=== PATIENT | female | born 1985 | race Caucasian/White ===

== ENCOUNTER 2019-08-10 09:14 | Emergency (ER) | payer BC, SELFPAY ==
[2019-08-10] VITALS (18 sets, daily range): BP systolic 107–147; BP diastolic 71–112; PULSE 71–116; RESP 7–23; TEMP 36.9; O2SAT 95–100
--- NOTE | ~2019-08-10 | XR_ITS ---
EXAMINATION: XR chest 2V EXAM DATE: 08/10/2019 09:42 INDICATION: Chest pain. Dizziness. Nausea vomiting. Low blood pressure. TECHNIQUE: Frontal and lateral projections of the chest obtained and reviewed. There is no prior rachel dy for comparison. FINDINGS: The lungs are clear. There are no pleural effusions. The cardiomediastinal silhouette is within normal limits. There is no pneumothorax suspected. The bones and soft tissues are unremarkab le. There are cholecystectomy clips. IMPRESSION: No acute cardiopulmonary findings. Reviewed, dictated and finalized at location B.
--- NOTE | 2019-08-10 09:16 | ECG_ITS ---
Measurements Intervals [place] Rate: 119 P: 32 WA: 167 QRS: -5 QRSD: 89 T: 24 QT: 359 QTc: 505 Interpretive Statements SINUS TACHYCARDIA DELAYED PRECORDIAL R/S TRANSITION BORDERLINE T WAVE ABNORMALITY- INFERIOR LEADS BASELINE ARTIFACT- I, II, III, AVR, AVL, AVF, V1-V2, V4-V5 ABNORMAL ECG Electronically Signed On 08-10-2019 9:27:54 CDT by Go Pérez D.O.
--- NOTE | 2019-08-10 09:25 | ED.CHESTPAIN ---
HPI - Chest Pain General Chief Complaint: Chest Pain Stated Complaint: CP, Dizziness Time Seen by Provider: 08/10/19 09:17 History of Present Illness HPI narrative: She has chest pain and a ALEXANDER all weaknend. The chest pain is moderate intensity. Feels like pressure in the middle of her chest. Associated with heart racing and mild shortness of breath. The ALEXANDER is bilateral without radiation. It was gradual in onset. This is not typical of her usual migraines. She was recently started on victoza. following that she had been having light headedness and labile blood pressure. She was then taken off of propranolol, which she had been taking for migraines. That is when she first noted the onset of her current symptoms. Related Data Home Medications Medication Instructions Recorded Confirmed alprazolam 0.25 mg tablet 0.25 mg PO TID 04/02/19 04/03/19 atorvastatin 20 mg tablet 20 mg PO DAILY 04/02/19 04/03/19 lansoprazole 30 mg capsule,delayed 30 mg PO DAILY 04/02/19 04/03/19 release tizanidine 4 mg capsule 4 mg PO Q6-8H PRN cap 04/02/19 04/03/19 tramadol 50 mg tablet 50 mg PO Q6H PRN 04/02/19 04/03/19 Allergies Allergy/AdvReac Type Severity Reaction Status Date / Time oxycodone Allergy Unknown THROAT Verified 08/05/19 09:03 SWELLING Penicillins Allergy Unknown UNKNOWN-WAS Verified 08/05/19 09:03 CHILD HYDROCODONE BIT Allergy Unknown THROAT Uncoded 08/05/19 09:03 SWELLING Review of Systems Review of Systems: All systems reviewed & are unremarkable except as noted in HPI and below Constitutional: Constitutional: Reports fatigue and Denies fever(s) Eyes: Eyes: Denies change in vision ENT: Denies sore throat Cardiovascular: Cardiovascular: Reports chest pain and Reports rapid heart rate Respiratory: Respiratory: Denies cough and Reports dyspnea Gastrointestinal: Gastrointestinal: Denies abdominal pain Genitourinary: Genitourinary: Denies nocturia and Denies dysuria Musculoskeletal: Musculoskeletal: Denies back pain Integumentary/Breasts: Skin/Breast: Reports system reviewed and no additional complaints, except as docu Neurologic: Reports dizziness, Denies syncope, Reports numbness (finger tips) and Denies weakness Psychiatric: Psychiatric: Reports anxiety Endocrine: Endocrine: Denies polydipsia and Denies polyuria Hematologic/Lymphatic: Hematologic/Lymphatic: Denies easy bleeding PMFSH Past Medical History Medical History Anxiety and depression Elevated cholesterol Fatty liver GERD without esophagitis Intermittent palpitations Irritable bowel syndrome with diarrhea Migraine, unspecified, not intractable, without status migrainosus Myalgia Other symptoms and signs involving emotional state PCOS (polycystic ovarian syndrome) Swelling of both hands Vitamin D deficiency Surgical History Surgical History History of abdominal surgery History of ankle surgery History of cholecystectomy History of colposcopy History of knee surgery Family History Family History Father Hypertension Mother Hypertension Other Cerebrovascular accident Social History Social History Smoking status: Never smoker Second hand tobacco smoke exposure: No Alcohol intake: never Gender identity (if verbalized by the patient): Female Exam Const: General: no acute distress and alert Orientation/consciousness: patient oriented x3 HENMT: Head: normal to inspection Eyes: Pupils: Equal, round and reactive pupils present Resp: Effort & Inspection: normal respiratory effort Auscultation: clear to auscultation bilaterally Cardio: Rate: tachycardic Rhythm: regular rhythm GI: Inspection: non-distended Other: Soft, NT Skin: General skin exam: normal color Neuro: General
[2019-08-10] MEDS: SODIUM CHLORIDE 0.9% IV 1,000 ML 999 ML IV CONT ×2 (09:41→11:13)
[2019-08-10] MEDS: METOCLOPRAMIDE HCL INJ 10 MG/2 ML VIAL IV PUSH (09:41)
[2019-08-10] MEDS: ASPIRIN 81 MG CHEWABLE TABLET 324 MG PO (09:43)
[2019-08-10 09:44] LABS: Basophils Percent Auto 0.5 % (0.2-1.2); Eosinophils Absolute Auto 0.1 K/mm3 (0-0.3); Eosinophils Percent Auto 1.5 % (0-4.4); Hematocrit 49.2 % (37.0-47.0); Immature Granulocyte Absolute 0.02 K/mm3 (0.00-0.031); Immature Granulocyte Percent A 0.3 % (0-0.5); Lymphocytes Absolute Auto 1.51 K/mm3 (0.9-3.2); Lymphocytes Percent Auto 20.2 % (18.3-44.2); Mean Corpuscular HGB Conc 32.5 g/dl (32-36); Mean Corpuscular Volume 89.3 fl (80-100); Mean Platelet Volume 10.5 fl (7.4-10.4); Monocytes Absolute Auto 0.5 K/mm3 (0.1-0.6); Monocytes Percent Auto 6.3 % (2.6-8.5); Neutrophils Absolute Auto 5.3 K/mm3 (1.3-6.7); Neutrophils Percent Auto 71.2 % (45.5-73.1); Platelet Count Result 363 k/mm3 (150-375); Red Blood Count 5.51 M/mm3 (4.2-5.4); Red Cell Distribution Width 12.9 % (11.5-14.5); White Blood Count 7.5 K/mm3 (4.5-10.0)
--- NOTE | 2019-08-10 09:49 | PC.NURSE ---
Pt states she has epigastric pain that started 2 days ago with n/v, ALEXANDER, tingling arms. Pt states two weeks ago she started having dizziness, tachycardiac, and hypotension and was told to stop propranolol. Pt is A&Ox4. Pt denies SOB or any other symptoms. Pt appears in NAD. Pt has call light in reach
[2019-08-10 09:56] LABS: Partial Thromboplastin Time 29.8 SECONDS (22.3-36.8); Prothrombin Time 12.5 Seconds (11.1-14.7)
[2019-08-10 09:58] LABS: Blood Urea Nitrogen 6 mg/dL (7-17); Calcium 9.3 mg/dL (8.4-10.2); Carbon Dioxide 28 mmol/L (22-30); Chloride 101 mmol/L (98-107); Estimated CRCL calculation 83 ml/min; Estimated Glomerular Filt Rate > 60; Glucose 126 mg/dL (65-105); Potassium 3.5 mmol/L (3.4-5.0); Sodium 138 mmol/L (137-145)
[2019-08-10 09:59] LABS: D Dimer 0.27 ug/mL (<0.48)
[2019-08-10 10:09] LABS: Troponin I < 0.012 ng/mL (0.000-0.034)
[2019-08-10 10:55] LABS: Add Urine Microscopic? NO; Appearance Urine Clear (Clear); Bilirubin Urine Negative (Negative); Blood Urine Negative (Negative); Color Urine Straw (Yellow); Glucose Urine UA Negative (Negative); Ketones Urine Negative (Negative); Leukocyte Esterase Ur Negative LEU/UL (Negative); Nitrate Urine Negative (Negative); Protein Urine Negative (Negative); Specific Grav Ur 1.008 (1.001-1.035); Urobilinogen Urine Negative mg/dL (<2.0)
[2019-08-10 11:06] LABS: Alanine Aminotransferase 55 U/L (4-35); Albumin Level 4.6 g/dL (3.5-5.1); Alkaline Phosphatase 140 U/L (38-126); Aspartate Amino Transferase 45 U/L (14-36); Bilirubin,Total 0.6 mg/dL (0.2-1.3)
[2019-08-10] MEDS: MECLIZINE HCL 25 MG TABLET PO (11:23)
[2019-08-10 12:46] LABS: Troponin I < 0.012 ng/mL (0.000-0.034)
== END 2019-08-10 14:15 | disposition home or self-care (01) ==
PROVIDERS: Emergency Provider Emergency Medicine; PCP Family Medicine
DX: R07.89 Other chest pain (principal); R51 Headache; F41.9 Anxiety disorder, unspecified; F32.9 Major depressive disorder, single episode, unspecified; E78.00 Pure hypercholesterolemia, unspecified; K21.9 Gastro-esophageal reflux disease without esophagitis; K58.0 Irritable bowel syndrome with diarrhea; E28.2 Polycystic ovarian syndrome; E55.9 Vitamin D deficiency, unspecified; R00.0 Tachycardia, unspecified; R94.31 Abnormal electrocardiogram [ECG] [EKG]
CPT/HCPCS: 36415; 71046; 80048; 80076; 81003; 84484; 85025; 85380; 85610; 85730; 93005; 96361; 96374; 99284; A9270; J2765; J7030

== ENCOUNTER 2019-08-19 08:13 | Outpatient (CLI) | payer BC, SELFPAY ==
--- NOTE | ~2019-08-19 | XR_ITS ---
XR UGIAC wo kub DATE: 08/19/2019 08:44 INDICATION: Chest, epigastric pain. Vomiting, acid reflux TECHNIQUE: Air-contrast upper gastrointestinal series 1.1 minutes fluoroscopy time 40.0 DAP 70 images COMPARISON: None FINDINGS: Surgical clips, right upper quadrant, consistent with cholecystectomy. There is normal deglutition and esophageal peristalsis. No stricture, mucosal fold thickening, erosio n, ulceration or intraluminal mass lesion of the esophagus or stomach is detected. Normal shape the duodenal bulb but there are two small ulcerations in the post bulbar area with assoc iated edema. IMPRESSION: 2 small post bulbar duodenal ulcers Reviewed, dictated and finalized at Location A. Reviewed, dictated and finalized at location A.
== END 2019-08-19 08:14 | disposition home or self-care (01) ==
LOC: ANHIMG 08:15
PROVIDERS: PCP Family Medicine; Visit Provider Family Medicine
DX: R07.89 Other chest pain (principal); K26.9 Duodenal ulcer, unspecified as acute or chronic, without hemorrhage or perforation
CPT/HCPCS: 74246

== ENCOUNTER 2019-08-27 07:46 | Outpatient (CLI) | payer BC, SELFPAY ==
--- NOTE | ~2019-08-27 | NM_ITS ---
EXAM: NM gastric emptying study DATE: 08/27/2019 12:39 INDICATION: Gastroesophageal reflux disease without esophagitis. TECHNIQUE: A gastric emptying study was performed using the methodology of Mert ALEXANDER, et al. J Nucl Med 2007; 48:568-572. The patient was given a meal consisting of 2 scrambled eggs labeled with 0.981 mCi Tc-99m sulfur colloid, 2 slices of toast, two packages of jam, and approximately 120 mL of water . Simultaneous anterior and posterior 1-min images of the abdomen were obtained with the patient supi ne at multiple time points over a total period of 4 hours. The geometric mean of anterior and posteri or views was determined, and the percentage retention was calculated for each time point. COMPARISON: CT abdomen and pelvis 09/03/2018, upper gastrointestinal series 08/19/2019 FINDINGS: Gastric retention of the radiotracer-labeled meal was 49%, 47%, and 42% at the 1-hour, 2-h our, and 4-hour time points, respectively. With this technique, apparent rapid gastric emptying is bowser ggested by <30% gastric retention at 1 hour. Delayed gastric emptying is defined by gastric retention of >90% at 1 hour, >60% retention at 2 hours, or >10% retention at 4 hours. IMPRESSION: 1. Delayed gastric emptying. Reviewed, dictated and finalized at location A.
== END 2019-08-27 07:47 | disposition home or self-care (01) ==
PROVIDERS: PCP Family Medicine; Visit Provider Family Medicine
DX: K21.9 Gastro-esophageal reflux disease without esophagitis (principal); R11.11 Vomiting without nausea; K30 Functional dyspepsia
CPT/HCPCS: 78264; A9541

== ENCOUNTER 2019-09-28 09:55 | Outpatient (CLI) | payer BC, SELFPAY ==
--- NOTE | ~2019-09-28 | US_ITS ---
US venous doppler [facility] DATE: 09/28/2019 10:41 INDICATION: Left lower leg pain TECHNIQUE: Real-time and color flow imaging and Doppler analysis of the veins of the lower extremitie s COMPARISON: None FINDINGS: There is vascular flow in the greater saphenous veins bilaterally. There is spontaneous and phasic flow and normal augmentation and color flow signal and normal compression of the deep veins o f both lower extremities. IMPRESSION: No evidence of deep venous thrombosis of the lower extremities Reviewed, dictated and finalized at Location A. Reviewed, dictated and finalized at location A.
== END 2019-09-28 09:56 | disposition home or self-care (01) ==
PROVIDERS: PCP Family Medicine; Visit Provider Physician Assistant Medical
DX: M79.662 Pain in left lower leg (principal)
CPT/HCPCS: 93970

== ENCOUNTER 2019-10-10 11:54 | Emergency (ER) | payer BC, SELFPAY ==
[2019-10-10 12:04] VITALS: PULSE 95; RESP 18; TEMP 36.9; O2SAT 97
--- NOTE | 2019-10-10 13:07 | ED.GENADULT ---
HPI - General Adult General Chief complaint: Unspecified Stated complaint: Swelling of Throat Time Seen by Provider: 10/10/19 12:04 Source: patient Mode of arrival: ambulatory Limitations: no limitations History of Present Illness HPI narrative: This patient is a 34 year old female who presents for evaluation of throat swelling since yesterday. She states she was intubated for a surgery on Saturday at [facility]. She was doing well until yesterday when she noticed swelling to her throat and she feels as if her uvula is hanging low. She also has pain with swallowing. She denies has no fever or chills. She report mild itching but no rash. Related Data Home Medications Medication Instructions Recorded Confirmed atorvastatin 20 mg tablet 20 mg PO DAILY 04/02/19 08/24/19 tizanidine 4 mg capsule 4 mg PO Q6-8H PRN cap 04/02/19 08/24/19 tramadol 50 mg tablet 50 mg PO Q6H PRN 04/02/19 08/24/19 lansoprazole 30 mg capsule,delayed 30 mg PO BID cap 08/24/19 08/24/19 release sucralfate 1 gram tablet 1 gm PO Q6H tablet 08/24/19 Allergies Allergy/AdvReac Type Severity Reaction Status Date / Time oxycodone Allergy Unknown THROAT Verified 09/28/19 08:32 SWELLING Penicillins Allergy Unknown UNKNOWN-WAS Verified 09/28/19 08:32 CHILD HYDROCODONE BIT Allergy Unknown THROAT Uncoded 09/28/19 08:32 SWELLING Review of Systems Review of Systems: All systems reviewed & are unremarkable except as noted in HPI and below Constitutional: Constitutional: Denies chills and Denies fever(s) ENT: Denies nasal congestion and Reports sore throat Respiratory: Respiratory: Denies dyspnea Gastrointestinal: Gastrointestinal: Denies nausea and Denies vomiting Allergic/Immunologic: Allergic/Immunologic: Denies lip swelling, Reports throat swelling and Denies wheezing PMFSH Past Medical History Medical History Anxiety and depression Elevated cholesterol Fatty liver GERD without esophagitis Intermittent palpitations Irritable bowel syndrome with diarrhea Migraine, unspecified, not intractable, without status migrainosus Myalgia Other symptoms and signs involving emotional state PCOS (polycystic ovarian syndrome) Swelling of both hands Vitamin D deficiency Vomiting Surgical History Surgical History History of abdominal surgery History of ankle surgery History of cholecystectomy History of colposcopy History of knee surgery Social History Social History Smoking status: Never smoker Second hand tobacco smoke exposure: No Alcohol intake: never Gender identity (if verbalized by the patient): Female Exam Const: General: no acute distress and alert Orientation/consciousness: patient oriented x3 HENMT: Head: normocephalic and atraumatic Ears: external ears normal and TM's normal bilaterally Face and sinus: face symmetric Mouth: Yes lip normal, Yes tongue normal, Yes moist mucous membranes and Yes Abnormal oral and palatal mucosa present ulceration (to uvula and soft palate with mild uvula edema erythema) Teeth and gingiva: dentition normal Throat: uvula midline Eyes: Pupils: Equal, round and reactive pupils present EOM: EOMs intact bilaterally Resp: Effort & Inspection: normal respiratory effort Cardio: Rate: regular rate Rhythm: regular rhythm Course Reevaluation(s) Reevaluation #1: I Discussed with patient this is most likely viral pharygitis. She will take ibuprofen for pain. She was given steroids. Date: 10/10/19 Time: 14:38 Vital Signs Vital signs: Vital Signs Temperature 98.5 F 10/10/19 12:04 Pulse Rate 95 10/10/19 12:04 Respiratory Rate 18 10/10/19 12:04 Pulse Oximetry 97 10/10/19 12:04 Temperature 98.5 F 10/10/19 12:04 Pulse Rate 80 10/10/19 14:51 Respiratory Rate 20 10/10/19 14:51 Blood Pressure
[2019-10-10 13:24] VITALS: BP 142/132; PULSE 91; RESP 20; O2SAT 96
[2019-10-10 14:28] LABS: Monoscreen Negative (Negative); Negative Monotest Control Negative (Negative); Positive Monotest Control Positive (Positive)
[2019-10-10 14:51] VITALS: BP 151/80; PULSE 80; RESP 20; O2SAT 99
== END 2019-10-10 14:53 | disposition home or self-care (01) ==
PROVIDERS: Emergency Provider General Practice; PCP Family Medicine
DX: J06.9 Acute upper respiratory infection, unspecified (principal)
CPT/HCPCS: 36415; 86308; 87081; 87880; 96372; 99284; J1100

== ENCOUNTER 2020-04-06 17:31 | Outpatient (CLI) | payer OTHER, SELFPAY ==
--- NOTE | ~2020-04-06 | XR_ITS ---
EXAMINATION: XR chest 2V DATE: 04/06/2020 17:49 INDICATION: Cough and shortness of breath TECHNIQUE: PA and lateral views of the chest are obtained. COMPARISON: 08/10/2019 FINDINGS: The lungs are free of acute opacities. There is no pleural effusion or pneumothorax. The ca rdiomediastinal silhouette is normal. The visualized bones and soft tissues are unremarkable. Cholecy stectomy clips are noted in the right upper quadrant. IMPRESSION: 1. No acute cardiopulmonary abnormality. Reviewed, dictated and finalized at location A. [facility]
== END 2020-04-06 17:32 | disposition home or self-care (01) ==
PROVIDERS: PCP Family Medicine; Visit Provider Nurse Practitioner Family
DX: Z90.49 Acquired absence of other specified parts of digestive tract (principal); R05 Cough
CPT/HCPCS: 71046

== ENCOUNTER 2020-09-18 14:48 | Emergency (ER) | payer BC, SELFPAY ==
--- NOTE | ~2020-09-18 | XR_ITS ---
EXAMINATION: XR wrist RT min 3V INDICATION: Right wrist pain TECHNIQUE: Four views of the right wrist are obtained. COMPARISON: None available FINDINGS: There is no fracture, dislocation, or subluxation. The bones, soft tissues, and joint space s are normal. IMPRESSION: 1. No acute osseous abnormality. Reviewed, dictated and finalized at location A.
--- NOTE | 2020-09-18 14:52 | ED.UPPEXIN ---
HPI - Extremity Injury (Upper) General Chief Complaint: Extremity Injury, Upper Stated Complaint: R WRIST INJURY Time Seen by Provider: 09/18/20 15:02 Source: patient and RN notes reviewed Mode of arrival: ambulatory Limitations: no limitations History of Present Illness HPI narrative: 35-year-old female presents with concern for right wrist injury and pain. Reports 4 days ago she was lifting a heavy suitcase when she felt a pop in her right wrist. She reports she has been using ibuprofen with little relief. Reports a dull ache at rest, pain with range of motion. She denies decreased strength, sensation in her hand, reports new tingling in digits 4 and 5 of the right hand. MD complaint: injury to: right and wrist Related Data Home Medications Medication Instructions Recorded Confirmed lansoprazole 30 mg capsule,delayed 30 mg PO BID cap 08/24/19 04/01/20 release atorvastatin 20 mg tablet 40 mg PO DAILY tablet 01/26/20 04/01/20 liraglutide [Victoza 3-Hernan] 0.6 mg SUBCUT DAILY 09/18/20 09/18/20 Allergies Allergy/AdvReac Type Severity Reaction Status Date / Time oxycodone Allergy Unknown THROAT Verified 09/18/20 14:54 SWELLING Penicillins Allergy Unknown UNKNOWN-WAS Verified 09/18/20 14:54 CHILD HYDROCODONE BIT Allergy Unknown THROAT Uncoded 09/18/20 14:54 SWELLING Review of Systems Review of Systems: Narrative: CONSTITUTIONAL: Denies malaise, chills, sweats, or fever. SKIN: Denies abrasions, lacerations, redness, bruising, swelling MUSCULOSKELETAL: Reports right wrist pain, tingling in digits 4 and 5 NEUROLOGIC: Denies numbness, weakness All systems reviewed & are unremarkable except as noted in HPI and below [facility] Past Medical History Medical History (Updated 09/18/20 @ 15:35 by Sudha Marte NP) Anxiety and depression BMI 36.0-36.9,adult COVID-19 Elevated cholesterol Fatty liver GERD without esophagitis Intermittent palpitations Irritable bowel syndrome with diarrhea Migraine, unspecified, not intractable, without status migrainosus Myalgia Other symptoms and signs involving emotional state PCOS (polycystic ovarian syndrome) Swelling of both hands Vitamin D deficiency Vomiting Surgical History Surgical History (Updated 04/01/20 @ 11:07 by Luz Elena Vázquez CMA) History of abdominal surgery History of ankle surgery History of cholecystectomy History of colposcopy History of endoscopy History of knee surgery Family History Family History Father Hypertension Mother Hypertension Other Cerebrovascular accident Social History Social History Smoking status: Never smoker Second hand tobacco smoke exposure: No Alcohol intake: never Gender identity (if verbalized by the patient): Female Comments At time of signature, agree with nursing past medical, surgical, social and family history. There is no relevant family history pertinent to the presenting complaint Exam Narrative: Exam Narrative: GENERAL: Well-appearing, well-nourished, and in no acute distress. HEAD: Normocephalic, atraumatic. EYES: PERRLA, conjunctivae clear NECK: Supple. CHEST: Speaks in full sentences. No respiratory distress. HEART: Regular rate and rhythm. Normal and equal peripheral pulses. EXTREMITIES: Right wrist, right hand and digits have normal strength and sensation, normal range of motion. No edema or ecchymosis. 5/5 strength with flexion and extension. Normal sensation with sensitivity to light touch and pain. Lateral wrist point tenderness. No open wounds, no skin tenting, no devitalized tissue or atrophy, no trophic changes, no obvious deformity, alignment normal, nearby joints and structures intact. Distal pulses palpable and equal bilaterally, skin warm, dry, pink. Capillary refill less than 3 seconds. SKIN: Warm, dry, no rash. NEURO: Alert and oriented x3. PSYCH
[2020-09-18 14:53] VITALS: BP 139/61; PULSE 86; RESP 16; TEMP 36.9; O2SAT 100
== END 2020-09-18 15:38 | disposition home or self-care (01) ==
PROVIDERS: Emergency Provider Nurse Practitioner; PCP Family Medicine
DX: S69.91XA Unspecified injury of right wrist, hand and finger(s), initial encounter (principal); X50.0XXA Overexertion from strenuous movement or load, initial encounter; X50.9XXA Other and unspecified overexertion or strenuous movements or postures, initial encounter; Z86.16 Personal history of COVID-19; E78.00 Pure hypercholesterolemia, unspecified; K76.0 Fatty (change of) liver, not elsewhere classified; K21.9 Gastro-esophageal reflux disease without esophagitis; E28.2 Polycystic ovarian syndrome; F41.9 Anxiety disorder, unspecified; F32.9 Major depressive disorder, single episode, unspecified
CPT/HCPCS: 73110; 99213; G0463

== ENCOUNTER → 2021-04-15 10:50 | Outpatient (CLI) | payer BC, SELFPAY ==
--- NOTE | ~2021-04-15 | XR_ITS ---
XR abdomen/kub 1V 04/15/2021 12:22 Indication: Abdomen pain Procedure: KUB Comparison: 09/23/2018 Findings: There are lower pole stones in the left kidney. There are cholecystectomy clips. Bowel gas pattern nonobstructive. Moderate colonic fecal loading. There are pelvic phleboliths. No acute osseou s abnormality. Impression: 1: Left nephrolithiasis. Reviewed, dictated and finalized at location A. NG DOUBLE Impression: 1: Left nephrolithiasis.
== END ==
PROVIDERS: Visit Provider Nurse Practitioner Family
DX: R39.9 Unspecified symptoms and signs involving the genitourinary system (principal); N20.0 Calculus of kidney
CPT/HCPCS: 74018

== ENCOUNTER → 2021-06-05 13:55 | Outpatient (CLI) | payer BC, SELFPAY ==
--- NOTE | ~2021-06-05 | MR_ITS ---
EXAMINATION: MR brain/brain stem wo con DATE: 06/05/2021 15:02 INDICATION: Migraine headache, unspecified, not intractable. TECHNIQUE: Magnetic resonance imaging (MRI) of the brain and brainstem was performed without intraven ous contrast. Sequences included sagittal and axial T1-weighted FSE, axial diffusion-weighted FS EPI, axial T2*-weighted GRE, axial T2-weighted FLAIR Propeller, and axial T2-weighted Propeller. Apparent diffusion coefficient (ADC) maps were created. COMPARISON: None. FINDINGS: There is no intracranial hemorrhage, acute infarction, or abnormal intracranial mass lesion . The ventricles are normal in size. There is minimal mucosal thickening in the paranasal sinuses. Th e orbits are normal. The mastoid air cells are normal. IMPRESSION: 1. Normal brain. Reviewed, dictated and finalized at location E. LINER IMPRESSION: 1. Normal brain.
== END ==
PROVIDERS: PCP Family Medicine; Visit Provider Nurse Practitioner Family
DX: G43.909 Migraine, unspecified, not intractable, without status migrainosus (principal); H53.9 Unspecified visual disturbance
CPT/HCPCS: 70551

== ENCOUNTER 2022-03-05 17:44 | Emergency (ER) | payer BC, SELFPAY ==
[2022-03-05 17:58] VITALS: BP 125/64; PULSE 100; RESP 16; TEMP 36.3; O2SAT 99
--- NOTE | 2022-03-05 18:27 | ED.ABDPAIN ---
HPI - Abdominal Pain General Chief Complaint: Abdominal Pain Stated Complaint: Right Side Abdominal Pain/Vomiting Time Seen by Provider: 03/05/22 18:27 Source: patient, RN notes reviewed and old records reviewed Mode of arrival: ambulatory Limitations: no limitations History of Present Illness HPI narrative: 36-year-old female presents to to the [facility] with right-sided abdominal pain and vomiting that has gradually been getting worse since Saturday or Saturday. Denies fevers. Recently diagnosed with ovarian cancer. Patient is prediabetic. Denies any urinary symptoms. History of cholecystectomy Related Data Home Medications Medication Instructions Recorded Confirmed lansoprazole 30 mg capsule,delayed 30 mg PO BID 08/24/19 03/05/22 release (Prevacid) atorvastatin 20 mg tablet (Lipitor) 40 mg PO DAILY 01/26/20 03/05/22 phentermine 15 mg capsule 15 mg PO DAILY 10/17/21 03/05/22 spironolactone 100 mg tablet 100 mg PO DAILY 10/17/21 03/05/22 Allergies Allergy/AdvReac Type Severity Reaction Status Date / Time oxycodone Allergy Unknown THROAT Verified 03/05/22 18:02 SWELLING Penicillins Allergy Unknown UNKNOWN-WAS Verified 03/05/22 18:02 CHILD HYDROCODONE BIT Allergy Unknown THROAT Uncoded 03/05/22 18:02 SWELLING Review of Systems Review of Systems: All systems reviewed & are unremarkable except as noted in HPI and below Constitutional: Constitutional: Reports no additional constitutional complaints, Denies chills and Denies fever(s) Eyes: Eyes: Reports no additional eye complaints ENT: Reports system reviewed and no additional complaints, except as documented Cardiovascular: Cardiovascular: Reports no additional cardiovascular complaints Respiratory: Respiratory: Reports no additional respiratory complaints Gastrointestinal: Gastrointestinal: Reports as per HPI, Reports abdominal pain, Denies heartburn, Denies diarrhea, Reports nausea and Reports vomiting Musculoskeletal: Musculoskeletal: Reports no additional musculoskeletal complaints Integumentary/Breasts: Skin/Breast: Reports system reviewed and no additional complaints, except as docu Neurologic: Reports system reviewed and no additional complaints, except as documented Psychiatric: Psychiatric: Reports no additional psychiatric complaints Allergic/Immunologic: Allergic/Immunologic: Reports no additional allergic/immunologic complaints PMFSH Past Medical History Medical History Anxiety and depression BMI 36.0-36.9,adult BMI 37.0-37.9, adult BMI 39.0-39.9,adult COVID-19 Elevated cholesterol Fatty liver GERD without esophagitis Intermittent palpitations Irritable bowel syndrome with diarrhea Migraine, unspecified, not intractable, without status migrainosus Myalgia Other symptoms and signs involving emotional state PCOS (polycystic ovarian syndrome) Swelling of both hands Vitamin D deficiency Vomiting Surgical History Surgical History History of abdominal surgery History of ankle surgery History of cholecystectomy History of colposcopy History of endoscopy History of knee surgery Family History Family History Father Hypertension Mother Hypertension Sibling COVID Other Cerebrovascular accident Social History Social History Smoking status: Never smoker Second hand tobacco smoke exposure: No Alcohol intake: never Substance use: never Substance use type: does not use 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
== END 2022-03-05 18:38 | disposition short-term general hospital (02) ==
LOC: EXPCOLL 17:46
PROVIDERS: Emergency Provider Nurse Practitioner; PCP Family Medicine
DX: R10.9 Unspecified abdominal pain (principal); C56.9 Malignant neoplasm of unspecified ovary; E78.00 Pure hypercholesterolemia, unspecified; K76.0 Fatty (change of) liver, not elsewhere classified; K21.9 Gastro-esophageal reflux disease without esophagitis; E28.2 Polycystic ovarian syndrome; R73.03 Prediabetes; F41.9 Anxiety disorder, unspecified; F32.A Depression, unspecified
CPT/HCPCS: 99212; G0463

== ENCOUNTER 2022-03-05 19:00 | Emergency (ER) | payer BC, SELFPAY ==
[2022-03-05 19:35] VITALS: BP 129/85; PULSE 99; RESP 14; TEMP 36.5; O2SAT 100
[2022-03-05 20:02] LABS: Basophils Absolute Auto 0.1 K/mm3 (0.0-0.1); Basophils Percent Auto 0.6 % (0.2-1.2); Eosinophils Absolute Auto 0.2 K/mm3 (0-0.3); Eosinophils Percent Auto 1.3 % (0-4.4); Hematocrit 41.1 % (37.0-47.0); Hemoglobin 13.1 g/dL (12.0-15.0); Immature Granulocyte Absolute 0.13 K/mm3 (0.00-0.031); Lymphocytes Absolute Auto 2.27 K/mm3 (0.9-3.2); Lymphocytes Percent Auto 16.9 % (18.3-44.2); Mean Corpuscular HGB Conc 31.9 g/dl (32-36); Mean Corpuscular Hemoglobin 28.3 pg (26-34); Mean Corpuscular Volume 88.8 fl (80-100); Mean Platelet Volume 9.2 fl (7.4-10.4); Monocytes Percent Auto 7.3 % (2.6-8.5); Neutrophils Absolute Auto 9.8 K/mm3 (1.3-6.7); Neutrophils Percent Auto 72.9 % (45.5-73.1); Platelet Count Result 452 k/mm3 (150-375); Red Blood Count 4.63 M/mm3 (4.2-5.4); Red Cell Distribution Width 13.1 % (11.5-14.5); White Blood Count 13.5 K/mm3 (4.5-10.0)
[2022-03-05 20:04] LABS: Appearance Urine Clear (Clear); Bilirubin Urine Negative (Negative); Blood Urine Trace-intact (Negative); Color Urine Yellow (Yellow); Glucose Urine UA Negative (Negative); Ketones Urine Negative (Negative); Leukocyte Esterase Ur Trace LEU/UL (Negative); Nitrate Urine Negative (Negative); Protein Urine Negative (Negative); Specific Grav Ur 1.015 (1.001-1.035); Urobilinogen Urine 0.2 mg/dL (<2.0); pH Urine 6.5 (5.0-9.0)
[2022-03-05 20:09] LABS: Bacteria Urine 2+ /hpf; Mucus Urine Rare /lpf; RBC Urine 0-2 /hpf (0-2); Squamous Epithelial Cell Urine Occasional /hpf (Few); WBC Urine 0-3 /hpf
[2022-03-05 20:12] LABS: Add Urine Microscopic? YES
[2022-03-05 20:29] LABS: Alanine Aminotransferase 39 U/L (6-35); Albumin Level 4.7 g/dL (3.5-5.1); Alkaline Phosphatase 131 U/L (38-126); Anion Gap 16 mmol/L (8-16); Aspartate Amino Transferase 32 U/L (14-36); Bilirubin,Total 0.3 mg/dL (0.2-1.3); Blood Urea Nitrogen 10 mg/dL (7-17); Calcium 9.4 mg/dL (8.4-10.2); Carbon Dioxide 29 mmol/L (22-30); Chloride 95 mmol/L (98-107); Estimated CRCL calculation 69 ml/min; Estimated Glomerular Filt Rate 56; Glucose 100 mg/dL (65-110); Lipase 83 U/L (23-300); Potassium 4.1 mmol/L (3.4-5.0); Sodium 140 mmol/L (137-145)
--- NOTE | 2022-03-05 21:35 | PC.NURSE ---
left at 2020. will return if symptoms change or worsen
== END 2022-03-05 21:35 | disposition left against medical advice (07) ==
LOC: ANHED 22:22
PROVIDERS: Emergency Provider Emergency Medicine; PCP Family Medicine
DX: R11.2 Nausea with vomiting, unspecified (principal)
CPT/HCPCS: 36415; 80053; 81001; 81025; 83690; 85025; 99199

== ENCOUNTER 2022-03-14 12:41 | Emergency (ER) | payer BC, SELFPAY ==
[2022-03-14] VITALS (7 sets, daily range): BP systolic 121–143; BP diastolic 69–90; PULSE 76–95; RESP 18; TEMP 36.4; O2SAT 99–100
--- NOTE | ~2022-03-14 | CT_ITS ---
EXAMINATION: CTA chest PE protocol DATE: 03/14/2022 17:14 INDICATION: Right chest, upper abdominal pain with deep inspiration. Positive d-dimer. TECHNIQUE: Computed tomography angiography (CTA) of the chest was performed with 100 mL Omnipaque-350 intravenous contrast timed to evaluate the pulmonary arteries. Coronal maximum intensity projection 3D-reconstructions were created by the technologist. Automated exposure control and iterative reconst ruction technique were employed. Exam dose: 917.68 mGy-cm total exam DLP. COMPARISON: 04/06/2020 PA and lateral chest FINDINGS: There is diagnostic contrast enhancement of the pulmonary arteries No thoracic aortic aneurysm or dissection. Normal heart size. No pericardial or pleural effusion. No hilar or mediastinal mass lesion or lymphadenopathy. Normal morphology of the adrenal glands. Status post cholecystectomy. IMPRESSION: No evidence of pulmonary embolism Reviewed, dictated and finalized at [facility]. Reviewed, dictated and finalized at location [facility]. 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
--- NOTE | ~2022-03-14 | CT_ITS ---
EXAMINATION: CT abdomen pelvis w con INDICATION: Right-sided abdominal pain TECHNIQUE: Computed tomographic images of the abdomen and pelvis were obtained after the administrati on of 100 cc of Omnipaque 350 intravenous contrast. The dose-length product (DLP) was 1560.56 mGy-cm. Automated exposure control and iterative reconstruction technique were employed. COMPARISON: 09/03/2018 FINDINGS: Minimal dependent atelectasis is present in the lung bases. The heart size is normal. The g allbladder is surgically absent. The liver, spleen, pancreas, and adrenal glands are normal. There is any millimeters cyst of the right kidney. A 2 mm nonobstructing stone is present in the right mid ki dney. There are nonobstructing stones of the left kidney lower pole measuring 4 mm and 2 mm. No patho logically enlarged abdominal or pelvic lymph nodes are identified. There is no free intraperitoneal g as or evidence of bowel obstruction. There is mild inflammatory change surrounding small bowel loops of the left mid abdomen. The appendix is normal. There appears to be a 3.8 cm cyst with septation of the right ovary. There is moderate lumbar spondylosis. IMPRESSION: 1. Mild inflammatory change trying small bowel loops of the left midabdomen which could reflect enter itis. 2. Bilateral nonobstructing nephrolithiasis. Reviewed, dictated and finalized at location [facility]. 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 Mild inflammatory change trying small bowel loops of the left midabdomen whi ch could reflect enteritis. 2. Bilateral nonobstructing nephrolithiasis.
[2022-03-14 13:16] LABS: Basophils Absolute Auto 0.1 K/mm3 (0.0-0.1); Basophils Percent Auto 0.6 % (0.2-1.2); Eosinophils Absolute Auto 0.1 K/mm3 (0-0.3); Eosinophils Percent Auto 0.9 % (0-4.4); Hematocrit 37.6 % (37.0-47.0); Hemoglobin 12.2 g/dL (12.0-15.0); Immature Granulocyte Absolute 0.13 K/mm3 (0.00-0.031); Immature Granulocyte Percent A 1.1 % (0-0.5); Lymphocytes Absolute Auto 1.75 K/mm3 (0.9-3.2); Lymphocytes Percent Auto 14.5 % (18.3-44.2); Mean Corpuscular HGB Conc 32.4 g/dl (32-36); Mean Corpuscular Hemoglobin 27.8 pg (26-34); Mean Corpuscular Volume 85.6 fl (80-100); Mean Platelet Volume 9.1 fl (7.4-10.4); Monocytes Absolute Auto 0.7 K/mm3 (0.1-0.6); Monocytes Percent Auto 5.7 % (2.6-8.5); Neutrophils Absolute Auto 9.3 K/mm3 (1.3-6.7); Neutrophils Percent Auto 77.2 % (45.5-73.1); Platelet Count Result 475 k/mm3 (150-375); Red Blood Count 4.39 M/mm3 (4.2-5.4); Red Cell Distribution Width 12.9 % (11.5-14.5)
[2022-03-14 13:20] LABS: Alanine Aminotransferase 34 U/L (6-35); Albumin Level 4.4 g/dL (3.5-5.1); Alkaline Phosphatase 132 U/L (38-126); Anion Gap 12 mmol/L (8-16); Aspartate Amino Transferase 31 U/L (14-36); Bilirubin,Total 0.4 mg/dL (0.2-1.3); Blood Urea Nitrogen 8 mg/dL (7-17); Carbon Dioxide 26 mmol/L (22-30); Chloride 100 mmol/L (98-107); Estimated CRCL calculation 93 ml/min; Estimated Glomerular Filt Rate > 60; Glucose 114 mg/dL (65-110); Lipase 67 U/L (23-300); Potassium 4.1 mmol/L (3.4-5.0); Sodium 138 mmol/L (137-145)
[2022-03-14 14:34] LABS: Appearance Urine Clear (Clear); Bilirubin Urine Negative (Negative); Blood Urine Negative (Negative); Color Urine Yellow (Yellow); Glucose Urine UA Negative (Negative); Ketones Urine Negative (Negative); Leukocyte Esterase Ur Negative LEU/UL (Negative); Nitrate Urine Negative (Negative); Protein Urine Negative (Negative); Specific Grav Ur 1.015 (1.001-1.035); Urobilinogen Urine 0.2 mg/dL (<2.0)
[2022-03-14 14:46] LABS: Add Urine Microscopic? NO; Bacteria Urine Trace /hpf; Mucus Urine Rare /lpf; RBC Urine 0-2 /hpf (0-2); Squamous Epithelial Cell Urine Occasional /hpf (Few); WBC Urine 0-3 /hpf
--- NOTE | 2022-03-14 14:53 | ED.ABDPAIN ---
HPI - Abdominal Pain General Chief Complaint: Abdominal Pain Stated Complaint: abd pain Time Seen by Provider: 03/14/22 13:59 Source: patient Mode of arrival: ambulatory Limitations: no limitations History of Present Illness HPI narrative: Patient is a 36-year-old female who presents the ED with report of right-sided abdominal pain. Patient reports having intermittent pain for the last several weeks in her right upper and lower abdomen. She has also had intermittent nausea and vomiting associated with the pain. She does see a GI doctor with [facility]. Last night, pain became worse in her right upper abdomen. She notes history of previous cholecystectomy. Pain radiates around to mid back, worse with any type of movement and taking deep breaths. She denies shortness of breath, chest pain. She has not taken anything for the pain today. Denies diarrhea, constipation, rectal bleeding, fever, dysuria, hematuria. Related Data Home Medications Medication Instructions Recorded Confirmed lansoprazole 30 mg capsule,delayed 30 mg PO BID 08/24/19 03/05/22 release (Prevacid) atorvastatin 20 mg tablet (Lipitor) 40 mg PO DAILY 01/26/20 03/05/22 phentermine 15 mg capsule 15 mg PO DAILY 10/17/21 03/05/22 spironolactone 100 mg tablet 100 mg PO DAILY 10/17/21 03/05/22 Allergies Allergy/AdvReac Type Severity Reaction Status Date / Time oxycodone Allergy Unknown THROAT Verified 03/14/22 12:57 SWELLING Penicillins Allergy Unknown UNKNOWN-WAS Verified 03/14/22 12:57 CHILD HYDROCODONE BIT Allergy Unknown THROAT Uncoded 03/05/22 18:02 SWELLING Review of Systems Review of Systems: CONSTITUTIONAL: Denies fever, chills, or sweats. CARDIOVASCULAR: Denies chest pain. RESPIRATORY: Denies dyspnea. GASTROINTESTINAL: Reports right-sided abdominal pain, nausea, vomiting. Denies constipation, rectal bleeding, or diarrhea. GENITOURINARY: Denies dysuria or hematuria. MUSCULOSKELETAL: Reports R sided back pain from ABD pain. All systems reviewed & are unremarkable except as noted in HPI and below PMFSH Past Medical History Medical History Anxiety and depression BMI 36.0-36.9,adult BMI 37.0-37.9, adult BMI 39.0-39.9,adult COVID-19 Elevated cholesterol Fatty liver GERD without esophagitis Intermittent palpitations Irritable bowel syndrome with diarrhea Migraine, unspecified, not intractable, without status migrainosus Myalgia Other symptoms and signs involving emotional state PCOS (polycystic ovarian syndrome) Swelling of both hands Vitamin D deficiency Vomiting Surgical History Surgical History History of abdominal surgery History of ankle surgery History of cholecystectomy History of colposcopy History of endoscopy History of knee surgery Family History Family History Father Hypertension Mother Hypertension Sibling COVID Other Cerebrovascular accident Social History Social History Smoking status: Never smoker Second hand tobacco smoke exposure: No Alcohol intake: never Substance use: never Substance use type: does not use 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 HEAD: Normocephalic, atraumatic. NECK: Supple. No adenopathy, no masses. RESPIRATORY: Airway patent, respirations nonlabored. Clear to auscultation bilaterally, no rales, rhonchi, wheezing. CARDIOVASCULAR: Regular rate and rhythm without murmurs, rubs, or gallops. Radial pulses 2+ and equal bilateral
[2022-03-14] MEDS: SODIUM CHLORIDE 0.9% IV 1,000 ML 999 ML IV CONT (14:58)
[2022-03-14] MEDS: ONDANSETRON INJ 4 MG/2 ML VIAL IV PUSH (14:59)
[2022-03-14 16:17] LABS: D Dimer 1.71 ug/mL (<0.48)
== END 2022-03-14 19:10 | disposition home or self-care (01) ==
PROVIDERS: Physician Assistant; Emergency Provider Emergency Medicine; PCP Family Medicine
DX: K52.9 Noninfective gastroenteritis and colitis, unspecified (principal); F41.9 Anxiety disorder, unspecified; F32.9 Major depressive disorder, single episode, unspecified; E78.5 Hyperlipidemia, unspecified; K21.9 Gastro-esophageal reflux disease without esophagitis
CPT/HCPCS: 36415; 71275; 74177; 80053; 81003; 81025; 83690; 85025; 85380; 96365; 96375; 99284; J0131; J2405; J7030; Q9967

== ENCOUNTER 2022-06-06 15:27 | Outpatient (CLI) | payer BC, SELFPAY ==
--- NOTE | ~2022-06-06 | US_ITS ---
EXAMINATION: US venous doppler [facility] DATE: 06/06/2022 15:55 INDICATION: Left lower limb pain. TECHNIQUE: Grayscale ultrasound images without and with compression and Doppler ultrasound images of the bilateral lower extremity veins were obtained. COMPARISON: Ultrasound 09/28/2019 FINDINGS: The visualized portions of right common femoral vein, profunda (deep) femoral vein, femoral vein, pop liteal vein, peroneal veins, posterior tibial veins, and greater saphenous vein outflow are patent. The visualized portions of left common femoral vein, profunda femoral vein, femoral vein, popliteal v ein, peroneal veins, posterior tibial veins, and greater saphenous vein outflow are patent. IMPRESSION: 1. No deep venous thrombosis. Reviewed, dictated and finalized at location [facility]. 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
== END 2022-06-06 15:28 | disposition home or self-care (01) ==
PROVIDERS: PCP Family Medicine; Visit Provider Physician Assistant Medical
DX: M79.662 Pain in left lower leg (principal)
CPT/HCPCS: 93970

== ENCOUNTER 2024-02-02 09:28 | Outpatient (CLI) | payer BC, SELFPAY ==
--- NOTE | ~2024-02-02 | MR_ITS ---
EXAMINATION: MR brain/brain stem wo con DATE: 02/02/2024 10:41 INDICATION: G43.909 - Migraine, unspecified, not intractable, without... TECHNIQUE: Magnetic resonance imaging (MRI) of the brain and brainstem was performed without intraven ous contrast. Sequences included sagittal and axial T1-weighted SE, axial diffusion-weighted FS EPI A SSET, axial T2*-weighted GRE, axial T2-weighted FLAIR Propeller, and axial T2-weighted Propeller. Álvaro arent diffusion coefficient (ADC) maps were created. COMPARISON: None. FINDINGS: No abnormal restricted diffusion to suggest acute ischemic infarct. No MRI evidence of hemorrhage or extra-axial collection. No suspicious foci of susceptibility to suggest prior intraparenchymal hemorr emily. Normal white matter signal. No evidence of advanced or lobar predominant parenchymal volume los s. The basilar cisterns are patent. Flow voids are preserved. Paranasal sinuses are within normal cárdenas its. Globes and orbital contents are within normal limits. IMPRESSION: Normal MR brain findings Reviewed, dictated and finalized at location [facility]. IMPRESSION: Normal MR brain findings
== END 2024-02-02 09:29 | disposition home or self-care (01) ==
LOC: ANHIMG 09:31
PROVIDERS: PCP Family Medicine; Visit Provider Nurse Practitioner Family
DX: G43.909 Migraine, unspecified, not intractable, without status migrainosus (principal)
CPT/HCPCS: 70551

== ENCOUNTER 2024-03-06 21:20 | Emergency (ER) | payer BC, SELFPAY ==
[2024-03-06 21:21] VITALS: BP 138/92; PULSE 104; RESP 15; TEMP 36.3; O2SAT 98
[2024-03-06 21:35] LABS: Basophils Absolute Auto 0.1 K/mm3 (0.0-0.1); Basophils Percent Auto 0.4 % (0.2-1.2); Eosinophils Absolute Auto 0.3 K/mm3 (0-0.3); Eosinophils Percent Auto 1.8 % (0-4.4); Hematocrit 42.8 % (37.0-47.0); Hemoglobin 13.5 g/dL (12.0-15.0); Immature Granulocyte Absolute 0.24 K/mm3 (0.00-0.031); Immature Granulocyte Percent A 1.5 % (0-0.5); Lymphocytes Absolute Auto 3.68 K/mm3 (0.9-3.2); Lymphocytes Percent Auto 22.6 % (18.3-44.2); Mean Corpuscular HGB Conc 31.5 g/dl (32-36); Mean Corpuscular Hemoglobin 27.1 pg (26-34); Mean Corpuscular Volume 85.9 fl (80-100); Mean Platelet Volume 9.4 fl (7.4-10.4); Monocytes Absolute Auto 1.3 K/mm3 (0.1-0.6); Neutrophils Absolute Auto 10.7 K/mm3 (1.3-6.7); Neutrophils Percent Auto 65.7 % (45.5-73.1); Platelet Count Result 409 k/mm3 (150-375); Red Blood Count 4.98 M/mm3 (4.2-5.4); Red Cell Distribution Width 13.9 % (11.5-14.5); White Blood Count 16.3 K/mm3 (4.5-10.0)
[2024-03-06 21:44] LABS: Alanine Aminotransferase 48 U/L (6-35); Albumin Level 4.3 g/dL (3.5-5.1); Alkaline Phosphatase 90 U/L (38-126); Anion Gap 12 mmol/L (4-12); Aspartate Amino Transferase 42 U/L (14-36); Bilirubin,Total 0.4 mg/dL (0.2-1.3); Blood Urea Nitrogen 12 mg/dL (7-17); Calcium 9.4 mg/dL (8.4-10.2); Carbon Dioxide 24 mmol/L (22-30); Chloride 102 mmol/L (98-107); Estimated CRCL calculation 111 ml/min; Estimated Glomerular Filt Rate > 60; Glucose 126 mg/dL (65-110); Potassium 3.9 mmol/L (3.4-5.0); Sodium 138 mmol/L (137-145)
[2024-03-06 21:48] LABS: Prothrombin Time 13.2 Seconds (11.1-14.7)
[2024-03-06 21:49] LABS: Partial Thromboplastin Time 25.2 Seconds (22.3-36.8)
[2024-03-06 21:53] LABS: D Dimer 0.56 ug/mL (<0.48)
[2024-03-06 23:36] VITALS: BP 157/90; PULSE 100; RESP 15; O2SAT 100
[2024-03-07 01:07] VITALS: BP 136/69; PULSE 98; RESP 16; O2SAT 100
--- NOTE | 2024-03-07 01:13 | ED_ITS ---
HPI - Extremity Problem General Chief complaint: Extremity Problem,Nontraumatic Stated complaint: left elbow pain, post procedure Time Seen by Provider: 03/07/24 00:52 Source: patient Mode of arrival: ambulatory Limitations: no limitations History of Present Illness HPI Narrative: Patient is a 38-year-old female who presents the ED with report of redness, pain, swelling to left upper arm. Patient reports she underwent hysterectomy at the end of January and had an IV placed in her left arm. She then was seen in the ED on 02/26 for allergic reaction and again had an IV in her left arm. Since then, she has noticed increased pain, swelling, redness, warmth to her left upper arm, medially and distally. She has noticed an area of firmness within the redness. Denies fevers. Denies chest pain or shortness of breath. Is currently on estrogen supplementation status post hysterectomy. Denies previous history of blood clots. Related Data Home Medications Medication Instructions Recorded Confirmed atorvastatin 20 mg tablet (Lipitor) 40 mg PO DAILY 01/26/20 03/06/24 spironolactone 100 mg tablet 100 mg PO DAILY 10/17/21 03/06/24 esomeprazole magnesium 20 mg 20 mg PO DAILY 06/05/22 03/06/24 capsule,delayed release (Nexium) empagliflozin 10 mg tablet 10 mg PO DAILY 12/04/23 03/06/24 (Jardiance) estradiol 2 mg tablet 2 mg PO DAILY 03/06/24 03/06/24 Allergies Allergy/AdvReac Type Severity Reaction Status Date / Time chlorhexidine Allergy Severe Anaphylaxis Verified 03/06/24 23:38 hydrocodone Allergy Mild Anaphylaxis Verified 03/06/24 23:38 oxycodone Allergy Unknown THROAT Verified 03/06/24 23:38 SWELLING Penicillins Allergy Unknown UNKNOWN-WAS Verified 03/06/24 23:38 CHILD Review of Systems Review of Systems: All systems reviewed & are unremarkable except as noted in HPI. All systems reviewed & are unremarkable except as noted in HPI and below PMFSH Past Medical History Medical History Anxiety and depression BMI 40.0-44.9, adult BMI greater than 40 COVID-19 Elevated cholesterol Fatty liver GERD without esophagitis Hx of cervical cancer Early stage diagnosed 12/2021. IBS (irritable bowel syndrome) Intermittent palpitations Irritable bowel syndrome with diarrhea Migraine, unspecified, not intractable, without status migrainosus Myalgia Other symptoms and signs involving emotional state PCOS (polycystic ovarian syndrome) Pyloric stenosis Swelling of both hands Vitamin D deficiency Vomiting Surgical History Surgical History H/O: hysterectomy History of abdominal surgery History of ankle surgery History of cholecystectomy History of colposcopy History of endoscopy History of knee surgery Family History Family History Father Hypertension Mother Hypertension Sibling COVID Other Cerebrovascular accident Social History Social History Smoking status: Never smoker Second hand tobacco smoke exposure: No Alcohol intake: never Substance use: never Substance use type: does not use Lack of Transportation: No Lack of Food: Never True Concerned About Future Housing: No Difficulty Paying Gas/Electric Bills: No Difficulty Paying for Meds: No Currently Unemployed: No Education: Bachelor's Degree Difficulty w/ Childcare or Family Care: No Living arrangements: with family Occupation/Education: occupation 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 HEAD: Normocephalic, atraumatic. RESPIRATORY: Airway patent, respirations nonlabored. CARDIOVASCULAR: Regular rate and rhythm without murmurs, rubs, or gallops. Radial pulses intact. MUSCULOSKELETAL: Moves all extremities. No gross deformities. Erythema, mild swelling, focal tenderness to palpation located to distal left upper arm on medial surface. Mild warmth noted. Small area of induration noted within the exam is region. No focal fluctuance. No drainage. No pustular head. Skin integrity is intact, no sloughing of skin, blisters, necrosis. No pain with range of motion of left elbow. SKIN: Warm, dry, normal color. NEURO: A&O X3. Speech clear. Cranial nerves II-XII grossly intact. No ataxic movements. PSYCHIATRIC: Appropriate mood and affect. Normal interaction. Course Vital Signs Vital signs: Vital Signs Temperature 97.3 F L 03/06/24 21:21 Pulse Rate 104 H 03/06/24 21:21 Respiratory Rate 15 03/06/24 21:21 Blood Pressure 138/92 H 03/06/24 21:21 Pulse Oximetry 98 03/06/24 21:21 Oxygen Delivery Room Air 03/06/24 21:21 Temperature 97.3 F L 03/06/24 21:21 Pulse Rate 98 03/07/24 01:07 Respiratory Rate 16 03/07/24 01:07 Blood Pressure 136/69 03/07/24 01:07 Pulse Oximetry 100 03/07/24 01:07 Oxygen Delivery Room Air 03/06/24 21:21 MDM - Extremity (Nontraumatic) MDM Narrative Medical decision making narrative: Differential includes cellulitis versus superficial thrombophlebitis versus DVT. No focal fluctuance on exam. No significant bony tenderness or recent injury to suggest need for x-ray imaging. CBC is with white blood cell count of 16.3. As such, will cover for potential cellulitis with Keflex. Given 1st dose in the ED. D-dimer did result also mildly elevated to 0.56. Will set up patient for venous Doppler ultrasound of l eft upper extremity tomorrow morning (03/07). Given elevated D-dimer, patient given dose of Lovenox tonight. She denies any chest pain or shortness breath. No significant tachycardia or hypoxia noted tonight. Low suspicion for PE. She is neurovascularly intact. Patient advised to have close follow-up with PCP for further evaluation and ultrasound. She was given strict return precautions. Keflex prescription sent to pharmacy. Also discussed possibility of superficial thrombophlebitis and management of such. Patient in agreement with plan. Discharged in stable condition. Medical Records Attestation: I reviewed the patient's medical records. Lab Data Attestation: I reviewed the patient's lab results. 03/06/24 21:28 03/06/24 21:28 Labs: Lab Results 03/06/24 Range/Units 21:28 WBC 16.3 H (4.5-10.0) K/mm3 RBC 4.98 (4.2-5.4) M/mm3 Hgb 13.5 (12.0-15.0) g/dL Hct 42.8 (37.0-47.0) % MCV 85.9 (80-100) fl MCH 27.1 (26-34) pg MCHC 31.5 L (32-36) g/dl RDW 13.9 (11.5-14.5) % Plt Count 409 H (150-375) k/mm3 MPV 9.4 (7.4-10.4) fl Immature Gran % (Auto) 1.5 H (0-0.5) % Neut % (Auto) 65.7 (45.5-73.1) % Lymph % (Auto) 22.6 (18.3-44.2) % Mccone % (Auto) 8.0 (2.6-8.5) % Eos % (Auto) 1.8 (0-4.4) % Baso % (Auto) 0.4 (0.2-1.2) % Lymph # (Auto) 3.68 H (0.9-3.2) K/mm3 Mccone # (Auto) 1.3 H (0.1-0.6) K/mm3 Eos # (Auto) 0.3 (0-0.3) K/mm3 Baso # (Auto) 0.1 (0.0-0.1) K/mm3 Abs Immat Gran (auto) 0.24 H (0.00-0.031) K/mm3 Absolute Neuts (auto) 10.7 H (1.3-6.7) K/mm3 Absolute Nucleated RBC 0.000 (0.0-0.012) K/mm3 Nucleated RBC % 0.0 (0.0-0.2) % PT 13.2 (11.1-14.7) Seconds INR 1.0 APTT 25.2 (22.3-36.8) Seconds D-Dimer 0.56 H (<0.48) ug/mL Sodium 138 (137-145) mmol/L Potassium 3.9 (3.4-5.0) mmol/L Chloride 102 (98-107) mmol/L Carbon Dioxide 24 (22-30) mmol/L Anion Gap 12 (4-12) mmol/L BUN 12 (7-17) mg/dL Creatinine 0.70 (0.7-1.0) mg/dL Estim Creat Clear Calc 111 ml/min Estimated GFR > 60 (59 - ) Glucose 126 H (65-110) mg/dL Calcium 9.4 (8.4-10.2) mg/dL Total Bilirubin 0.4 (0.2-1.3) mg/dL AST 42 H (14-36) U/L ALT 48 H (6-35) U/L Alkaline Phosphatase 90 (38-126) U/L Total Protein 8.0 (6.3-8.2) g/dL Albumin 4.3 (3.5-5.1) g/dL Discharge Plan Discharge Clinical Impression: Cellulitis of left upper arm, Left upper extremity swelling, Elevated d-dimer Patient Disposition: Home, Self-Care Condition: Stable Instructions: Antibiotic Form, Cellulitis (ED), Superficial Thrombophlebitis (ED), Deep Vein Thrombosis (ED) Additional Instructions: Take antibiotics as prescribed for superficial skin infection. Recommend frequent warm compresses to area, continuing Tylenol/ibuprofen as needed for pain. You are set up for an ultrasound of your left arm this morning (03/07) at 7:30 AM at [facility]. Please arrive at least 10 minutes early. Take imaging order sheet with you. Follow-up with your primary care doctor or OBGYN for ultrasound results and further evaluation. Return to the ED if you experience worsening or severe symptoms, severe pain, severe swelling, chest pain, difficulty breathing, persistent fevers, or any other symptoms of concern. Prescriptions: New cephalexin 500 mg capsule 500 mg PO Q6H 7 Days Qty: 28 0RF No Action atorvastatin [Lipitor] 20 mg tablet 40 mg PO DAILY esomeprazole magnesium [Nexium] 20 mg capsule,delayed release(DR/EC) 20 mg PO DAILY tizanidine 4 mg capsule 4 mg PO BID PRN (Reason: muscle spasticity) Qty: 60 1RF mupirocin 2 % ointment 1 applic topical BID Qty: 15 0RF Jardiance 10 mg tablet 10 mg PO DAILY estradiol 2 mg tablet 2 mg PO DAILY prochlorperazine maleate [Compazine] 5 mg tablet 5 mg PO Q8H PRN (Reason: nausea and vomiting) Qty: 30 0RF spironolactone 100 mg tablet 100 mg PO DAILY acetaminophen-codeine 300-30 mg tablet 1 tablet PO Q6H PRN (Reason: pain) Qty: 90 0RF valacyclovir [Valtrex] 1 gram tablet 2,000 mg PO Q12H Qty: 4 3RF alprazolam 0.5 mg tablet 0.5 mg PO TID PRN (Reason: anxiety) Qty: 90 0RF Qulipta 60 mg tablet 60 mg PO DAILY Qty: 90 2RF escitalopram oxalate 20 mg tablet 20 mg PO DAILY Qty: 90 1RF meloxicam 15 mg tablet 15 mg PO DAILY Qty: 30 3RF Other Ambulatory Orders: US venous doppler UE LT (Routine) Timeframe: [id number] Location: Determined by Patient Ordered By: Sindi Salinas Follow-up/Referrals: Gennaro Boone MD [Primary Care Provider] - Time of Disposition: 01:15
[2024-03-07] MEDS: ENOXAPARIN 100 MG/ML SYRINGE SUB-Q (01:52)
[2024-03-07] MEDS: CEPHALEXIN 500 MG CAPSULE PO (01:53)
== END 2024-03-07 01:56 | disposition home or self-care (01) ==
LOC: ANHED 03-07 01:44
PROVIDERS: Preventive Medicine Aerospace Medicine; Emergency Provider Physician Assistant; PCP Family Medicine
DX: L03.114 Cellulitis of left upper limb (principal); R79.1 Abnormal coagulation profile; K21.9 Gastro-esophageal reflux disease without esophagitis; E55.9 Vitamin D deficiency, unspecified; F41.8 Other specified anxiety disorders; Z85.41 Personal history of malignant neoplasm of cervix uteri
CPT/HCPCS: 36415; 80053; 85025; 85380; 85610; 85730; 96372; 99283; A9270; J1650

== ENCOUNTER 2024-03-07 07:32 | Outpatient (CLI) | payer BC, SELFPAY ==
--- NOTE | ~2024-03-07 | US_ITS ---
EXAMINATION: US venous doppler UE DATE: 03/07/2024 08:12 INDICATION: Left upper limb pain. TECHNIQUE: Grayscale ultrasound images without and with compression and Doppler ultrasound images of the left upper extremity veins were obtained. COMPARISON: None. FINDINGS: The visualized portions of the left internal jugular vein, subclavian vein, brachial veins, cephalic vein, radial vein, and ulnar vein are patent. There is thrombus in the left axillary and basilic vein s. IMPRESSION: 1. Deep vein thrombosis involving left axillary vein. I called this result to the patient and advise d her to contact her physician right away for blood thinning medication. 2. Superficial vein thrombosis involving left basilic vein. Reviewed, dictated and finalized at location A. LSTERY TECH IMPRESSION: 1. Deep vein thrombosis involving left axillary vein. I called this result to the patient and advised her to contact her physician right away for blood thinn ing medication. 2. Superficial vein thrombosis involving left basilic vein.
== END 2024-03-07 07:33 | disposition home or self-care (01) ==
PROVIDERS: PCP Family Medicine; Visit Provider Physician Assistant
DX: I82.A12 Acute embolism and thrombosis of left axillary vein (principal); I82.612 Acute embolism and thrombosis of superficial veins of left upper extremity
CPT/HCPCS: 93971

== ENCOUNTER 2024-03-09 12:54 | Inpatient (IN) | payer BC, SELFPAY ==
[2024-03-09] VITALS (9 sets, daily range): BP systolic 134–156; BP diastolic 81–95; PULSE 92–97; RESP 18–20; TEMP 36.8–37; O2SAT 96–100; BMI 42.0; BMI 40.7
--- NOTE | ~2024-03-09 | US_ITS ---
EXAMINATION: US venous doppler [facility] DATE: 03/10/2024 09:57 INDICATION: Chest pain. Pulmonary embolus. TECHNIQUE: Grayscale ultrasound images without and with compression and Doppler ultrasound images of the bilateral lower extremity veins were obtained. COMPARISON: Ultrasound 06/06/2022 FINDINGS: The visualized portions of right common femoral vein, profunda (deep) femoral vein, femoral vein, pop liteal vein, peroneal veins, posterior tibial veins, and greater saphenous vein outflow are patent. The visualized portions of left common femoral vein, profunda femoral vein, femoral vein, popliteal v ein, peroneal veins, posterior tibial veins, and greater saphenous vein outflow are patent. IMPRESSION: 1. No deep venous thrombosis. Reviewed, dictated and finalized at location A. PRODUCTS INSPECTOR
--- NOTE | ~2024-03-09 | XR_ITS ---
EXAMINATION: XR chest 2V DATE: 03/09/2024 13:51 INDICATION: Chest pain. TECHNIQUE: Frontal and lateral views of the chest were obtained. COMPARISON: Chest 2 views 04/06/2020, chest CT 03/09/2024 FINDINGS: There is no pneumonia, pleural effusion, or pneumothorax. The heart size is normal. Surgica l clips in the right upper quadrant are likely from cholecystectomy. IMPRESSION: 1. No acute cardiopulmonary disease. Reviewed, dictated and finalized at location A. E REBUILDER
--- NOTE | ~2024-03-09 | CT_ITS ---
EXAMINATION: CTA chest PE protocol DATE: 03/09/2024 13:43 INDICATION: Chest pain and shortness of breath TECHNIQUE: Computed tomography (CT) pulmonary angiogram of the chest was performed with 100 mL Omnipa que-350 intravenous contrast. Additional 3D reconstructions utilizing coronal maximum intensity proje ction (MIP) were performed. Automated exposure control and iterative reconstruction technique were em ployed. The dose-length product was 919.08 mGy-cm. COMPARISON: None FINDINGS: There are filling defects within the left lower lobar pulmonary artery extending into several of the segmental and subsegmental pulmonary arteries as well as at the origin of the lingular pulmonary lindy ry. Additional pulmonary emboli in the anterior segmental pulmonary artery of the left upper lobe. Mi ld atelectasis at the inferomedial lingula and minimal dependent atelectasis in bilateral lower lobes . 4-5 mm nodule in the posterior segment of the right lower lobe. No pneumonia, pulmonary edema or pl eural effusion. Heart size is normal. No evident right heart strain. No pericardial effusion. Thoraci c aorta is normal in caliber. No pathologically enlarged thoracic lymphadenopathy. Cholecystectomy cl ips at the gallbladder fossa. Mild to moderate thoracic spondylosis. IMPRESSION: 1. Scattered pulmonary emboli in the left lung including the lingula and left upper and lower lobes w ith mild to moderate clot burden but without right heart strain. Reviewed, dictated and finalized at location B. OGICAL SCOUT IMPRESSION: 1. Scattered pulmonary emboli in the left lung including the lingula and left u pper and lower lobes with mild to moderate clot burden but without right heart strain.
--- NOTE | 2024-03-09 13:03 | ECG_ITS ---
Test Date: 2024-03-09 13:16:31 Measurements Intervals [place] Rate: 93 P: -2 [place]: 165 QRS: 6 QRSD: 82 T: -1 QT: 331 QTc: 413 Interpretive Statements SINUS RHYTHM DELAYED PRECORDIAL R/S TRANSITION CONSIDER INFERIOR INFARCT, AGE INDETERMINATE BORDERLINE T WAVE ABNORMALITY- ANTEROLATERAL LEADS BASELINE ARTIFACT- I, II, III, AVR, AVL, AVF, V1-V6 ABNORMAL ECG No previous ECG available for comparison Electronically Signed On 03-09-2024 13:51:12 ANATOMY AND PHYSIOLOGY INSTRUCTOR by Go Pérez D.O.
[2024-03-09 13:14] LABS: Basophils Absolute Auto 0.1 K/mm3 (0.0-0.1); Basophils Percent Auto 0.5 % (0.2-1.2); Eosinophils Absolute Auto 0.2 K/mm3 (0-0.3); Eosinophils Percent Auto 1.4 % (0-4.4); Hematocrit 41.5 % (37.0-47.0); Hemoglobin 13.3 g/dL (12.0-15.0); Immature Granulocyte Absolute 0.15 K/mm3 (0.00-0.031); Immature Granulocyte Percent A 1.1 % (0-0.5); Lymphocytes Absolute Auto 2.08 K/mm3 (0.9-3.2); Lymphocytes Percent Auto 15.3 % (18.3-44.2); Mean Corpuscular Hemoglobin 27.7 pg (26-34); Mean Corpuscular Volume 86.3 fl (80-100); Mean Platelet Volume 9.7 fl (7.4-10.4); Monocytes Absolute Auto 0.9 K/mm3 (0.1-0.6); Monocytes Percent Auto 6.8 % (2.6-8.5); Neutrophils Absolute Auto 10.2 K/mm3 (1.3-6.7); Neutrophils Percent Auto 74.9 % (45.5-73.1); Platelet Count Result 339 k/mm3 (150-375); Red Blood Count 4.81 M/mm3 (4.2-5.4); White Blood Count 13.6 K/mm3 (4.5-10.0)
[2024-03-09 13:24] LABS: Alanine Aminotransferase 72 U/L (6-35); Albumin Level 4.2 g/dL (3.5-5.1); Alkaline Phosphatase 94 U/L (38-126); Anion Gap 9 mmol/L (4-12); Aspartate Amino Transferase 90 U/L (14-36); Bilirubin,Total 0.3 mg/dL (0.2-1.3); Blood Urea Nitrogen 15 mg/dL (7-17); Calcium 9.1 mg/dL (8.4-10.2); Carbon Dioxide 27 mmol/L (22-30); Chloride 102 mmol/L (98-107); Estimated CRCL calculation 118 ml/min; Estimated Glomerular Filt Rate > 60; Glucose 142 mg/dL (65-110); Lipase 180 U/L (23-300); Potassium 4.4 mmol/L (3.4-5.0); Sodium 138 mmol/L (137-145)
[2024-03-09 13:26] LABS: INR 1.3; Partial Thromboplastin Time 29.9 Seconds (22.3-36.8); Prothrombin Time 16.7 Seconds (11.1-14.7)
[2024-03-09 13:35] LABS: Troponin I < 0.012 ng/mL (0.000-0.034)
--- NOTE | 2024-03-09 15:24 | ED_ITS ---
HPI - General Adult General Chief complaint: Chest Pain Stated complaint: chest pain Time Seen by Provider: 03/09/24 13:10 History of Present Illness HPI narrative: patient 38-year-old female who presents emergency department with chief complaint of chest pain and shortness of breath. The patient reports she was just diagnosed with DVT on Saturday was started on a anticoagulants reports he has been compliant with medication and reports today she started having chest pain and shortness of breath. The patient reports that no syncope reports that the pain is myic-sy-hlfiialf the patient reports no hypoxia denies severe shortness of breath. Related Data Home Medications Medication Instructions Recorded Confirmed atorvastatin 20 mg tablet (Lipitor) 40 mg PO DAILY 01/26/20 03/06/24 spironolactone 100 mg tablet 100 mg PO DAILY 10/17/21 03/06/24 esomeprazole magnesium 20 mg 20 mg PO DAILY 06/05/22 03/06/24 capsule,delayed release (Nexium) empagliflozin 10 mg tablet 10 mg PO DAILY 12/04/23 03/06/24 (Jardiance) estradiol 2 mg tablet 2 mg PO DAILY 03/06/24 03/06/24 Allergies Allergy/AdvReac Type Severity Reaction Status Date / Time chlorhexidine Allergy Severe Anaphylaxis Verified 03/06/24 23:38 hydrocodone Allergy Mild Anaphylaxis Verified 03/06/24 23:38 oxycodone Allergy Unknown THROAT Verified 03/06/24 23:38 SWELLING Penicillins Allergy Unknown UNKNOWN-WAS Verified 03/06/24 23:38 CHILD Review of Systems Review of Systems: A 10 system review of systems was completed on the patient and is negative except for what is stated in the HPI. Nursing and ancillary documentation was reviewed. [facility] Past Medical History Medical History (Updated 03/09/24 @ 15:27 by Miller Torrez MD) Anxiety and depression BMI 40.0-44.9, adult BMI greater than 40 Cellulitis of left upper arm COVID-19 Elevated cholesterol Fatty liver GERD without esophagitis Hx of cervical cancer Early stage diagnosed 12/2021. IBS (irritable bowel syndrome) Intermittent palpitations Irritable bowel syndrome with diarrhea Migraine, unspecified, not intractable, without status migrainosus Myalgia Other symptoms and signs involving emotional state PCOS (polycystic ovarian syndrome) Pyloric stenosis Swelling of both hands Vitamin D deficiency Vomiting Surgical History Surgical History H/O: hysterectomy History of abdominal surgery History of ankle surgery History of cholecystectomy History of colposcopy History of endoscopy History of knee surgery Family History Family History Father Hypertension Mother Hypertension Sibling COVID Other Cerebrovascular accident Social History Social History Smoking status: Never smoker Second hand tobacco smoke exposure: No Alcohol intake: never Substance use: never Substance use type: does not use Lack of Transportation: No Lack of Food: Never True Concerned About Future Housing: No Difficulty Paying Gas/Electric Bills: No Difficulty Paying for Meds: No Currently Unemployed: No Education: Bachelor's Degree Difficulty w/ Childcare or Family Care: No Living arrangements: with family Occupation/Education: occupation 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 HEAD: Normocephalic, atraumatic. EYES: PERRLA and EOMI. ENT: Nares clear, no rhinorrhea or epistaxis. Mucous membranes moist. NECK: Supple. CHEST: Clear to auscultation. No respiratory distress. HEART: Regular rate and rhythm. No murmur heard. Normal peripheral pulses. ABDOMEN: Soft, nontender, nondistended, normal active bowel sounds. EXTREMITIES: Normal range of motion. No edema. SKIN: Warm, dry, no rash. NEURO: No focal deficits. Alert and oriented x3. PSYCH: Normal mood and affect. Course Vital Signs Vital signs: Vital Signs Temperature 36.8 C 03/09/24 13:01 Pulse Rate 95 03/09/24 13:01 Respiratory Rate 18 03/09/24 13:01 Blood Pressure 156/95 H 03/09/24 13:01 Pulse Oximetry 96 03/09/24 13:01 Temperature 36.8 C 03/09/24 13:01 Pulse Rate 95 03/09/24 13:01 Respiratory Rate 18 03/09/24 13:01 Blood Pressure 156/95 H 03/09/24 13:01 Pulse Oximetry 96 03/09/24 13:01 Medical Decision Making MDM Narrative Medical decision making narrative: Differential diagnosis includes pneumonia, CHF, PE, ACS laboratory studies were obtained on the patient showed a negative troponin CT of the chest showed evidence of pulmonary emboli the patient was started on a heparin drip case was discussed with the hospitalist for admission. Vital Signs Vital Signs: Vital Signs Temperature 36.8 C 03/09/24 13:01 Pulse Rate 95 03/09/24 13:01 Respiratory Rate 18 03/09/24 13:01 Blood Pressure 156/95 H 03/09/24 13:01 Pulse Oximetry 96 03/09/24 13:01 Temperature 36.8 C 03/09/24 13:01 Pulse Rate 95 03/09/24 13:01 Respiratory Rate 18 03/09/24 13:01 Blood Pressure 156/95 H 03/09/24 13:01 Pulse Oximetry 96 03/09/24 13:01 Lab Data 03/09/24 13:09 03/09/24 13:09 Labs: Lab Results 03/09/24 03/09/24 Range/Units 13:08 13:09 WBC 13.6 H (4.5-10.0) K/mm3 RBC 4.81 (4.2-5.4) M/mm3 Hgb 13.3 (12.0-15.0) g/dL Hct 41.5 (37.0-47.0) % MCV 86.3 (80-100) fl MCH 27.7 (26-34) pg MCHC 32.0 (32-36) g/dl RDW 14.0 (11.5-14.5) % Plt Count 339 (150-375) k/mm3 MPV 9.7 (7.4-10.4) fl Immature Gran % (Auto) 1.1 H (0-0.5) % Neut % (Auto) 74.9 H (45.5-73.1) % Lymph % (Auto) 15.3 L (18.3-44.2) % [place] % (Auto) 6.8 (2.6-8.5) % Eos % (Auto) 1.4 (0-4.4) % Baso % (Auto) 0.5 (0.2-1.2) % Lymph # (Auto) 2.08 (0.9-3.2) K/mm3 [place] # (Auto) 0.9 H (0.1-0.6) K/mm3 Eos # (Auto) 0.2 (0-0.3) K/mm3 Baso # (Auto) 0.1 (0.0-0.1) K/mm3 Abs Immat Gran (auto) 0.15 H (0.00-0.031) K/mm3 Absolute Neuts (auto) 10.2 H (1.3-6.7) K/mm3 Absolute Nucleated RBC 0.000 (0.0-0.012) K/mm3 Nucleated RBC % 0.0 (0.0-0.2) % PT 16.7 H D (11.1-14.7) Seconds INR 1.3 APTT 29.9 (22.3-36.8) Seconds Sodium 138 (137-145) mmol/L Potassium 4.4 (3.4-5.0) mmol/L Chloride 102 (98-107) mmol/L Carbon Dioxide 27 (22-30) mmol/L Anion Gap 9 (4-12) mmol/L BUN 15 (7-17) mg/dL Creatinine 0.60 L (0.7-1.0) mg/dL Estim Creat Clear Calc 118 ml/min Estimated GFR > 60 (59 - ) Glucose 142 H (65-110) mg/dL Calcium 9.1 (8.4-10.2) mg/dL Total Bilirubin 0.3 (0.2-1.3) mg/dL AST 90 H (14-36) U/L ALT 72 H (6-35) U/L Alkaline Phosphatase 94 (38-126) U/L Troponin I < 0.012 (0.000-0.034) ng/mL NT-Pro-B Natriuret Pep Pending Total Protein 8.0 (6.3-8.2) g/dL Albumin 4.2 (3.5-5.1) g/dL Lipase 180 (23-300) U/L Discharge Plan Discharge Clinical Impression: Pulmonary embolism, Chest pain Patient Disposition: Still a Patient Condition: Stable Prescriptions: No Action atorvastatin [Lipitor] 20 mg tablet 40 mg PO DAILY esomeprazole magnesium [Nexium] 20 mg capsule,delayed release(DR/EC) 20 mg PO DAILY tizanidine 4 mg capsule 4 mg PO BID PRN (Reason: muscle spasticity) Qty: 60 1RF mupirocin 2 % ointment 1 applic topical BID Qty: 15 0RF Jardiance 10 mg tablet 10 mg PO DAILY estradiol 2 mg tablet 2 mg PO DAILY Eliquis DVT-PE Treat 30D Start 5 mg (74 tabs) tablets,dose pack See Rx Instructions PO PER PKG DIR Qty: 74 0RF Rx Instructions: PO PER PKG DIR tramadol 50 mg tablet 50 mg PO Q6H PRN (Reason: pain) Qty: 20 0RF prochlorperazine maleate [Compazine] 5 mg tablet 5 mg PO Q8H PRN (Reason: nausea and vomiting) Qty: 30 0RF spironolactone 100 mg tablet 100 mg PO DAILY acetaminophen-codeine 300-30 mg tablet 1 tablet PO Q6H PRN (Reason: pain) Qty: 90 0RF cephalexin 500 mg capsule 500 mg PO Q6H 7 Days Qty: 28 0RF valacyclovir [Valtrex] 1 gram tablet 2,000 mg PO Q12H Qty: 4 3RF alprazolam 0.5 mg tablet 0.5 mg PO TID PRN (Reason: anxiety) Qty: 90 0RF Qulipta 60 mg tablet 60 mg PO DAILY Qty: 90 2RF escitalopram oxalate 20 mg tablet 20 mg PO DAILY Qty: 90 1RF meloxicam 15 mg tablet 15 mg PO DAILY Qty: 30 3RF Follow-up/Referrals: Gennaro Boone MD [Primary Care Provider] - Time of Disposition: 15:26
[2024-03-09 15:37] LABS: NT Pro B Type Natriuretic Pept 24 pg/mL (19.9-100)
--- NOTE | 2024-03-09 15:50 | PM.IMHP ---
H&P: HPI History of Present Illness Date/Time: 03/09/24 15:50 Chief Complaint: Chest pain and shortness of breath. Narrative: This is a pleasant 38-year-old female with migraine headaches, polycystic ovarian syndrome, prediabetes, Shelbie-Danlos syndrome, gastroesophageal reflux disease, hyperlipidemia, fatty liver disease, depression, anxiety, cervical adenocarcinoma status post total abdominal hysterectomy with bilateral salpingo-oophorectomy on 02/25/2024 at [place] after which she was started on estradiol, and recent diagnosis of left axillary vein deep venous thrombosis for which she has taken 3 doses of apixaban who presented to the emergency department for evaluation of chest pain and shortness of breath. The patient provides the following history. The patient provides the following history. Today she was putting some sheets in the washing machine when she developed sudden tightness in the mid chest associated with a fluttering sensation and mild shortness of breath. She denies syncope, near syncope, exertional chest pain, cough, nausea, vomiting, sweats, lower extremity edema, and calf pain. No history of venous thromboembolism. In the ED: Vital signs were stable on arrival with an SpO2 in the mid to upper 90s on room air. Labs were significant for WBC count of 13.6, glucose 142, AST 90, ALT 72, troponin less than 0.012, proBNP 24. Chest CTA showed scattered pulmonary emboli in the left lung including the lingula and upper and lower lobes with nopk-lr-nkxgdxlz clot burden but without right heart strain. EKG had quite a bit of artifact but it shows sinus rhythm without obvious ST segment changes. She was started on heparin drip and is being admitted in this setting for further treatment. Review of Systems Review of Systems: 12 systems were reviewed and are negative except for as per HPI. [facility] Past Medical History Medical History (Updated 03/09/24 @ 16:09 by Antoinette Hale PA-C) Adenocarcinoma of cervix Anxiety and depression COVID-19 Fatty liver GERD without esophagitis Hyperlipidemia Hypermobile Shelbie-Danlos syndrome Irritable bowel syndrome with diarrhea Migraine headache Myalgia Other symptoms and signs involving emotional state Polycystic ovarian syndrome Prediabetes Pyloric stenosis Vitamin D deficiency Surgical History Surgical History (Updated 03/09/24 @ 16:05 by Antoinette Hale PA-C) H/O: hysterectomy History of abdominal surgery History of ankle surgery History of cholecystectomy History of colposcopy History of endoscopy History of knee surgery History of total abdominal hysterectomy and bilateral salpingo-oophorectomy (02/25/24) for cervical cancer- no residual in situ or invasive endocervical adenocarcinoma Family History Family History (Updated 03/09/24 @ 17:10 by Merly Laws RN) Father Hypertension Mother Hypertension Cerebrovascular accident Sibling COVID Social History Social History (Updated 03/09/24 @ 22:35 by Antoinette Hale PA-C) Social History: Surrogate medical decision maker: Selene Guillory, sibling. Code status: Full code. 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 [employer] concerns: No Agree to blood products: Yes Meds Home Medications and Allergies Home Medications Medication Instructions Recorded Confirmed Type prochlorperazine maleate 5 mg 5 mg PO Q8H PRN nausea and 11/24/19 03/09/24 Rx tablet (Compazine) vomiting #30 tabs atorvastatin 20 mg tablet (Lipitor) 40 mg PO DAILY 01/26/20 03/09/24 History spironolactone 100 mg tablet 100 mg PO DAILY 10/17/21 03/09/24 History esomeprazole magnesium 20 mg 20 mg PO DAILY 06/05/22 03/09/24 History capsule,delayed release (Nexium) tizanidine 4 mg capsule 4 mg PO BID PRN muscle spasticity 06/05/22 03/09/24 Rx #60 caps mupirocin 2 % topical ointment 1 applic topical BID #15 grams 05/17/23 03/09/24 Rx alprazolam 0.5 mg tablet 0.5 mg PO TID PRN anxiety #90 tabs 06/04/23 03/09/24 Rx atogepant 60 mg tablet (Qulipta) 60 mg PO DAILY #90 tabs 09/18/23 03/09/24 Rx escitalopram oxalate 20 mg tablet 20 mg PO DAILY #90 tabs 11/21/23 03/09/24 Rx empagliflozin 10 mg tablet 10 mg PO DAILY 12/04/23 03/09/24 History (Jardiance) meloxicam 15 mg tablet 15 mg PO DAILY #30 tabs 12/04/23 03/09/24 Rx acetaminophen 300 mg-codeine 30 mg 1 tablet PO Q6H PRN pain #90 tabs 01/02/24 03/09/24 Rx tablet estradiol 2 mg tablet 2 mg PO DAILY 03/06/24 03/09/24 History apixaban 5 mg (74 tabs) tablets in See Rx Instructions PO PER PKG DIR 03/07/24 03/09/24 Rx a dose pack (Eliquis DVT-PE Treat #74 ea 30D Start) tramadol 50 mg tablet 50 mg PO Q6H PRN pain #20 tabs 03/07/24 03/09/24 Rx valacyclovir 1 gram tablet 2,000 mg PO Q12H PRN Cold Sores 03/09/24 03/09/24 History (Valtrex) Allergies Allergy/AdvReac Type Severity Reaction Status Date / Time chlorhexidine Allergy Severe Anaphylaxis Verified 03/06/24 23:38 nut - unspecified Allergy Intermediate Difficulty Verified 03/09/24 17:35 Swallowing tree nut Allergy Intermediate Difficulty Verified 03/09/24 17:35 Swallowing hydrocodone Allergy Mild Anaphylaxis Verified 03/06/24 23:38 oxycodone Allergy Unknown THROAT Verified 03/06/24 23:38 SWELLING Penicillins Allergy Unknown UNKNOWN-WAS Verified 03/06/24 23:38 CHILD topiramate [From Topamax] AdvReac Confusion Verified 03/09/24 17:33 Vital Signs Vital Signs - 24 hr 03/09/24 13:01 03/09/24 13:02 03/09/24 14:47 Temperature 98.2 F Pulse Rate 95 97 Respiratory Rate 18 20 Blood Pressure 156/95 H 156/95 H Pulse Oximetry 96 100 03/09/24 15:00 03/09/24 15:15 Temperature Pulse Rate Respiratory Rate Blood Pressure Pulse Oximetry 98 96 Exam Narrative: General: Well-developed, nontoxic-appearing female sitting up in bed in no distress. Weight: 101 kg. BMI: 40.7. HEENT: PERRL, EOMI. Sclera anicteric. Oral mucosa moist. Neck: Supple. No JVD. Respiratory: Lungs are clear to auscultation bilaterally. Cardiovascular: Regular rate and rhythm with S1-S2. Gastrointestinal: Abdomen is soft, nontender, and nondistended with positive bowel sounds. Laparoscopic port incisions are healing, 1 has some scabbed over areas but does not look infected. Skin: Warm and dry. Extremities: No cyanosis, clubbing, or lower extremity edema. No palpable knots or cords. There is some erythema and induration of the medial, mid left upper extremity. Radial and pedal pulses intact. Neurological: Alert. Cranial nerves 2-12 are grossly intact. No gross focal deficits to casual conversation. Psychiatric: Pleasant and cooperative with normal mood and affect. Judgment and insight intact. H&P: Results Labs Labs: Short CBC 03/09/24 Range/Units 13:09 WBC 13.6 H (4.5-10.0) K/mm3 Hgb 13.3 (12.0-15.0) g/dL Hct 41.5 (37.0-47.0) % Plt Count 339 (150-375) k/mm3 BMP 03/09/24 13:09 Sodium 138 Potassium 4.4 Chloride 102 Carbon Dioxide 27 BUN 15 Creatinine 0.60 L Glucose 142 H Calcium 9.1 Cardiac Enzymes 03/09/24 Range/Units 13:09 Troponin I < 0.012 (0.000-0.034) ng/mL Liver Function 03/09/24 Range/Units 13:09 Total Bilirubin 0.3 (0.2-1.3) mg/dL AST 90 H (14-36) U/L ALT 72 H (6-35) U/L Alkaline Phosphatase 94 (38-126) U/L Albumin 4.2 (3.5-5.1) g/dL Imaging Chest CTA 03/09/24 13:50 IMPRESSION: 1. Scattered pulmonary emboli in the left lung including the lingula and left upper and lower lobes with mild to moderate clot burden but without right heart strain. Chest X-Ray 03/09/24 13:53 IMPRESSION: 1. No acute cardiopulmonary disease. Assessment and Plan Assessment and plan (1) Pulmonary emboli: Code(s): I26.99 - Other pulmonary embolism without acute cor pulmonale Status: Acute (2) Deep vein thrombosis of axillary vein of left upper extremity: Code(s): I82.A12 - Acute embolism and thrombosis of left axillary vein Status: Acute (3) Adenocarcinoma of cervix: Code(s): C53.9 - Malignant neoplasm of cervix uteri, unspecified Status: Acute (4) Elevated LFTs: Code(s): R79.89 - Other specified abnormal findings of blood chemistry Status: Acute (5) Hyperlipidemia: Code(s): E78.5 - Hyperlipidemia, unspecified Status: Acute (6) Prediabetes: Code(s): R73.03 - Prediabetes Status: Acute Plan The patient presented to the emergency department for evaluation of chest pain shortness a breath as detailed in HPI. Labs, imaging, EKG, and all reports were personally reviewed. CT scan showed pulmonary emboli in the left lung with ldxa-ds-dkvumctm burden without evidence of right heart strain. Risk factors for clots include recent surgery for cervical adenocarcinoma and hormone therapy which was started shortly thereafter. That has been placed on hold. She is currently on heparin drip and will be monitored closely in IMU overnight. Her vital signs have been stable. Echocardiogram ordered to evaluate for possible right heart strain though not noted on CT scan and her troponin and proBNP were well within normal limits. AST and ALT are a bit elevated but have been so in the past and will be monitored. She is on empagliflozin for prediabetes and her random glucose today was 142. Check fasting glucose and hemoglobin A1c. Her home medications will be reviewed and resumed as appropriate. Findings and treatment plan were discussed with the patient. Questions were solicited and answered to satisfaction. The patient's medical management will be taken over by the hospitalist team in a.m. Quality VTE Prophylaxis VTE prophylaxis: pharmacologic ordered (on heparin drip) The patient has been admitted under observation status. Hospitalist MIPS Advance Care Plan I have confirmed that the patient's Advanced Care Plan is present, code status is documented, or surrogate decision maker is listed in patient medical record.: Yes Medication Reconciliation I have utilized all available resources to obtain, update and review the patients current medications (includes all prescriptions, OTC, herbals, cannabis, and nutritional supplements).: Yes
--- NOTE | 2024-03-09 15:57 | PC.NURSE ---
unable to start heparin drip prior to transport to the IMU due to being out of IV pumps in the ED.
[2024-03-09] MEDS: HEPARIN SODIUM 5,000 UNITS/ML VIAL 5500 UNITS IV PUSH (16:39)
[2024-03-09] MEDS: HEPARIN SOD/D5W 100 UNITS/ML 25,000 UNITS/250 ML BAG 13 UNITS IV CONT (16:40)
[2024-03-09 16:41] LABS: Basophils Absolute Auto 0.1 K/mm3 (0.0-0.1); Basophils Percent Auto 0.6 % (0.2-1.2); Eosinophils Absolute Auto 0.2 K/mm3 (0-0.3); Eosinophils Percent Auto 1.4 % (0-4.4); Hematocrit 43.6 % (37.0-47.0); Immature Granulocyte Absolute 0.17 K/mm3 (0.00-0.031); Immature Granulocyte Percent A 1.2 % (0-0.5); Lymphocytes Absolute Auto 2.35 K/mm3 (0.9-3.2); Lymphocytes Percent Auto 16.8 % (18.3-44.2); Mean Corpuscular HGB Conc 32.1 g/dl (32-36); Mean Corpuscular Hemoglobin 27.6 pg (26-34); Mean Platelet Volume 9.6 fl (7.4-10.4); Neutrophils Absolute Auto 10.2 K/mm3 (1.3-6.7); Platelet Count Result 320 k/mm3 (150-375); Red Blood Count 5.07 M/mm3 (4.2-5.4); Red Cell Distribution Width 14.1 % (11.5-14.5)
[2024-03-09 16:58] LABS: INR 1.3; Prothrombin Time 16.2 Seconds (11.1-14.7)
[2024-03-09 16:59] LABS: Partial Thromboplastin Time 29.7 Seconds (22.3-36.8)
[2024-03-09 17:04] LABS: Troponin I < 0.012 ng/mL (0.000-0.034)
[2024-03-09 17:21] LABS: Hemoglobin A1C 7.1 % (<5.7)
[2024-03-09 20:16] LABS: Troponin I < 0.012 ng/mL (0.000-0.034)
[2024-03-09] MEDS: traMADol HCL (*CRX) 50 MG TABLET PO (20:42)
[2024-03-09 23:10] LABS: Partial Thromboplastin Time 45.9 Seconds (22.3-36.8)
[2024-03-10] VITALS (17 sets, daily range): BP systolic 124–143; BP diastolic 70–88; PULSE 72–100; RESP 16–20; TEMP 36.3–37.2; O2SAT 95–100
[2024-03-10] MEDS: ONDANSETRON INJ 4 MG/2 ML VIAL IV PUSH ×3 (00:07→16:54)
[2024-03-10] MEDS: HYDROmorphone HCL INJ (*CRX) 1 MG/ML SYR 0.5 MG IV PUSH ×2 (00:08→05:43)
[2024-03-10] MEDS: HEPARIN SODIUM 5,000 UNITS/ML VIAL 5500 UNITS IV PUSH ×2 (00:11→13:24)
[2024-03-10 05:06] LABS: Basophils Absolute Auto 0.1 K/mm3 (0.0-0.1); Basophils Percent Auto 0.8 % (0.2-1.2); Eosinophils Absolute Auto 0.2 K/mm3 (0-0.3); Eosinophils Percent Auto 1.8 % (0-4.4); Hematocrit 42.5 % (37.0-47.0); Hemoglobin 13.1 g/dL (12.0-15.0); Immature Granulocyte Absolute 0.14 K/mm3 (0.00-0.031); Immature Granulocyte Percent A 1.2 % (0-0.5); Lymphocytes Absolute Auto 3.05 K/mm3 (0.9-3.2); Lymphocytes Percent Auto 27.2 % (18.3-44.2); Mean Corpuscular HGB Conc 30.8 g/dl (32-36); Mean Corpuscular Hemoglobin 27.9 pg (26-34); Mean Corpuscular Volume 90.4 fl (80-100); Monocytes Absolute Auto 0.8 K/mm3 (0.1-0.6); Monocytes Percent Auto 7.3 % (2.6-8.5); Neutrophils Absolute Auto 6.9 K/mm3 (1.3-6.7); Neutrophils Percent Auto 61.7 % (45.5-73.1); Platelet Count Result 265 k/mm3 (150-375); Red Cell Distribution Width 14.2 % (11.5-14.5); White Blood Count 11.2 K/mm3 (4.5-10.0)
[2024-03-10 05:15] LABS: Alanine Aminotransferase 71 U/L (6-35); Albumin Level 3.9 g/dL (3.5-5.1); Alkaline Phosphatase 99 U/L (38-126); Anion Gap 8 mmol/L (4-12); Aspartate Amino Transferase 75 U/L (14-36); Bilirubin,Total 0.3 mg/dL (0.2-1.3); Blood Urea Nitrogen 15 mg/dL (7-17); Calcium 8.7 mg/dL (8.4-10.2); Carbon Dioxide 27 mmol/L (22-30); Chloride 101 mmol/L (98-107); Estimated CRCL calculation 103 ml/min; Estimated Glomerular Filt Rate > 60; Glucose 109 mg/dL (65-110); Magnesium 1.9 mg/dL (1.6-2.3); Potassium 4.3 mmol/L (3.4-5.0); Sodium 136 mmol/L (137-145)
[2024-03-10 06:24] LABS: Partial Thromboplastin Time 99.7 Seconds (22.3-36.8)
[2024-03-10] MEDS: ATORVASTATIN 40 MG TABLET PO (08:39)
[2024-03-10] MEDS: EMPAGLIFLOZIN 10 MG TABLET PO (08:39)
[2024-03-10] MEDS: PANTOPRAZOLE SOD SESQUIHYDRATE 20 MG TAB PO (08:39)
[2024-03-10] MEDS: SPIRONOLACTONE 50 MG TABLET 100 MG PO (08:39)
[2024-03-10] MEDS: ESCITALOPRAM OXALATE 10 MG TABLET 20 MG PO (08:39)
[2024-03-10] MEDS: traMADol HCL (*CRX) 50 MG TABLET PO (08:43)
[2024-03-10] MEDS: HEPARIN SOD/D5W 100 UNITS/ML 25,000 UNITS/250 ML BAG 16 UNITS IV CONT (08:44)
[2024-03-10] MEDS: ACETAMINOPHEN 325 MG TABLET 650 MG PO ×2 (11:31→16:52)
[2024-03-10] MEDS: PERFLUTREN LIPID MICROSPHERES 1.5 ML VIAL DILUTED TO 10 ML TOTAL VOLUME IV PUSH (13:00)
--- NOTE | 2024-03-10 13:41 | IVDEFINITY ---
Prior to administration of IV Definity the patient was educated on the risks and benefits of the imaging enhancing agent including potential adverse side effects. The patient verbalized understanding. Allergies were verified. No exclusion criteria were identified and at least one of the following inclusion criteria were met: 1) physician request, 2) patient technically difficult to image (per the [place] [employer] guidelines of two or more segments not discernable within the apical view), or 3) questionable left ventricular function. ?
--- NOTE | 2024-03-10 16:06 | ECHO_ITS ---
Patient Info Name: Elin Guillory Age: 38 years : 1985 Gender: Female Ht: 62 in Wt: 220 lbs BSA: 2.14 m2 HR: 82 bpm BP: 143 / 88 mmHg Heart Rhythm: Sinus Rhythm Technical Quality: Good Exam Date: 03/10/2024 12:42 PM Exam Location: Echo Lab Patient Status: Inpatient Admit Date: 03/09/2024 Staff Ordering Physician: Antoinette Hale PA-C Cash Posting Clerk: Lilly Ley RDCS Attending Provider: Miller Murray MD Referring Physician: Alexia BELTRE; Exam Type: CA echo dop color flow w con Study Info Indications - Pulmonary embolism Complete two-dimensional, color flow and Doppler transthoracic echocardiogram is performed with contrast to opacify the left ventricle and to improve the deliniation of the left ventricle endocardial borders. Summary 1. Definity contrast administered improved wall motion interpretation. 2. Left ventricular chamber dimension is normal. 3. Left ventricular systolic function is normal, estimated at 60-65%. 4. The left ventricular diastolic function is grade I diastolic dysfunction. 5. E/e' 6 is not elevated. 6. No pulmonary hypertension, estimated pulmonary arterial systolic pressure is 17 mmHg. Left Ventricle E/e' 6 is not elevated. Definity contrast administered improved wall motion interpretation. Left ventricular chamber dimension is normal. Left ventricular systolic function is normal, estimated at 60-65%. The left ventricular diastolic function is grade I diastolic dysfunction. Right Ventricle Right ventricular systolic function is normal and with normal TAPSE 2.6 cm. Right ventricular chamber dimension is normal. Left Atria Left atrial chamber dimension is normal. Right Atria Right atrial chamber dimension is normal. Aortic Valve The aortic valve is trileaflet. There is no aortic valve stenosis. There is no aortic valve regurgitation. Pulmonic Valve There is no pulmonic regurgitation. Mitral Valve There is no mitral valve stenosis. There is no mitral valve regurgitation. Tricuspid Valve There is no tricuspid valve regurgitation. No pulmonary hypertension, estimated pulmonary arterial systolic pressure is 17 mmHg. Pericardium/Pleural There is no pericardial effusion. Inferior Vena Cava Normal inferior vena cava with >50% collapse upon inspiration consistent with normal right atrial pressure, 5 mmHg. Aorta The aortic root size at the sinus of Valsalva is normal. Left Ventricular Outflow Tract Name Value Normal LVOT 2D LVOT Diameter 1.91 cm LVOT Doppler LVOT Peak Gradient 3 mmHg LVOT Mean Gradient 2 mmHg LVOT VTI 14.77 cm LVOT VTI/AV VTI Ratio 0.78 LVOT Stroke Volume 42.39 ml LVOT CO 3.27 l/min LVOT CI 1.52 L/min/m2 Pulmonic Valve Name Value Normal PV Doppler PV Peak Gradient 3 mmHg Mitral Valve Name Value Normal MV Doppler MV Decel [place] 287.19 cm/s2 MV PHT 0 s MV Area (PHT) 4.36 cm2 4.00-5.00 MV Diastolic Function MV E Peak Velocity 49.94 cm/s MV A Peak Velocity 51.71 cm/s MV E/A 0.97 MV Decel Time 0 s MV Annular TDI MV E/e' (Septal) 7.54 <=8.00 MV E/e' (Lateral) 5.34 <=8.00 MV E/e' (Average) 6.44 Tricuspid Valve Name Value Normal TV Regurgitation Doppler TR Peak Velocity 176.18 cm/s TR Peak Gradient 10 mmHg Estimated PAP/RSVP RA Pressure 5 mmHg <=5 PA Systolic Pressure 17 mmHg <36 RV Systolic Pressure 17 mmHg <36 Aortic Valve Name Value Normal AV Doppler AV Peak Velocity 114.31 cm/s AV Peak Gradient 5 mmHg AV Mean Gradient 3 mmHg AV VTI 18.96 cm AV Area (Cont Eq VTI) 2.24 cm2 >=3.00 AV Area (Cont Eq Jordan) 2.19 cm2 AV Regurgitation 2D LVOT Area 2.87 cm2 Ventricles Name Value Normal LV Dimensions 2D/MM IVS Diastolic Thickness (2D) 1.09 cm 0.60-1.00 LVID Diastole (2D) 4.60 cm 3.80-5.20 LVIW Diastolic Thickness (2D) 0.94 cm 0.60-0.90 LVID Systole (2D) 2.94 cm 2.20-3.50 LVOT Diameter 1.91 cm LV Mass (2D Cubed) 162.54 g 67.00-162.00 LV Mass Index (2D Cubed) 0.01 g/cm2 0.00-0.01 Relative Wall Thickness (2D) 0.41 LV Fractional Shortening/Ejection Fraction 2D/MM LV Fractional Shortening (2D) 36 % 27-45 LV EF (2D Teicholz) 66 % 54-74 LV Diastolic Volume (4C MOD) 83.31 ml LV EF (4C MOD) 61 % LV Diastolic Volume (2C MOD) 97.05 ml LV EF (2C MOD) 61 % LV Diastolic Volume (BP MOD) 91.30 ml 46.00-106.00 LV Diastolic Volume Index (BP MOD) 0.04 l/m2 0.03-0.06 LV Systolic Volume (BP MOD) 37.18 ml 14.00-42.00 LV Systolic Volume Index (BP MOD) 0.02 l/m2 0.01-0.02 LV EF (BP MOD) 59 % 54-74 LV Diastolic Length (4C) 8.86 cm LV Systolic Length (4C) 6.75 cm LV Stroke Volume (4C MOD) 50.81 ml Atria Name Value Normal LA Dimensions LA Volume (4C A-L) 34.74 ml LA Volume (BP A-L) 32.22 ml RA Dimensions RA Area (4C) 11.95 cm2 <=18.00 Report Signatures
--- NOTE | 2024-03-10 16:40 | PM.IMPN ---
Progress Note: A&P Assessment and Plan (1) Pulmonary emboli: Code(s): I26.99 - Other pulmonary embolism without acute cor pulmonale Status: Acute Assessment and Plan: The patient presents with chest pain and shortness a breath Left UE venous doppler showing DVT involving the left axillary vein. She had been started on Eliquis and had taken [address] scan showed PE in the left lung with [id number] burden without evidence of right heart strain. Risk factors for clots include recent surgery for cervical adenocarcinoma, hormonal therapy and obesity Heparin drip started and therapeutic. LE venous doppler negative for DVT Echo showing normal LV size and function (EF 60-65%), grade 1 diastolic dysfunction, normal RV size and function and no significant valvular disease. Patient is still symptomatic. Continue heparin drip today. Estrogen stopped. Plan to transition back to Eliquis tomorrow if she has improvement. (2) Deep vein thrombosis of axillary vein of left upper extremity: Code(s): I82.A12 - Acute embolism and thrombosis of left axillary vein Status: Acute Assessment and Plan: As above (3) Adenocarcinoma of cervix: Code(s): C53.9 - Malignant neoplasm of cervix uteri, unspecified Status: Acute Assessment and Plan: Patient with cervical adenocarcinoma status post total abdominal hysterectomy with bilateral salpingo-oophorectomy on 02/25/2024 at [place] after which she was started on estradiol Estrogen stopped. (4) Elevated LFTs: Code(s): R79.89 - Other specified abnormal findings of blood chemistry Status: Acute Assessment and Plan: AST and ALT are mildly elevated. This has been noted in the past. She is on Lipitor which was continued. Levels trending down. (5) Hyperlipidemia: Code(s): E78.5 - Hyperlipidemia, unspecified Status: Acute Assessment and Plan: As above. Continue Liptor for now (6) Prediabetes: Code(s): R73.03 - Prediabetes Status: Acute Assessment and Plan: A1c 7.1%. The patient's blood glucose was reviewed on 03/10 Glucose remains well controlled. Continue to monitor Plan Code status - full Subjective Date/time seen: 03/10/24 16:40 Interval history: 38yo female with migraine headaches, polycystic ovarian syndrome, prediabetes, Shelbie-Danlos syndrome, gastroesophageal reflux disease, hyperlipidemia, fatty liver disease, depression, anxiety, cervical adenocarcinoma status post total abdominal hysterectomy with bilateral salpingo-oophorectomy on 02/25/2024 at [place] after which she was started on estradiol, and recent diagnosis of left axillary vein deep venous thrombosis for which she has taken 3 doses of apixaban who presented to the emergency department for evaluation of chest pain and shortness of breath. Still having pleuritic chest pain. Nausea earlier today but able to tolerate food. No cough. Still with SOB and ARTHUR. Has headache and hx of migraines. Exam Narrative: AF 97.4 124/73 87 16 98% ra Gen - NARD Chest - CTA bilaterally, nml RR CV - RRR S1/S2. Tele showing no significant dysrhythmias but occasional sinus tachycardia. Abd - Soft, NT/ND, Positive BS Ext - No pedal edema. Negative Homans. Left UE fullness and tenderness medial to the antecubital fossa without overlying erythema Psych - Nml mood and affect Skin - Warm and dry Objective Data Vital Signs Vital Signs: Vital Signs - 24 hr 03/09/24 17:19 03/09/24 20:17 03/09/24 20:00 Temperature 98.2 F Pulse Rate 95 Respiratory Rate 18 Blood Pressure 134/84 Pulse Oximetry 98 Oxygen Delivery Room Air Room Air Oxygen Flow Rate Fraction of Inspired Oxygen 03/10/24 00:27 03/10/24 00:00 03/09/24 20:00 Temperature 98.1 F Pulse Rate 89 97 Respiratory Rate 18 Blood Pressure 139/77 Pulse Oximetry 99 98 Oxygen Delivery Nasal Cannula Oxygen Flow Rate 2 Fraction of Inspired Oxygen 03/09/24 22:00 03/10/24 00:00 03/10/24 04:00 Temperature Pulse Rate 92 90 Respiratory Rate Blood Pressure Pulse Oximetry 99 Oxygen Delivery Nasal Cannula Oxygen Flow Rate 2 Fraction of Inspired Oxygen 03/10/24 02:00 03/10/24 04:00 03/10/24 05:35 Temperature 98.6 F Pulse Rate 76 83 83 Respiratory Rate 18 Blood Pressure 143/88 H Pulse Oximetry 100 Oxygen Delivery Oxygen Flow Rate Fraction of Inspired Oxygen 03/10/24 06:00 03/10/24 08:00 03/10/24 08:34 Temperature 97.9 F Pulse Rate 82 100 Respiratory Rate 16 Blood Pressure 133/82 Pulse Oximetry 98 98 Oxygen Delivery Nasal Cannula Oxygen Flow Rate 2 Fraction of Inspired Oxygen 28 03/10/24 09:00 03/10/24 08:00 03/10/24 08:00 Temperature Pulse Rate 100 96 Respiratory Rate 16 Blood Pressure Pulse Oximetry 95 95 Oxygen Delivery Room Air Room Air Oxygen Flow Rate Fraction of Inspired Oxygen 21 03/10/24 10:00 03/10/24 11:58 03/10/24 12:00 Temperature 97.9 F Pulse Rate 94 84 84 Respiratory Rate 20 20 Blood Pressure 136/70 Pulse Oximetry 96 96 Oxygen Delivery Room Air Oxygen Flow Rate Fraction of Inspired Oxygen 03/10/24 12:00 03/10/24 14:00 03/10/24 16:00 Temperature 97.4 F L Pulse Rate 88 85 86 Respiratory Rate 16 Blood Pressure 124/73 Pulse Oximetry 98 Oxygen Delivery Oxygen Flow Rate Fraction of Inspired Oxygen Intake/Output Intake/Output: Intake & Output 03/07/24 03/08/24 03/09/24 03/10/24 23:59 23:59 23:59 23:59 Intake Total 600 1339.7 Output Total 2 Balance 600 1337.7 Meds/Results Medications: Active Medications Generic Name Dose Route Start Last Admin Trade Name Freq PRN Reason Stop Dose Admin Acetaminophen 650 mg 03/09/24 15:26 03/10/24 11:31 Acetaminophen 325 Mg Tablet PO 650 mg Q4H PRN Administration Mild Pain (1-3) or Fever Alprazolam 0.5 mg 03/09/24 20:04 Alprazolam (*Crx) 0.5 Mg Tablet PO TID PRN anxiety Atorvastatin Calcium 40 mg 03/10/24 09:00 03/10/24 08:39 Atorvastatin 40 Mg Tablet PO 40 mg DAILY JOSE Administration Empagliflozin 10 mg 03/10/24 09:00 03/10/24 08:39 Empagliflozin 10 Mg Tablet PO 10 mg DAILY JOSE Administration Escitalopram Oxalate 20 mg 03/10/24 09:00 03/10/24 08:39 Escitalopram Oxalate 10 Mg Tablet PO 20 mg DAILY JOSE Administration Heparin Sodium (Porcine) 5,500 units 03/09/24 15:26 03/10/24 13:24 Heparin Sodium 5,000 Units/Ml Vial IV PUSH 5,500 units PRN PRN Administration aPTT less than 55 seconds Heparin Sodium (Porcine) 3,000 units 03/09/24 15:26 Heparin Sodium 5,000 Units/Ml Vial IV PUSH PRN PRN aPTT 55 - 70 seconds Hydromorphone HCl 0.5 mg 03/09/24 22:41 03/10/24 05:43 Hydromorphone Hcl Inj (*Crx) 1 Mg/Ml Syr IV PUSH 0.5 mg Q3H PRN Administration Pain Rated 7-10 Heparin Sodium/Dextrose 25,000 units in 250 mls @ 19 mls/hr 03/09/24 15:30 03/10/24 13:24 Heparin Sodium/D5w 100 Units/Ml IV CONT 1,900 units/hr .[id number] JOSE 19 mls/hr Titration Protocol 1,900 UNITS/HR Ondansetron HCl 4 mg 03/09/24 15:26 03/10/24 05:43 Ondansetron Inj 4 Mg/2 Ml Vial IV PUSH 4 mg Q4H PRN Administration Nausea Pantoprazole Sodium 20 mg 03/10/24 09:00 03/10/24 08:39 Pantoprazole Sod Sesquihydrate 20 Mg Tab PO 20 mg QAM JOSE Administration Spironolactone 100 mg 03/10/24 09:00 03/10/24 08:39 Spironolactone 50 Mg Tablet PO 100 mg DAILY JOSE Administration Tizanidine HCl 4 mg 03/09/24 20:04 Tizanidine Hcl 4 Mg Tablet PO BID PRN muscle spasticity Tramadol HCl 50 mg 03/09/24 20:04 03/10/24 08:43 Tramadol Hcl (*Crx) 50 Mg Tablet PO 50 mg Q6H PRN Administration pain 4-6 Radiology Results: ITS Impressions Chest CTA 03/09/24 13:50 IMPRESSION: 1. Scattered pulmonary emboli in the left lung including the lingula and left upper and lower lobes with mild to moderate clot burden but without right heart strain. Chest X-Ray 03/09/24 13:53 IMPRESSION: 1. No acute cardiopulmonary disease. Venous Doppler Study 03/10/24 09:58 IMPRESSION: 1. No deep venous thrombosis. Labs Labs: Laboratory Results - last 24 hr 03/09/24 03/09/24 03/09/24 13:08 16:33 16:34 WBC 14.0 H RBC 5.07 Hgb 14.0 Hct 43.6 MCV 86.0 MCH 27.6 MCHC 32.1 RDW 14.1 Plt Count 320 MPV 9.6 Immature Gran % (Auto) 1.2 H Neut % (Auto) 73.0 Lymph % (Auto) 16.8 L [place] % (Auto) 7.0 Eos % (Auto) 1.4 Baso % (Auto) 0.6 Lymph # (Auto) 2.35 [place] # (Auto) 1.0 H Eos # (Auto) 0.2 Baso # (Auto) 0.1 Abs Immat Gran (auto) 0.17 H Absolute Neuts (auto) 10.2 H Absolute Nucleated RBC 0.000 Nucleated RBC % 0.0 PT 16.2 H INR 1.3 APTT 29.7 Sodium Potassium Chloride Carbon Dioxide Anion Gap BUN Creatinine Estim Creat Clear Calc Estimated GFR Glucose Hemoglobin A1c 7.1 H Calcium Magnesium Total Bilirubin AST ALT Alkaline Phosphatase Troponin I < 0.012 Total Protein Albumin 03/09/24 03/09/24 03/10/24 19:26 22:50 04:35 WBC 11.2 H RBC 4.70 Hgb 13.1 Hct 42.5 MCV 90.4 D MCH 27.9 MCHC 30.8 L RDW 14.2 Plt Count 265 MPV 10.0 Immature Gran % (Auto) 1.2 H Neut % (Auto) 61.7 Lymph % (Auto) 27.2 Letcher % (Auto) 7.3 Eos % (Auto) 1.8 Baso % (Auto) 0.8 Lymph # (Auto) 3.05 [place]cher # (Auto) 0.8 H Eos # (Auto) 0.2 Baso # (Auto) 0.1 Abs Immat Gran (auto) 0.14 H Absolute Neuts (auto) 6.9 H Absolute Nucleated RBC 0.000 Nucleated RBC % 0.0 PT INR APTT 45.9 H Sodium 136 L Potassium 4.3 Chloride 101 Carbon Dioxide 27 Anion Gap 8 BUN 15 Creatinine 0.70 Estim Creat Clear Calc 103 Estimated GFR > 60 Glucose 109 Hemoglobin A1c Calcium 8.7 Magnesium 1.9 Total Bilirubin 0.3 AST 75 H ALT 71 H Alkaline Phosphatase 99 Troponin I < 0.012 Total Protein 7.0 Albumin 3.9 03/10/24 03/10/24 05:59 12:02 WBC RBC Hgb Hct MCV MCH MCHC RDW Plt Count MPV Immature Gran % (Auto) Neut % (Auto) Lymph % (Auto) Letcher % (Auto) Eos % (Auto) Baso % (Auto) Lymph # (Auto) Letcher # (Auto) Eos # (Auto) Baso # (Auto) Abs Immat Gran (auto) Absolute Neuts (auto) Absolute Nucleated RBC Nucleated RBC % PT INR APTT 99.7 H 52.0 H Sodium Potassium Chloride Carbon Dioxide Anion Gap BUN Creatinine Estim Creat Clear Calc Estimated GFR Glucose Hemoglobin A1c Calcium Magnesium Total Bilirubin AST ALT Alkaline Phosphatase Troponin I Total Protein Albumin
--- NOTE | 2024-03-10 17:52 | PHAR ---
HOME MED VERIFIED = WILMAR'Hyacinth [id number] QULIPTA 60 MG (WHITE OBLONG TAB IMPRINTED A60 ). 1 TAB DAILY
[2024-03-10 21:41] LABS: Partial Thromboplastin Time 114.1 Seconds (22.3-36.8)
[2024-03-10] MEDS: TIZANIDINE HCL 4 MG TABLET PO (21:56)
[2024-03-10] MEDS: HEPARIN SOD/D5W 100 UNITS/ML 25,000 UNITS/250 ML BAG 18 UNITS IV CONT (21:57)
[2024-03-11] VITALS (10 sets, daily range): BP systolic 119–139; BP diastolic 64–84; PULSE 67–97; RESP 16–20; TEMP 36.5–36.8; O2SAT 95–98
--- NOTE | 2024-03-11 00:06 | PC.NURSE ---
This patient, Elin Guillory, was transferred to [[place] [id number] ] on 03/11/24 at 0006. Personal belongings sent with patient. Report given to [Margaret rn ]. Appropriate documentation sent with patient.
--- NOTE | 2024-03-11 00:07 | PC.NURSE ---
Pt transferred from IMU to 2nd Medical room 260 with appropriate documentation & belongings. Heparin drip continued. Report received from SHEA García in IMU.
[2024-03-11 03:45] LABS: Hematocrit 39.8 % (37.0-47.0); Mean Corpuscular HGB Conc 32.7 g/dl (32-36); Mean Corpuscular Hemoglobin 27.9 pg (26-34); Mean Corpuscular Volume 85.4 fl (80-100); Mean Platelet Volume 9.7 fl (7.4-10.4); Platelet Count Result 294 k/mm3 (150-375); Red Blood Count 4.66 M/mm3 (4.2-5.4); Red Cell Distribution Width 14.3 % (11.5-14.5)
[2024-03-11 03:57] LABS: Partial Thromboplastin Time 46.5 Seconds (22.3-36.8)
[2024-03-11 04:03] LABS: Alanine Aminotransferase 90 U/L (6-35); Albumin Level 4.1 g/dL (3.5-5.1); Alkaline Phosphatase 103 U/L (38-126); Anion Gap 8 mmol/L (4-12); Aspartate Amino Transferase 89 U/L (14-36); Bilirubin,Total 0.5 mg/dL (0.2-1.3); Blood Urea Nitrogen 15 mg/dL (7-17); Calcium 9.2 mg/dL (8.4-10.2); Carbon Dioxide 28 mmol/L (22-30); Chloride 101 mmol/L (98-107); Estimated CRCL calculation 90 ml/min; Estimated Glomerular Filt Rate > 60; Glucose 115 mg/dL (65-110); Potassium 4.2 mmol/L (3.4-5.0); Sodium 137 mmol/L (137-145)
[2024-03-11] MEDS: HEPARIN SODIUM 5,000 UNITS/ML VIAL 5500 UNITS IV PUSH (04:04)
[2024-03-11] MEDS: ONDANSETRON INJ 4 MG/2 ML VIAL IV PUSH ×2 (04:10→20:27)
--- NOTE | 2024-03-11 08:34 | P.PNIM_ITS ---
Progress Note: A&P Assessment and Plan (1) Deep vein thrombosis of axillary vein of left upper extremity: Code(s): I82.A12 - Acute embolism and thrombosis of left axillary vein Status: Acute (2) Adenocarcinoma of cervix: Code(s): C53.9 - Malignant neoplasm of cervix uteri, unspecified Status: Acute (3) Pulmonary embolism: Code(s): I26.99 - Other pulmonary embolism without acute cor pulmonale Status: Acute (4) DVT (deep venous thrombosis): Code(s): I82.409 - Acute embolism and thrombosis of unspecified deep veins of unspecified lower extremity Status: Acute (5) Elevated LFTs: Code(s): R79.89 - Other specified abnormal findings of blood chemistry Status: Acute Plan This is a pleasant 38-year-old female with migraine headaches, polycystic ovarian syndrome, prediabetes, Shelbie-Danlos syndrome, gastroesophageal reflux disease, hyperlipidemia, fatty liver disease, depression, anxiety, cervical adenocarcinoma status post total abdominal hysterectomy with bilateral salpingo- oophorectomy on 02/25/2024 at [place] after which she was started on estradiol, and recent diagnosis of left axillary vein deep venous thrombosis for which she has taken 3 doses of apixaban who presented to the emergency department for evaluation of chest pain and shortness of breath. (1) Pulmonary emboli: Code(s): I26.99 - Other pulmonary embolism without acute cor pulmonale Status: Acute Assessment and Plan: The patient presents with chest pain and shortness a breath Left UE venous doppler showing DVT involving the left axillary vein. She had been started on Eliquis and had taken [address] scan showed PE in the left lung with ipxi-gf-fhcjyjme burden without evidence of right heart strain. Risk factors for clots include recent surgery for cervical adenocarcinoma, hormonal therapy and obesity Heparin drip started and therapeutic. LE venous doppler negative for DVT Echo showing normal LV size and function (EF 60-65%), grade 1 diastolic dysfunction, normal RV size and function and no significant valvular disease. Patient is still symptomatic. Continue heparin drip today. Estrogen stopped. transition back to Eliquis (2) Deep vein thrombosis of axillary vein of left upper extremity: Code(s): I82.A12 - Acute embolism and thrombosis of left axillary vein Status: Acute Assessment and Plan: As above (3) Adenocarcinoma of cervix: Code(s): C53.9 - Malignant neoplasm of cervix uteri, unspecified Status: Acute Assessment and Plan: Patient with cervical adenocarcinoma status post total abdominal hysterectomy with bilateral salpingo-oophorectomy on 02/25/2024 at [place] after which she was started on estradiol Estrogen stopped. (4) Elevated LFTs: Code(s): R79.89 - Other specified abnormal findings of blood chemistry Status: Acute Assessment and Plan: AST and ALT are mildly elevated. This has been noted in the past. She is on Lipitor which was continued. Levels trending down. (5) Hyperlipidemia: Code(s): E78.5 - Hyperlipidemia, unspecified Status: Acute Assessment and Plan: As above. Continue Liptor for now (6) Prediabetes: Code(s): R73.03 - Prediabetes Status: Acute Assessment and Plan: A1c 7.1%. The patient's blood glucose was reviewed on 03/10 Glucose remains well controlled. Continue to monitor Subjective Date/time seen: 03/11/24 08:34 Interval history: Patient is afebrile, blood pressure stable, no O2 desaturation, still has tach ypnea Still having pleuritic chest pain, chest pain is improving. Dyspnea with exertion. Patient afebrile above were stable Objective Data Vital Signs Vital Signs: Vital Signs - 24 hr 03/10/24 09:00 03/10/24 10:00 03/10/24 11:58 Temperature 97.9 F Pulse Rate 94 84 Respiratory Rate 20 Blood Pressure 136/70 Pulse Oximetry 95 96 Oxygen Delivery Room Air Fraction of Inspired Oxygen 21 03/10/24 12:00 03/10/24 12:00 03/10/24 14:00 Temperature Pulse Rate 84 88 85 Respiratory Rate 20 Blood Pressure Pulse Oximetry 96 Oxygen Delivery Room Air Fraction of Inspired Oxygen 03/10/24 16:00 03/10/24 16:00 03/10/24 16:00 Temperature 97.4 F L Pulse Rate 86 86 87 Respiratory Rate 16 16 Blood Pressure 124/73 Pulse Oximetry 98 98 Oxygen Delivery Room Air Fraction of Inspired Oxygen 03/10/24 20:15 03/10/24 20:00 03/10/24 20:00 Temperature 98.9 F Pulse Rate 80 79 79 Respiratory Rate 16 16 Blood Pressure 132/79 Pulse Oximetry 99 99 Oxygen Delivery Room Air Fraction of Inspired Oxygen 21 03/10/24 23:52 03/10/24 23:52 03/11/24 00:20 Temperature Pulse Rate 72 72 Respiratory Rate Blood Pressure Pulse Oximetry Oxygen Delivery Room Air Fraction of Inspired Oxygen 03/11/24 00:16 03/11/24 04:00 03/11/24 05:26 Temperature 97.7 F Pulse Rate 67 93 80 Respiratory Rate 20 Blood Pressure 119/64 Pulse Oximetry 96 Oxygen Delivery Fraction of Inspired Oxygen Intake/Output Intake/Output: Intake & Output 03/08/24 03/09/24 03/10/24 03/11/24 23:59 23:59 23:59 23:59 Intake Total 600 1802.0 230.1 Output Total 2 Balance 600 1800.0 230.1 Meds/Results Medications: Active Medications Generic Name Dose Route Start Last Admin Trade Name Freq PRN Reason Stop Dose Admin Acetaminophen 650 mg 03/09/24 15:26 03/10/24 16:52 Acetaminophen 325 Mg Tablet PO 650 mg Q4H PRN Administration Mild Pain (1-3) or Fever Alprazolam 0.5 mg 03/09/24 20:04 Alprazolam (*Crx) 0.5 Mg Tablet PO TID PRN anxiety Atorvastatin Calcium 40 mg 03/10/24 09:00 03/10/24 08:39 Atorvastatin 40 Mg Tablet PO 40 mg DAILY JOSE Administration Empagliflozin 10 mg 03/10/24 09:00 03/10/24 08:39 Empagliflozin 10 Mg Tablet PO 10 mg DAILY JOSE Administration Escitalopram Oxalate 20 mg 03/10/24 09:00 03/10/24 08:39 Escitalopram Oxalate 10 Mg Tablet PO 20 mg DAILY JOSE Administration Heparin Sodium (Porcine) 5,500 units 03/09/24 15:26 03/11/24 04:04 Heparin Sodium 5,000 Units/Ml Vial IV PUSH 5,500 units PRN PRN Administration aPTT less than 55 seconds Heparin Sodium (Porcine) 3,000 units 03/09/24 15:26 Heparin Sodium 5,000 Units/Ml Vial IV PUSH PRN PRN aPTT 55 - 70 seconds Hydromorphone HCl 0.5 mg 03/09/24 22:41 03/10/24 05:43 Hydromorphone Hcl Inj (*Crx) 1 Mg/Ml Syr IV PUSH 0.5 mg Q3H PRN Administration Pain Rated 7-10 Heparin Sodium/Dextrose 25,000 units in 250 mls @ 21 mls/hr 03/09/24 15:30 03/11/24 04:04 Heparin Sodium/D5w 100 Units/Ml IV CONT 2,100 units/hr .[id number] JOSE 21 mls/hr Titration Protocol 2,100 UNITS/HR Non-Formulary Medication 60 mg 03/11/24 09:00 Atogepant [Qulipta] PO 04/10/24 08:59 DAILY JOSE Ondansetron HCl 4 mg 03/09/24 15:26 03/11/24 04:10 Ondansetron Inj 4 Mg/2 Ml Vial IV PUSH 4 mg Q4H PRN Administration Nausea Pantoprazole Sodium 20 mg 03/10/24 09:00 03/10/24 08:39 Pantoprazole Sod Sesquihydrate 20 Mg Tab PO 20 mg QAM JOSE Administration Spironolactone 100 mg 03/10/24 09:00 03/10/24 08:39 Spironolactone 50 Mg Tablet PO 100 mg DAILY JOSE Administration Tizanidine HCl 4 mg 03/09/24 20:04 03/10/24 21:56 Tizanidine Hcl 4 Mg Tablet PO 4 mg BID PRN Administration muscle spasticity Tramadol HCl 50 mg 03/09/24 20:04 03/10/24 08:43 Tramadol Hcl (*Crx) 50 Mg Tablet PO 50 mg Q6H PRN Administration pain 4-6 Radiology Results: ITS Impressions Chest CTA 03/09/24 13:50 IMPRESSION: 1. Scattered pulmonary emboli in the left lung including the lingula and left upper and lower lobes with mild to moderate clot burden but without right heart strain. Chest X-Ray 03/09/24 13:53 IMPRESSION: 1. No acute cardiopulmonary disease. Venous Doppler Study 03/10/24 09:58 IMPRESSION: 1. No deep venous thrombosis. Labs Labs: Laboratory Results - last 24 hr 03/10/24 03/10/24 03/11/24 12:02 21:22 03:41 WBC 12.0 H RBC 4.66 Hgb 13.0 Hct 39.8 MCV 85.4 D MCH 27.9 MCHC 32.7 RDW 14.3 Plt Count 294 MPV 9.7 APTT 52.0 H 114.1 H 46.5 H Sodium 137 Potassium 4.2 Chloride 101 Carbon Dioxide 28 Anion Gap 8 BUN 15 Creatinine 0.80 Estim Creat Clear Calc 90 Estimated GFR > 60 Glucose 115 H Calcium 9.2 Total Bilirubin 0.5 AST 89 H ALT 90 H Alkaline Phosphatase 103 Total Protein 7.0 Albumin 4.1
[2024-03-11] MEDS: ATOGEPANT 60 MG 60 EACH PO (08:55)
[2024-03-11] MEDS: SPIRONOLACTONE 50 MG TABLET 100 MG PO (08:55)
[2024-03-11] MEDS: ESCITALOPRAM OXALATE 10 MG TABLET 20 MG PO (08:55)
[2024-03-11] MEDS: ATORVASTATIN 40 MG TABLET PO (08:55)
[2024-03-11] MEDS: PANTOPRAZOLE SOD SESQUIHYDRATE 20 MG TAB PO (08:55)
[2024-03-11] MEDS: EMPAGLIFLOZIN 10 MG TABLET PO (08:55)
[2024-03-11 10:47] LABS: Partial Thromboplastin Time 82.9 Seconds (22.3-36.8)
--- NOTE | 2024-03-11 11:04 | PC.NURSE ---
PTT was verified. No change in rate per protocol.
[2024-03-11] MEDS: HEPARIN SOD/D5W 100 UNITS/ML 25,000 UNITS/250 ML BAG 21 UNITS IV CONT (12:00)
[2024-03-11 16:50] LABS: Partial Thromboplastin Time 94.7 Seconds (22.3-36.8)
[2024-03-11] MEDS: APIXABAN 5 MG TABLET PO (20:27)
[2024-03-12] VITALS: PULSE 92; PULSE 93; RESP 16; TEMP 36.6; O2SAT 98
[2024-03-12] MEDS: ONDANSETRON INJ 4 MG/2 ML VIAL IV PUSH (00:12)
--- NOTE | 2024-03-12 01:00 | ECG_ITS ---
Test Date: 2024-03-12 01:19:27 Measurements Intervals [place] Rate: 89 P: 19 AR: 156 QRS: 20 QRSD: 93 T: 17 QT: 349 QTc: 427 Interpretive Statements SINUS RHYTHM BASELINE ARTIFACT- II, III, AVF, V1 NORMAL ECG Compared to ECG 03/09/2024 13:16:31 NO SIGNIFICANT CHANGE Electronically Signed On 03-12-2024 05:37:04 HOUSING DEVELOPMENT SPECIALIST by Go Pérez D.O.
[2024-03-12] MEDS: TIZANIDINE HCL 4 MG TABLET PO (01:30)
[2024-03-12] MEDS: traMADol HCL (*CRX) 50 MG TABLET PO (02:23)
[2024-03-12 04:00] VITALS: PULSE 67
--- NOTE | 2024-03-12 05:10 | PC.NURSE ---
Called hospitalist, Dr. Martinez at approx. 0050 to notify of pt c/o chest tightness. Pt here for left sided PE. Pt had previously c/o chest tightness on her way to the bathroom at approx. 2250, thought it was just due to activity. Pt found to be laying in bed and now stating chest pain is not going away. No response by provider via phone. Text messaged provider via phone of pt's complaint and asked if any testing/labs should be done. Provider said tightness could be due to the PE. Provider said an EKG can be ordered, but labs seem unnecessary at this time. STAT EKG order placed @0100.
[2024-03-12 08:00] VITALS: BP 128/62; PULSE 64; PULSE 68; RESP 16; TEMP 36.6; O2SAT 98
[2024-03-12] MEDS: SPIRONOLACTONE 50 MG TABLET 100 MG PO (08:21)
[2024-03-12] MEDS: APIXABAN 5 MG TABLET PO (08:22)
[2024-03-12] MEDS: PANTOPRAZOLE SOD SESQUIHYDRATE 20 MG TAB PO (08:22)
[2024-03-12] MEDS: EMPAGLIFLOZIN 10 MG TABLET PO (08:22)
[2024-03-12] MEDS: ATORVASTATIN 40 MG TABLET PO (08:22)
[2024-03-12] MEDS: ESCITALOPRAM OXALATE 10 MG TABLET 20 MG PO (08:23)
[2024-03-12] MEDS: ATOGEPANT 60 MG 60 EACH PO (08:23)
[2024-03-12 09:56] LABS: Hematocrit 44.5 % (37.0-47.0); Hemoglobin 13.9 g/dL (12.0-15.0); Mean Corpuscular HGB Conc 31.2 g/dl (32-36); Mean Corpuscular Hemoglobin 27.4 pg (26-34); Mean Corpuscular Volume 87.8 fl (80-100); Mean Platelet Volume 9.8 fl (7.4-10.4); Platelet Count Result 336 k/mm3 (150-375); Red Blood Count 5.07 M/mm3 (4.2-5.4); Red Cell Distribution Width 14.6 % (11.5-14.5); White Blood Count 12.2 K/mm3 (4.5-10.0)
[2024-03-12 10:28] LABS: Anion Gap 10 mmol/L (4-12); Blood Urea Nitrogen 15 mg/dL (7-17); Calcium 9.5 mg/dL (8.4-10.2); Carbon Dioxide 26 mmol/L (22-30); Chloride 103 mmol/L (98-107); Estimated CRCL calculation 90 ml/min; Estimated Glomerular Filt Rate > 60; Glucose 118 mg/dL (65-110); Potassium 4.2 mmol/L (3.4-5.0); Sodium 139 mmol/L (137-145)
--- NOTE | 2024-03-12 12:11 | P.PNIM_ITS ---
Progress Note: A&P Assessment and Plan (1) Deep vein thrombosis of axillary vein of left upper extremity: Code(s): I82.A12 - Acute embolism and thrombosis of left axillary vein Status: Acute (2) Adenocarcinoma of cervix: Code(s): C53.9 - Malignant neoplasm of cervix uteri, unspecified Status: Acute (3) Pulmonary embolism: Code(s): I26.99 - Other pulmonary embolism without acute cor pulmonale Status: Acute (4) DVT (deep venous thrombosis): Code(s): I82.409 - Acute embolism and thrombosis of unspecified deep veins of unspecified lower extremity Status: Acute (5) Elevated LFTs: Code(s): R79.89 - Other specified abnormal findings of blood chemistry Status: Acute Plan This is a pleasant 38-year-old female with migraine headaches, polycystic ovarian syndrome, prediabetes, Shelbie-Danlos syndrome, gastroesophageal reflux disease, hyperlipidemia, fatty liver disease, depression, anxiety, cervical adenocarcinoma status post total abdominal hysterectomy with bilateral salpingo- oophorectomy on 02/25/2024 at [place] after which she was started on estradiol, and recent diagnosis of left axillary vein deep venous thrombosis for which she has taken 3 doses of apixaban who presented to the emergency department for evaluation of chest pain and shortness of breath. (1) Pulmonary emboli: Code(s): I26.99 - Other pulmonary embolism without acute cor pulmonale Status: Acute Assessment and Plan: The patient presents with chest pain and shortness a breath Left UE venous doppler showing DVT involving the left axillary vein. She had been started on Eliquis and had taken [address] scan showed PE in the left lung with [id number] burden without evidence of right heart strain. Risk factors for clots include recent surgery for cervical adenocarcinoma, hormonal therapy and obesity Heparin drip started and therapeutic. LE venous doppler negative for DVT Echo showing normal LV size and function (EF 60-65%), grade 1 diastolic dysfunction, normal RV size and function and no significant valvular disease. Patient is still symptomatic. Continue heparin drip today. Estrogen stopped. transition back to Eliquis. Patient needs to take Eliquis 10 mg q.12 hours. p.o. for 7 days and then take a Eliquis 5 mg q.12 hours (2) Deep vein thrombosis of axillary vein of left upper extremity: Code(s): I82.A12 - Acute embolism and thrombosis of left axillary vein Status: Acute Assessment and Plan: As above (3) Adenocarcinoma of cervix: Code(s): C53.9 - Malignant neoplasm of cervix uteri, unspecified Status: Acute Assessment and Plan: Patient with cervical adenocarcinoma status post total abdominal hysterectomy with bilateral salpingo-oophorectomy on 02/25/2024 at [place] after which she was started on estradiol Estrogen stopped. (4) Elevated LFTs: Code(s): R79.89 - Other specified abnormal findings of blood chemistry Status: Acute Assessment and Plan: AST and ALT are mildly elevated. This has been noted in the past. She is on Lipitor which was continued. Levels trending down. (5) Hyperlipidemia: Code(s): E78.5 - Hyperlipidemia, unspecified Status: Acute Assessment and Plan: As above. Continue Liptor for now (6) Prediabetes: Code(s): R73.03 - Prediabetes Status: Acute Assessment and Plan: A1c 7.1%. The patient's blood glucose was reviewed on 03/10 Glucose remains well controlled. Continue to monitor Subjective Date/time seen: 03/12/24 12:11 Interval history: Patient has mild pleuritic chest pain, patient does not need pain medication. Patient denies shortness breath, lightheadedness, abdomen pain, bloody stools. Patient is afebrile, blood pressure stable, pulse ox 98 on room air Exam Narrative: GENERAL: Pleasant, in no acute distress. Well-nourished. - EYES: EOMI. Anicteric. - HENT: Moist mucous membranes. - LUNGS: Clear to auscultation bilateral ly, no wheezing, rhonchi, or rales. - CARDIOVASCULAR: Regular rate and rhyth m. No murmur. No JVD. - ABDOMEN: Soft, non-tender and non-dist ended. No palpable masses. - EXTREMITIES: No edema. Peripheral puls es 2+. Non-tender. - NEUROLOGIC: No focal neurological defi cits. CN II-XII grossly intact. - PSYCHIATRIC: Awake, Alert and oriented x 3. Appropriate mood and affect. - SKIN: No rashes or lesions. Warm. - LYMPH: No cervical lymphadenopathy. Objective Data Vital Signs Vital Signs: Vital Signs - 24 hr 03/11/24 16:18 03/11/24 16:00 03/11/24 21:10 Temperature 98.0 F 98.2 F Pulse Rate 97 90 82 Respiratory Rate 18 16 Blood Pressure 134/78 139/84 Pulse Oximetry 96 98 Oxygen Delivery 03/11/24 23:15 03/12/24 00:00 03/11/24 20:00 Temperature 98.3 F 98 F Pulse Rate 95 92 93 Respiratory Rate 16 16 Blood Pressure 133/65 Pulse Oximetry 97 98 Oxygen Delivery 03/12/24 00:00 03/11/24 20:24 03/12/24 04:00 Temperature Pulse Rate 93 67 Respiratory Rate Blood Pressure Pulse Oximetry Oxygen Delivery Room Air 03/12/24 08:00 03/12/24 08:00 03/12/24 08:20 Temperature 97.8 F Pulse Rate 64 68 Respiratory Rate 16 Blood Pressure 128/62 Pulse Oximetry 98 Oxygen Delivery Room Air Intake/Output Intake/Output: Intake & Output 03/09/24 03/10/24 03/11/24 03/12/24 23:59 23:59 23:59 23:59 Intake Total 600 1802.0 1755.5 120 Output Total 2 Balance 600 1800.0 1755.5 120 Meds/Results Medications: Active Medications Generic Name Dose Route Start Last Admin Trade Name Freq PRN Reason Stop Dose Admin Acetaminophen 650 mg 03/09/24 15:26 03/10/24 16:52 Acetaminophen 325 Mg Tablet PO 650 mg Q4H PRN Administration Mild Pain (1-3) or Fever Alprazolam 0.5 mg 03/09/24 20:04 Alprazolam (*Crx) 0.5 Mg Tablet PO TID PRN anxiety Apixaban 5 mg 03/11/24 21:00 03/12/24 08:22 Apixaban 5 Mg Tablet PO 5 mg Q12HR JOSE Administration Atorvastatin Calcium 40 mg 03/10/24 09:00 03/12/24 08:22 Atorvastatin 40 Mg Tablet PO 40 mg DAILY JOSE Administration Empagliflozin 10 mg 03/10/24 09:00 03/12/24 08:22 Empagliflozin 10 Mg Tablet PO 10 mg DAILY JOSE Administration Escitalopram Oxalate 20 mg 03/10/24 09:00 03/12/24 08:23 Escitalopram Oxalate 10 Mg Tablet PO 20 mg DAILY JOSE Administration Hydromorphone HCl 0.5 mg 03/09/24 22:41 03/10/24 05:43 Hydromorphone Hcl Inj (*Crx) 1 Mg/Ml Syr IV PUSH 0.5 mg Q3H PRN Administration Pain Rated 7-10 Home Med (Atogepant 60 mg 03/13/24 09:00 [Qulipta] 60 Mg PO 04/10/24 08:59 Tablet) DAILY JOSE Ondansetron HCl 4 mg 03/09/24 15:26 03/12/24 00:12 Ondansetron Inj 4 Mg/2 Ml Vial IV PUSH 4 mg Q4H PRN Administration Nausea Pantoprazole Sodium 20 mg 03/10/24 09:00 03/12/24 08:22 Pantoprazole Sod Sesquihydrate 20 Mg Tab PO 20 mg QAM JOSE Administration Spironolactone 100 mg 03/10/24 09:00 03/12/24 08:21 Spironolactone 50 Mg Tablet PO 100 mg DAILY JOSE Administration Tizanidine HCl 4 mg 03/09/24 20:04 03/12/24 01:30 Tizanidine Hcl 4 Mg Tablet PO 4 mg BID PRN Administration muscle spasticity Tramadol HCl 50 mg 03/09/24 20:04 03/12/24 02:23 Tramadol Hcl (*Crx) 50 Mg Tablet PO 50 mg Q6H PRN Administration pain 4-6 Radiology Results: ITS Impressions Chest CTA 03/09/24 13:50 IMPRESSION: 1. Scattered pulmonary emboli in the left lung including the lingula and left upper and lower lobes with mild to moderate clot burden but without right heart strain. Chest X-Ray 03/09/24 13:53 IMPRESSION: 1. No acute cardiopulmonary disease. Venous Doppler Study 03/10/24 09:58 IMPRESSION: 1. No deep venous thrombosis. Labs Labs: Laboratory Results - last 24 hr 03/11/24 03/12/24 16:29 09:30 WBC 12.2 H RBC 5.07 Hgb 13.9 Hct 44.5 MCV 87.8 MCH 27.4 MCHC 31.2 L RDW 14.6 H Plt Count 336 MPV 9.8 APTT 94.7 H Sodium 139 Potassium 4.2 Chloride 103 Carbon Dioxide 26 Anion Gap 10 BUN 15 Creatinine 0.80 Estim Creat Clear Calc 90 Estimated GFR > 60 Glucose 118 H Calcium 9.5
--- NOTE | 2024-03-12 12:16 | P.DS_ITS ---
DS: Admitting Diagnosis Discharge Date 03/12/24 Admitting Diagnosis (1) Deep vein thrombosis of axillary vein of left upper extremity: Code(s): I82.A12 - Acute embolism and thrombosis of left axillary vein Status: Acute (2) Adenocarcinoma of cervix: Code(s): C53.9 - Malignant neoplasm of cervix uteri, unspecified Status: Acute (3) Pulmonary embolism: Code(s): I26.99 - Other pulmonary embolism without acute cor pulmonale Status: Acute (4) DVT (deep venous thrombosis): Code(s): I82.409 - Acute embolism and thrombosis of unspecified deep veins of unspecified lower extremity Status: Acute (5) Elevated LFTs: Code(s): R79.89 - Other specified abnormal findings of blood chemistry Status: Acute DS: Discharge Diagnosis Discharge Diagnosis (1) Deep vein thrombosis of axillary vein of left upper extremity: Code(s): I82.A12 - Acute embolism and thrombosis of left axillary vein Status: Acute (2) Adenocarcinoma of cervix: Code(s): C53.9 - Malignant neoplasm of cervix uteri, unspecified Status: Acute (3) Pulmonary embolism: Code(s): I26.99 - Other pulmonary embolism without acute cor pulmonale Status: Acute (4) DVT (deep venous thrombosis): Code(s): I82.409 - Acute embolism and thrombosis of unspecified deep veins of unspecified lower extremity Status: Acute (5) Elevated LFTs: Code(s): R79.89 - Other specified abnormal findings of blood chemistry Status: Acute DS: Summary Hospital Course Hospital Course: This is a pleasant 38-year-old female with migraine headaches, polycystic ovarian syndrome, prediabetes, Shelbie-Danlos syndrome, gastroesophageal reflux disease, hyperlipidemia, fatty liver disease, depression, anxiety, cervical adenocarcinoma status post total abdominal hysterectomy with bilateral salpingo- oophorectomy on 02/25/2024 at [place] after which she was started on estradiol, and recent diagnosis of left axillary vein deep venous thrombosis for which she has taken 3 doses of apixaban who presented to the emergency department for evaluation of chest pain and shortness of breath. The following med issues have been addressed during hospitalization (1) Pulmonary emboli: Code(s): I26.99 - Other pulmonary embolism without acute cor pulmonale Status: Acute Assessment and Plan: The patient presents with chest pain and shortness a breath Left UE venous doppler showing DVT involving the left axillary vein. She had been started on Eliquis and had taken [address] scan showed PE in the left lung with [id number] burden without evidence of right heart strain. Risk factors for clots include recent surgery for cervical adenocarcinoma, hormonal therapy and obesity Heparin drip started and therapeutic. LE venous doppler negative for DVT Echo showing normal LV size and function (EF 60-65%), grade 1 diastolic dysfunction, normal RV size and function and no significant valvular disease. Patient is still symptomatic. Continue heparin drip today. Estrogen stopped. transition back to Eliquis. Patient needs to take Eliquis 10 mg q.12 hours. p.o. for 7 days and then take a Eliquis 5 mg q.12 hours (2) Deep vein thrombosis of axillary vein of left upper extremity: Code(s): I82.A12 - Acute embolism and thrombosis of left axillary vein Status: Acute Assessment and Plan: As above (3) Adenocarcinoma of cervix: Code(s): C53.9 - Malignant neoplasm of cervix uteri, unspecified Status: Acute Assessment and Plan: Patient with cervical adenocarcinoma status post total abdominal hysterectomy with bilateral salpingo-oophorectomy on 02/25/2024 at [place] after which she was started on estradiol Estrogen stopped. (4) Elevated LFTs: Code(s): R79.89 - Other specified abnormal findings of blood chemistry Status: Acute Assessment and Plan: AST and ALT are mildly elevated. This has been noted in the past. She is on Lipitor which was continued. Levels trending down. (5) Hyperlipidemia: Code(s): E78.5 - Hyperlipidemia, unspecified Status: Acute Assessment and Plan: As above. Continue Liptor for now (6) Prediabetes: Code(s): R73.03 - Prediabetes Status: Acute Assessment and Plan: A1c 7.1%. The patient's blood glucose was reviewed on 03/10 Glucose remains well controlled. Continue to monitor Time Spent with Patient Time attestation: Total time spent providing and/or coordinating discharge services: Exam Narrative: GENERAL: Pleasant, in no acute distress. Well-nourished. - EYES: EOMI. Anicteric. - HENT: Moist mucous membranes. - LUNGS: Clear to auscultation bilateral ly, no wheezing, rhonchi, or rales. - CARDIOVASCULAR: Regular rate and rhyth m. No murmur. No JVD. - ABDOMEN: Soft, non-tender and non-dist ended. No palpable masses. - EXTREMITIES: No edema. Peripheral puls es 2+. Non-tender. - NEUROLOGIC: No focal neurological defi cits. CN II-XII grossly intact. - PSYCHIATRIC: Awake, Alert and oriented x 3. Appropriate mood and affect. - SKIN: No rashes or lesions. Warm. - LYMPH: No cervical lymphadenopathy. DS: Data Data Completed and Pending Labs on day of discharge: Labs from last 24 hours 03/12/24 03/11/24 09:30 16:29 WBC 12.2 H RBC 5.07 Hgb 13.9 Hct 44.5 MCV 87.8 MCH 27.4 MCHC 31.2 L RDW 14.6 H Plt Count 336 MPV 9.8 APTT 94.7 H Sodium 139 Potassium 4.2 Chloride 103 Carbon Dioxide 26 Anion Gap 10 BUN 15 Creatinine 0.80 Estim Creat Clear Calc 90 Estimated GFR > 60 Glucose 118 H Calcium 9.5 Discharge Plan Discharge Attending physician on discharge: Deepak Garcia Discharging Clinician: Deepak Garcia Anticipated Discharge Date/Time: 03/12/24 12:14 Patient Disposition: Home, Self-Care Activity: as tolerated Diet: heart healthy Patient Instructions: Antibiotic Form, Apixaban (By mouth), Pulmonary Embolism (DC) Stand Alone Forms: General Discharge Information Follow-up/Referrals: Gennaro Boone MD [Primary Care Provider] - (Patient needs to see primary care doctor in 1 week) Discharge Medications: Continued atorvastatin [Lipitor] 20 mg tablet 40 mg PO DAILY esomeprazole magnesium [Nexium] 20 mg capsule,delayed release(DR/EC) 20 mg PO DAILY tizanidine 4 mg capsule 4 mg PO BID PRN (Reason: muscle spasticity) Qty: 60 1RF Jardiance 10 mg tablet 10 mg PO DAILY Eliquis DVT-PE Treat 30D Start 5 mg (74 tabs) tablets,dose pack See Rx Instructions PO PER PKG DIR Qty: 74 0RF Rx Instructions: PO PER PKG DIR tramadol 50 mg tablet 50 mg PO Q6H PRN (Reason: pain) Qty: 20 0RF prochlorperazine maleate [Compazine] 5 mg tablet 5 mg PO Q8H PRN (Reason: nausea and vomiting) Qty: 30 0RF spironolactone 100 mg tablet 100 mg PO DAILY acetaminophen-codeine 300-30 mg tablet 1 tablet PO Q6H PRN (Reason: pain) Qty: 90 0RF valacyclovir [Valtrex] 1 gram tablet 2,000 mg PO Q12H PRN (Reason: Cold Sores) Ubrelvy 100 mg tablet 100 mg PO DAILY PRN (Reason: Migraine Headache) alprazolam 0.5 mg tablet 0.5 mg PO TID PRN (Reason: anxiety) Qty: 90 0RF Qulipta 60 mg tablet 60 mg PO DAILY Qty: 90 2RF escitalopram oxalate 20 mg tablet 20 mg PO DAILY Qty: 90 1RF meloxicam 15 mg tablet 15 mg PO DAILY Qty: 30 3RF Discontinued estradiol 2 mg tablet 2 mg PO DAILY Date of admission: 03/11/24 09:48 Primary Care Provider: Gennaro Boone Admitting Provider: Miller Murray Attending physician on admission: Miller Murray Condition: Stable
[2024-03-12] MEDS: INFLUENZA TRIVALENT VACCINE 45 MCG/0.5 ML SYRINGE IM (12:46)
== END 2024-03-12 12:53 | disposition home or self-care (01) | DRG 176 ==
LOC: ANHED 15:27 → ANHIMU 15:39 → ANH2MED 03-10 23:51
PROVIDERS: Emergency Medicine; Internal Medicine; Physician Assistant; Admitting Provider Internal Medicine; Emergency Provider Emergency Medicine; PCP Family Medicine; Visit Provider Hospitalist
DX: I26.99 Other pulmonary embolism without acute cor pulmonale (principal); Q79.60 Ehlers-Danlos syndrome, unspecified; I82.A12 Acute embolism and thrombosis of left axillary vein; Z23 Encounter for immunization; E28.2 Polycystic ovarian syndrome; G43.909 Migraine, unspecified, not intractable, without status migrainosus; R73.03 Prediabetes; K21.9 Gastro-esophageal reflux disease without esophagitis; E78.5 Hyperlipidemia, unspecified; K58.0 Irritable bowel syndrome with diarrhea; K76.0 Fatty (change of) liver, not elsewhere classified; F32.A Depression, unspecified; F41.9 Anxiety disorder, unspecified; Z85.41 Personal history of malignant neoplasm of cervix uteri; Z90.710 Acquired absence of both cervix and uterus; Z90.722 Acquired absence of ovaries, bilateral; Z86.16 Personal history of COVID-19; Z90.49 Acquired absence of other specified parts of digestive tract
CPT/HCPCS: 36415; 71046; 71275; 80048; 80053; 83036; 83690; 83735; 83880; 84484; 85025; 85027; 85610; 85730; 90471; 90656; 93005; 93970; 96365; 96366; 96375; 96376; 99285; A9270; C8929; G0008; G0378; J1171; J1644; J2405; Q9957; Q9967

== ENCOUNTER 2024-03-29 12:22 | Emergency (ER) | payer BC, SELFPAY ==
--- NOTE | ~2024-03-29 | XR_ITS ---
EXAMINATION: XR chest 2V DATE: 03/29/2024 13:16 INDICATION: Chest pain. TECHNIQUE: Frontal and lateral views of the chest were obtained. COMPARISON: Chest 2 views 03/09/2024, chest CT 03/09/2024 FINDINGS: There is no pneumonia, pleural effusion, or pneumothorax. The heart size is normal. Surgica l clips in the right upper quadrant are likely from cholecystectomy. IMPRESSION: 1. No acute cardiopulmonary disease. Reviewed, dictated and finalized at location A. Y LABORATORY TECHNICIAN
--- NOTE | ~2024-03-29 | CT_ITS ---
EXAMINATION: CTA chest PE protocol DATE: 03/29/2024 15:29 INDICATION: known PE, worsening chest pain and dyspnea TECHNIQUE: Computed tomography angiography (CTA) of the chest was performed with 100 mL Omnipaque-350 intravenous contrast timed to evaluate the pulmonary arteries. Coronal maximum intensity projection 3D-reconstructions were created by the technologist. The dose-length product (DLP) was 797.48 mGy-cm. Automated exposure control and iterative reconstruction technique were employed. COMPARISON: X-ray chest, same date; CTPA 03/09/2024 and 03/14/2022. FINDINGS: Lung parenchyma and airways: Clear. Stable right lower lobe granuloma. Pleura: Unremarkable. Thoracic inlet, axillae and chest wall: Unremarkable. Thoracic aorta: No significant dilation. No dissection. Mediastinum: Normal. Heart and pericardium: Normal. Coronary artery calcifications: Absent. Upper abdomen: No significant finding. Bones: No acute osseous finding. Pulmonary arteries: Study quality: Adequate. Chronic left upper and left lower lobe emboli. No new ac fritz pulmonary emboli detected. IMPRESSION: No CT evidence of acute pulmonary embolus. Chronic left upper and left lower lobe nonocclusive emboli . No acute process detected in the chest. Reviewed, dictated and finalized at location K. TS DEVELOPMENT OFFICER IMPRESSION: No CT evidence of acute pulmonary embolus. Chronic left upper and left lower lo be nonocclusive emboli. No acute process detected in the chest.
[2024-03-29 12:23] VITALS: BP 135/82; PULSE 108; TEMP 36.6; O2SAT 99
--- NOTE | 2024-03-29 12:25 | ECG_ITS ---
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
[2024-03-29 12:43] LABS: Basophils Absolute Auto 0.1 K/mm3 (0.0-0.1); Basophils Percent Auto 0.6 % (0.2-1.2); Eosinophils Absolute Auto 0.2 K/mm3 (0-0.3); Hemoglobin 13.6 g/dL (12.0-15.0); Immature Granulocyte Absolute 0.05 K/mm3 (0.00-0.031); Immature Granulocyte Percent A 0.6 % (0-0.5); Lymphocytes Absolute Auto 1.93 K/mm3 (0.9-3.2); Lymphocytes Percent Auto 24.2 % (18.3-44.2); Mean Corpuscular HGB Conc 32.4 g/dl (32-36); Mean Corpuscular Hemoglobin 27.6 pg (26-34); Mean Corpuscular Volume 85.4 fl (80-100); Mean Platelet Volume 9.3 fl (7.4-10.4); Monocytes Absolute Auto 0.6 K/mm3 (0.1-0.6); Monocytes Percent Auto 7.3 % (2.6-8.5); Neutrophils Absolute Auto 5.1 K/mm3 (1.3-6.7); Neutrophils Percent Auto 64.3 % (45.5-73.1); Platelet Count Result 398 k/mm3 (150-375); Red Blood Count 4.92 M/mm3 (4.2-5.4); Red Cell Distribution Width 14.5 % (11.5-14.5)
[2024-03-29 12:49] VITALS: O2SAT 97
[2024-03-29 12:52] VITALS: BP 145/84; PULSE 96; RESP 20; O2SAT 96
[2024-03-29 12:56] LABS: INR 1.2; Prothrombin Time 15.5 Seconds (11.1-14.7)
[2024-03-29 12:57] LABS: Partial Thromboplastin Time 28.6 Seconds (22.3-36.8)
[2024-03-29 13:07] LABS: Alanine Aminotransferase 82 U/L (6-35); Albumin Level 4.6 g/dL (3.5-5.1); Alkaline Phosphatase 86 U/L (38-126); Anion Gap 10 mmol/L (4-12); Aspartate Amino Transferase 65 U/L (14-36); Bilirubin,Total 0.5 mg/dL (0.2-1.3); Blood Urea Nitrogen 12 mg/dL (7-17); Calcium 9.4 mg/dL (8.4-10.2); Carbon Dioxide 24 mmol/L (22-30); Chloride 105 mmol/L (98-107); Estimated CRCL calculation 103 ml/min; Estimated Glomerular Filt Rate > 60; Glucose 164 mg/dL (65-110); Lipase 155 U/L (23-300); Potassium 4.2 mmol/L (3.4-5.0); Sodium 139 mmol/L (137-145)
[2024-03-29 13:18] LABS: Troponin I < 0.012 ng/mL (0.000-0.034)
[2024-03-29 14:49] LABS: NT Pro B Type Natriuretic Pept < 20 pg/mL (19.9-100)
[2024-03-29 14:55] VITALS: BP 120/86; PULSE 89; RESP 17; O2SAT 100
--- NOTE | 2024-03-29 16:09 | ECG_ITS ---
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
--- NOTE | 2024-03-29 16:38 | ED.CHESTPAIN ---
HPI - Chest Pain General Chief Complaint: Chest Pain Stated Complaint: CP Time Seen by Provider: 03/29/24 14:07 History of Present Illness HPI narrative: 38-year-old female with known PE on Eliquis presents to the ED for chest pain and shortness of breath for 1 day. Patient states her chest pain started while she was lying salt on her driveway. She states it is dull in central in nature, at times radiates to the left side as sharp. States the pain can become worse when she is either at rest or exerting herself. She cannot identify any other aggravating or alleviating factors. Reports associated shortness of breath. Denies cough or congestion, fever, hemoptysis, abdominal pain, N/V/ D. she was admitted for PE on 03/09/2024 or she was started on Eliquis. They believe the cause of the PE was provoked in nature and due to the fact that the patient was postop from a hysterectomy, head trauma to her left arm from her IV site which later turned into a DVT and was on estrogen. Denies lower extremity edema. Denies smoking or personal history of CVA or CAD. Her mother has history of CVA. Related Data Home Medications Medication Instructions Recorded Confirmed atorvastatin 20 mg tablet (Lipitor) 40 mg PO DAILY 01/26/20 03/17/24 spironolactone 100 mg tablet 100 mg PO DAILY 10/17/21 03/17/24 esomeprazole magnesium 20 mg 20 mg PO DAILY 06/05/22 03/17/24 capsule,delayed release (Nexium) empagliflozin 10 mg tablet 10 mg PO DAILY 12/04/23 03/17/24 (Jardiance) valacyclovir 1 gram tablet 2,000 mg PO Q12H PRN Cold Sores 03/09/24 03/17/24 (Valtrex) ubrogepant 100 mg tablet (Ubrelvy) 100 mg PO DAILY PRN Migraine 03/10/24 03/17/24 Headache Allergies Allergy/AdvReac Type Severity Reaction Status Date / Time chlorhexidine Allergy Severe Anaphylaxis Verified 03/29/24 12:53 nut - unspecified Allergy Intermediate Difficulty Verified 03/29/24 12:53 Swallowing tree nut Allergy Intermediate Difficulty Verified 03/29/24 12:53 Swallowing hydrocodone Allergy Mild Anaphylaxis Verified 03/29/24 12:53 oxycodone Allergy Unknown THROAT Verified 03/29/24 12:53 SWELLING Penicillins Allergy Unknown UNKNOWN-WAS Verified 03/29/24 12:53 CHILD topiramate [From Topamax] AdvReac Confusion Verified 03/29/24 12:53 Review of Systems Review of Systems: All systems reviewed & are unremarkable except as noted in HPI and below PMFSH Past Medical History Medical History Adenocarcinoma of cervix Anxiety and depression COVID-19 Fatty liver GERD without esophagitis Hyperlipidemia Hypermobile Shelbie-Danlos syndrome Irritable bowel syndrome with diarrhea Migraine headache Mouth sores Myalgia Other symptoms and signs involving emotional state Pain of left calf Polycystic ovarian syndrome Prediabetes Pulmonary emboli Pyloric stenosis Recurrent epistaxis Vitamin D deficiency Yeast infection Surgical History Surgical History H/O: hysterectomy History of abdominal surgery History of ankle surgery History of cholecystectomy History of colposcopy History of endoscopy History of knee surgery History of total abdominal hysterectomy and bilateral salpingo-oophorectomy (02/25/24) for cervical cancer- no residual in situ or invasive endocervical adenocarcinoma Family History Family History Father Hypertension Mother Hypertension Cerebrovascular accident Sibling COVID Social History Social History Social History: Surrogate medical decision maker: Selene Lindaoni, sibling. Code status: Full code. 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 HEAD: Normocephalic, atraumatic. EYES: PERRLA and EOMI. ENT: Nares clear, no rhinorrhea or epistaxis. Mucous membranes moist. NECK: Supple. CHEST: Clear to auscultation. No respiratory distress. HEART: Regular rate and rhythm. No murmur heard. Normal peripheral pulses. ABDOMEN: Soft, nontender, nondistended, normal active bowel sounds. EXTREMITIES: Normal range of motion. No edema. SKIN: Warm, dry, no rash. NEURO: No focal deficits. Alert and oriented x3 Course Vital Signs Vital signs: Vital Signs Temperature 97.8 F 03/29/24 12:23 Pulse Rate 108 H 03/29/24 12:23 Blood Pressure 135/82 03/29/24 12:23 Pulse Oximetry 99 03/29/24 12:23 Temperature 97.8 F 03/29/24 12:23 Pulse Rate 89 03/29/24 14:55 Respiratory Rate 17 03/29/24 14:55 Blood Pressure 120/86 03/29/24 14:55 Pulse Oximetry 100 03/29/24 14:55 Oxygen Delivery Room Air 03/29/24 12:49 MDM - Chest Pain MDM Narrative Medical decision making narrative: 38-year-old female who is currently undergoing treatment for PE was diagnosed 1 month ago presents emergency department for chest pain and shortness of breath. See HPI for further history. Triage vitals with tachycardia 1 weight which has since resolved. She is afebrile nontoxic appearing resting comfortably in exam bed. She is satting 100% on room air in no distress. EKG shows sinus tachycardia rate of 100, normal CO interval, normal QRS duration, normal QTC, no ischemic changes. Troponin is undetectable x2. Chest x-ray shows no acute cardiopulmonary findings. Lipase is normal. BNP within normal limits. CTA chest PE shows no evidence of acute PE. There is chronic left upper and left lower lobe nonocclusive emboli. No acute process detected in the chest. Patient updated on workup. Chest pain is atypical in nature. Encouraged Tylenol, advised to refrain from NSAIDs. Encouraged at continue compliance with Eliquis and follow-up closely with her PCP. Discussed strict ED return precautions. She is agreeable to plan and verbalized understanding. Discharged in stable condition. Lab Data 03/29/24 12:38 03/29/24 12:38 Labs: Lab Results 03/29/24 03/29/24 03/29/24 Range/Units 12:37 12:38 16:10 WBC 8.0 (4.5-10.0) K/mm3 RBC 4.92 (4.2-5.4) M/mm3 Hgb 13.6 (12.0-15.0) g/dL Hct 42.0 (37.0-47.0) % MCV 85.4 (80-100) fl MCH 27.6 (26-34) pg MCHC 32.4 (32-36) g/dl RDW 14.5 (11.5-14.5) % Plt Count 398 H (150-375) k/mm3 MPV 9.3 (7.4-10.4) fl Immature Gran % (Auto) 0.6 H (0-0.5) % Neut % (Auto) 64.3 (45.5-73.1) % Lymph % (Auto) 24.2 (18.3-44.2) % Mcdonald % (Auto) 7.3 (2.6-8.5) % Eos % (Auto) 3.0 (0-4.4) % Baso % (Auto) 0.6 (0.2-1.2) % Lymph # (Auto) 1.93 (0.9-3.2) K/mm3 Mcdonald # (Auto) 0.6 (0.1-0.6) K/mm3 Eos # (Auto) 0.2 (0-0.3) K/mm3 Baso # (Auto) 0.1 (0.0-0.1) K/mm3 Abs Immat Gran (auto) 0.05 H (0.00-0.031) K/mm3 Absolute Neuts (auto) 5.1 (1.3-6.7) K/mm3 Absolute Nucleated RBC 0.000 (0.0-0.012) K/mm3 Nucleated RBC % 0.0 (0.0-0.2) % PT 15.5 H (11.1-14.7) Seconds INR 1.2 APTT 28.6 (22.3-36.8) Seconds Sodium 139 (137-145) mmol/L Potassium 4.2 (3.4-5.0) mmol/L Chloride 105 (98-107) mmol/L Carbon Dioxide 24 (22-30) mmol/L Anion Gap 10 (4-12) mmol/L BUN 12 (7-17) mg/dL Creatinine 0.70 (0.7-1.0) mg/dL Estim Creat Clear Calc 103 ml/min Estimated GFR > 60 (59 - ) Glucose 164 H (65-110) mg/dL Calcium 9.4 (8.4-10.2) mg/dL Total Bilirubin 0.5 (0.2-1.3) mg/dL AST 65 H (14-36) U/L ALT 82 H (6-35) U/L Alkaline Phosphatase 86 (38-126) U/L Troponin I < 0.012 Pending (0.000-0.034) ng/mL NT-Pro-B Natriuret Pep < 20 (19.9-100) pg/mL Total Protein 8.0 (6.3-8.2) g/dL Albumin 4.6 (3.5-5.1) g/dL Lipase 155 (23-300) U/L Discharge Plan Discharge Clinical Impression: Pulmonary embolism Qualifiers: Pulmonary embolism type: unspecified Chronicity: chronic Acute cor pulmonale presence: unspecified Qualified Code(s): I27.82 - Chronic pulmonary embolism Patient Disposition: Home, Self-Care Condition: Stable Instructions: Antibiotic Form, Chest Pain (ED), Pulmonary Embolism (ED) Additional Instructions: Your evaluated in the emergency department for chest pain or shortness of breath. Your workup here is reassuring. The CT shows her chronic left upper and left lower pulmonary emboli but does not show any findings. Please continue taking her Eliquis as directed. Take Tylenol as needed for pain. Refrain from NSAIDs as discussed. Follow up with her PCP. Return to the emergency department if you develop new or worsening symptoms. Prescriptions: No Action atorvastatin [Lipitor] 20 mg tablet 40 mg PO DAILY esomeprazole magnesium [Nexium] 20 mg capsule,delayed release(DR/EC) 20 mg PO DAILY tizanidine 4 mg capsule 4 mg PO BID PRN (Reason: muscle spasticity) Qty: 60 1RF Jardiance 10 mg tablet 10 mg PO DAILY tramadol 50 mg tablet 50 mg PO Q6H PRN (Reason: pain) Qty: 20 0RF Eliquis 5 mg tablet 5 mg PO BID Qty: 60 0RF sumatriptan succinate 50 mg tablet See Rx Instructions PO .COMPLEX Qty: 10 0RF Rx Instructions: take 1 tab at onset of headache; if no relief may repeat 1 tab after at least 2 hrs; max = 4 tabs/24 hr PO do NOT take with Ubrelvy prochlorperazine maleate [Compazine] 5 mg tablet 5 mg PO Q8H PRN (Reason: nausea and vomiting) Qty: 30 0RF spironolactone 100 mg tablet 100 mg PO DAILY acetaminophen-codeine 300-30 mg tablet 1 tablet PO Q6H PRN (Reason: pain) Qty: 90 0RF Hold Instructions: .Provider Order valacyclovir [Valtrex] 1 gram tablet 2,000 mg PO Q12H PRN (Reason: Cold Sores) Ubrelvy 100 mg tablet 100 mg PO DAILY PRN (Reason: Migraine Headache) alprazolam 0.5 mg tablet 0.5 mg PO TID PRN (Reason: anxiety) Qty: 90 0RF Qulipta 60 mg tablet 60 mg PO DAILY Qty: 90 2RF escitalopram oxalate 20 mg tablet 20 mg PO DAILY Qty: 90 1RF Follow-up/Referrals: Gennaor Boone MD [Primary Care Provider] - Quality HEART score for chest pain patients History: slightly suspicious ECG: normal Age: < or = to 45 years Risk factors: 1 or 2 risk factors Troponin: < or = to 1x normal limit Heart score: 1
[2024-03-29 16:39] LABS: Troponin I < 0.012 ng/mL (0.000-0.034)
== END 2024-03-29 16:50 | disposition home or self-care (01) ==
PROVIDERS: Emergency Medicine; Emergency Provider Physician Assistant; PCP Family Medicine
DX: I27.82 Chronic pulmonary embolism (principal); F41.8 Other specified anxiety disorders; K21.9 Gastro-esophageal reflux disease without esophagitis; E78.5 Hyperlipidemia, unspecified; Q79.62 Hypermobile Ehlers-Danlos syndrome; E55.9 Vitamin D deficiency, unspecified
CPT/HCPCS: 36415; 71046; 71275; 80053; 83690; 83880; 84484; 85025; 85610; 85730; 93005; 99284; Q9967

== ENCOUNTER 2024-04-27 14:09 | Emergency (ER) | payer BC, SELFPAY ==
--- NOTE | ~2024-04-27 | XR_ITS ---
XR chest 2V Ordering provider: Merly Sommers PA-C History: 38 years Female with . CP . Comparison: March 29, 2024 FINDINGS: MEDIASTINUM: The cardiac silhouette is not enlarged. LUNGS: No infiltrates, effusions or pneumothorax. OTHER: No free air under the diaphragm. IMPRESSION: No acute cardiopulmonary pathology. Reviewed, dictated and finalized at location A. T MIXER HAND
--- NOTE | ~2024-04-27 | US_ITS ---
LEFT UPPER EXTREMITY VENOUS ULTRASOUND Ordering provider: Merly Sommers PA-C History: . pain, recent DVT . Comparison: None. FINDINGS: --JUGULAR: Patent and free of thrombus. Normal compressibility, phasic flow and augmentation. --SUBCLAVIAN: Patent and free of thrombus. Normal compressibility, phasic flow and augmentation. --AXILLARY: Patent and free of thrombus. Normal compressibility, phasic flow and augmentation. --BRACHIAL: Patent and free of thrombus. Normal compressibility, phasic flow and augmentation. --CEPHALIC: Patent and free of thrombus. Normal compressibility, phasic flow and augmentation. --BASILIC: Patent and free of thrombus. Normal compressibility, phasic flow and augmentation. --RADIAL: Patent and free of thrombus. Normal compressibility, phasic flow and augmentation. --ULNAR: Patent and free of thrombus. Normal compressibility, phasic flow and augmentation. IMPRESSION: Negative left upper extremity venous US. No deep vein thrombosis. Reviewed, dictated and finalized at location A. RING MACHINE OPERATOR
[2024-04-27 14:48] VITALS: BP 121/90; PULSE 115; RESP 18; TEMP 36.4; O2SAT 100
--- NOTE | 2024-04-27 17:14 | ECG_ITS ---
Test Date: 2024-04-27 18:14:58 Measurements Intervals [place] Rate: 92 P: 31 [place]: 149 QRS: 24 QRSD: 85 T: 33 QT: 361 QTc: 447 Interpretive Statements SINUS RHYTHM Electronically Signed On 04-27-2024 18:15:58 JUNIOR JAVA DEVELOPER by Brenna Gomez M.D.
--- NOTE | 2024-04-27 17:15 | ED_ITS ---
HPI - Extremity Problem General Chief complaint: Extremity Problem,Nontraumatic Stated complaint: left arm pain history of blood clot in arm Time Seen by Provider: 04/27/24 17:10 Source: patient Mode of arrival: ambulatory Limitations: no limitations History of Present Illness HPI Narrative: Is a 38-year-old female that presents to the emergency department for left upper extremity pain. Reports this has been ongoing since her diagnosis of DVT in the arm. It started to worsen yesterday. She called her PCP and is prompted to be seen in the ER. She has been taking her Eliquis as prescribed. Reports she has had intermittent chest pain as well. She does have known PE. No current chest pain. Denies shortness of breath. Related Data Home Medications ?Medication ?Instructions ?Recorded ?Confirmed ?Last Taken ?Type atorvastatin 20 mg tablet (Lipitor) 40 mg PO DAILY 01/26/20 04/03/24 03/08/24 20:00 History 40 mg spironolactone 100 mg tablet 100 mg PO DAILY 10/17/21 04/03/24 03/08/24 20:00 History 100 esomeprazole magnesium 20 mg 20 mg PO DAILY 06/05/22 04/03/24 03/08/24 20:00 History capsule,delayed release (Nexium) 20 mg empagliflozin 10 mg tablet 10 mg PO DAILY 12/04/23 04/03/24 03/09/24 08:00 History (Jardiance) 10 mg valacyclovir 1 gram tablet 2,000 mg PO Q12H PRN Cold Sores 03/09/24 04/03/24 05/30/23 History (Valtrex) 1 gram ubrogepant 100 mg tablet (Ubrelvy) 100 mg PO DAILY PRN Migraine 03/10/24 04/03/24 Unknown History Headache Allergies Allergy/AdvReac Type Severity Reaction Status Date / Time chlorhexidine Allergy Severe Anaphylaxis Verified 04/03/24 07:39 nut - unspecified Allergy Intermediate Difficulty Verified 04/03/24 07:39 Swallowing tree nut Allergy Intermediate Difficulty Verified 04/03/24 07:39 Swallowing hydrocodone Allergy Mild Anaphylaxis Verified 04/03/24 07:39 oxycodone Allergy Unknown THROAT Verified 04/03/24 07:39 SWELLING Penicillins Allergy Unknown UNKNOWN-WAS Verified 04/03/24 07:39 CHILD topiramate (From Topamax) AdvReac Confusion Verified 04/03/24 07:39 Review of Systems 2 Review of Systems: CONSTITUTIONAL: Denies fever CARDIOVASCULAR: Reports chest pain. Denies edema. RESPIRATORY: Denies dyspnea. All systems reviewed & are unremarkable except as noted in HPI and below PMFSH Past Medical History Medical History (Updated 04/27/24 @ 19:36 by Merly Sommers PA-C) Pulmonary emboli Adenocarcinoma of cervix Prediabetes Migraine headache Polycystic ovarian syndrome Hyperlipidemia DVT (deep venous thrombosis) Hypermobile Shelbie-Danlos syndrome Recurrent epistaxis Pain of left calf Pyloric stenosis Mouth sores Yeast infection COVID-19 Anxiety and depression Fatty liver GERD without esophagitis Irritable bowel syndrome with diarrhea Myalgia Other symptoms and signs involving emotional state Vitamin D deficiency Surgical History Surgical History History of total abdominal hysterectomy and bilateral salpingo-oophorectomy (02/25/24) for cervical cancer- no residual in situ or invasive endocervical adenocarcinoma H/O: hysterectomy History of endoscopy History of cholecystectomy History of colposcopy History of knee surgery History of ankle surgery History of abdominal surgery Family History Family History Father Hypertension Mother Hypertension Cerebrovascular accident Sibling COVID Social History Social History Social History: Surrogate medical decision maker: Selene Guillory, sibling. Code status: Full code. 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 HEAD: Normocephalic, atraumatic. EYES: EOMI. CHEST: Clear to auscultation. No respiratory distress. No wheezes rales or rhonchi HEART: Regular rate and rhythm. No murmur heard. Normal peripheral pulses. EXTREMITIES: Normal range of motion. No edema or erythema. Normal radial pulse SKIN: Warm, dry, no rash. NEURO: No focal deficits. Alert and oriented x3. PSYCH: Normal mood and affect Course Course Emergency Course: patient updated on workup and agrees with plan of care Vital Signs Vital signs: Vital Signs Temperature 97.6 F 04/27/24 14:48 Pulse Rate 115 H 04/27/24 14:48 Respiratory Rate 18 04/27/24 14:48 Blood Pressure 121/90 04/27/24 14:48 Pulse Oximetry 100 04/27/24 14:48 Oxygen Delivery Room Air 04/27/24 14:48 Temperature 97.6 F 04/27/24 19:27 Pulse Rate 89 04/27/24 19:27 Respiratory Rate 20 04/27/24 19:27 Blood Pressure 133/77 04/27/24 19:27 Pulse Oximetry 96 04/27/24 19:27 Oxygen Delivery Room Air 04/27/24 14:48 MDM - Extremity (Nontraumatic) MDM Narrative Medical decision making narrative: Patient presents to the emergency department for left upper extremity pain. Reports this has been ongoing since her diagnosis of a DVT. She called her PCP, was prompted be seen in the ER for further evaluation. She is afebrile and nontoxic appearing. There is no erythema or edema of her arm. She is neurovascularly intact. Tachycardic upon arrival, this normalized without intervention. CBC with mild leukocytosis 12.2. Hemoglobin is normal. Metabolic panel without concerning findings. Patient also reporting intermittent chest pains that have been ongoing over the last several months. EKG without acute ST changes and her baseline troponin is negative. She did not have any current chest pain. Chest x-ray without acute cardiopulmonary abnormality. Left upper extremity venous Doppler without evidence of DVT. Patient updated on her workup and agrees with plan of care. Instructed to have further follow-up with her primary doctor. She was given warnings to return to the ER Differential Diagnosis Differential diagnosis: Likely cellulitis, superficial thrombophlebitis and deep venous thrombosis of upper extremity Lab Data Attestation: I reviewed the patient's lab results. 04/27/24 18:23 04/27/24 18:23 Labs: Lab Results 04/27/24 Range/Units 18:23 WBC 12.2 H (4.5-10.0) K/mm3 RBC 5.23 (4.2-5.4) M/mm3 Hgb 14.0 (12.0-15.0) g/dL Hct 44.4 (37.0-47.0) % MCV 84.9 (80-100) fl MCH 26.8 (26-34) pg MCHC 31.5 L (32-36) g/dl RDW 14.1 (11.5-14.5) % Plt Count 485 H (150-375) k/mm3 MPV 9.6 (7.4-10.4) fl Immature Gran % (Auto) 0.6 H (0-0.5) % Neut % (Auto) 72.9 (45.5-73.1) % Lymph % (Auto) 18.0 L (18.3-44.2) % Towner % (Auto) 7.1 (2.6-8.5) % Eos % (Auto) 0.9 (0-4.4) % Baso % (Auto) 0.5 (0.2-1.2) % Lymph # (Auto) 2.19 (0.9-3.2) K/mm3 Towner # (Auto) 0.9 H (0.1-0.6) K/mm3 Eos # (Auto) 0.1 (0-0.3) K/mm3 Baso # (Auto) 0.1 (0.0-0.1) K/mm3 Abs Immat Gran (auto) 0.07 H (0.00-0.031) K/mm3 Absolute Neuts (auto) 8.9 H (1.3-6.7) K/mm3 Absolute Nucleated RBC 0.000 (0.0-0.012) K/mm3 Nucleated RBC % 0.0 (0.0-0.2) % Sodium 140 (137-145) mmol/L Potassium 4.2 (3.4-5.0) mmol/L Chloride 104 (98-107) mmol/L Carbon Dioxide 29 (22-30) mmol/L Anion Gap 7 (4-12) mmol/L BUN 11 (7-17) mg/dL Creatinine 0.90 (0.7-1.0) mg/dL Estim Creat Clear Calc 81 ml/min Estimated GFR > 60 (59 - ) Glucose 113 H (65-110) mg/dL Calcium 10.1 (8.4-10.2) mg/dL Total Bilirubin 0.4 (0.2-1.3) mg/dL AST 72 H (14-36) U/L ALT 93 H (6-35) U/L Alkaline Phosphatase 110 (38-126) U/L Troponin I < 0.012 (0.000-0.034) ng/mL Total Protein 8.0 (6.3-8.2) g/dL Albumin 4.7 (3.5-5.1) g/dL Imaging Data Radiologist's impression: ITS Impressions Venous Doppler Study 04/27/24 17:45 IMPRESSION: Negative left upper extremity venous US. No deep vein thrombosis. Chest X-Ray 04/27/24 17:47 IMPRESSION: No acute cardiopulmonary pathology. ECG Data EKG #1: ECG completion date: 04/27/24 EKG Interpretation: normal rate, sinus rhythm, no ST changes and normal QT Critical Care Time Critical Care Time Critical Care Time: No Discharge Plan Discharge Clinical Impression: Pain of left upper extremity Patient Disposition: Home, Self-Care Condition: Stable Instructions: Arm Pain (ED) Additional Instructions: Return to the emergency department if you experience fever, chest pain, shortness of breath, redness and swelling of your arm, weakness, numbness, or any other symptoms that are concerning to you. Rest. Heat and/or ice to the area. [id number] pain medication as needed. Follow up with your primary care doctor Patient Language: [place] Prescriptions: No Action atorvastatin [Lipitor] 20 mg tablet 40 mg PO DAILY esomeprazole magnesium [Nexium] 20 mg capsule,delayed release(DR/EC) 20 mg PO DAILY Jardiance 10 mg tablet 10 mg PO DAILY tramadol 50 mg tablet 50 mg PO Q6H PRN (Reason: pain) Qty: 20 0RF tizanidine 4 mg capsule 4 mg PO BID PRN (Reason: muscle spasticity) Qty: 60 1RF prochlorperazine maleate [Compazine] 5 mg tablet 5 mg PO Q8H PRN (Reason: nausea and vomiting) Qty: 30 0RF spironolactone 100 mg tablet 100 mg PO DAILY acetaminophen-codeine 300-30 mg tablet 1 tablet PO Q6H PRN (Reason: pain) Qty: 90 0RF valacyclovir [Valtrex] 1 gram tablet 2,000 mg PO Q12H PRN (Reason: Cold Sores) Ubrelvy 100 mg tablet 100 mg PO DAILY PRN (Reason: Migraine Headache) alprazolam 0.5 mg tablet 0.5 mg PO TID PRN (Reason: anxiety) Qty: 90 0RF Qulipta 60 mg tablet 60 mg PO DAILY Qty: 90 2RF escitalopram oxalate 20 mg tablet 20 mg PO DAILY Qty: 90 1RF zolmitriptan [Zomig] 2.5 mg tablet See Rx Instructions PO .COMPLEX Qty: 9 0RF Rx Instructions: take 1 tab at onset of headache; if no relief may repeat 1 tab after at least 2 hrs; max = 4 tabs/24 hr PO zolmitriptan [Zomig] 5 mg spray,non-aerosol 1 spray intranasal Q2H PRN (Reason: headache) Qty: 6 1RF Rx Instructions: administer into one nostril (only); alternate nostrils; do not exceed 10 mg /24 hrs Eliquis 5 mg tablet 5 mg PO BID Qty: 60 3RF Follow-up/Referrals: Gennaro Boone MD [Primary Care Provider] -
[2024-04-27 18:40] LABS: Basophils Absolute Auto 0.1 K/mm3 (0.0-0.1); Basophils Percent Auto 0.5 % (0.2-1.2); Eosinophils Absolute Auto 0.1 K/mm3 (0-0.3); Eosinophils Percent Auto 0.9 % (0-4.4); Hematocrit 44.4 % (37.0-47.0); Immature Granulocyte Absolute 0.07 K/mm3 (0.00-0.031); Immature Granulocyte Percent A 0.6 % (0-0.5); Lymphocytes Absolute Auto 2.19 K/mm3 (0.9-3.2); Mean Corpuscular HGB Conc 31.5 g/dl (32-36); Mean Corpuscular Hemoglobin 26.8 pg (26-34); Mean Corpuscular Volume 84.9 fl (80-100); Mean Platelet Volume 9.6 fl (7.4-10.4); Monocytes Absolute Auto 0.9 K/mm3 (0.1-0.6); Monocytes Percent Auto 7.1 % (2.6-8.5); Neutrophils Absolute Auto 8.9 K/mm3 (1.3-6.7); Neutrophils Percent Auto 72.9 % (45.5-73.1); Platelet Count Result 485 k/mm3 (150-375); Red Blood Count 5.23 M/mm3 (4.2-5.4); Red Cell Distribution Width 14.1 % (11.5-14.5); White Blood Count 12.2 K/mm3 (4.5-10.0)
[2024-04-27 18:54] LABS: Albumin Level 4.7 g/dL (3.5-5.1)
[2024-04-27 18:58] LABS: Alanine Aminotransferase 93 U/L (6-35); Alkaline Phosphatase 110 U/L (38-126); Anion Gap 7 mmol/L (4-12); Aspartate Amino Transferase 72 U/L (14-36); Bilirubin,Total 0.4 mg/dL (0.2-1.3); Blood Urea Nitrogen 11 mg/dL (7-17); Calcium 10.1 mg/dL (8.4-10.2); Carbon Dioxide 29 mmol/L (22-30); Chloride 104 mmol/L (98-107); Estimated CRCL calculation 81 ml/min; Estimated Glomerular Filt Rate > 60; Glucose 113 mg/dL (65-110); Potassium 4.2 mmol/L (3.4-5.0); Sodium 140 mmol/L (137-145)
[2024-04-27 19:06] LABS: Troponin I < 0.012 ng/mL (0.000-0.034)
[2024-04-27 19:27] VITALS: BP 133/77; PULSE 89; RESP 20; TEMP 36.4; O2SAT 96
== END 2024-04-27 19:44 | disposition home or self-care (01) ==
PROVIDERS: Emergency Provider Physician Assistant; PCP Family Medicine
DX: M79.602 Pain in left arm (principal); E78.5 Hyperlipidemia, unspecified; E28.2 Polycystic ovarian syndrome; E55.9 Vitamin D deficiency, unspecified; R73.03 Prediabetes; Q79.60 Ehlers-Danlos syndrome, unspecified; K58.0 Irritable bowel syndrome with diarrhea; K21.9 Gastro-esophageal reflux disease without esophagitis; Z86.718 Personal history of other venous thrombosis and embolism; Z86.16 Personal history of COVID-19; Z86.711 Personal history of pulmonary embolism; Z90.710 Acquired absence of both cervix and uterus; Z90.722 Acquired absence of ovaries, bilateral; Z90.79 Acquired absence of other genital organ(s); Z90.49 Acquired absence of other specified parts of digestive tract; Z79.899 Other long term (current) drug therapy; Z79.01 Long term (current) use of anticoagulants; Z79.84 Long term (current) use of oral hypoglycemic drugs
CPT/HCPCS: 36415; 71046; 80053; 84484; 85025; 93005; 93971; 99284

== ENCOUNTER 2024-09-29 07:54 | Outpatient (CLI) | payer BC, SELFPAY ==
--- NOTE | ~2024-09-29 | CT_ITS ---
Clinical Indication: Pulmonary embolus CT Scan of the Chest with Contrast: Technique: Contiguous sections were acquired throughout the chest after intravenous administration of 100 cc of Omnipaque 350. Dose reduction technique was used on this scan by utilizing automated expos ure control and iterative reconstruction technique. The dose-length product (DLP) was 756.23 mGy-cm. COMPARISON: 03/29/2024 Findings: There is no evidence of any significant mediastinal, hilar or axillary lymphadenopathy. There is no f illing defect in the pulmonary arterial tree to suggest pulmonary embolus. There is no evidence of ao rtic dissection or aneurysm. There is no evidence of pleural or pericardial effusion. The lungs are clear. No pulmonary nodules or infiltrates are noted. Images through the upper abdomen reveal no abnormalities. Impression: No evidence of pulmonary embolus, aortic dissection, or aortic aneurysm. Clear lungs. Reviewed, dictated and finalized at [facility]. Impression: No evidence of pulmonary embolus, aortic dissection, or aortic aneurysm. Clear lungs.
--- OUTSIDE RECORDS SUMMARY | 2024-09-29 07:59 | XMS_ITS | Encounter Summary ---
Author Organization [facility] Healthcare Address [address] [place] [address] Care Team Providers Care Decating Machine Operator Name Role Phone Gennaro Boone MD Primary Care Provider Cira Gamboa MD Unavailable [phone] Rico Hernandez MD Unavailable Keon Muniz MD Unavailable Encounter Details Date Type Department Care Team (Late st Contact Info) Description 01/23/2023 Telephone [facility] - Interventional Radiology [address] [place] [address] Abbi Medina, SHEA Social History Tobacco Use Types Packs/Day Years Used Date Smoking Tobacco: Never Passive Smoke Exposure: Never Smokeless Tobacco: Never Comments:never used Alcohol Use Standard Drinks/Week Comments Not Currently 0 (1 standard drink = 0.6 oz pur e alcohol) rarely AUDIT-C Answer Date Recorded Q1: How often do you have a drink containing alcohol? Never 11/01/2022 Q2: How many drinks containi ng alcohol do you have on a typical day when you are drinking? Patient does not drink Q3: How often do you have si x or more drinks on one occasion? Never 11/01/2022 Personal Safety Answer Date Recorded Have you ever been in or are you currently in a harmful physical or emotional relationship or is someone making you feel afraid or unsafe? 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 Gender Identity Female 10/15/2019 6:32 PM CDT Sexual Orientation Straight 08/26/2019 7: 34 PM CDT documented as of this encounter Plan of Treatment Not on file documented as of this encounter Visit Diagnoses Not on filedocumented in this encounter Additional Health Concerns Infection Onset Date Last Indicated Resolved Time COVID: Suspected 10/20/2023 10/20/2023 10/20/2023 11:03 AM CDT documented as of this encounter Care Teams Decating Machine Operator Relationship Specialty Start Date End Date Gennaro Boone MD PCP - General 12/05/16 Cira Gamboa MD Consulting Physician Endocrinology 03/19/22 Rico Hernandez MD [address] [facility] [id number] [place] [address] Career Information Specialist Obstetrics and Gynecology 11/01/22 Keon Muniz MD [address] [facility] [address] [place], [place] [id number] Consulting Physician Reproductive Endocrinology and Infertility 01/24/24 documented as of this encounter
--- OUTSIDE RECORDS SUMMARY | 2024-09-29 07:59 | XMS_ITS ---
Author Organization [facility] Address [address] [place] [address] Care Team Providers Care Radiology Technologist Name Role Phone Gennaro Boone MD Primary Care Provider [phone] Cira Gamboa MD Unavailable Rico Hernandez MD Unavailable Keon Muniz MD Unavailable Active Problems Patient Care Coordination No te Formatting of this note migh t be different from the original. IVF Check List Partner name: Partner : [employer] Plan Completed: 11/05/22 Protocol: Antagonist 300/hCG + lupron triggers/freeze all eggs Special Instructions: She needs AMH, STDs, TSH, Rubella, AFC/OA LMP: Cycles: EMP: [x]PNV [x]OCPS [x]Zithromax/Doxy []Medrol []Letrozole []Clomid []Estrace 2mg BID/TID - [x]Gonal F/Follistim [x]Menopur []Lupron [x]Cetrotide/Ganirelix [x]HCG [x]Lupron Trigger []NEREIDA or other - []Lovenox/ Baby ASA start - Cycle Start BMI: Body mass index is 40.24 kg/m . CPAP Needed: No: done 02/2022 [] Medically Clear [] Orientation: [] Placed on IVF Schedule [] Financially Clear (self pay): [] Consent Sent [] Consents Returned/Scanned into chart: [] Schedule Mailed/sent via [employer]: [] IVF Injectable Meds Ordered - Pharm - [] IVF Oral Meds Pharm - [] Confirmed Start Button Problem Noted Date Diagnosed Date Transaminitis 06/24/2024 Intractable migraine with aura without status mi grainosus 06/09/2024 Assessment & Plan (06/09/2024 2:06 PM PARKING LINE PAINTER): The patient has a longstanding history of migraine headaches with aura. She has tried multiple medications in the past with limited success. Her current medications seem to be helping her migraine headaches. Continue Qulipta 60 mg daily Continue Ubrelvy 100 mg as needed. Patient also takes zolmitriptan as needed. Did discuss with the patient the increased risk of stroke with migraine with aura. I did discuss with her Botox for chronic migraine if her headaches worsen. Follow up in six months Chronic daily headache 06/09/2024 Overview (06/09/2024): In addition to her migraines she has daily low-grade headaches. We discussed therapeutic options. Start gabapentin 100 mg 3 times a day. Side effects reviewed. May increase to 300 mg 3 times a day depending on clinical response. Acute pulmonary embolism without acute cor pulmo nale 04/16/2024 Early menopause 04/03/2024 Postoperative visit 03/19/2024 Malignant neoplasm of endocervix 01/23/2024 Cancer Staging:Clinical stage from 02/25/2024:FIGO Stage IA1(cT1a1, cM0) - Signed by Wilson Zhang MD on 03/19/2024 History of stomach ulcers 04/23/2023 Ovarian hyperstimulation syndrome 01/23/2023 Female infertility 11/05/2022 Screening examination for rubella 11/05/2022 Delayed gastric emptying 10/25/2019 Vitamin D deficiency 10/25/2019 Fatigue 10/25/2019 Assessment & Plan (10/25/2019 6:59 PM CDT): Labs. Discussed importance of adequate sleep; good sleep hygiene in controlling weight as well as for overall health. Weight loss counseling, encounter for 10/20/2019 Assessment & Plan (12/03/2019 5:46 PM CDT): Reviewed calorie restriction based on BMR as previously detailed. Reviewed recommendation/goal of >/= 150 minutes/week moderate-intensity aerobic exercise. Assessment & Plan (10/25/2019 6:56 PM CDT): Discussed that weight loss will require calorie deficit. Calculated basal metabolic rate and estimated total energy expenditure; discussed 500-1000 kcal/day deficit to lose 1-2 lb per week. Asked to keep detailed food diary for at least 1 week and bring to next visit. Discussed relatively small, although significant, role of exercise in weight loss; greater importance in weight maintenance as shown in [employer] A[employer] study and National Weight Control Registry. Discussed recommendation/goal for 150 minutes per week moderate-intensity aerobic exercise. Multiple duodenal ulcers 09/01/2019 Overview (09/01/2019): Added automatically from request for surgery [id number] PCOS (polycystic ovarian syndrome) 06/23/2019 Overview (06/23/2019): Added automatically from request for surgery [id number] Class 2 obesity 05/28/2019 Assessment & Plan (12/02/2019 6:56 PM CDT): Class 2 obesity with BMI 36 kg/m2 with related comorbidities: hyperlipidemia, pre-diabetes, depression, PCOS complicates the management of pre-diabetes by increasing insulin resistance and glucose intolerance Plan: 1) Resume care under referral to Weight Management Program (Dr. Pita Arias, ) 2) Consider re-starting Ozempic Assessment & Plan (05/28/2019 10:49 AM PARKING LINE PAINTER): Despite lifestyle modifications, she is frustrated regarding her weight stability. Encouraged calorie tracking. Referral placed to medical weight loss clinic. Did not tolerate metformin, Liraglutide as above. Reviewed side affects, and dosing instructions. Hypercholesterolemia 10/09/2018 Assessment & Plan (12/02/2019 6:52 PM CDT): Likely familial hypercholesterolemia; sub-optimal response to lifestyle modifications and low-dose statin therapy Plan: 1) Continue weight control, exercise, dietary modifications 2) Increase Atorvastatin 20 to 40 mg/day Assessment & Plan (10/25/2019 7:00 PM CDT): Discussed role of diet, exercise and weight loss in improving lipid profile. Assessment & Plan (05/28/2019 10:43 AM PARKING LINE PAINTER): Given family history, LDL > 190, this is likely familial hypercholesterolemia. She has had good effect on atorvastatin 20 mg daily. She has made significant dietary changes. Is following a low fat, low carb diet. Recommend foods low specifically in saturated fat, increase whole grains and fiber. Also instructed to limit use of butter and substitute olive oil or Benecol. Assessment & Plan (10/09/2018 9:41 AM CDT): Given family history, LDL > 190, this is likely familial hypercholesterolemia. Recommend starting statin in addition to lifestyle modification. Will start atorvastatin 20 mg daily and recheck lipid panel in 3 months. We discussed the importance of avoiding while on statin medications secondary to risk for anomaloies. Side effects discussed, however, she tolerated atorvastatin in the past. Diet reference provided. Recommend foods low in saturated fat and low in simple sugars. Increase whole grains and fiber. Nephrolithiasis 10/09/2018 Assessment & Plan (12/03/2019 5:26 PM CDT): 24 hour urine studies are unremarkable. Continue adequate hydration for prevention of future stones. Assessment & Plan (05/28/2019 10:44 AM PARKING LINE PAINTER): Calcium and PTH normal previously. Recommend 24 hour urine collection for calcium, oxalate, citrate. These were previously ordered, she has received the order requisition and will complete soon. Assessment & Plan (10/09/2018 9:40 AM CDT): Calcium and PTH normal today. Recommend 24 hour urine collection for calcium, oxalate, citrate. Type 2 diabetes mellitus wit hout complication, without long-term current use of insulin 10/09/2018 Assessment & Plan (12/03/2019 5:51 PM CDT): Continue low-carb (<150 g/day), low-glycemic diet. Discussed holding semaglutide to see if symptoms improve. Assessment & Plan (10/25/2019 7:00 PM CDT): Labs. Discussed insulin resistance including effect on weight and risk for progression to diabetes. Recommended low-carb, low-glycemic diet; choose whole grains and avoid more highly processed carbohydrates. Discussed potential benefits of this w/r/t gut microbiome. Referred to ADA and [employer] websites for additional information on topics including glycemic index/carbohydrate choices, protein sources. Consider metformin. Avoid GLP-1 w/ h/o delayed gastric emptying. Assessment & Plan (05/28/2019 10:47 AM PARKING LINE PAINTER): She is following a low carb, low fat diet. She is avoiding simple sugars. A1c has increased to 6.0. She was given information on diabetes prevention programs. She has not tolerated metformin previously. Will trial liraglutide to assist with weight loss and glycemic control. Sample provided, she will let us know if she would like to continue the medication. Assessment & Plan (10/09/2018 9:41 AM CDT): Dietary modification as above. Will provide referral to diabetes prevention programs. Current Treatment and Therapy Plans No current plan information found. Past Treatment and Therapy Plans No past plan information found. Lifetime Dose Tracking * Chemical Lifetime Dose Automatic Entry Manual Entr y Fluoro Time 0.2 minutes 0.2 minutes 0 minutes Air kerma at the reference point (Ka,r) 0.796 mGy 0 .796 mGy 0 mGy DLP 1,627 mGycm 1,627 mGycm 0 mGycm Resolved Problems Problem Noted Date Diagnosed Date Resolved Date Abnormal uterine bleeding (AUB) 03/08/2022 04/16/2024 Overview (03/08/2022): Added automatically from request for surgery [id number] Class 1 obesity due to exces s calories without serious comorbidity in adult 10/25/2019 Assessment & Plan (12/03/2019 5:52 PM CDT): Obesity is unchanged. Diet interventions: as noted. Regular aerobic exercise program discussed. Pharmacotherapy as ordered. Consider naltrexone/bupropion. Assessment & Plan (10/25/2019 7:01 PM CDT): Obesity is unchanged. General weight loss/lifestyle modification strategies discussed (elicit support from others; identify saboteurs; non-food rewards, etc). Behavioral treatment: suggested counseling. Diet interventions: as noted. Informal exercise measures discussed, e.g. taking stairs instead of elevator. Regular aerobic exercise program discussed. Nausea and vomiting 09/01/2019 04/16/20 24 Overview (09/01/2019): Added automatically from request for surgery [id number] RLQ abdominal pain 06/23/2019 4 Overview (06/23/2019): Added automatically from request for surgery [id number] Secondary oligomenorrhea 06/23/2019 Overview (06/23/2019): Added automatically from request for surgery [id number] Iron deficiency 04/19/2017 10/31/2017 Blood in stool 01/24/2017 10/31/2017 Irritable bowel syndrome with diarrhea 12/07/2016 10/31/2017 Rectal hemorrhage 12/05/2016 10/31/2017 Right upper quadrant abdominal pain 09/05/2016 10/31/2017 Abnormal liver function tests 09/05/2016 10/31/2017 Diarrhea 09/05/2016 10/31/2017 Pain of foot 09/30/2013 10/31/2017 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
--- OUTSIDE RECORDS SUMMARY | 2024-09-29 07:59 | XMS_ITS | Referral Summary ---
Author Organization [facility] Address [address] [place] [address] Care Team Providers Care Head Banquet Waitress Name Role Phone Gennaro Boone MD Primary Care Provider Cira Gamboa MD Unavailable Rico Hernandez MD Unavailable [phone] Keon Muniz MD Unavailable Encounters Date Type Department Care Team Description 09/16/2024 Orders Only [facility] Endocrinology Metabolism and Lipid [address] 5[address] [place] [address] [place] [address] Hao Bellamy, RN Type 2 diabetes mellitus without complication, without long-term current use of insulin (HCC) (Primary Dx); Vitamin D deficiency 07/09/2024 [facility] [address] [place] [address] Wilson Pedersen MA Zomig (nasal) PA from Last 3 Months Allergies Active Allergy Reactions Criticality Noted Date Comments Nuts Other (See comments) Low 11/01/2022 Mouth sores [place] Other (See comments) Low 11/01/2022 Mouth sores Penicillins Unknown 06/06/2017 Reaction as a child Pineapple Other (See comments) Low 11/01/2022 Mouth sores [place] Other (See comments) Low 11/01/2022 Mouth sores Topiramate Mental status changes Low 11/19/2019 fogginess Hydrocodone-Acetaminoph en Swelling Medium 03/01/2011 Medications ALPRAZolam (XANAX) 0.5 mg tablet Take 1 tablet (0.5 mg total) by mouth as needed for anxiety 08/17/19 20 Active spironolactone (ALDACTONE) 100 mg tablet Take 1 tablet (100 mg total) by mouth nightly 10/14/19 22 Active valACYclovir (VALTREX) 1 gram tablet Take 2 tablets (2,000 mg total) by mouth as needed (HSV outbreak) 01/05/[address] (NexIUM) 40 mg capsuleIndication s:Gastroesophagea l reflux disease, unspecified whether esophagitis present Take 1 capsule (40 mg total) by mouth 2 (two) times a day before breakfast and dinner 60 capsule 2 02/21/20 22 Active cholecalciferol (VITAMIN D-3) 2000 unit capsule Take 1 capsule (2,000 Units total) by mouth nightly Active pen needle, diabetic 32 gauge x 5/32 needleIndications :Prediabetes,Clas s 2 obesity due to excess calories without serious comorbidity with body mass index (BMI) of 38.0 to 38.9 in adult,Polycystic ovarian syndrome Use to inject Victoza daily 100 each 3 09/07/19 23 Active triamcinolone (KENALOG) 0.1 % paste Apply 0.25 inches to teeth 2 (two) times a day Dry mouth first, apply only after eating 5 g 3 02/02/20 23 Active nystatin 100,000 unit/mL suspension Take by mouth as needed 04/24/20 23 Active meloxicam (MOBIC) 15 mg tablet Take 1 tablet (15 mg total) by mouth as needed 10/12/19 24 Active al-mag hydroxide-simethi cone, diphenhydramine, & nystatin 1:1:1 (MAGIC MOUTHWASH) suspensionIndicat ions:Sore throat,Throat ulcer Swish and spit 5 mL every 6 (six) hours as needed (as directed) 240 mL 10/20/19 24 Active clobetasoL (TEMOVATE) 0.05 % ointment Apply topically 2 (two) times a day 30 g 01/12/20 24 Active minoxidiL (LONITEN) 2.5 mg tablet Take 0.625 mg by mouth nightly 01/21/20 24 Active levocetirizine (Xyzal) 5 mg tablet Take 1 tablet (5 mg total) by mouth nightly Active acetaminophen (TYLENOL) 500 mg tablet Take 2 tablets (1,000 mg total) by mouth every 6 (six) hours as needed for pain 60 tablet 1 02/25/20 24 Active ondansetron (ZOFRAN) 8 mg tablet Take 1 tablet (8 mg total) by mouth as needed for nausea or vomiting 20 tablet 02/25/20 24 Active traMADoL (ULTRAM) 50 mg tablet Take 1 tablet (50 mg total) by mouth every 6 (six) hours as needed for pain 15 tablet 02/25/20 24 Active diphenhydrAMINE 25 mg capsule Take 1 tablet/capsul e (25 mg total) by mouth every 6 (six) hours as needed for itching 20 capsule 02/27/20 24 Active hydrocortisone 2.5 % cream Apply topically 2 (two) times a day 30 g 02/27/20 24 Active Eliquis 5 mg tablet Take 1 tablet (5 mg total) by mouth 2 (two) times a day 03/07/20 24 Active fluconazole (DIFLUCAN) 150 mg tablet 03/09/20 24 Active fezolinetant (Veozah) tablet tablet Take 1 tablet (45 mg total) by mouth daily 90 tablet 1 04/02/20 24 Active tiZANidine (ZANAFLEX) 4 mg tablet Take 1 tablet (4 mg total) by mouth 04/03/20 24 Active polymyxin B-trimethoprim (POLYTRIM) ophthalmic solutionIndicatio ns:Acute conjunctivitis of right eye, unspecified acute conjunctivitis type Administer 1 drop into the right eye every 4 (four) hours 10 mL 05/07/19 25 Active cromolyn (GASTROCROM) 100 mg/5 mL solution Take 10 mL (200 mg total) by mouth 4 (four) times a day before meals and nightly 1200 mL 3 05/12/19 25 Active lisdexamfetamine (VYVANSE) 20 mg capsule Take 1 capsule (20 mg total) by mouth daily 05/15/19 25 Active escitalopram (LEXAPRO) 20 mg tablet Take 1 tablet (20 mg total) by mouth daily 05/19/19 Active Qulipta 60 mg tabletIndications :Intractable migraine with aura without status migrainosus Take 1 tablet by mouth nightly 90 tablet 06/09/19 Active Ubrelvy 100 mg tabletIndications :Intractable migraine with aura without status migrainosus Take 1 tablet (100 mg total) by mouth as needed for migraine Can repeat in 2 hours if needed. No more than 2 in 24 hours. 10 tablet 06/09/19 Active gabapentin (NEURONTIN) 100 mg capsuleIndication s:Chronic daily headache Take 1 capsule (100 mg total) by mouth 3 (three) times a day 90 capsule 06/09/192025 Active ZOLMitriptan (ZOMIG) 5 mg nasal solutionIndicatio ns:Migraine Administer 1 spray into one nostril as needed for migraine May repeat one time after 2 hours if needed. No more than 2 doses in 24 hours. 18 each 06/23/192025 Active SITagliptin phosphate (JANUVIA) 100 mg tabletIndications :type 2 diabetes mellitus Take 1 tablet (100 mg total) by mouth daily 30 tablet 06/24/192025 Active metFORMIN XR (GLUCOPHAGE XR) 500 mg 24 hr tabletIndications :Type 2 diabetes mellitus without complication, without long-term current use of insulin (HCC) Take 1 tablet (500 mg total) by mouth 2 (two) times a day Start at 1 tablet daily; after 1-2 weeks, if tolerating well, increase dose to 500 mg twice daily. 60 tablet 06/24/192025 Active ezetimibe (ZETIA) 10 mg tabletIndications :Hypercholesterol emia Take 1 tablet (10 mg total) by mouth daily 30 tablet 06/24/192025 Active atorvastatin (LIPITOR) 40 mg tabletIndications :Pure hypercholesterole praful,Class 2 obesity due to excess calories without serious comorbidity with body mass index (BMI) of 38.0 to 38.9 in adult TAKE 1 TABLET(40 MG) BY MOUTH EVERY NIGHT 90 tablet 1 09/26/19 Active atorvastatin (LIPITOR) 40 mg tabletIndications :Pure hypercholesterole praful,Class 2 obesity due to excess calories without serious comorbidity with body mass index (BMI) of 38.0 to 38.9 in adult TAKE 1 TABLET(40 MG) BY MOUTH EVERY NIGHT 90 tablet 3 10/11/19 24 2024 Discontinued Active Problems Patient Care Coordination No te [...] Returned/Scanned into chart: [] Schedule Mailed/sent via [employer]: [] IVF Injectable Meds Ordered - Pharm - [] IVF Oral Meds Pharm - [] Confirmed Start Button Problem Noted Date Diagnosed Date Transaminitis 06/24/2024 Intractable migraine with aura without status mi grainosus 06/09/2024 Assessment & Plan (06/09/2024 2:06 PM SENIOR COMMISSARY AGENT): The patient has a longstanding history of [...] (09/01/2019): Added automatically from request for surgery [id number] PCOS (polycystic ovarian syndrome) 06/23/2019 Overview (06/23/2019): Added automatically from request for surgery [id number] Class 2 obesity 05/28/2019 Assessment & Plan (12/02/2019 6:56 PM CDT): Class 2 obesity with BMI 36 kg/m2 with related comorbidities: hyperlipidemia, pre-diabetes, depression, PCOS complicates the management of pre-diabetes by increasing insulin resistance and glucose intolerance Plan: 1) Resume care under referral to Weight Management Program (Dr. Pita Arias, ) 2) Consider re-starting Ozempic Assessment & Plan (05/28/2019 10:49 AM SENIOR COMMISSARY AGENT): Despite lifestyle modifications, she is frustrated regarding [...] profile. Assessment & Plan (05/28/2019 10:43 AM SENIOR COMMISSARY AGENT): Given family history, LDL > 190, this [...] stones. Assessment & Plan (05/28/2019 10:44 AM SENIOR COMMISSARY AGENT): Calcium and PTH normal previously. Recommend 24 [...] w/r/t gut microbiome. Referred to ADA and [facility] websites for additional information on topics including glycemic index/carbohydrate choices, protein sources. Consider metformin. Avoid GLP-1 w/ h/o delayed gastric emptying. Assessment & Plan (05/28/2019 10:47 AM SENIOR COMMISSARY AGENT): She is following a low carb, low [...] Will provide referral to diabetes prevention programs. Resolved Problems Problem Noted Date Diagnosed Date Resolved Date Abnormal uterine bleeding (AUB) 03/08/2022 04/16/2024 Overview (03/08/2022): Added automatically from request for surgery [id number] Class 1 obesity due to exces s [...] (09/01/2019): Added automatically from request for surgery [id number] RLQ abdominal pain 06/23/2019 4 Overview (06/23/2019): Added automatically from request for surgery [id number] Secondary oligomenorrhea 06/23/2019 Overview (06/23/2019): Added automatically from request for surgery [id number] Iron deficiency 04/19/2017 10/31/2017 Blood in stool [...] of patella 02/27/2011 Knee pain 02/23/2011 10/31/2017 Immunizations Immunization Administration Dates Next Due HPV9 07/30/2022,04/02/2022,02/01/2022 Influenza, Quadrivalent, Spl it, Preservative Free, Intramuscular 01/26/2020,01/16/2013 Influenza, Trivalent, IM (MDV) 12/27/2013,2011 Influenza, Trivalent, Preser vative Free, Intramuscular 12/26/2015,01/13/2015 Influenza, Unspecified 03/12/2024,02/01/2023 Tdap 09/26/2013 Social History Tobacco Use Types Packs/Day Years Used Date Smoking Tobacco: Never Passive Smoke Exposure: Never Smokeless Tobacco: Never Tobacco Cessation:Counseling Given: No Comments:never used Alcohol Use Standard Drinks/Week Comments Not Currently 0 (1 standard drink = 0.6 oz pur e alcohol) rarely AUDIT-C Answer Date Recorded Q1: How often do you have a drink containing alcohol? Never 02/19/2024 Q2: How many drinks containi ng alcohol do you have on a typical day when you are drinking? Patient does not drink Q3: How often do you have si x or more drinks on one occasion? Never 02/19/2024 Personal Safety Answer Date Recorded Have you ever been in or are you currently in a harmful physical or emotional relationship or is someone making you feel afraid or unsafe? Denies 03/03/2024 Comments No Sex and Gender Information Value Date Recorded Sex Assigned at Female 11/01/2022 12:16 PM CDT Legal Sex Female 8:16 PM SENIOR COMMISSARY AGENT Gender Identity Female 10/15/2019 6:32 PM CDT Sexual Orientation Straight 08/26/2019 7: 34 PM CDT Last Filed Vital Signs Vital Sign Reading Time Taken Comments Blood Pressure 132/94 06/24/2024 8:28 AM SENIOR COMMISSARY AGENT Pulse 98 06/24/2024 8:28 AM SENIOR COMMISSARY AGENT Temperature 36.7 C (98.1 F) 06/24/2024 8:28 AM SENIOR COMMISSARY AGENT Respiratory Rate 16 06/09/2024 12:4 8 PM SENIOR COMMISSARY AGENT Oxygen Saturation 96% 06/24/2024 8:28 AM SENIOR COMMISSARY AGENT Inhaled Oxygen Concentration - - Weight 98.3 kg (216 lb 12.8 oz) 06/24/2024 8:28 AM SENIOR COMMISSARY AGENT Height 157.5 cm (5' 2) 06/09/2024 12:4 8 PM SENIOR COMMISSARY AGENT Body Mass Index 39.65 06/09/2024 12:48 PM SENIOR COMMISSARY AGENT Plan of Treatment Not on file Procedures Procedure Name Priority Date/Time Associated Diagnosis Comments COMPREHENSIVE METABOLIC PANEL Routine 06/24/2024 9:21 AM SENIOR COMMISSARY AGENT Type 2 diabetes mellitus without complication, without long-term current use of insulin (HCC) Hypercholesterolemia Transaminitis HEMOGLOBIN A1C Routine 06/20/2024 9:30 AM SENIOR COMMISSARY AGENT Type 2 diabetes mellitus without complication, without long-term current use of insulin (HCC) LIPID PANEL Routine 06/20/2024 9:30 AM SENIOR COMMISSARY AGENT Hypercholesterolemia HIGH RISK HPV DNA DETECTION WITH GENOTYPING Routine 11/07/2023 5:55 PM CDT Adenocarcinoma in situ (AIS) of uterine cervix ALBUMIN CREATININE RATIO, URINE Routine 11/06/2023 9:30 AM CDT Type 2 diabetes mellitus without complication, without long-term current use of insulin (HCC) HEPATITIS C ANTIBODY Routine 11/09/2022 11:11 AM CDT Encounter for screening for infections with predominantly sexual mode of transmission from Last 3 Months or Most Recently Relevant to Health Maintenance Results * (ABNORMAL) Comprehensive metabolic panel (06/24/2024 9:21 AM SENIOR COMMISSARY AGENT) Total Protein 8.2 6.1 - 8.4 g/dL [facility] Albumin 4.6 3.5 - 5.2 g/dL [facility] Calcium 10.8(H) 8.6 - 10.3 mg/dL [facility] Comment:Repeated and Verifie d BUN 12 7 - 23 mg/dL [facility] Total Bilirubin 0.47 0.20 - 1.40 mg/dL [facility] Comment:Repeated and Verifie d Alk Phos, Total 142(H) 35 - 129 IU/L [facility] Comment:Repeated and Verifie d AST (SGOT) 39 11 - 47 IU/L [facility] ALT (SGPT) 46 6 - 53 IU/L [facility] Comment:Repeated and Verifie d Creatinine 0.81 0.60 - 1.10 mg/dL [facility] Sodium 141 135 - 145 mmol/L [facility] Potassium 4.3 3.3 - 5.1 mmol/L [facility] Chloride 100 95 - 107 mmol/L [facility] CO2 Content 27 21 - 29 mmol/L [facility] Glucose 134(H) 64 - 99 mg/dL [facility] Comment: NONFASTING GLUCOSE RANGE = 64-199 mg/dL FASTING GLUCOSE 64 - 99 = NORMAL FASTING GLUCOSE 100 - 125 = IMPAIRED FASTING GLUCOSE FASTING GLUCOSE >=126 = PROVISIONAL DIAGNOSIS OF DIABETES eGFR >90.0 >60.0 mL/min/1.7 3 m2 [facility] Blood 06/24/2024 9:21 AM SENIOR COMMISSARY AGENT 06/24/2024 11:00 AM SENIOR COMMISSARY AGENT us Katya Roche MD LAB BLOOD ORDERABLES F inal Result [facility] * (ABNORMAL) Hemoglobin A1c (06/20/2024 9:30 AM SENIOR COMMISSARY AGENT) Hgb A1C 8.1(H) 4.8 - 5.6 % [facility] - 01 Comment: Prediabetes: 5.7 - 6.4 Diabetes: >6.4 Glycemic control for adults with diabetes: <7.0 Blood 06/20/2024 9:30 AM SENIOR COMMISSARY AGENT 06/20/2024 Narrative [facility] - 06/21/2024 7:07 AM SENIOR COMMISSARY AGENT Performed at: [address] [id number] City Dispatch Supervisor: Benny Gamboa PhD, Phone: [phone] Cira Gamboa MD LAB BLOOD ORDERABLES Fin al Result Performing Organization Address [facility] de Phone Number [facility] - * (ABNORMAL) Lipid panel (06/20/2024 9:30 AM SENIOR COMMISSARY AGENT) Pathologist [facility] Cholesterol 163 100 - 199 mg/dL [facility] - 01 Triglycerides 227(H) 0 - 149 mg/dL [facility] - 01 HDL Cholesterol 38(L) >39 mg/dL [facility] - 01 VLDL 38 5 - 40 mg/dL [facility] - 01 LDL, calculated 87 0 - 99 mg/dL [facility] - 01 Blood 06/20/2024 9:30 AM SENIOR COMMISSARY AGENT 06/20/2024 Narrative [facility] - 06/21/2024 7:07 AM SENIOR COMMISSARY AGENT Performed at: [address] [place] [id number] City Dispatch Supervisor: Benny Gamboa PhD, Phone: [phone] Cira Gamboa MD LAB BLOOD ORDERABLES Fin al Result Performing Organization Address [facility] de Phone Number [facility] - * (ABNORMAL) High Risk HPV DNA Detection with Genotyping (Molecular component) (11/07/2023 5:55 PM CDT) HPV HR 16 Detected(A) Not Detected [facility] HPV HR 18 Not Detected Not Detected [facility] HPV HR Non 16/18 Not Detected Not Detected [facility] Comment: Interpretive Data Nucleic acid amplification for detection of high-risk Human Papilloma virus (HPV) is performed by the Noelle Ximena 6800 HPV test. This assay specifically detects HPV-16 and HPV-18 genotypes. The following HPV genotypes are detected as high-risk HPV: HPV-31, 33, 35, ,39, 45, 51, 52, 56, 58, 59, 66, and 68. This assay has been approved by the [place] Food and Drug Administration for detection of HPV in cervical specimens collected by a physician using an endocervical brush/spatula or cervical broom and placed in the ThinPrep Pap Test PreservCyt collection containers. The performance characteristics of this test have been verified by the [facility] Molecular Infectious Disease laboratory. Correlate with separately reported cytology results, as applicable. Interpretive data last revised 22 Endocervical 11/07/2023 5:55 PM CDT 11/08/2023 10:08 AM CDT Narrative [facility] - 11/09/2023 6:16 AM CDT Clinical history and diagnosis->HPV 16 and h/o AIS s/p cone Testing type->Screening Last menstrual period (date if known)->on OCP Menstrual status->Irregular us Wilson Zhang MD LAB BODY FLUIDS AND STOO LS ORDERABLES Final Result [facility] Department [place] [address] [facility] * (ABNORMAL) Albumin Creatinine Ratio, Urine (11/06/2023 9:30 AM CDT) Microalb, Ur 31.9(H) 0.0 - 22.9 mg/L [facility] Random Urine Creatinine 173.9 mg/dL [facility] Microalb/Creat Ratio 18.3 0.0 - 29.9 mg/g [facility] Urine 11/06/2023 9:30 AM CDT 11/06/2023 11:01 AM CDT us Florencio Holland MD LAB URINE ORDERABLES Final Res ult [facility] * Hepatitis C antibody (11/09/2022 11:11 AM CDT) Hep C Ab Nonreactive Nonreactive [facility] Comment:Antibodies to HCV no t detected. Does NOT exclude the possibility of recent exposure to HCV. Current interpretive data was last revised on 21 Blood 11/09/2022 11:1 1 AM CDT 11/09/2022 1:25 PM CDT us Keon Muniz MD LAB MICROBIOLOGY - GENERA L ORDERABLES Final Result [facility] Department [place] [address] from Last 3 Months or Most Recently Relevant to Health Maintenance Insurance CHOICE PRF PPO OR [facility] [place] Advance Directives For more information, please contact: [phone] * Full Code (Latest Code Status on File) Date Activated Date Inactivated Comments 01/17/2023 6:27 AM 01/18/2023 4:38 AM * Full Code Date Activated Date Inactivated Comments 02/23/2021 12:15 PM 02/23/2021 7:05 PM * Full Code Date Activated Date Inactivated Comments 09/03/2019 7:27 AM 09/03/2019 1:47 PM Care Teams Head Banquet Waitress Relationship Specialty Start Date End Date Gennaro Boone MD PCP - General 12/05/16 Cira Gamboa MD Consulting Physician Endocrinology 03/19/22 Rico Hernandez MD [address] [facility] [id number] [place] [address] [employer]ilermaker Pipe Fitter Obstetrics and Gynecology 11/01/22 Keon Muniz MD [address] [place] [address] Consulting Physician Reproductive Endocrinology and Infertility 01/24/24
--- OUTSIDE RECORDS SUMMARY | 2024-09-29 07:59 | XMS_ITS | Clinical Summary ---
Author Organization [facility] Address [address] [place] [address] Care Team Providers Care Iridologist Name Role Phone Gennaro Boone MD Primary Care Provider [phone] [facility],non-owned Affiliates and Associated Physician Practices is amultiple site organization consisting of ambulatory clinics and hospital sitesin [place] and [place]. This disclosure is being madepursuant to the Care Everywhere program and may not contain all information available regarding this patient. Last updated 18.[facility] Allergies Active Allergy Reactions Criticality Noted Date Comments Penicillins Unknown 06/06/2017 Reaction as a child Medications * Be aware that medications may not be up to date on this document. Alwaysverify current medications with the patient. BUSPIRONE HCL PO Active AMITRIPTYLINE HCL PO Active PROPRANOLOL HCL PO Active benzonatate (TESSALON) 200 MG capsuleIndicati ons:Cough Take 1 capsule by mouth 3 times daily as needed for Cough 30 capsule 8 Active Additional Information Patient not taking.Reported on 05/13/2018 Family History Medical History Relation Name Comments CVA Mother Relation Name Status Comments Father Alive Mother Alive Social History Tobacco Use Types Packs/Day Years Used Date Smoking Tobacco: Never Smokeless Tobacco: Never Comments Unknown Sex and Gender Information Value Date Recorded Sex Assigned at Not on file Legal Sex Female 2:06 PM [employer] Gender Identity Not on file Sexual Orientation Not on file Last Filed Vital Signs Vital Sign Reading Time Taken Comments Blood Pressure 120/84 07/14/2018 4:29 PM CDT Pulse 97 07/14/2018 4:29 PM CDT Temperature 36.7 C (98.1 F) 07/14/2018 4:29 PM CDT Respiratory Rate 16 07/14/2018 4:29 PM CDT Oxygen Saturation 98% 07/14/2018 4:29 PM CDT Inhaled Oxygen Concentration - - Weight 99.8 kg (220 lb) 07/14/2018 4:29 PM CDT Height 157.5 cm (5' 2) 07/14/2018 4:29 PM CDT Body Mass Index 40.24 07/14/2018 4:29 PM CDT Plan of Treatment Health Maintenance Due Date Last Done Comments LIPID TESTING 1984 MAMMOGRAM 1984 HIV SCREENING 08/21/1999 HEPATITIS C SCREENING 08/16/2002 DTAP/TDAP/TD VACCINES (1 - Tdap) 08/21/2003 HEPATITIS B VACCINE (1 of 3 - 19+ 3-dose series) 08/21/2003 COVID-19 VACCINE (1 - 2023-2 5 season) 2023 DEPRESSION SCREENING 04/29/2024 INFLUENZA VACCINE (Season Ended) 2024 02/26/20 21 ZOSTER VACCINE (1 of 2) 2034 HIB VACCINE Aged Out No longer eligi ble based on patient's age to complete this topic HPV VACCINE Aged Out No longer eligi ble based on patient's age to complete this topic MENINGOCOCCAL (Group B) VACC INE SHARED DECISION-MAKING Aged Out No longer eligibl e based on patient's age to complete this topic MENINGOCOCCAL GROUPS A/C/Y/W VACCINE Aged Out No longer eligible b ased on patient's age to complete this topic PNEUMOCOCCAL VACCINE Aged Out No long er eligible based on patient's age to complete this topic Insurance MARY Care Teams Iridologist Relationship Specialty Start Date End Date Gennaro Boone MD [address] [place] [address] PCP - General Family Medicine 06/06/17
--- OUTSIDE RECORDS SUMMARY | 2024-09-29 07:59 | XMS_ITS | Encounter Summary ---
Author Organization [facility] Address [address] [place] [address] Phone Care Team Providers Care Manager Of Compensation Name Role Phone Gennaro Boone MD Primary Care Provider Cira Gamboa MD Unavailable [phone] Rico Hernandez MD Unavailable Keon Muniz MD Unavailable Encounter Details Date Type Department Care Team (Late st Contact Info) Description 08/27/2019 Orders Only [facility] Scanning, Provider Social History Tobacco Use Types Packs/Day Years Used Date Smoking Tobacco: Never Smokeless Tobacco: Never Alcohol Use Standard Drinks/Week Comments Not Currently 0 (1 standard drink = 0.6 oz pur e alcohol) rarely Comments No Sex and Gender Information Value Date Recorded Sex Assigned at Female 11/01/2022 12:16 PM CDT Legal Sex Female 8:16 PM CARD PLAYER Gender Identity Female 10/15/2019 6:32 PM CDT Sexual Orientation Straight 08/26/2019 7: 34 PM CDT documented as of this encounter Plan of Treatment Not on file documented as of this encounter Procedures Procedure Name Priority Date/Time Associated Diagnosis Comments SCAN - RADIOLOGY/IMAGING 08/27/2019 documented in this encounter Results * SCAN - RADIOLOGY/IMAGING (08/27/2019) Anatomical Region Laterality Modality Other us Provider Scanning Final Result documented in this encounter Visit Diagnoses Not on filedocumented in this encounter Additional Health Concerns Infection Onset Date Last Indicated Resolved Time COVID: Suspected 03/16/2020 03/16/2020 03/17/2020 9:11 PM CARD PLAYER COVID19 03/16/2020 03/16/2020 03/30/2020 3:08 AM CARD PLAYER COVID: Recovered Comment:Added based on recent COVID infection. 03/30/2020 03/30/2020 07/28/2020 3:06 AM C DT Exposure, COVID-19 Comment:Added automatically based on COVID19 lab answers indicating exposure risk 05/04/2021 05/04/2021 05/19/2021 3:[address] COVID: Suspected 05/04/2021 05/05/2021 05/06/2021 2:18 AM CARD PLAYER COVID: Suspected 10/20/2023 10/20/2023 10/20/2023 11:03 AM CDT documented as of this encounter Care Teams Manager Of Compensation Relationship Specialty Start Date End Date Gennaro Boone MD PCP - General 12/05/16 Cira Gamboa MD Consulting Physician Endocrinology 03/19/22 Rico Hernandez MD [address] [facility] [phone] [place] [address] Environmental Aide Obstetrics and Gynecology 11/01/22 Keon Muniz MD [address] [facility] [address] [place], [place] [id number] Consulting Physician Reproductive Endocrinology and Infertility 01/24/24 documented as of this encounter
--- OUTSIDE RECORDS SUMMARY | 2024-09-29 08:00 | XMS_ITS | Clinical Summary ---
Author Organization [facility] Address [address] [place] [address] Care Team Providers Care Certified Lactation Educator Name Role Phone Gennaro Boone MD Primary Care Provider [phone] Cira Gamboa MD Unavailable Rioc Hernandez MD Unavailable Keon Muniz MD Unavailable Allergies Active Allergy Reactions Criticality Noted Date Comments Nuts Other (See comments) Low 11/01/2022 Mouth sores [place] Other (See comments) Low 11/01/2022 Mouth sores Penicillins Unknown 06/06/2017 Reaction as a child Pineapple Other (See comments) Low 11/01/2022 Mouth sores [place] Other (See comments) Low 11/01/2022 Mouth sores [...] Active pen needle, diabetic 32 gauge x needleIndications :Prediabetes,Clas s 2 obesity due to [...] (20 mg total) by mouth daily 05/19/19 25 Active Qulipta 60 mg tabletIndications :Intractable migraine with aura without status migrainosus Take 1 tablet by mouth nightly 90 tablet 3 06/09/19 25 Active Ubrelvy 100 mg tabletIndications :Intractable migraine with aura without status migrainosus Take 1 tablet (100 mg total) by mouth as needed for migraine Can repeat in 2 hours if needed. No more than 2 in 24 hours. 10 tablet 11 06/09/19 25 Active gabapentin (NEURONTIN) 100 mg capsuleIndication s:Chronic daily headache Take 1 capsule (100 mg total) by mouth 3 (three) times a day 90 capsule 06/09/192025 Active ZOLMitriptan (ZOMIG) 5 mg nasal solutionIndicatio ns:Migraine Administer 1 spray into one nostril as needed for migraine May repeat one time after 2 hours if needed. No more than 2 doses in 24 hours. 18 each 3 06/23/19 25 2025 Active SITagliptin phosphate (JANUVIA) 100 mg tabletIndications :type 2 diabetes mellitus Take 1 tablet (100 mg total) by mouth daily 30 tablet 06/24/19 25 2025 Active metFORMIN XR (GLUCOPHAGE XR) 500 mg 24 hr tabletIndications :Type 2 diabetes mellitus without complication, without long-term current use of insulin (HCC) Take 1 tablet (500 mg total) by mouth 2 (two) times a day Start at 1 tablet daily; after 1-2 weeks, if tolerating well, increase dose to 500 mg twice daily. 60 tablet 06/24/19 25 2025 Active ezetimibe (ZETIA) 10 mg tabletIndications :Hypercholesterol emia Take 1 tablet (10 mg total) by mouth daily 30 tablet 06/24/19 25 2025 Active atorvastatin (LIPITOR) 40 mg tabletIndications :Pure hypercholesterole praful,Class 2 obesity due to excess calories without serious comorbidity with body mass index (BMI) of 38.0 to 38.9 in adult TAKE 1 TABLET(40 MG) BY MOUTH EVERY NIGHT 90 tablet 1 09/26/19 25 Active atorvastatin (LIPITOR) 40 mg tabletIndications :Pure [...] Returned/Scanned into chart: [] Schedule Mailed/sent via [employer]: [] IVF Injectable Meds Ordered - Pharm - [] IVF Oral Meds Pharm - [] Confirmed Start Button Problem Noted Date Diagnosed Date Transaminitis 06/24/2024 Intractable migraine with aura without status mi grainosus 06/09/2024 Assessment & Plan (06/09/2024 2:06 PM [employer] [employer]): The patient has a longstanding history of [...] (09/01/2019): Added automatically from request for surgery [id number] PCOS (polycystic ovarian syndrome) 06/23/2019 Overview (06/23/2019): Added automatically from request for surgery [id number] Class 2 obesity 05/28/2019 Assessment & Plan (12/02/2019 6:56 PM CDT): Class 2 obesity with BMI 36 kg/m2 with related comorbidities: hyperlipidemia, pre-diabetes, depression, PCOS complicates the management of pre-diabetes by increasing insulin resistance and glucose intolerance Plan: 1) Resume care under referral to Weight Management Program (Dr. Pita Arias, ) 2) Consider re-starting Ozempic Assessment & Plan (05/28/2019 10:49 AM [facility] [employer]): Despite lifestyle modifications, she is frustrated regarding [...] profile. Assessment & Plan (05/28/2019 10:43 AM [facility]INGS): Given family history, LDL > 190, this [...] stones. Assessment & Plan (05/28/2019 10:44 AM [employer] [employer]INGS): Calcium and PTH normal previously. Recommend 24 [...] w/r/t gut microbiome. Referred to ADA and [employer] websites for additional information on topics including glycemic index/carbohydrate choices, protein sources. Consider metformin. Avoid GLP-1 w/ h/o delayed gastric emptying. Assessment & Plan (05/28/2019 10:47 AM [facility] [employer]INGS): She is following a low carb, low [...] (03/08/2022): Added automatically from request for surgery [id number] Class 1 obesity due to exces s [...] (09/01/2019): Added automatically from request for surgery [id number] RLQ abdominal pain 06/23/2019 4 Overview (06/23/2019): Added automatically from request for surgery [id number] Secondary oligomenorrhea 06/23/2019 Overview (06/23/2019): Added automatically from request for surgery [id number] Iron deficiency 04/19/2017 10/31/2017 Blood in stool [...] of patella 02/27/2011 Knee pain 02/23/2011 10/31/2017 Encounters Date Type Department Care Team Description 09/16/2024 Orders Only [facility] Endocrinology Metabolism and Lipid [address] [facility] [address] [place] [address] [place] [address] Hao Bellamy, SHEA Type 2 diabetes mellitus without complication, without long-term current use of insulin (HCC) (Primary Dx); Vitamin D deficiency 07/09/2024 [facility] [address] [facility] [address] [place] [address] Wilson Pedersen MA Zomig (nasal) ANMOL from Last 3 Months Immunizations Immunization Administration Dates Next Due HPV9 07/30/2022,04/02/2022,02/01/2022 Influenza, Quadrivalent, Spl it, Preservative Free, Intramuscular 01/26/2020,01/16/2013 Influenza, Trivalent, IM (MDV) 12/27/2013,2011 Influenza, Trivalent, Preser vative Free, Intramuscular 12/26/2015,01/13/2015 Influenza, Unspecified 03/12/2024,02/01/2023 Tdap 09/26/2013 Surgical History Surgery Date Site/Laterality Comments KNEE SURGERY 04/29/1999 - 04/28/2000 Left Knee Surgery - (Added by TW Conv) COLPOSCOPY 11/27/2021 - 12/27/2021 Colposcopy With Loop Electrode Excision Of The Cervix - (Added by TW Conv) VA LAPS ABD PRTM&OMENTUM DX W/WO SPEC BR/WA SPX 04/29/2019 - 04/28/2020 Laparoscopy (Diagnostic) - (Added by TW Conv) ANKLE SURGERY 04/29/2002 - 04/28/2003 Right Ankle Surgery - (Added by TW Conv) CHOLECYSTECTOMY 04/29/2015 - 04/28/2016 CERVICAL BIOPSY W/ LOOP ELECTRODE EXCISION 3 between [id number] ANKLE SURGERY 04/29/2011 - 04/28/2012 IMAGE GUIDED PARACENTESIS ABDOMEN 01/23/2023 N/A COLONOSCOPY 2017? 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 - (Added by TW Conv) Low grade squamous intraepit helial lesion on cytologic smear of cervix (LGSIL) Low grade squamous intraepit h lesion on cytologic smear cervix (lgsil) - (Added by TW Conv) Migraines Anxiety Type 2 diabetes mellitus (HCC) GERD (gastroesophageal reflu x disease) PONV (postoperative nausea a nd vomiting) mild improvement with scope patch Hyperlipidemia Migraines PCOS (polycystic ovarian syndrome) 06/23/2019 Added automatically from request for surgery [id number] Dyspareunia in female Peptic ulceration Stomach Ulcers DVT (deep venous thrombosis) (HCC) 03/06/2024 Pulmonary embolism (HCC) 03/09/2024 Family History Medical History Relation Name Comments Hypertension Father John Guillory Family history of hypertension - (Added by TW Conv) Kidney cancer Maternal Grandfather Hemorrage Mother Brie Guillory Hypertension Mother Brie Guillory Family hist ory of hypertension - (Added by TW Conv) Stroke Mother Brie Guillory Family hist ory of cerebrovascular accident - (Added by TW Conv) Diabetes Other uncle Hypertension Sister Anesthesia problems Neg Hx Relation Name Status Comments Father John Guillory Maternal Grandfather Mother Brie Guillory Other uncle Alive Sister Social History Tobacco Use Types Packs/Day Years [...] PM CDT Legal Sex Female 8:16 PM [employer] Gender Identity Female 10/15/2019 6:32 PM CDT Sexual Orientation Straight 08/26/2019 7: 34 PM CDT Obstetrics History Para Term AB IAB SAB Ectopic Multiple Livin g Live Births 0 0 0 0 0 0 0 0 0 0 0 Last Filed Vital Signs Vital Sign Reading Time Taken Comments Blood Pressure 132/94 06/24/2024 8:28 AM [employer] Pulse 98 06/24/2024 8:28 AM [employer] Temperature 36.7 C (98.1 F) 06/24/2024 8:28 AM [employer] Respiratory Rate 16 06/09/2024 12:4 8 PM [employer] Oxygen Saturation 96% 06/24/2024 8:28 AM [employer] Inhaled Oxygen Concentration - - Weight 98.3 kg (216 lb 12.8 oz) 06/24/2024 8:28 AM [employer] Height 157.5 cm (5' 2) 06/09/2024 12:4 8 PM [employer] Body Mass Index 39.65 06/09/2024 12:48 PM [employer] Plan of Treatment Health Maintenance Due Date Last Done Comments Breast Cancer Screening-Mammogram 1984 Depression Screening 1984 Dilated Eye Exam 1984 Varicella Vaccines (1 of 2 - 13+ 2-dose series) 1997 Hepatitis B Screening 2002 Pneumococcal vaccine <65 (1 of 2 - PCV) 08/21/2003 Regular Well Visit/Exam 18-64 12/25/2022 12/25/2021, 10/31/2017 DTaP/Tdap/Td Vaccine (2 - Td or Tdap) 09/27/2023 09/26/2013 Covid-19 Vaccine (3 - 2023-2 5 season) 2023 10/14/2020, 09/23/2020 Albumin Creatinine Ratio, Urine 11/05/2024 Hemoglobin A1C 12/18/2024 06/20/2024, 01/27, 11/06/2023, Additional history exists Lipid Panel 06/20/2025 06/20/2024, 01/27, 04/24/2023, Additional history exists Foot Exam 06/24/2025 06/24/2024, 12/08/2023, 02/18/2024, Additional history exists eGFR 06/24/2025 06/24/2024, 01/29, 02/19/2024, Additional history exists HPV Vaccines Completed 07/30/2022, 08/2021, 02/01/2022 Hepatitis C Screening Completed 11/09/2022, 017 Cervical Cancer Screening Discontinued 2023, 11/07/2023, 05/02/2023, Additional history exists Influenza Vaccine Completed 03/12/2024, , 01/26/2020, Additional history exists Procedures Procedure Name Priority Date/Time Associated Diagnosis Comments COMPREHENSIVE METABOLIC PANEL Routine 06/24/2024 9:21 AM [facility] [employer] Type 2 diabetes mellitus without complication, without long-term current use of insulin (HCC) Hypercholesterolemia Transaminitis HEMOGLOBIN A1C Routine 06/20/2024 9:30 AM [employer] Type 2 diabetes mellitus without complication, without long-term current use of insulin (HCC) LIPID PANEL Routine 06/20/2024 9:30 AM [employer] Hypercholesterolemia HIGH RISK HPV DNA DETECTION WITH [...] (ABNORMAL) Comprehensive metabolic panel (06/24/2024 9:21 AM [employer]) Total Protein 8.2 6.1 - 8.4 g/dL [...] [facility] Blood 06/24/2024 9:21 AM [employer] [employer] 06/24/2024 11:00 AM [employer] us Katya Roche MD LAB BLOOD ORDERABLES F inal Result [facility] * (ABNORMAL) Hemoglobin A1c (06/20/2024 9:30 AM [employer]) Pathologist [facility] Hgb A1C 8.1(H) 4.8 - 5.6 % [facility] - 01 Comment: Prediabetes: 5.7 - 6.4 Diabetes: >6.4 Glycemic control for adults with diabetes: <7.0 Blood 06/20/2024 9:30 AM [facility] [employer] 06/20/2024 Narrative [facility] - 06/21/2024 7:07 AM [facility] [employer] Performed at: 01 - [address] [id number] Bowling Ball Assembler: Benny Gamboa PhD, Phone: [phone] Cira Gamboa MD LAB BLOOD ORDERABLES Fin al Result Performing Organization Address [facility] de Phone Number [facility] * (ABNORMAL) Lipid panel (06/20/2024 9:30 AM [employer] [employer]) [facility] Cholesterol 163 100 - 199 mg/dL [facility] - 01 Triglycerides 227(H) 0 - 149 mg/dL [facility] - 01 HDL Cholesterol 38(L) >39 mg/dL [facility] - 01 VLDL 38 5 - 40 mg/dL [facility] - 01 LDL, calculated 87 0 - 99 mg/dL [facility] - 01 Blood 06/20/2024 9:30 AM [facility] [employer] 06/20/2024 Narrative [facility] - 06/21/2024 7:07 AM [employer] Performed at: [address] [id number] Bowling Ball Assembler: Benny Gamboa PhD, Phone: [phone] Cira Gamboa MD LAB BLOOD ORDERABLES Fin al Result Performing Organization Address [facility] Phone Number [facility] * (ABNORMAL) High Risk HPV DNA Detection with Genotyping (Molecular component) (11/07/2023 5:55 PM CDT) [facility] HPV HR 16 Detected(A) Not Detected [facility] HPV HR 18 Not Detected Not Detected [facility] HPV HR Non 16/18 Not Detected Not Detected [facility] Comment: Interpretive Data Nucleic acid amplification for [...] this test have been verified by the [facility] Molecular Infectious Disease laboratory. Correlate with separately reported cytology results, as applicable. Interpretive data last revised 22 Endocervical 11/07/2023 5:55 PM CDT 11/08/2023 10:08 AM CDT Narrative [facility] - 11/09/2023 6:16 AM CDT Clinical history and diagnosis->HPV 16 and h/o AIS s/p cone Testing type->Screening Last menstrual period (date if known)->on OCP Menstrual status->Irregular us Wilson Zhang MD LAB BODY FLUIDS AND STOO LS ORDERABLES Final Result [facility] Department [place] [address] [facility] * (ABNORMAL) Albumin Creatinine Ratio, Urine (11/06/2023 9:30 AM CDT) Microalb, Ur 31.9(H) 0.0 - 22.9 mg/L [facility] Random Urine Creatinine 173.9 mg/dL [facility] Microalb/Creat Ratio 18.3 0.0 - 29.9 mg/g [facility] Urine 11/06/2023 9:30 AM CDT 11/06/2023 11:01 AM CDT us Florencio Holland MD LAB URINE ORDERABLES Final Res ult [facility] * Hepatitis C antibody (11/09/2022 11:11 AM CDT) Hep C Ab Nonreactive Nonreactive [facility] Comment:Antibodies to HCV no t detected. Does NOT exclude the possibility of recent exposure to HCV. Current interpretive data was last revised on 21 Blood 11/09/2022 11:1 1 AM CDT 11/09/2022 1:25 PM CDT Keon Muniz MD LAB MICROBIOLOGY - GENERA L ORDERABLES Final Result [facility] Department [place] [address] from Last 3 Months or Most Recently Relevant to Health Maintenance Insurance [place] [facility] [place] Advance Directives For more information, please contact: [phone] * Full Code (Latest Code Status on File) Date Activated Date Inactivated Comments 01/17/2023 6:27 AM 01/18/2023 4:38 AM * Full Code Date Activated Date Inactivated Comments 02/23/2021 12:15 PM 02/23/2021 7:05 PM * Full Code Date Activated Date Inactivated Comments 09/03/2019 7:27 AM 09/03/2019 1:47 PM Care Teams Certified Lactation Educator Relationship Specialty Start Date End Date Gennaro Boone MD PCP - General 12/05/16 Cira Gamboa MD Consulting Physician Endocrinology 03/19/22 Rico Hernandez MD [address] [facility] [id number] [place], [place] [id number] Lime Mixer Obstetrics and Gynecology 11/01/22 Keon Muniz MD [address] [facility] [address] [place] [address] Consulting Physician Reproductive Endocrinology and Infertility 01/24/24
== END 2024-09-29 07:55 | disposition home or self-care (01) ==
PROVIDERS: PCP Family Medicine; Visit Provider Nurse Practitioner Family
DX: I26.99 Other pulmonary embolism without acute cor pulmonale (principal)
CPT/HCPCS: 71275; Q9967

== ENCOUNTER 2024-10-19 15:54 | Outpatient (CLI) | payer BC, SELFPAY ==
--- NOTE | ~2024-10-19 | US_ITS ---
EXAMINATION: US carotid duplex BI DATE: 10/19/2024 16:37 CDT INDICATION: Syncope TECHNIQUE: Grayscale, color Doppler, and pulsed Doppler images of the cervical carotid arteries were obtained. The degree of vessel stenosis is placed in one of the following categories: normal, <50%, 50-69%, >=7 0% but less than near-occlusion, near-occlusion, or total occlusion. Note that percent stenosis relative to normal distal artery lumen diameter is indirectly measured fro m velocity measurements as described originally by Jose, et al. Radiology 2003; 229:340-346 and upda estephania by Magdaleno Greenfield et al STROKE 2012;43(3);915-921. COMPARISON: None. FINDINGS: There is mild atherosclerosis of both carotid. Peak systolic velocity (in cm/s) is detailed below RIGHT: Right common carotid artery (CCA): 105 cm/s. Right internal carotid artery (ICA) PSV: 125 cm/s. Right ICA end-diastolic velocity (EDV): 52 cm/s. Right ICA/CCA PSV ratio is 1.2. Right external carotid artery (ECA): 81cm/s. There is antegrade flow in the right vertebral artery LEFT: Left common carotid artery (CCA): 113 cm/s. Left internal carotid artery (ICA) PSV: 102 cm/s. Left ICA end-diastolic velocity (EDV): 44 cm/s. Left ICA/CCA PSV ratio is 0.9. Left external carotid artery (ECA): 100.9cm/s. There is antegrade flow in the left vertebral artery. IMPRESSION: 1. 50-69% stenosis in the right internal carotid artery secondary to peak systolic velocity criteria, and plaque visualization on the submitted images. 2. Less than 50% stenosis in the left internal carotid artery. Reviewed, dictated and finalized at location A. IMPRESSION: 1. 50-69% stenosis in the right internal carotid artery secondary to peak systo lic velocity criteria, and plaque visualization on the submitted images. 2. Less than 50% stenosis in the left internal carotid artery.
== END 2024-10-19 15:55 | disposition home or self-care (01) ==
LOC: MICIMG 15:54
PROVIDERS: PCP Family Medicine; Visit Provider Nurse Practitioner Family
DX: I65.23 Occlusion and stenosis of bilateral carotid arteries (principal); G43.901 Migraine, unspecified, not intractable, with status migrainosus
CPT/HCPCS: 93880

== ENCOUNTER 2024-10-20 11:30 | Emergency (ER) | payer BC, SELFPAY ==
--- NOTE | ~2024-10-20 | XR_ITS ---
EXAMINATION: XR chest 2V DATE: 10/20/2024 13:16 INDICATION: Chest pain TECHNIQUE: PA and lateral views of the chest were obtained. COMPARISON: Chest radiograph dated 04/27/2024 FINDINGS: The lungs remain clear with no focal airspace opacities, pulmonary edema, pleural effusion or pneumot horax. The cardiomediastinal silhouette is normal. Cholecystectomy clips in the right upper quadrant. Mild thoracic spondylosis. IMPRESSION: 1. No acute cardiopulmonary disease. Reviewed, dictated and finalized at location A.
--- NOTE | 2024-10-20 11:44 | ECG_ITS ---
Test Date: 2024-10-20 11:48:03 Measurements Intervals [place] Rate: 92 P: 10 [place]: 157 QRS: 9 QRSD: 82 T: 42 QT: 343 QTc: 425 Interpretive Statements SINUS RHYTHM DELAYED PRECORDIAL R/S TRANSITION BASELINE ARTIFACT- I, III, AVL, V1-V4 BORDERLINE ECG Compared to ECG 04/27/2024 18:14:58 No significant changes Electronically Signed On 10-20-2024 11:57:52 CDT by Go Pérez D.O.
[2024-10-20 11:55] VITALS: BP 125/88; PULSE 83; RESP 18; TEMP 36.1; O2SAT 100
[2024-10-20 12:05] LABS: Basophils Percent Auto 0.4 % (0.2-1.2); Eosinophils Absolute Auto 0.1 K/mm3 (0-0.3); Eosinophils Percent Auto 1.3 % (0-4.4); Hematocrit 41.7 % (37.0-47.0); Immature Granulocyte Absolute 0.03 K/mm3 (0.00-0.031); Immature Granulocyte Percent A 0.3 % (0-0.5); Lymphocytes Percent Auto 18.7 % (18.3-44.2); Mean Corpuscular HGB Conc 31.2 g/dl (32-36); Mean Corpuscular Hemoglobin 26.2 pg (26-34); Mean Corpuscular Volume 84.1 fl (80-100); Monocytes Absolute Auto 0.6 K/mm3 (0.1-0.6); Monocytes Percent Auto 6.2 % (2.6-8.5); Neutrophils Absolute Auto 6.6 K/mm3 (1.3-6.7); Neutrophils Percent Auto 73.1 % (45.5-73.1); Platelet Count Result 421 k/mm3 (150-375); Red Blood Count 4.96 M/mm3 (4.2-5.4); Red Cell Distribution Width 15.5 % (11.5-14.5); White Blood Count 9.1 K/mm3 (4.5-10.0)
[2024-10-20 12:11] LABS: Alanine Aminotransferase 36 U/L (6-35); Albumin Level 4.6 g/dL (3.5-5.1); Alkaline Phosphatase 103 U/L (38-126); Anion Gap 12 mmol/L (4-12); Aspartate Amino Transferase 31 U/L (14-36); Bilirubin,Total 0.4 mg/dL (0.2-1.3); Blood Urea Nitrogen 10 mg/dL (7-17); Calcium 9.8 mg/dL (8.4-10.2); Carbon Dioxide 28 mmol/L (22-30); Chloride 102 mmol/L (98-107); Estimated Glomerular Filt Rate > 60; Glucose 119 mg/dL (65-110); Lipase 79 U/L (23-300); Potassium 4.3 mmol/L (3.4-5.0); Sodium 142 mmol/L (137-145); Total Protein 8.4 g/dL (6.3-8.2)
[2024-10-20 12:18] LABS: Prothrombin Time 13.3 Seconds (11.1-14.7)
[2024-10-20 12:19] LABS: Partial Thromboplastin Time 26.9 Seconds (22.3-36.8)
[2024-10-20 12:23] LABS: Troponin I < 0.012 ng/mL (0.000-0.034)
[2024-10-20 14:08] VITALS: BP 117/76; PULSE 93; RESP 18; TEMP 35.9; O2SAT 100
--- NOTE | 2024-10-20 14:20 | ED_ITS ---
HPI - Chest Pain General Chief Complaint: Chest Pain Stated Complaint: migraine, chest pain starting at 9am Time Seen by Provider: 10/20/24 16:24 Focused HPI: 39 year old female presenting with a migraine. She has chronic migraines and takes Qllipta and Gabapentin, also receives Botox injections. A headache developed last Saturday and she was able to manage it over the weekend but it got worse yesterday and today. The headache is in the back of her head and around the front. She took Tylenol and and Advil this morning as well as her migraine medications with no relief. Denies vomiting. Reports associated photophobia. Follows with neurology at [facility] for management of her migraines. She is also presenting with chest pain having started this morning. She describes the pain as a chest tightness. No aggravating or alleviating factors. No shortness of breath. She has a history of DVT and PE and is no longer taking her Eliquis as of 3 weeks ago. Her PE was thought to be provoked from her hysterectomy. She was dx with cervical cancer in January of 2024. Denies shortness of breath, cough, congestion, hemoptysis. Denies smoking. Does not source of positive family history of cardiac disease. Is reporting intermittent dizziness when standing for the past couple months. GENERAL: Well-appearing, well-nourished, and in no acute distress. HEAD: Normocephalic, atraumatic. CHEST: Clear to auscultation. ?No respiratory distress. HEART: Regular rate and rhythm.? NEURO: ?Alert and oriented x3. Patient screened in triage and initial orders placed.? ?Additional care and disposition to be based upon?diagnostic testing and treatment. Related Data Home Medications ?Medication ?Instructions ?Recorded ?Confirmed ?Last Taken ?Type atorvastatin 20 mg tablet (Lipitor) 40 mg PO DAILY 01/26/20 10/01/24 03/08/24 20:00 History 40 mg spironolactone 100 mg tablet 100 mg PO DAILY 10/17/21 10/01/24 03/08/24 20:00 History 100 esomeprazole magnesium 20 mg 20 mg PO DAILY 06/05/22 10/01/24 03/08/24 20:00 History capsule,delayed release (Nexium) 20 mg ubrogepant 100 mg tablet (Ubrelvy) 100 mg PO DAILY PRN Migraine 03/10/24 10/01/24 Unknown History Headache ezetimibe 10 mg tablet mg PO DAILY 10/01/24 10/01/24 Unknown History metformin 500 mg tablet,extended mg PO 10/01/24 10/01/24 Unknown History release 24 hr sitagliptin phosphate 100 mg mg PO DAILY 10/01/24 10/01/24 Unknown History tablet (Januvia) Allergies Allergy/AdvReac Type Severity Reaction Status Date / Time chlorhexidine Allergy Severe Anaphylaxis Verified 10/20/24 15:57 nut - unspecified Allergy Intermediate Difficulty Verified 10/20/24 15:57 Swallowing tree nut Allergy Intermediate Difficulty Verified 10/20/24 15:57 Swallowing hydrocodone Allergy Mild Anaphylaxis Verified 10/20/24 15:57 oxycodone Allergy Unknown THROAT Verified 10/20/24 15:57 SWELLING Penicillins Allergy Unknown UNKNOWN-WAS Verified 10/20/24 15:57 CHILD topiramate (From Topamax) AdvReac Confusion Verified 10/20/24 15:57 Review of Systems 2 Review of Systems: All systems reviewed & are unremarkable except as noted in HPI and below PMFSH Past Medical History Medical History Hypotension Cough Fever Vomiting Vision changes Conjunctivitis Acute pharyngitis Eustachian tube dysfunction Otitis media Phlebitis after infusion Elevated cholesterol Chest pain Pulmonary emboli Adenocarcinoma of cervix Prediabetes Migraine headache Polycystic ovarian syndrome Hyperlipidemia DVT (deep venous thrombosis) Hypermobile Shelbie-Danlos syndrome Recurrent epistaxis Pain of left calf Pyloric stenosis Mouth sores Yeast infection COVID-19 Anxiety and depression Fatty liver GERD without esophagitis Irritable bowel syndrome with diarrhea Myalgia Other symptoms and signs involving emotional state Vitamin D deficiency Surgical History Surgical History History of total abdominal hysterectomy and bilateral salpingo-oophorectomy (02/25/24) for cervical cancer- no residual in situ or invasive endocervical adenocarcinoma H/O: hysterectomy History of endoscopy History of cholecystectomy History of colposcopy History of knee surgery History of ankle surgery History of abdominal surgery Family History Family History Father Hypertension Mother Hypertension Cerebrovascular accident Sibling COVID Social History Social History Social History: Surrogate medical decision maker: Selene Guillory, sibling. Code status: Full code. 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 HEAD: Normocephalic, atraumatic. EYES: PERRLA and EOMI. ENT: Nares clear, no rhinorrhea or epistaxis. Mucous membranes moist. NECK: Supple. No nuchal rigidity CHEST: Clear to auscultation. No respiratory distress. HEART: Regular rate and rhythm. No murmur heard. Normal peripheral pulses. ABDOMEN: Soft, nontender, nondistended, normal active bowel sounds. EXTREMITIES: Normal range of motion. No edema. Negative Homans bilaterally. SKIN: Warm, dry, no rash. NEURO: No focal deficits. Alert and oriented x4. Cranial nerves 2-12 intact. Strength 5/5 in BUE and BLE. Sensation intact throughout. Normal [id number]. No pronator drift. Course Vital Signs Vital signs: Vital Signs Temperature 97.0 F L 10/20/24 11:55 Pulse Rate 83 10/20/24 11:55 Respiratory Rate 18 10/20/24 11:55 Blood Pressure 125/88 10/20/24 11:55 Pulse Oximetry 100 10/20/24 11:55 Oxygen Delivery Room Air 10/20/24 11:55 Temperature 96.7 F L 10/20/24 14:08 Pulse Rate 90 10/20/24 15:48 Respiratory Rate 16 10/20/24 15:48 Blood Pressure 130/71 10/20/24 15:48 Pulse Oximetry 99 10/20/24 15:48 Oxygen Delivery Room Air 10/20/24 11:55 MDM - Chest Pain MDM Narrative Medical decision making narrative: 39-year-old female with history of migraines presents to the emergency department for a headache for the past 4 days and chest tightness that started this morning. Triage vitals are stable. Patient is afebrile nontoxic appearing. No focal deficits on exam. Her lab work shows no leukocytosis or anemia. Chemistries are unremarkable. EKG shows normal sinus rhythm with rate of 92 ppm, normal [place] interval, normal QRS duration, normal QTC, no depressions. Troponin is undetectable x2. Chest x-ray shows no acute cardiopulmonary findings. Lipase is within normal limits. D-dimer is within normal limits, wells score is low risk. Low suspicion for PE given no tachycardia or tachypnea, no hypoxia. Wells' Criteria for Pulmonary Embolism from [email or web address] on 10/20/2024 All calculations should be rechecked by clinician prior to use RESULT SUMMARY: 1.5 points Low risk group: 1.3% chance of PE in an ED population. Another study assigned scores <=4 as ?PE Unlikely? and had a 3% incidence of PE. INPUTS: Clinical signs and symptoms of DVT ?> 0 = No PE is #1 diagnosis OR equally likely ?> 0 = No Heart rate > 100 ?> 0 = No Immobilization at least 3 days OR surgery in the previous 4 weeks ?> 0 = No Previous, objectively diagnosed PE or DVT ?> 1.5 = Yes Hemoptysis ?> 0 = No Malignancy w/ treatment within 6 months or palliative ?> 0 = No Patient updated on results. She was treated with IV fluids and headache cocktail with improvement in symptoms. She is requesting to be discharged home. Advised her to continue her migraine treatment of follow-up with her PCP. Discussed return precautions. She is agreeable with the plan verbalized understanding. Discharged in stable condition. Lab Data 10/20/24 11:53 10/20/24 11:53 Labs: Lab Results 10/20/24 10/20/24 Range/Units 11:53 14:57 WBC 9.1 (4.5-10.0) K/mm3 RBC 4.96 (4.2-5.4) M/mm3 Hgb 13.0 (12.0-15.0) g/dL Hct 41.7 (37.0-47.0) % MCV 84.1 (80-100) fl MCH 26.2 (26-34) pg MCHC 31.2 L (32-36) g/dl RDW 15.5 H (11.5-14.5) % Plt Count 421 H (150-375) k/mm3 MPV 9.0 (7.4-10.4) fl Immature Gran % (Auto) 0.3 (0-0.5) % Neut % (Auto) 73.1 (45.5-73.1) % Lymph % (Auto) 18.7 (18.3-44.2) % [place] % (Auto) 6.2 (2.6-8.5) % Eos % (Auto) 1.3 (0-4.4) % Baso % (Auto) 0.4 (0.2-1.2) % Lymph # (Auto) 1.70 (0.9-3.2) K/mm3 [place] # (Auto) 0.6 (0.1-0.6) K/mm3 Eos # (Auto) 0.1 (0-0.3) K/mm3 Baso # (Auto) 0.0 (0.0-0.1) K/mm3 Abs Immat Gran (auto) 0.03 (0.00-0.031) K/mm3 Absolute Neuts (auto) 6.6 (1.3-6.7) K/mm3 Absolute Nucleated RBC 0.000 (0.0-0.012) K/mm3 Nucleated RBC % 0.0 (0.0-0.2) % PT 13.3 (11.1-14.7) Seconds INR 1.0 APTT 26.9 (22.3-36.8) Seconds D-Dimer < 0.27 (<0.48) ug/mL Sodium 142 (137-145) mmol/L Potassium 4.3 (3.4-5.0) mmol/L Chloride 102 (98-107) mmol/L Carbon Dioxide 28 (22-30) mmol/L Anion Gap 12 (4-12) mmol/L BUN 10 (7-17) mg/dL Creatinine 0.86 (0.7-1.0) mg/dL Estim Creat Clear Calc Not Reportable Estimated GFR > 60 (59 - ) Glucose 119 H (65-110) mg/dL Calcium 9.8 (8.4-10.2) mg/dL Total Bilirubin 0.4 (0.2-1.3) mg/dL AST 31 (14-36) U/L ALT 36 H (6-35) U/L Alkaline Phosphatase 103 (38-126) U/L Troponin I < 0.012 < 0.012 (0.000-0.034) ng/mL Total Protein 8.4 H (6.3-8.2) g/dL Albumin 4.6 (3.5-5.1) g/dL Lipase 79 (23-300) U/L Discharge Plan Discharge Clinical Impression: Atypical chest pain Headache Qualifiers: Headache type: unspecified Headache chronicity pattern: unspecified pattern I ntractability: not intractable Qualified Code(s): R51.9 - Headache, unspecified Patient Disposition: Home Condition: Stable Instructions: Antibiotic Form, Chest Pain (ED), Acute Headache (DC) Additional Instructions: You were evaluated in the emergency department for chest tightness and migraine. Your workup here is reassuring. Please continue taking your medications as directed follow up with her primary care provider. Return to the emergency department if you develop vision changes, focal numbness or weakness, worsening or changing chest pain or shortness of breath, you cough up blood or other concerning symptoms. Patient Language: Vietnamese Prescriptions: No Action atorvastatin [Lipitor] 20 mg tablet 40 mg PO DAILY esomeprazole magnesium [Nexium] 20 mg capsule,delayed release(DR/EC) 20 mg PO DAILY tramadol 50 mg tablet 50 mg PO Q6H PRN (Reason: pain) Qty: 20 0RF tizanidine 4 mg capsule 4 mg PO BID PRN (Reason: muscle spasticity) Qty: 60 1RF Januvia 100 mg tablet PO DAILY metformin 500 mg tablet extended release 24 hr PO ezetimibe 10 mg tablet PO DAILY prochlorperazine maleate [Compazine] 5 mg tablet 5 mg PO Q8H PRN (Reason: nausea and vomiting) Qty: 30 0RF spironolactone 100 mg tablet 100 mg PO DAILY acetaminophen-codeine 300-30 mg tablet 1 tablet PO Q6H PRN (Reason: pain) Qty: 90 0RF Ubrelvy 100 mg tablet 100 mg PO DAILY PRN (Reason: Migraine Headache) Qulipta 60 mg tablet 60 mg PO DAILY Qty: 90 2RF zolmitriptan [Zomig] 2.5 mg tablet See Rx Instructions PO .COMPLEX Qty: 9 0RF Rx Instructions: take 1 tab at onset of headache; if no relief may repeat 1 tab after at least 2 hrs; max = 4 tabs/24 hr PO zolmitriptan [Zomig] 5 mg spray,non-aerosol 1 spray intranasal Q2H PRN (Reason: headache) Qty: 6 1RF Rx Instructions: administer into one nostril (only); alternate nostrils; do not exceed 10 mg /24 hrs alprazolam 0.5 mg tablet 0.5 mg PO TID PRN (Reason: anxiety) Qty: 90 0RF escitalopram oxalate 20 mg tablet 20 mg PO DAILY Qty: 90 1RF valacyclovir 1 gram tablet See Rx Instructions .ROUTE .COMPLEX Qty: 4 1RF Dose Instruction: TAKE 2 TABLETS BY MOUTH EVERY 12 HOURS Rx Instructions: TAKE 2 TABLETS BY MOUTH EVERY 12 HOURS Eliquis 5 mg tablet 5 mg PO BID Qty: 60 3RF lisdexamfetamine [Vyvanse] 30 mg capsule 30 mg PO DAILY Qty: 30 0RF Follow-up/Referrals: Gennaro Boone MD [Primary Care Provider] - Quality HEART score for chest pain patients History: slightly suspicious ECG: normal Age: < or = to 45 years Risk factors: 1 or 2 risk factors Troponin: < or = to 1x normal limit Heart score: 1
--- NOTE | 2024-10-20 14:55 | ECG_ITS ---
Test Date: 2024-10-20 15:00:24 Measurements Intervals [place] Rate: 98 P: 19 TN: 151 QRS: 11 QRSD: 86 T: 33 QT: 329 QTc: 421 Interpretive Statements SINUS RHYTHM BORDERLINE R WAVE PROGRESSION, ANTERIOR LEADS BASELINE ARTIFACT- I, II, III, AVR, AVL, AVF BORDERLINE ECG Compared to ECG 10/20/2024 11:48:03 No significant changes Electronically Signed On 10-20-2024 15:05:29 CDT by Go Pérez D.O.
[2024-10-20 15:03] LABS: D Dimer < 0.27 ug/mL (<0.48)
[2024-10-20 15:29] LABS: Troponin I < 0.012 ng/mL (0.000-0.034)
[2024-10-20 15:48] VITALS: BP 130/71; PULSE 90; RESP 16; O2SAT 99
[2024-10-20] MEDS: ACETAMINOPHEN 500 MG TABLET 1000 MG PO (15:58)
[2024-10-20] MEDS: SODIUM CHLORIDE 0.9% IV 1,000 ML 999 ML IV CONT (15:59)
[2024-10-20] MEDS: diphenhydrAMINE HCl INJ 50 MG/ML VIAL 25 MG IV PUSH (15:59)
[2024-10-20] MEDS: PROCHLORPERAZINE EDISYLATE 10 MG/2 ML VIAL IV PUSH (15:59)
[2024-10-20] MEDS: KETOROLAC 15 MG/ML VIAL (*BKC) IV PUSH (16:47)
[2024-10-20 17:28] VITALS: BP 130/71; PULSE 91; RESP 17; O2SAT 97
== END 2024-10-20 17:30 | disposition home or self-care (01) ==
PROVIDERS: Emergency Medicine; Emergency Provider Physician Assistant; PCP Family Medicine
DX: R51.9 Headache, unspecified (principal); R07.89 Other chest pain; K58.0 Irritable bowel syndrome with diarrhea; E78.00 Pure hypercholesterolemia, unspecified; E28.2 Polycystic ovarian syndrome; E55.9 Vitamin D deficiency, unspecified; K21.9 Gastro-esophageal reflux disease without esophagitis; R73.03 Prediabetes; Q79.62 Hypermobile Ehlers-Danlos syndrome; F41.9 Anxiety disorder, unspecified; F32.A Depression, unspecified; Z86.711 Personal history of pulmonary embolism; Z85.41 Personal history of malignant neoplasm of cervix uteri; Z86.718 Personal history of other venous thrombosis and embolism; Z86.16 Personal history of COVID-19; Z90.710 Acquired absence of both cervix and uterus; Z90.79 Acquired absence of other genital organ(s); Z90.722 Acquired absence of ovaries, bilateral; Z90.49 Acquired absence of other specified parts of digestive tract; Z79.899 Other long term (current) drug therapy; Z79.84 Long term (current) use of oral hypoglycemic drugs; Z79.01 Long term (current) use of anticoagulants; R94.31 Abnormal electrocardiogram [ECG] [EKG]
CPT/HCPCS: 36415; 71046; 80053; 83690; 84484; 85025; 85380; 85610; 85730; 93005; 96361; 96374; 96375; 99284; A9270; J0780; J1200; J1885; J7030

== ENCOUNTER 2024-10-26 14:12 | Emergency (ER) | payer BC, SELFPAY ==
--- NOTE | ~2024-10-26 | CT_ITS ---
EXAMINATION: CTA brain carotid DATE: 10/26/2024 18:42 INDICATION: recent US showing blockage, ALEXANDER TECHNIQUE: Computed tomographic angiography (CTA) of the head was performed without and with 100 mL O mnipaque-350 intravenous contrast. CTA of the neck was performed with intravenous contrast. Automated exposure control and iterative reconstruction technique were employed. The dose-length product was 1 727.91 mGy-cm. Maximum intensity projection and volume rendered 3D-reconstructions were created by hector noyola technologist on a separate workstation. COMPARISON: MR brain 02/02/2024. FINDINGS: CT BRAIN: No acute large vessel infarct, intracranial hemorrhage, mass, or hydrocephalus. Small retention cyst/ polyps in the right sphenoid and left ethmoid sinuses CTA HEAD: No large vessel occlusion, aneurysm, high flow vascular malformation, nidus or extravasation. CTA NECK: Aortic arch and proximal great vessels: The left vertebral artery takes its origin directly off the a rch, an normal variant. Right common carotid, carotid bifurcation, and internal carotid artery: No plaque.There is 0% stenosi s of the proximal right internal carotid artery relative to normal distal artery lumen diameter (NASC ET criteria). Left common carotid, carotid bifurcation, and internal carotid artery: No plaque.There is 0% stenosis of the proximal left internal carotid artery relative to normal distal artery lumen diameter (NASCET criteria). Vertebral arteries: No significant plaque or stenosis. Vertebral arteries co-dominant. Other findings: None. IMPRESSION: No acute intracranial process. No large vessel intracranial occlusion, high-grade intracranial stenosis, or aneurysm. No carotid or vertebral artery occlusion, dissection, or significant stenosis. Reviewed, dictated and finalized at location K. IMPRESSION: No acute intracranial process. No large vessel intracranial occlusion, high-grade intracranial stenosis, or an eurysm. No carotid or vertebral artery occlusion, dissection, or significant stenosis.
--- NOTE | ~2024-10-26 | XR_ITS ---
XR chest 2V Ordering provider: Shireen Gale III DO History: 39 years Female with . CP . Comparison: None. FINDINGS: MEDIASTINUM: The cardiac silhouette is not enlarged. LUNGS: No infiltrates, effusions or pneumothorax. OTHER: No free air under the diaphragm. IMPRESSION: No acute cardiopulmonary pathology. Reviewed, dictated and finalized at location A.
--- OUTSIDE RECORDS SUMMARY | 2024-10-26 14:27 | XMS_ITS | Clinical Summary ---
Author Organization [facility] Address [address] [place] [address] Care Team Providers Care Blood Bank Coordinator Name Role Phone Gennaro Boone MD Primary Care Provider [phone] Source Comments [facility],non-owned Affiliates and Associated Physician Practices is amultiple site organization consisting of ambulatory clinics and hospital sitesin [place], [place], [place] and [place]. This disclosure is being madepursuant to the Care Everywhere program and may not contain all information available regarding this patient. Last updated 18.[facility] Allergies Active Allergy Reactions Criticality Noted Date [...] on file Legal Sex Female 2:06 PM [employer] Gender Identity Not on file Sexual Orientation [...] complete this topic Insurance MARY Care Teams Blood Bank Coordinator Relationship Specialty Start Date End Date Gennaro Boone MD [address] [place] [address] PCP - General Family Medicine 06/06/17
[2024-10-26 14:40] VITALS: BP 144/93; PULSE 100; RESP 19; TEMP 36.8; O2SAT 100
--- NOTE | 2024-10-26 14:50 | ECG_ITS ---
Test Date: 2024-10-26 14:52:20 Measurements Intervals [place] Rate: 100 P: 18 CT: 162 QRS: 23 QRSD: 76 T: 34 QT: 315 QTc: 408 Interpretive Statements SINUS TACHYCARDIA DELAYED PRECORDIAL R/S TRANSITION BASELINE ARTIFACT- I, II, III, AVR, AVL, AVF, V3-V6 BORDERLINE ECG Compared to ECG 10/20/2024 15:00:24 NO SIGNIFICANT CHANGE Electronically Signed On 10-26-2024 15:29:14 CDT by Go Pérez D.O.
--- NOTE | 2024-10-26 15:02 | ED_ITS ---
HPI - Headache General Chief Complaint: Neck Pain/Injury <Leigh Beal, [employer] - Last Filed: 10/26/24 15:05> Stated Complaint: Increased neck pain-blocked artery <Leigh Beal APRN - Last Filed: 10/26/24 15:05> Time Seen by Provider: 10/26/24 15:00 <Leigh Bael [employer] - Last Filed: 10/26/24 15:05> Focused HPI: Patient is a 39 year old female who presents to the ER with a headache, chest pain, and reports ?I feel terrible. She reports her headache started last Saturday. Patient reports her primary care provider ordered an ultrasound of her carotid, which showed a blockage of 50% in her left and 50-69% in her right. Patient reports she has a history of Shelbie Danlos, migraines, hyperlipidemia, elevated A1c, lower extremity edema, PE, and cervical cancer. She reports she has had lightheadedness and dizziness for the past few weeks. GENERAL: Well-appearing, well-nourished, and in no acute distress. HEAD: Normocephalic, atraumatic. CHEST: Clear to auscultation. ?No respiratory distress. HEART: Regular rate and rhythm.? NEURO: ?Alert and oriented x3. Tearful Patient screened in triage and initial orders placed.? ?Additional care and disposition to be based upon?diagnostic testing and treatment. <Leigh Beal, BOY - Last Filed: 10/26/24 15:05> History of Present Illness HPI Narrative: as per mse <Shireen Gale III, DO - Last Filed: 10/26/24 19:05> Related Data Home Medications: Home Medications ?Medication ?Instructions ?Recorded ?Confirmed ?Last Taken ?Type atorvastatin 20 mg tablet (Lipitor) 40 mg PO DAILY 01/26/20 10/01/24 03/08/24 20:00 History 40 mg spironolactone 100 mg tablet 100 mg PO DAILY 10/17/21 10/01/24 03/08/24 20:00 History 100 esomeprazole magnesium 20 mg 20 mg PO DAILY 06/05/22 10/01/24 03/08/24 20:00 History capsule,delayed release (Nexium) 20 mg ubrogepant 100 mg tablet (Ubrelvy) 100 mg PO DAILY PRN Migraine 03/10/24 10/01/24 Unknown History Headache ezetimibe 10 mg tablet mg PO DAILY 10/01/24 10/01/24 Unknown History metformin 500 mg tablet,extended mg PO 10/01/24 10/01/24 Unknown History release 24 hr sitagliptin phosphate 100 mg mg PO DAILY 10/01/24 10/01/24 Unknown History tablet (Januvia) <Leigh Beal, [employer] - Last Filed: 10/26/24 15:05> Allergies/Adverse Reactions: Allergies Allergy/AdvReac Type Severity Reaction Status Date / Time chlorhexidine Allergy Severe Anaphylaxis Verified 10/26/24 18:00 nut - unspecified Allergy Intermediate Difficulty Verified 10/26/24 18:00 Swallowing tree nut Allergy Intermediate Difficulty Verified 10/26/24 18:00 Swallowing hydrocodone Allergy Mild Anaphylaxis Verified 10/26/24 18:00 oxycodone Allergy Unknown THROAT Verified 10/26/24 18:00 SWELLING Penicillins Allergy Unknown UNKNOWN-WAS Verified 10/26/24 18:00 CHILD topiramate (From Topamax) AdvReac Confusion Verified 10/26/24 18:00 <Leigh Beal, [employer] - Last Filed: 10/26/24 15:05> Review of Systems 2 Review of Systems: All systems reviewed & are unremarkable except as noted in HPI and below <Shireen Gale III, DO - Last Filed: 10/26/24 19:05> PMFSH Past Medical History Medical History: Medical History Hypotension Cough Fever Vomiting Vision changes Conjunctivitis Acute pharyngitis Eustachian tube dysfunction Otitis media Phlebitis after infusion Elevated cholesterol Chest pain Pulmonary emboli Adenocarcinoma of cervix Prediabetes Migraine headache Polycystic ovarian syndrome Hyperlipidemia DVT (deep venous thrombosis) Hypermobile Shelbie-Danlos syndrome Recurrent epistaxis Pain of left calf Pyloric stenosis Mouth sores Yeast infection COVID-19 Anxiety and depression Fatty liver GERD without esophagitis Irritable bowel syndrome with diarrhea Myalgia Other symptoms and signs involving emotional state Vitamin D deficiency <Leigh Beal, BOY - Last Filed: 10/26/24 15:05> Surgical History Surgical History: Surgical History History of total abdominal hysterectomy and bilateral salpingo-oophorectomy (02/25/24) for cervical cancer- no residual in situ or invasive endocervical adenocarcinoma H/O: hysterectomy History of endoscopy History of cholecystectomy History of colposcopy History of knee surgery History of ankle surgery History of abdominal surgery <Leigh Beal, [employer] - Last Filed: 10/26/24 15:05> Family History Family History: Family History Father Hypertension Mother Hypertension Cerebrovascular accident Sibling COVID <Leigh Beal, [employer] - Last Filed: 10/26/24 15:05> Social History Social History: Social History Social History: Surrogate medical decision maker: Selene Pastora, sibling. Code status: Full code. 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 Spiritual care concerns: No Agree to blood products: Yes <Leigh Beal, [employer] - Last Filed: 10/26/24 15:05> Exam 2 Const: General: healthy appearing and no acute distress <Shireen Gale III, DO - Last Filed: 10/26/24 19:05> Nutritional Appearance: well nourished <Shireen Gale III, DO - Last Filed: 10/26/24 19:05> Orientation/consciousness: patient oriented x3 <Shireen Gale III, DO - Last Filed: 10/26/24 19:05> Limitations: no limitations <Shireen Gale III, DO - Last Filed: 10/26/24 19:05> HENMT: Head: normal to inspection <Shireen Leo Gale III, DO - Last Filed: 10/26/24 19:05> Eyes: Pupils: Equal, round and reactive pupils present <Shireen Leo Gale III, DO - Last Filed: 10/26/24 19:05> EOM: EOMs intact bilaterally <Shireen Leo Gale III, DO - Last Filed: 10/26/24 19:05> Neck: Neck: normal visual inspection and no meningeal signs <Shireen Leo Gale III, DO - Last Filed: 10/26/24 19:05> Other: tender with spasm left paraspinous muscles c3 level <Shireen Leo Gale III, DO - Last Filed: 10/26/24 19:05> Resp: Effort & Inspection: normal respiratory effort <Shireen Leo Gale III, DO - Last Filed: 10/26/24 19:05> Auscultation: clear to auscultation bilaterally <Shireen Leo Gale III, DO - Last Filed: 10/26/24 19:05> Cardio: Rate: regular rate <Shireen Leo Gale III, DO - Last Filed: 10/26/24 19:05> Rhythm: regular rhythm <Shireen Leo Gale III, DO - Last Filed: 10/26/24 19:05> GI: GI Palp: Yes Soft to palpation and No Tenderness to palpation present (GI) <Shireen Leo Gale III, DO - Last Filed: 10/26/24 19:05> Auscultation: normal bowel sounds <Shireen Leo Gale III, DO - Last Filed: 10/26/24 19:05> Back/Spine/Pelvis: Back: no CVA tenderness <Shireen Leo Gale III, DO - Last Filed: 10/26/24 19:05> Skin: General skin exam: normal color <Shireen Leo Gale III, DO - Last Filed: 10/26/24 19:05> Rashes: no rashes <Shireen Leo Gale III, DO - Last Filed: 10/26/24 19:05> Wounds: no wounds <Shireen Leo Gale III, DO - Last Filed: 10/26/24 19:05> Neuro: General: patient oriented x3, moves all extremities, no meningeal signs, no focal motor deficits and CN's II-XI intact bilaterally <Shireen Leo Gale III, DO - Last Filed: 10/26/24 19:05> Cranial nerves: Yes Nystagmus not present <Shireen Leo Gale III, DO - Last Filed: 10/26/24 19:05> Speech: normal speech <Shireen Leo Gale III, DO - Last Filed: 10/26/24 19:05> Extrem: General: normal to inspection and no clubbing, cyanosis or edema < Shireen Leo Gale III, DO - Last Filed: 10/26/24 19:05> Psych: Mental Status: mental status grossly normal <Shireen Leo Gale III, DO - Last Filed: 10/26/24 19:05> Affect: normal affect <Shireen Leo Gale III, DO - Last Filed: 10/26/24 19:05> Attitude: cooperative <Shireen Leo Gale III, DO - Last Filed: 10/26/24 19:05> Course Course Emergency Course: Patient signed out to me pending administration of additional medications followed by reassessment. Patient is reassessed at approximately 7:25 p.m. she reports she is feeling more relaxed after receiving the ketorolac and Valium. When asked if she would prefer may re-evaluate few minutes verses go home, she does feel comfortable with going home at this time given that the medication is on board and starting to kick in. She is somewhat groggy and I did confirm that her friend at bedside will be driving. Prescription for Valium had already been written by Dr Gale. Patient has a primary care physician as well as a neurologist. She is on both gabapentin and Qlipta. 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 She has had Botox injections for the headaches and feels in different about their efficacy. Unsure if the knot that has been palpated/appreciated is result of that or when it might have developed. Patient has had an MRI of brain but believes it was before this lump/knot. MRI of brain 01/2024 reviewed IMPRESSION: Normal MR brain findings Patient otherwise stable for discharge. <Adriane Bruno MD - Last Filed: 10/26/24 19:36> Vital Signs Vital signs: Vital Signs Temperature 98.2 F 10/26/24 14:40 Pulse Rate 100 10/26/24 14:40 Respiratory Rate 10/26/24 14:40 Blood Pressure 144/93 H 10/26/24 14:40 Pulse Oximetry 100 10/26/24 14:40 Oxygen Delivery Room Air 10/26/24 14:40 Temperature 98.2 F 10/26/24 14:40 Pulse Rate 100 10/26/24 14:40 Respiratory Rate 10/26/24 14:40 Blood Pressure 144/93 H 10/26/24 14:40 Pulse Oximetry 100 10/26/24 14:40 Oxygen Delivery Room Air 10/26/24 14:40 <Leigh Beal, [employer] - Last Filed: 10/26/24 15:05> Vital Signs Temperature 98.2 F 10/26/24 14:40 Pulse Rate 100 10/26/24 14:40 Respiratory Rate 10/26/24 14:40 Blood Pressure 144/93 H 10/26/24 14:40 Pulse Oximetry 100 10/26/24 14:40 Oxygen Delivery Room Air 10/26/24 14:40 Temperature 98.2 F 10/26/24 14:40 Pulse Rate 100 10/26/24 14:40 Respiratory Rate 10/26/24 14:40 Blood Pressure 144/93 H 10/26/24 14:40 Pulse Oximetry 100 10/26/24 14:40 Oxygen Delivery Room Air 10/26/24 14:40 <Shireen Leo Gale III, DO - Last Filed: 10/26/24 19:05> Vital Signs Temperature 98.2 F 10/26/24 14:40 Pulse Rate 100 10/26/24 14:40 Respiratory Rate 10/26/24 14:40 Blood Pressure 144/93 H 10/26/24 14:40 Pulse Oximetry 100 10/26/24 14:40 Oxygen Delivery Room Air 10/26/24 14:40 Temperature 98.2 F 10/26/24 14:40 Pulse Rate 100 10/26/24 14:40 Respiratory Rate 10/26/24 14:40 Blood Pressure 144/93 H 10/26/24 14:40 Pulse Oximetry 100 10/26/24 14:40 Oxygen Delivery Room Air 10/26/24 14:40 <Adriane Bruno MD - Last Filed: 10/26/24 19:36> MDM - Headache MDM Narrative Medical decision making narrative: Pt presents with persistent ALEXANDER and neck pain not relieved with muscle relaxers and tylenol. Pt has seen PCP and chiropractor without relief. Pt has Shelbie Danlos and has not had brain imaging yet. CT brain and CTA had and neck ordered. will give some fentanyl for pain. CT head and neck no acute process. Pt did not get much relief from fentanyl. will give dose of toradol and valium. Will turn over to Dr Bruno at 1900 reassess after valium and toradol. <Shireen Gale III, DO - Last Filed: 10/26/24 19:05> Lab Data Result diagrams: 10/26/24 15:02 10/26/24 15:02 <Leigh Beal, [employer] - Last Filed: 10/26/24 15:05> Labs: Lab Results 10/26/24 10/26/24 Range/Units 15:02 18:04 WBC 9.8 (4.5-10.0) K/mm3 RBC 5.20 (4.2-5.4) M/mm3 Hgb 13.8 (12.0-15.0) g/dL Hct 43.3 (37.0-47.0) % MCV 83.3 (80-100) fl MCH 26.5 (26-34) pg MCHC 31.9 L (32-36) g/dl RDW 15.6 H (11.5-14.5) % Plt Count 484 H (150-375) k/mm3 MPV 9.2 (7.4-10.4) fl Immature Gran % (Auto) 0.4 (0-0.5) % Neut % (Auto) 74.9 H (45.5-73.1) % Lymph % (Auto) 18.1 L (18.3-44.2) % [place] % (Auto) 5.3 (2.6-8.5) % Eos % (Auto) 0.9 (0-4.4) % Baso % (Auto) 0.4 (0.2-1.2) % Lymph # (Auto) 1.77 (0.9-3.2) K/mm3 [place] # (Auto) 0.5 (0.1-0.6) K/mm3 Eos # (Auto) 0.1 (0-0.3) K/mm3 Baso # (Auto) 0.0 (0.0-0.1) K/mm3 Abs Immat Gran (auto) 0.04 H (0.00-0.031) K/mm3 Absolute Neuts (auto) 7.3 H (1.3-6.7) K/mm3 Absolute Nucleated RBC 0.000 (0.0-0.012) K/mm3 Nucleated RBC % 0.0 (0.0-0.2) % PT 13.5 (11.1-14.7) Seconds INR 1.0 APTT 29.2 (22.3-36.8) Seconds D-Dimer 0.31 (<0.48) ug/mL Sodium 140 (137-145) mmol/L Potassium 4.2 (3.4-5.0) mmol/L Chloride 100 (98-107) mmol/L Carbon Dioxide 25 (22-30) mmol/L Anion Gap 15 H (4-12) mmol/L BUN 11 (7-17) mg/dL Creatinine 0.85 (0.7-1.0) mg/dL Estim Creat Clear Calc 79 ml/min Estimated GFR > 60 (59 - ) Glucose 104 (65-110) mg/dL Calcium 10.4 H (8.4-10.2) mg/dL Total Bilirubin 0.4 (0.2-1.3) mg/dL AST 30 (14-36) U/L ALT 30 (6-35) U/L Alkaline Phosphatase 111 (38-126) U/L Troponin I < 0.012 < 0.012 (0.000-0.034) ng/mL Total Protein 8.5 H (6.3-8.2) g/dL Albumin 4.7 (3.5-5.1) g/dL Lipase 72 (23-300) U/L <Leigh Beal, [employer] - Last Filed: 10/26/24 15:05> Lab Results 10/26/24 10/26/24 Range/Units 15:02 18:04 WBC 9.8 (4.5-10.0) K/mm3 RBC 5.20 (4.2-5.4) M/mm3 Hgb 13.8 (12.0-15.0) g/dL Hct 43.3 (37.0-47.0) % MCV 83.3 (80-100) fl MCH 26.5 (26-34) pg MCHC 31.9 L (32-36) g/dl RDW 15.6 H (11.5-14.5) % Plt Count 484 H (150-375) k/mm3 MPV 9.2 (7.4-10.4) fl Immature Gran % (Auto) 0.4 (0-0.5) % Neut % (Auto) 74.9 H (45.5-73.1) % Lymph % (Auto) 18.1 L (18.3-44.2) % [place] % (Auto) 5.3 (2.6-8.5) % Eos % (Auto) 0.9 (0-4.4) % Baso % (Auto) 0.4 (0.2-1.2) % Lymph # (Auto) 1.77 (0.9-3.2) K/mm3 [place] # (Auto) 0.5 (0.1-0.6) K/mm3 Eos # (Auto) 0.1 (0-0.3) K/mm3 Baso # (Auto) 0.0 (0.0-0.1) K/mm3 Abs Immat Gran (auto) 0.04 H (0.00-0.031) K/mm3 Absolute Neuts (auto) 7.3 H (1.3-6.7) K/mm3 Absolute Nucleated RBC 0.000 (0.0-0.012) K/mm3 Nucleated RBC % 0.0 (0.0-0.2) % PT 13.5 (11.1-14.7) Seconds INR 1.0 APTT 29.2 (22.3-36.8) Seconds D-Dimer 0.31 (<0.48) ug/mL Sodium 140 (137-145) mmol/L Potassium 4.2 (3.4-5.0) mmol/L Chloride 100 (98-107) mmol/L Carbon Dioxide 25 (22-30) mmol/L Anion Gap 15 H (4-12) mmol/L BUN 11 (7-17) mg/dL Creatinine 0.85 (0.7-1.0) mg/dL Estim Creat Clear Calc 79 ml/min Estimated GFR > 60 (59 - ) Glucose 104 (65-110) mg/dL Calcium 10.4 H (8.4-10.2) mg/dL Total Bilirubin 0.4 (0.2-1.3) mg/dL AST 30 (14-36) U/L ALT 30 (6-35) U/L Alkaline Phosphatase 111 (38-126) U/L Troponin I < 0.012 < 0.012 (0.000-0.034) ng/mL Total Protein 8.5 H (6.3-8.2) g/dL Albumin 4.7 (3.5-5.1) g/dL Lipase 72 (23-300) U/L <Shireen Gale III, DO - Last Filed: 10/26/24 19:05> Lab Results 10/26/24 10/26/24 Range/Units 15:02 18:04 WBC 9.8 (4.5-10.0) K/mm3 RBC 5.20 (4.2-5.4) M/mm3 Hgb 13.8 (12.0-15.0) g/dL Hct 43.3 (37.0-47.0) % MCV 83.3 (80-100) fl MCH 26.5 (26-34) pg MCHC 31.9 L (32-36) g/dl RDW 15.6 H (11.5-14.5) % Plt Count 484 H (150-375) k/mm3 MPV 9.2 (7.4-10.4) fl Immature Gran % (Auto) 0.4 (0-0.5) % Neut % (Auto) 74.9 H (45.5-73.1) % Lymph % (Auto) 18.1 L (18.3-44.2) % [place] % (Auto) 5.3 (2.6-8.5) % Eos % (Auto) 0.9 (0-4.4) % Baso % (Auto) 0.4 (0.2-1.2) % Lymph # (Auto) 1.77 (0.9-3.2) K/mm3 [place] # (Auto) 0.5 (0.1-0.6) K/mm3 Eos # (Auto) 0.1 (0-0.3) K/mm3 Baso # (Auto) 0.0 (0.0-0.1) K/mm3 Abs Immat Gran (auto) 0.04 H (0.00-0.031) K/mm3 Absolute Neuts (auto) 7.3 H (1.3-6.7) K/mm3 Absolute Nucleated RBC 0.000 (0.0-0.012) K/mm3 Nucleated RBC % 0.0 (0.0-0.2) % PT 13.5 (11.1-14.7) Seconds INR 1.0 APTT 29.2 (22.3-36.8) Seconds D-Dimer 0.31 (<0.48) ug/mL Sodium 140 (137-145) mmol/L Potassium 4.2 (3.4-5.0) mmol/L Chloride 100 (98-107) mmol/L Carbon Dioxide 25 (22-30) mmol/L Anion Gap 15 H (4-12) mmol/L BUN 11 (7-17) mg/dL Creatinine 0.85 (0.7-1.0) mg/dL Estim Creat Clear Calc 79 ml/min Estimated GFR > 60 (59 - ) Glucose 104 (65-110) mg/dL Calcium 10.4 H (8.4-10.2) mg/dL Total Bilirubin 0.4 (0.2-1.3) mg/dL AST 30 (14-36) U/L ALT 30 (6-35) U/L Alkaline Phosphatase 111 (38-126) U/L Troponin I < 0.012 < 0.012 (0.000-0.034) ng/mL Total Protein 8.5 H (6.3-8.2) g/dL Albumin 4.7 (3.5-5.1) g/dL Lipase 72 (23-300) U/L <Adriane Bruno MD - Last Filed: 10/26/24 19:36> Discharge Plan Discharge Clinical Impression: Headache, Cervical muscle strain <Leigh Beal APRN - Last Filed: 10/26/24 15:05> Patient Disposition: Home <Leigh Beal APRN - Last Filed: 10/26/24 15:05> Condition: Stable <Leigh Beal APRN - Last Filed: 10/26/24 15:05> Instructions: Antibiotic Form, Cervical Strain (ED) <Leigh Beal APRN - Last Filed: 10/26/24 15:05> Additional Instructions: Follow-up with your primary care physician and neurologist. They may be able to assist with obtaining pain management referral/follow-up. <Leigh Beal APRN - Last Filed: 10/26/24 15:05> Patient Language: Pashto <Leigh Beal APRN - Last Filed: 10/26/24 15:05> Prescriptions: New diazepam [Valium] 5 mg tablet 5 mg PO TID PRN (Reason: muscle spasm) Qty: 14 0RF No Action atorvastatin [Lipitor] 20 mg tablet 40 mg PO DAILY esomeprazole magnesium [Nexium] 20 mg capsule,delayed release(DR/EC) 20 mg PO DAILY tramadol 50 mg tablet 50 mg PO Q6H PRN (Reason: pain) Qty: 20 0RF tizanidine 4 mg capsule 4 mg PO BID PRN (Reason: muscle spasticity) Qty: 60 1RF Januvia 100 mg tablet PO DAILY metformin 500 mg tablet extended release 24 hr PO ezetimibe 10 mg tablet PO DAILY prochlorperazine maleate [Compazine] 5 mg tablet 5 mg PO Q8H PRN (Reason: nausea and vomiting) Qty: 30 0RF spironolactone 100 mg tablet 100 mg PO DAILY acetaminophen-codeine 300-30 mg tablet 1 tablet PO Q6H PRN (Reason: pain) Qty: 90 0RF Ubrelvy 100 mg tablet 100 mg PO DAILY PRN (Reason: Migraine Headache) Qulipta 60 mg tablet 60 mg PO DAILY Qty: 90 2RF zolmitriptan [Zomig] 2.5 mg tablet See Rx Instructions PO .COMPLEX Qty: 9 0RF Rx Instructions: take 1 tab at onset of headache; if no relief may repeat 1 tab after at least 2 hrs; max = 4 tabs/24 hr PO zolmitriptan [Zomig] 5 mg spray,non-aerosol 1 spray intranasal Q2H PRN (Reason: headache) Qty: 6 1RF Rx Instructions: administer into one nostril (only); alternate nostrils; do not exceed 10 mg /24 hrs alprazolam 0.5 mg tablet 0.5 mg PO TID PRN (Reason: anxiety) Qty: 90 0RF escitalopram oxalate 20 mg tablet 20 mg PO DAILY Qty: 90 1RF valacyclovir 1 gram tablet See Rx Instructions .ROUTE .COMPLEX Qty: 4 1RF Dose Instruction: TAKE 2 TABLETS BY MOUTH EVERY 12 HOURS Rx Instructions: TAKE 2 TABLETS BY MOUTH EVERY 12 HOURS Eliquis 5 mg tablet 5 mg PO BID Qty: 60 3RF lisdexamfetamine [Vyvanse] 30 mg capsule 30 mg PO DAILY Qty: 30 0RF <Leigh Beal APRN - Last Filed: 10/26/24 15:05> Follow-up/Referrals: Gennaro Booen MD [Primary Care Provider] - <Leigh Beal APRN - Last Filed: 10/26/24 15:05> Stand Alone Forms: Work/School Release IP <Leigh Beal APRN - Last Filed: 10/26/24 15:05> Time of Disposition: 19:35 <Leigh Beal APRN - Last Filed: 10/26/24 15:05> 19:35 <Shireen Gale III, DO - Last Filed: 10/26/24 19:05> 19:35 <Adriane Bruno MD - Last Filed: 10/26/24 19:36>
[2024-10-26 15:13] LABS: Basophils Percent Auto 0.4 % (0.2-1.2); Eosinophils Absolute Auto 0.1 K/mm3 (0-0.3); Eosinophils Percent Auto 0.9 % (0-4.4); Hematocrit 43.3 % (37.0-47.0); Hemoglobin 13.8 g/dL (12.0-15.0); Immature Granulocyte Absolute 0.04 K/mm3 (0.00-0.031); Immature Granulocyte Percent A 0.4 % (0-0.5); Lymphocytes Absolute Auto 1.77 K/mm3 (0.9-3.2); Lymphocytes Percent Auto 18.1 % (18.3-44.2); Mean Corpuscular HGB Conc 31.9 g/dl (32-36); Mean Corpuscular Hemoglobin 26.5 pg (26-34); Mean Corpuscular Volume 83.3 fl (80-100); Mean Platelet Volume 9.2 fl (7.4-10.4); Monocytes Absolute Auto 0.5 K/mm3 (0.1-0.6); Monocytes Percent Auto 5.3 % (2.6-8.5); Neutrophils Absolute Auto 7.3 K/mm3 (1.3-6.7); Neutrophils Percent Auto 74.9 % (45.5-73.1); Platelet Count Result 484 k/mm3 (150-375); Red Cell Distribution Width 15.6 % (11.5-14.5); White Blood Count 9.8 K/mm3 (4.5-10.0)
[2024-10-26 15:19] LABS: Prothrombin Time 13.5 Seconds (11.1-14.7)
[2024-10-26 15:20] LABS: Partial Thromboplastin Time 29.2 Seconds (22.3-36.8)
[2024-10-26 15:21] LABS: Alanine Aminotransferase 30 U/L (6-35); Albumin Level 4.7 g/dL (3.5-5.1); Alkaline Phosphatase 111 U/L (38-126); Anion Gap 15 mmol/L (4-12); Aspartate Amino Transferase 30 U/L (14-36); Bilirubin,Total 0.4 mg/dL (0.2-1.3); Blood Urea Nitrogen 11 mg/dL (7-17); Calcium 10.4 mg/dL (8.4-10.2); Carbon Dioxide 25 mmol/L (22-30); Chloride 100 mmol/L (98-107); Estimated CRCL calculation 79 ml/min; Estimated Glomerular Filt Rate > 60; Glucose 104 mg/dL (65-110); Lipase 72 U/L (23-300); Potassium 4.2 mmol/L (3.4-5.0); Sodium 140 mmol/L (137-145); Total Protein 8.5 g/dL (6.3-8.2)
[2024-10-26 15:32] LABS: Troponin I < 0.012 ng/mL (0.000-0.034)
[2024-10-26 15:38] LABS: D Dimer 0.31 ug/mL (<0.48)
[2024-10-26] MEDS: fentaNYL CITRATE INJ (*CRX) 100 MCG/2 ML VIAL 50 MCG IV PUSH (17:54)
--- NOTE | 2024-10-26 17:58 | ECG_ITS ---
Test Date: 2024-10-26 18:00:38 Measurements Intervals [place] Rate: 83 P: 24 MO: 171 QRS: 23 QRSD: 73 T: 41 QT: 340 QTc: 400 Interpretive Statements SINUS RHYTHM DELAYED PRECORDIAL R/S TRANSITION BORDERLINE T WAVE ABNORMALITY- ANTERIOR LEADS BASELINE ARTIFACT- I, II, AVR, AVL, AVF, V1-V3 BORDERLINE ECG Compared to ECG 10/26/2024 14:52:20 HEART RATE HAS DECREASED Electronically Signed On 10-26-2024 20:31:43 CDT by Go Pérez D.O.
[2024-10-26 18:41] LABS: Troponin I < 0.012 ng/mL (0.000-0.034)
--- OUTSIDE RECORDS SUMMARY | 2024-10-26 18:46 | XMS_ITS | Referral Summary ---
Author Organization [facility] Address [address] [place] [address] Care Team Providers Care Camera Assembler Name Role Phone Gennaro Boone MD Primary Care Provider [phone] Cira Gamboa MD Unavailable [phone] Rico Hernandez MD Unavailable Keon Muniz MD Unavailable Encounters Date Type Department Care Team Description 10/26/2024 Results Follow-Up [facility] Endocrinology Metabolism and Lipid [address] [facility] [address] [place] [address] Julian Sanchez MD Hemoglobin A1c 10/23/2024 Documentation [facility] Vascular Surgery [facility] [address] [place] [address] Kay Laguna RN New Referral 10/22/2024 4:47 PM CDT - 10/22/2024 11:59 PM CDT Hospital Encounter [address] [address] Cancer of endocervical canal (HCC) Discharge Disposition: Discharge to home or self care 10/22/2024 4:00 PM CDT Office Visit [facility] Obstetrics and Gynecology Formerly [facility] 13th [place] [address] [place] [phone] Wilson Zhang MD Cancer of endocervical canal (HCC) 10/20/2024 Orders Only [facility] [address] David Trejo MD Bilateral carotid artery stenosis (Primary Dx) 10/06/2024 9:30 AM CDT Procedure visit [facility] [address] [place] [phone] David Trejo MD Intractable chronic migraine without aura and without status migrainosus (Primary Dx) 09/30/2024 Results Follow-Up [facility] at [address] [phone] Kimberly Charlton PA Throat culture Throat, Lucero (yeast) culture Lesion Mouth 09/29/2024 6:00 PM CDT - 09/29/2024 11:59 PM CDT Hospital Encounter [address] [address] Sore throat; Thrush Discharge Disposition: Discharge to home or self care 09/29/2024 5:30 PM CDT Office Visit [facility] at [address] [address] Sangeetha Taylor NP Sore throat (Primary Dx); Herpangina; Thrush 09/16/2024 Orders Only [facility] Endocrinology Metabolism and Lipid [address] [facility] 5th [place] [address] [place] [phone] Hao Bellamy, SHEA Type 2 diabetes mellitus without complication, without long-term current use of insulin ([facility]) (Primary Dx); Vitamin D deficiency from Last 3 Months Allergies Active Allergy Reactions Criticality Noted Date Comments Nuts Other (See comments) Low 11/01/2022 Mouth sores [place] Other (See comments) Low 11/01/2022 Mouth sores Penicillins Unknown 06/06/2017 Reaction as a child Pineapple Other (See comments) Low 11/01/2022 Mouth sores [place] Other (See comments) Low 11/01/2022 Mouth sores Topiramate Mental status changes Low 11/19/2019 fogginess Hydrocodone-Acetaminoph en Swelling Medium 03/01/2011 Medications ALPRAZolam (XANAX) 0.5 mg tablet Take 1 tablet (0.5 mg total) by mouth as needed for anxiety Active spironolactone (ALDACTONE) 100 mg tablet Take 1 tablet (100 mg total) by mouth nightly 022 Active valACYclovir (VALTREX) 1 gram tablet Take 2 tablets (2,000 mg total) by mouth as needed (HSV outbreak) Active esomeprazole DR (NexIUM) 40 mg capsuleIndication s:Gastroesophagea l reflux disease, unspecified whether esophagitis present Take 1 capsule (40 mg total) by mouth 2 (two) times a day before breakfast and dinner 60 capsule 2 022 Active cholecalciferol (VITAMIN D-3) 2000 unit capsule Take 1 capsule (2,000 Units total) by mouth nightly Active pen needle, diabetic 32 gauge x 5/32 needleIndications :Prediabetes,Clas s 2 obesity due to excess calories without serious comorbidity with body mass index (BMI) of 38.0 to 38.9 in adult,Polycystic ovarian syndrome Use to inject Victoza daily 100 each 3 023 Active triamcinolone (KENALOG) 0.1 % paste Apply 0.25 inches to teeth 2 (two) times a day Dry mouth first, apply only after eating 5 g 3 023 Active meloxicam (MOBIC) 15 mg tablet Take 1 tablet (15 mg total) by mouth as needed 024 Active al-mag hydroxide-simethi cone, diphenhydramine, & nystatin 1:1:1 (MAGIC MOUTHWASH) suspensionIndicat ions:Sore throat,Throat ulcer Swish and spit 5 mL every 6 (six) hours as needed (as directed) 240 mL 024 Active clobetasoL (TEMOVATE) 0.05 % ointment Apply topically 2 (two) times a day 30 g 09/15/2 024 Active minoxidiL (LONITEN) 2.5 mg tablet Take 0.625 mg by mouth nightly Active levocetirizine (Xyzal) 5 mg tablet Take 1 tablet (5 mg total) by mouth nightly Active acetaminophen (TYLENOL) 500 mg tablet Take 2 tablets (1,000 mg total) by mouth every 6 (six) hours as needed for pain 60 tablet 1 Active ondansetron (ZOFRAN) 8 mg tablet Take 1 tablet (8 mg total) by mouth as needed for nausea or vomiting 20 tablet Active traMADoL (ULTRAM) 50 mg tablet Take 1 tablet (50 mg total) by mouth every 6 (six) hours as needed for pain 15 tablet Active diphenhydrAMINE 25 mg capsule Take 1 tablet/capsul e (25 mg total) by mouth every 6 (six) hours as needed for itching 20 capsule Active hydrocortisone 2.5 % cream Apply topically 2 (two) times a day 30 g Active Eliquis 5 mg tablet Take 1 tablet (5 mg total) by mouth 2 (two) times a day Active fluconazole (DIFLUCAN) 150 mg tablet Active fezolinetant (Veozah) tablet tablet Take 1 tablet (45 mg total) by mouth daily 90 tablet 1 Active tiZANidine (ZANAFLEX) 4 mg tablet Take 1 tablet (4 mg total) by mouth Active polymyxin B-trimethoprim (POLYTRIM) ophthalmic solutionIndicatio ns:Acute conjunctivitis of right eye, unspecified acute conjunctivitis type Administer 1 drop into the right eye every 4 (four) hours 10 mL 025 Active cromolyn (GASTROCROM) 100 mg/5 mL solution Take 10 mL (200 mg total) by mouth 4 (four) times a day before meals and nightly 1200 mL 3 025 Active escitalopram (LEXAPRO) 20 mg tablet Take 1 tablet (20 mg total) by mouth daily 025 Active Qulipta 60 mg tabletIndications :Intractable migraine with aura without status migrainosus Take 1 tablet by mouth nightly 90 tablet 3 Active Ubrelvy 100 mg tabletIndications :Intractable migraine with aura without status migrainosus Take 1 tablet (100 mg total) by mouth as needed for migraine Can repeat in 2 hours if needed. No more than 2 in 24 hours. 10 tablet Active gabapentin (NEURONTIN) 100 mg capsuleIndication s:Chronic daily headache Take 1 capsule (100 mg total) by mouth 3 (three) times a day 90 capsule 2025 Active ZOLMitriptan (ZOMIG) 5 mg nasal solutionIndicatio ns:Migraine Administer 1 spray into one nostril as needed for migraine May repeat one time after 2 hours if needed. No more than 2 doses in 24 hours. 18 each 2025 Active SITagliptin phosphate (JANUVIA) 100 mg tabletIndications :type 2 diabetes mellitus Take 1 tablet (100 mg total) by mouth daily 30 tablet 2025 Active metFORMIN XR (GLUCOPHAGE XR) 500 mg 24 hr tabletIndications :Type 2 diabetes mellitus without complication, without long-term current use of insulin (HCC) Take 1 tablet (500 mg total) by mouth 2 (two) times a day Start at 1 tablet daily; after 1-2 weeks, if tolerating well, increase dose to 500 mg twice daily. 60 tablet 2025 Active ezetimibe (ZETIA) 10 mg tabletIndications :Hypercholesterol emia Take 1 tablet (10 mg total) by mouth daily 30 tablet 2025 Active atorvastatin (LIPITOR) 40 mg tabletIndications :Pure hypercholesterole praful,Class 2 obesity due to excess calories without serious comorbidity with body mass index (BMI) of 38.0 to 38.9 in adult TAKE 1 TABLET(40 MG) BY MOUTH EVERY NIGHT 90 tablet 1 Active ketorolac (TORADOL) 10 mg tabletIndications :Intractable chronic migraine without aura and without status migrainosus Take 1 tablet (10 mg total) by mouth every 6 (six) hours as needed for pain 10 tablet Active lisdexamfetamine (VYVANSE) 30 mg capsule Take 1 capsule (30 mg total) by mouth daily 025 Active nystatin 100,000 unit/mL suspension Take by mouth as needed 023 2024 Discontinued lisdexamfetamine (VYVANSE) 20 mg capsule Take 1 capsule (20 mg total) by mouth daily 025 2024 Discontinued(A lternate therapy) nystatin 100,000 unit/mL suspension Take 5 mL (500,000 Units total) by mouth 4 (four) times a day for 7 days Swish in mouth and swallow. 140 mL 025 2024 Active Problems Patient Care Coordination No te [...] Returned/Scanned into chart: [] Schedule Mailed/sent via [facility]: [] IVF Injectable Meds Ordered - Pharm - [] IVF Oral Meds Pharm - [] Confirmed Start Button Problem Noted Date Diagnosed Date Transaminitis 06/24/2024 Intractable migraine with aura without status mi grainosus 06/09/2024 Assessment & Plan (06/09/2024 2:06 PM RIB STIFFENER AND HEEL DIPPER): The patient has a longstanding history of [...] 04/16/2024 Early menopause 04/03/2024 Postoperative visit 03/19/2024 Cancer of endocervical canal 01/23/2024 Cancer Staging:Clinical stage from 02/25/2024:FIGO Stage [...] (09/01/2019): Added automatically from request for surgery [id number] PCOS (polycystic ovarian syndrome) 06/23/2019 Overview (06/23/2019): Added automatically from request for surgery [id number] Class 2 obesity 05/28/2019 Assessment & Plan (12/02/2019 6:56 PM CDT): Class 2 obesity with BMI 36 kg/m2 with related comorbidities: hyperlipidemia, pre-diabetes, depression, PCOS complicates the management of pre-diabetes by increasing insulin resistance and glucose intolerance Plan: 1) Resume care under referral to Weight Management Program (Dr. Pita Arias, ) 2) Consider re-starting Ozempic Assessment & Plan (05/28/2019 10:49 AM RIB STIFFENER AND HEEL DIPPER): Despite lifestyle modifications, she is frustrated regarding [...] profile. Assessment & Plan (05/28/2019 10:43 AM RIB STIFFENER AND HEEL DIPPER): Given family history, LDL > 190, this [...] stones. Assessment & Plan (05/28/2019 10:44 AM RIB STIFFENER AND HEEL DIPPER): Calcium and PTH normal previously. Recommend 24 [...] w/r/t gut microbiome. Referred to ADA and [facility] websites for additional information on topics including glycemic index/carbohydrate choices, protein sources. Consider metformin. Avoid GLP-1 w/ h/o delayed gastric emptying. Assessment & Plan (05/28/2019 10:47 AM RIB STIFFENER AND HEEL DIPPER): She is following a low carb, low [...] (03/08/2022): Added automatically from request for surgery [id number] Class 1 obesity due to exces s [...] (09/01/2019): Added automatically from request for surgery [id number] RLQ abdominal pain 06/23/2019 4 Overview (06/23/2019): Added automatically from request for surgery [id number] Secondary oligomenorrhea 06/23/2019 Overview (06/23/2019): Added automatically from request for surgery [id number] Iron deficiency 04/19/2017 10/31/2017 Blood in stool [...] you have a drink containing alcohol? Never 10/06/2024 Q2: How many drinks containi ng alcohol do you have on a typical day when you are drinking? Patient does not drink Q3: How often do you have si x or more drinks on one occasion? Never 10/06/2024 Personal Safety Answer Date Recorded Have you ever been in or are you currently in a harmful physical or emotional relationship or is someone making you feel afraid or unsafe? Denies 03/03/2024 Comments No Sex and Gender Information Value Date Recorded Sex Assigned at Female 11/01/2022 12:16 PM CDT Legal Sex Female 8:16 PM RIB STIFFENER AND HEEL DIPPER Gender Identity Female 10/15/2019 6:32 PM CDT Sexual Orientation Straight 08/26/2019 7: 34 PM CDT Last Filed Vital Signs Vital Sign Reading Time Taken Comments Blood Pressure 133/83 10/22/2024 3:52 PM CDT Pulse 99 10/22/2024 3:52 PM CDT Temperature 36.9 C (98.4 F) 10/22/2024 3:52 PM CDT Respiratory Rate 20 10/22/2024 3:52 PM CDT Oxygen Saturation 99% 10/22/2024 3:52 PM CDT Inhaled Oxygen Concentration - - Weight 93 kg (205 lb) 10/22/2024 3:52 PM CDT Height 157.5 cm (5' 2) 10/22/2024 3:52 PM CDT Body Mass Index 37.49 10/22/2024 3:52 PM CDT Plan of Treatment Not on file Procedures Procedure Name Priority Date/Time Associated Diagnosis Comments HOMOCYSTEINE Routine 10/24/2024 9:13 AM CDT Bilateral carotid artery stenosis HEMOGLOBIN A1C Routine 10/24/2024 9:12 AM CDT Type 2 diabetes mellitus without complication, without long-term current use of insulin ([facility]) Vitamin D deficiency COMPREHENSIVE METABOLIC PANEL Routine 10/24/2024 9:12 AM CDT Type 2 diabetes mellitus without complication, without long-term current use of insulin ([facility]) Vitamin D deficiency VITAMIN D 25 HYDROXY Routine 10/24/2024 9:12 AM CDT Type 2 diabetes mellitus without complication, without long-term current use of insulin ([facility]) Vitamin D deficiency BOTOX INJECTION Routine 10/06/2024 9:30 AM CDT Intractable chronic migraine without aura and without status migrainosus LUCERO (YEAST) CULTURE Routine 09/29/2024 6:00 PM CDT Thrush THROAT CULTURE Routine 09/29/2024 6:00 PM CDT Sore throat POCT RAPID STREP Routine 09/29/2024 5:41 PM CDT Sore throat LIPID PANEL Routine 06/20/2024 9:30 AM RIB STIFFENER AND HEEL DIPPER Hypercholesterolemia HIGH RISK HPV DNA DETECTION WITH [...] Recently Relevant to Health Maintenance Results * Homocysteine (10/24/2024 9:13 AM CDT) Homocysteine 14.4 0.0 - 14.5 umol/L [facility] - 01 Blood 10/24/2024 9:13 AM CDT 10/24/2024 Narrative [facility] - 10/25/2024 7:08 AM CDT Performed at: [address] [place] [id number] Chemist Biological: Benny Gamboa PhD, Phone: [phone] us David Trejo MD LAB BLOOD ORDERABLES Angeles vazquez Result [facility] - 01 * Vitamin D 25 hydroxy (10/24/2024 9:12 AM CDT) Vitamin D, 25-Hydroxy 34.0 30.0 - 100.0 ng/mL [facility] - 01 Comment: Vitamin D deficiency has been defined by the [place] [employer] and an Endocrine Society practice guideline as a level of serum 25-OH vitamin D less than 20 ng/mL (1,2). The Endocrine Society went on to further define vitamin D insufficiency as a level between 21 and 29 ng/mL (2). 1. IOM ([place] [employer]). 2010. Dietary reference intakes for calcium and D. [place]: The National Academies Press. 2. Alonzo MF, Nayeli NC, Marina ALEXANDER, et al. Evaluation, treatment, and prevention of vitamin D deficiency: an Endocrine Society clinical practice guideline. JCEM. 2010; 96(6):1911-30. Blood 10/24/2024 9:12 AM CDT 10/24/2024 Narrative [facility] - 10/25/2024 9:09 AM CDT Performed at: [address] [place] [id number] Chemist Biological: Benny Gamboa PhD, Phone: [phone] Cira Gamboa MD LAB BLOOD ORDERABLES Fin al Result Performing Organization Address [facility] de Phone Number [facility] - 01 * (ABNORMAL) Hemoglobin A1c (10/24/2024 9:12 AM CDT) [facility] Hgb A1C 6.6(H) 4.8 - 5.6 % [facility] - 01 Comment: Prediabetes: 5.7 - 6.4 Diabetes: >6.4 Glycemic control for adults with diabetes: <7.0 Blood 10/24/2024 9:12 AM CDT 10/24/2024 Narrative [facility] - 10/25/2024 7:08 AM CDT Performed at: [address] [place] [id number] Chemist Biological: Benny Gamboa PhD, Phone: [phone] Cira Gamboa MD LAB BLOOD ORDERABLES Fin al Result Performing Organization Address [facility] de Phone Number [facility] - 01 * (ABNORMAL) Comprehensive metabolic panel (10/24/2024 9:12 AM CDT) [facility] Glucose 100(H) 70 - 99 mg/dL [facility] - 01 BUN 11 6 - 24 mg/dL [facility] - 01 Creatinine, Serum 0.92 0.57 - 1.00 mg/dL [facility] - 01 eGFR 81 >59 mL/min/1.7 3 [facility] - 01 BUN/creat ratio 12 9 - 23 [facility] - 01 Sodium 141 134 - 144 mmol/L [facility] - 01 Potassium, sr 4.8 3.5 - 5.2 mmol/L [facility] - 01 Chloride 100 96 - 106 mmol/L [facility] - 01 CO2 25 20 - 29 mmol/L [facility] - 01 Calcium 10.1 8.7 - 10.2 mg/dL [facility] - 01 Protein, sr 7.1 6.0 - 8.5 g/dL [facility] - 01 Albumin 4.4 3.9 - 4.9 g/dL [facility] - 01 Globulin, Total 2.7 1.5 - 4.5 g/dL [facility] - 01 Bilirubin, Total 0.4 0.0 - 1.2 mg/dL [facility] - 01 Alk phos 142(H) 44 - 121 IU/L [facility] - 01 AST 16 0 - 40 IU/L [facility] - 01 ALT 23 0 - 32 IU/L [facility] - 01 Blood 10/24/2024 9:12 AM CDT 10/24/2024 Narrative [facility] - 10/25/2024 7:08 AM CDT Performed at: 01 - [facility] [id number] Chemist Biological: Benny Gamboa PhD, Phone: [phone] us Cira Gamboa MD LAB BLOOD ORDERABLES Fin al Result [facility] - 01 * Botox Injection (10/06/2024 9:30 AM CDT) Narrative Greta Howard - 10/06/2024 9:30 AM CDT Greta Howard 10/07/2024 1:54 PM Botox Injection Performed by: David Trejo MD Authorized by: David Trejo MD [place] Protocol: Procedure Details - Botox Injection: Procedure Details: See Botox flow sheet for details on injection sites and amounts. David Trejo MD IN CLINIC/BEDSIDE ORDERAB LES Final Result * (ABNORMAL) Lucero (yeast) culture Lesion Mouth (09/29/2024 6:00 PM CDT) Report Final Report: Few Lucero albicans Rare Lucero lusitaniae Rare Lucero (Wickerhamomyc es) anomalus (.) Comment:Testing performed by : [facility], [address] [place] [address]., [id number] Organism LUCERO ALBICANS [facility] Organism LUCERO LUSITANIAE [facility] Organism LUCERO (WICKERHAMOMYC ES) ANOMALUS [facility] Lesion (Mouth) 09/29/2024 6: 00 PM CDT 09/30/2024 12:28 AM CDT Narrative [facility] - 10/05/2024 6:27 AM CDT Mouth Interpretation data: This culture is NOT intended for the detection of filamentous fungi, endemic mycosis, or Cryptococcus. If detected, yeast will be reported and identified. Routine susceptibility is not performed, but if required, please contact the Microbiology Laboratory at . Sangeetha Taylor NP LAB MICROBIOLOGY - GENERAL ORDERABLES Final Result [facility] [address] [address] Department [place] [address] * Throat culture Throat (09/29/2024 6:00 PM CDT) Report Final Report: No growth of pathogens. Comment:Testing performed by : [facility], [address] [place] [address], [place]., [address] Throat 09/29/2024 6:00 PM CDT 09/30/2024 12:28 AM CDT Narrative [facility] - 09/30/2024 7:38 PM CDT Testing performed by [facility]biology Laboratory ([phone]). Sangeetha Taylor NP LAB MICROBIOLOGY - GENERAL ORDERABLES Final Result [facility] [address] [address] Department [place] [address] * POCT rapid strep A (09/29/2024 5:41 PM CDT) [facility] Rapid Strep A, POC Negative Negative Swab 09/29/2024 5:41 PM CDT Sangeetha Taylor NP POINT OF CARE TEST ORDERAB LES Final Result * (ABNORMAL) Lipid panel (06/20/2024 9:30 AM RIB STIFFENER AND HEEL DIPPER) [facility] Cholesterol 163 100 - 199 mg/dL [facility] - 01 Triglycerides 227(H) 0 - 149 mg/dL [facility] - 01 HDL Cholesterol 38(L) >39 mg/dL [facility] - 01 VLDL 38 5 - 40 mg/dL [facility] - 01 LDL, calculated 87 0 - 99 mg/dL [facility] - 01 Blood 06/20/2024 9:30 AM RIB ST[employer]ENER AND HEEL DIPPER 06/20/2024 Narrative [facility] - 06/21/2024 7:07 AM RIB STIFFENER AND HEEL DIPPER Performed at: [facility] [id number] Chemist Biological: Benny Gamboa PhD, Phone: [phone] Cira Gamboa MD LAB BLOOD ORDERABLES Fin al Result [facility] - 01 * (ABNORMAL) High Risk HPV DNA Detection with Genotyping (Molecular component) (11/07/2023 5:55 PM CDT) [facility] HPV HR 16 Detected(A) Not Detected [facility] HPV HR 18 Not Detected Not Detected [facility] HPV HR Non 16/18 Not Detected Not Detected [facility] Comment: Interpretive Data Nucleic acid amplification for [...] this test have been verified by the [facility] Molecular Infectious Disease laboratory. Correlate with separately reported cytology results, as applicable. 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 Testing type->Screening Last menstrual period (date if known)->on OCP Menstrual status->Irregular Wilson Zhang MD LAB BODY FLUIDS AND STOO LS ORDERABLES Final Result [facility] [place] [address] [facility] * (ABNORMAL) Albumin Creatinine Ratio, Urine (11/06/2023 9:30 AM CDT) Microalb, Ur 31.9(H) 0.0 - 22.9 mg/L [facility] Random Urine Creatinine 173.9 mg/dL [facility] Microalb/Creat Ratio 18.3 0.0 - 29.9 mg/g [facility] Urine 11/06/2023 9:30 AM CDT 11/06/2023 11:01 AM CDT us Florencio Holland MD LAB URINE ORDERABLES Final Res [facility] * Hepatitis C antibody (11/09/2022 11:11 AM CDT) Hep C Ab Nonreactive Nonreactive [facility] Comment:Antibodies to HCV no t detected. Does NOT exclude the possibility of recent exposure to HCV. Current interpretive data was last revised on 21 Blood 11/09/2022 11:1 1 AM CDT 11/09/2022 1:25 PM CDT us Keon Muniz MD LAB MICROBIOLOGY - GENERA L ORDERABLES Final Result [facility] [place] [address] from Last 3 Months or Most Recently Relevant to Health Maintenance Insurance [facility] CHOICE [place] P[place] CHO[place]F [place] Advance Directives For more information, please contact: [phone] * Full Code (Latest Code Status on File) Date Activated Date Inactivated Comments 01/17/2023 6:27 AM 01/18/2023 4:38 AM * Full Code Date Activated Date Inactivated Comments 02/23/2021 12:15 PM 02/23/2021 7:05 PM * Full Code Date Activated Date Inactivated Comments 09/03/2019 7:27 AM 09/03/2019 1:47 PM Care Teams Camera Assembler Relationship Specialty Start Date End Date Gennaro Boone MD PCP - General 12/05/16 Cira Gamboa MD Consulting Physician Endocrinology 03/19/22 Rico Hernandez MD [address] [facility] [id number] [place], [place] [id number] Bad Cloth Checker Obstetrics and Gynecology 11/01/22 Keon Muniz MD [address] [facility] [address] [place], [place] [id number] Consulting Physician Reproductive Endocrinology and Infertility 01/24/24
--- OUTSIDE RECORDS SUMMARY | 2024-10-26 18:46 | XMS_ITS | Clinical Summary ---
Author Organization [facility] Address [address] [place] [address] Care Team Providers Care Chemical Etching Processor Name Role Phone Gennaro Boone MD Primary Care Provider [phone] Cira Gamboa MD Unavailable Rico Hernandez MD Unavailable Keon Muniz MD Unavailable Allergies Active Allergy Reactions Criticality Noted Date Comments Nuts Other (See comments) Low 11/01/2022 Mouth sores [place] Other (See comments) Low 11/01/2022 Mouth sores Penicillins Unknown 06/06/2017 Reaction as a child Pineapple Other (See comments) Low 11/01/2022 Mouth sores [place] Other (See comments) Low 11/01/2022 Mouth sores Topiramate Mental status changes Low 11/19/2019 fogginess Hydrocodone-Acetaminoph en Swelling Medium 03/01/2011 Medications ALPRAZolam (XANAX) 0.5 mg tablet Take 1 tablet (0.5 mg total) by mouth as needed for anxiety 020 Active spironolactone (ALDACTONE) 100 mg tablet Take 1 tablet (100 mg total) by mouth nightly 022 Active valACYclovir (VALTREX) 1 gram tablet Take 2 tablets (2,000 mg total) by mouth as needed (HSV outbreak) [address] (NexIUM) 40 mg capsuleIndication s:Gastroesophagea l reflux disease, unspecified whether esophagitis present Take 1 capsule (40 mg total) by mouth 2 (two) times a day before breakfast and dinner 60 capsule 2 Active cholecalciferol (VITAMIN D-3) 2000 unit capsule [...] (15 mg total) by mouth as needed Active al-mag hydroxide-simethi cone, diphenhydramine, & nystatin 1:1:1 (MAGIC MOUTHWASH) suspensionIndicat ions:Sore throat,Throat ulcer Swish and spit 5 mL every 6 (six) hours as needed (as directed) 240 mL Active clobetasoL (TEMOVATE) 0.05 % ointment Apply topically 2 (two) times a day 30 g Active minoxidiL (LONITEN) 2.5 mg tablet Take [...] needed for nausea or vomiting 20 tablet 024 Active traMADoL (ULTRAM) 50 mg tablet Take [...] tablet (20 mg total) by mouth daily Active Qulipta 60 mg tabletIndications :Intractable migraine with aura without status migrainosus Take 1 tablet by mouth nightly 90 tablet 3 025 Active Ubrelvy 100 mg tabletIndications :Intractable migraine with aura without status migrainosus Take 1 tablet (100 mg total) by mouth as needed for migraine Can repeat in 2 hours if needed. No more than 2 in 24 hours. 10 tablet 11 025 Active gabapentin (NEURONTIN) 100 mg capsuleIndication s:Chronic daily headache Take 1 capsule (100 mg total) by mouth 3 (three) times a day 90 capsule 11 025 2025 Active ZOLMitriptan (ZOMIG) 5 mg nasal solutionIndicatio ns:Migraine Administer 1 spray into one nostril as needed for migraine May repeat one time after 2 hours if needed. No more than 2 doses in 24 hours. 18 each 3 025 2025 Active SITagliptin phosphate (JANUVIA) 100 mg tabletIndications :type 2 diabetes mellitus Take 1 tablet (100 mg total) by mouth daily 30 tablet 11 025 2025 Active metFORMIN XR (GLUCOPHAGE XR) 500 [...] hours as needed for pain 10 tablet 025 Active lisdexamfetamine (VYVANSE) 30 mg capsule Take 1 capsule (30 mg total) by mouth daily Active nystatin 100,000 unit/mL suspension Take by [...] Returned/Scanned into chart: [] Schedule Mailed/sent via [facility]: [] IVF Injectable Meds Ordered - Pharm - [] IVF Oral Meds Pharm - [] Confirmed Start Button Problem Noted Date Diagnosed Date Transaminitis 06/24/2024 Intractable migraine with aura without status mi grainosus 06/09/2024 Assessment & Plan (06/09/2024 2:06 PM GATE OPERATOR): The patient has a longstanding history of [...] (09/01/2019): Added automatically from request for surgery [id number] PCOS (polycystic ovarian syndrome) 06/23/2019 Overview (06/23/2019): Added automatically from request for surgery [id number] Class 2 obesity 05/28/2019 Assessment & Plan (12/02/2019 6:56 PM CDT): Class 2 obesity with BMI 36 kg/m2 with related comorbidities: hyperlipidemia, pre-diabetes, depression, PCOS complicates the management of pre-diabetes by increasing insulin resistance and glucose intolerance Plan: 1) Resume care under referral to Weight Management Program (Dr. Pita Arias, ) 2) Consider re-starting Ozempic Assessment & Plan (05/28/2019 10:49 AM GATE OPERATOR): Despite lifestyle modifications, she is frustrated regarding [...] profile. Assessment & Plan (05/28/2019 10:43 AM GATE OPERATOR): Given family history, LDL > 190, this [...] stones. Assessment & Plan (05/28/2019 10:44 AM GATE OPERATOR): Calcium and PTH normal previously. Recommend 24 [...] w/r/t gut microbiome. Referred to ADA and [place] [facility] websites for additional information on topics including glycemic index/carbohydrate choices, protein sources. Consider metformin. Avoid GLP-1 w/ h/o delayed gastric emptying. Assessment & Plan (05/28/2019 10:47 AM GATE OPERATOR): She is following a low carb, low [...] (03/08/2022): Added automatically from request for surgery [id number] Class 1 obesity due to exces s [...] program discussed. Nausea and vomiting 09/01/2019 04/16/20 Overview (09/01/2019): Added automatically from request for surgery [id number] RLQ abdominal pain 06/23/2019 Overview (06/23/2019): Added automatically from request for surgery [id number] Secondary oligomenorrhea 06/23/2019 Overview (06/23/2019): Added automatically from request for surgery [id number] Iron deficiency 04/19/2017 10/31/2017 Blood in stool [...] Department Care Team Description 10/26/2024 Results Follow-Up [facility] Endocrinology Metabolism and Lipid 1 [facility] [address] [place] [phone] Julian Sanchez MD Hemoglobin A1c 10/23/2024 Documentation [facility] Vascular Surgery [address] [facility] [address] [facility] [address] [place] [phone] Kay Laguna RN New Referral 10/22/2024 4:47 PM CDT - 10/22/2024 11:59 PM CDT Hospital Encounter [facility] [address] [place], [place] [id number] Cancer of endocervical canal (HCC) Discharge Disposition: Discharge to home or self care 10/22/2024 4:00 PM CDT Office Visit [facility] Obstetrics and Gynecology [facility] 13th [place] [address] [place] [address] Wilson Zhang MD Cancer of endocervical canal (HCC) 10/20/2024 Orders Only [facility] [address] [place] [address] [place] [phone] David Trejo MD Bilateral carotid artery stenosis (Primary Dx) 10/06/2024 9:30 AM CDT Procedure visit [facility] [address] [place] [address] [place] [phone] David Trejo MD Intractable chronic migraine without aura and without status migrainosus (Primary Dx) 09/30/2024 Results Follow-Up [facility] Care at [address] [address] Tiller, Keisha, [place] Throat culture Throat, Lucero (yeast) culture Lesion Mouth 09/29/2024 6:00 PM CDT - 09/29/2024 11:59 PM CDT Hospital Encounter [facility] [address] [place] [address] Sore throat; Thrush Discharge Disposition: Discharge to home or self care 09/29/2024 5:30 PM CDT Office Visit [facility] Convenient Care at [address] [address] Sangeetha Taylor, VICKIE Sore throat (Primary Dx); Herpangina; Thrush 09/16/2024 Orders Only [facility] Endocrinology Metabolism and Lipid [address] [facility] 5th [place] [address] [place] [address] Hao Bellamy, SHEA Type 2 diabetes mellitus without complication, without long-term current use of insulin (HCC) (Primary Dx); Vitamin D deficiency from Last 3 Months Immunizations Immunization Administration [...] The Cervix - (Added by TW Conv) WI LAPS ABD PRTM&OMENTUM DX W/WO SPEC BR/WA SPX 04/29/2019 - 04/28/2020 Laparoscopy (Diagnostic) - (Added by TW Conv) ANKLE SURGERY 04/29/2002 - 04/28/2003 Right Ankle Surgery - (Added by TW Conv) CHOLECYSTECTOMY 04/29/2015 - 04/28/2016 CERVICAL BIOPSY W/ LOOP ELECTRODE EXCISION 3 between [id number] ANKLE SURGERY 04/29/2011 - 04/28/2012 IMAGE GUIDED [...] 06/23/2019 Added automatically from request for surgery [id number] Dyspareunia in female Peptic ulceration Stomach Ulcers [...] PM CDT Legal Sex Female 8:16 PM GATE OPERATOR Gender Identity Female 10/15/2019 6:32 PM CDT [...] 10/22/2024 3:52 PM CDT Plan of Treatment Health Maintenance [...] Albumin Creatinine Ratio, Urine 11/05/2024 Hemoglobin A1C 04/25/2025 10/24/2024, 2 05/2024, 02/15/2024, Additional history exists Lipid Panel 06/20/2025 06/20/2024, 01/27, 04/24/2023, Additional history exists Foot Exam 06/24/2025 06/24/2024, 120 08/2023, 02/18/2024, Additional history exists eGFR 10/24/2025 10/24/2024, 05/31, 02/27/2024, Additional history exists HPV Vaccines Completed 07/30/2022, 120 08/2021, 02/01/2022 Hepatitis C Screening Completed 11/09/2022, [...] without long-term current use of insulin (HCC) Vitamin D deficiency COMPREHENSIVE METABOLIC PANEL Routine 10/24/2024 9:12 AM CDT Type 2 diabetes mellitus without complication, without long-term current use of insulin ([facility]) Vitamin D deficiency VITAMIN D 25 HYDROXY Routine 10/24/2024 9:12 AM CDT Type 2 diabetes mellitus without complication, without long-term current use of insulin ([facility]) Vitamin D deficiency BOTOX INJECTION Routine 10/06/2024 9:30 AM CDT Intractable chronic migraine without aura and without status migrainosus LUCERO (YEAST) CULTURE Routine 09/29/2024 6:00 PM CDT Thrush THROAT CULTURE Routine 09/29/2024 6:00 PM CDT Sore throat POCT RAPID STREP Routine 09/29/2024 5:41 PM CDT Sore throat LIPID PANEL Routine 06/20/2024 9:30 AM GATE OPERATOR Hypercholesterolemia HIGH RISK HPV DNA DETECTION WITH [...] - 10/25/2024 7:08 AM CDT Performed at: [address] [place] [id number] Tobacco Sampler: Benny Gamboa PhD, Phone: [phone] David Trejo MD LAB BLOOD ORDERABLES [place] l Result [facility] - 01 * Vitamin D 25 hydroxy (10/24/2024 9:12 AM CDT) Vitamin D, 25-Hydroxy 34.0 30.0 - 100.0 ng/mL [facility] - 01 Comment: Vitamin D deficiency has been defined by the [place] of [employer] and an Endocrine Society practice guideline as a level of serum 25-OH vitamin D less than 20 ng/mL (1,2). The Endocrine Society went on to further define vitamin D insufficiency as a level between 21 and 29 ng/mL (2). 1. IOM ([place] of Medicine). 2010. Dietary reference intakes for calcium and D. [place]: The National Academies Press. 2. Alonzo MF, Nayeli MORGAN, Marina ALEXANDER, et al. Evaluation, treatment, and prevention of vitamin D deficiency: an Endocrine Society clinical practice guideline. JCEM. 2010; 96(7):1911-30. Blood 10/24/2024 9:12 AM CDT 10/24/2024 Narrative [facility] - 10/25/2024 9:09 AM CDT Performed at: [address] [id number] Tobacco Sampler: Benny Gamboa PhD, Phone: [phone] Cira Gamboa MD LAB BLOOD ORDERABLES Fin al Result Performing Organization Address [facility] de Phone Number [facility] - * (ABNORMAL) Hemoglobin A1c (10/24/2024 9:12 AM CDT) Hgb A1C 6.6(H) 4.8 - 5.6 % [facility] - 01 Comment: Prediabetes: 5.7 - 6.4 Diabetes: >6.4 Glycemic control for adults with diabetes: <7.0 Blood 10/24/2024 9:12 AM CDT 10/24/2024 Narrative [facility] - 10/25/2024 7:08 AM CDT Performed at: [address] [id number] Tobacco Sampler: Benny Gamboa PhD, Phone: [phone] Cira Gamboa MD LAB BLOOD ORDERABLES Fin al Result Performing Organization Address [facility] de Phone Number [facility] - * (ABNORMAL) Comprehensive metabolic panel (10/24/2024 9:12 AM CDT) Glucose 100(H) 70 - 99 mg/dL [facility] [...] 7:08 AM CDT Performed at: 01 - [address] [id number] Tobacco Sampler: Bneny Gamboa PhD, Phone: [phone] us Cira Gamboa MD LAB BLOOD ORDERABLES Fin al Result [facility] - 01 * Botox Injection (10/06/2024 9:30 AM CDT) Greta Corcoran - 10/06/2024 9:30 AM CDT Greta Howard 10/07/2024 1:54 PM Botox Injection Performed by: David Trejo MD Authorized by: David Trejo MD Holmes Protocol: Procedure Details - Botox Injection: Procedure Details: See Botox flow sheet for details on injection sites and amounts. us David Trejo MD IN CLINIC/BEDSIDE ORDERAB LES Final Result * (ABNORMAL) Lucero (yeast) culture Lesion Mouth (09/29/2024 6:00 PM CDT) Report Final Report: Few Lucero albicans Rare Lucero lusitaniae Rare Lucero (Wickerhamomyc es) anomalus (.) Comment:Testing performed by : [facility], [address] [place] [address]., [address] Organism LUCERO ALBICANS CERNER Organism LUCERO LUSITANIAE CERNER Organism LUCERO (WICKERHAMOMYC ES) ANOMALUS CERNER CH Lesion (Mouth) 09/29/2024 6: 00 PM CDT 09/30/2024 12:28 AM CDT Narrative CERNER - 10/05/2024 6:27 AM CDT Mouth Interpretation data: This culture is NOT intended for the detection of filamentous fungi, endemic mycosis, or Cryptococcus. If detected, yeast will be reported and identified. Routine susceptibility is not performed, but if required, please contact the Microbiology Laboratory at . us Sangeetha Taylor THREADING MACHINE TENDER LAB MICROBIOLOGY - GENERAL ORDERABLES Final Result [facility] [address] [facility] Department [place] [address] * Throat culture Throat (09/29/2024 6:00 PM CDT) Report Final Report: No growth of pathogens. Comment:Testing performed by : [facility], [address] [place] [address], [place]., [address] Throat 09/29/2024 6:00 PM CDT 09/30/2024 12:28 AM CDT Narrative [facility] - 09/30/2024 7:38 PM CDT Testing performed by [facility] Microbiology Laboratory ([phone]). Sangeetha Taylor NP LAB MICROBIOLOGY - GENERAL ORDERABLES Final Result [facility] [address] [address] Department of Laboratories [place] [id number] * POCT rapid strep A (09/29/2024 5:41 PM CDT) [facility] Rapid Strep A, POC Negative Negative Swab 09/29/2024 5:41 PM CDT Sangeetha Taylor NP POINT OF CARE TEST ORDERAB LES Final Result * (ABNORMAL) Lipid panel (06/20/2024 9:30 AM GATE OPERATOR) [facility] Cholesterol 163 100 - 199 mg/dL [facility] - 01 Triglycerides 227(H) 0 - 149 mg/dL [facility] - 01 HDL Cholesterol 38(L) >39 mg/dL [facility] - 01 VLDL 38 5 - 40 mg/dL [facility] - 01 LDL, calculated 87 0 - 99 mg/dL [facility] - 01 Blood 06/20/2024 9:30 AM GATE OPERATOR 06/20/2024 Narrative [facility] - 06/21/2024 7:07 AM GATE OPERATOR Performed at: 01 - [address] [id number] Tobacco Sampler: Benny Gamboa PhD, Phone: [phone] Cira Gamboa MD LAB BLOOD ORDERABLES Fin al Result [facility] - 01 * (ABNORMAL) High Risk HPV DNA Detection with Genotyping (Molecular component) (11/07/2023 5:55 PM CDT) [facility] HPV HR 16 Detected(A) Not Detected [facility] HPV HR 18 Not Detected Not Detected [facility] HPV HR Non 16/18 Not Detected Not Detected [facility] Comment: Interpretive Data Nucleic acid amplification [...] this test have been verified by the [facility] Molecular Infectious Disease laboratory. Correlate with separately reported cytology results, as applicable. 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 Testing type->Screening Last menstrual period (date if known)->on OCP Menstrual status->Irregular us Wilson Zhang MD LAB BODY FLUIDS AND STOO LS ORDERABLES Final Result [facility] Department [place] [address] [facility] * (ABNORMAL) Albumin Creatinine Ratio, Urine (11/06/2023 9:30 AM CDT) Microalb, Ur 31.9(H) 0.0 - 22.9 mg/L [facility] Random Urine Creatinine 173.9 mg/dL [facility] Microalb/Creat Ratio 18.3 0.0 - 29.9 mg/g [facility] Urine 11/06/2023 9:30 AM CDT 11/06/2023 11:01 AM CDT us Folrencio Holland MD LAB URINE ORDERABLES Final Res ult [facility] CORE LAB [facility] * Hepatitis C antibody (11/09/2022 11:11 AM CDT) Hep C Ab Nonreactive Nonreactive [facility] Comment:Antibodies to HCV no t detected. Does NOT exclude the possibility of recent exposure to HCV. Current interpretive data was last revised on 21 Blood 11/09/2022 11:1 1 AM CDT 11/09/2022 1:25 PM CDT us Keon Muniz MD LAB MICROBIOLOGY - GENERA L ORDERABLES Final Result [facility] THOMAS [facility] Department [place] [address] from Last 3 Months or Most Recently Relevant to Health Maintenance Insurance [place] [employer] [facility] [place] Advance Directives For more information, please contact: [phone] * Full Code (Latest Code Status on File) Date Activated Date Inactivated Comments 01/17/2023 6:27 AM 01/18/2023 4:38 AM * Full Code Date Activated Date Inactivated Comments 02/23/2021 12:15 PM 02/23/2021 7:05 PM * Full Code Date Activated Date Inactivated Comments 09/03/2019 7:27 AM 09/03/2019 1:47 PM Care Teams Chemical Etching Processor Relationship Specialty Start Date End Date Gennaro Boone MD PCP - General 12/05/16 Cira Gamboa MD Consulting Physician Endocrinology 03/19/22 Rico Hernandez MD [address] [facility] [phone] [place] [address] Game Bird Farmer Obstetrics and Gynecology 11/01/22 Keon Muniz MD [address] [facility] [address] [place] [address] Consulting Physician Reproductive Endocrinology and Infertility 01/24/24
--- OUTSIDE RECORDS SUMMARY | 2024-10-26 18:46 | XMS_ITS | Encounter Summary ---
Author Organization [facility] Address [address] [place] [address] Phone Care Team Providers Care Final Touch Up Painter Name Role Phone Gennaro Boone MD Primary Care Provider Cira Gamboa MD Unavailable Rico Hernandez MD Unavailable Keon Muniz MD Unavailable Encounter Details Date Type Department Care Team (Late st Contact Info) Description 10/26/2024 Results Follow-Up [facility] Endocrinology Metabolism and Lipid 1 [facility] [address] [place] [address] Julian Sanchez MD [address] [place] [address] Hemoglobin A1c Social History Tobacco Use Types Packs/Day Years [...] PM CDT Legal Sex Female 8:16 PM DOUGH MIXER HELPER Gender Identity Female 10/15/2019 6:32 PM CDT Sexual Orientation Straight 08/26/2019 7: 34 PM CDT documented as of this encounter Plan of Treatment Not on file documented as of this encounter Visit Diagnoses Not on filedocumented in this encounter Care Teams Final Touch Up Painter Relationship Specialty Start Date End Date Gennaro Boone MD PCP - General 12/05/16 Cira Gamboa MD Consulting Physician Endocrinology 03/19/22 Rico Hernandez MD [address] [facility] [phone] [place], [place] [id number] Electrical Estimator Obstetrics and Gynecology 11/01/22 Keon Muniz MD [address] [facility] [address] [place], [place] [id number] Consulting Physician Reproductive Endocrinology and Infertility 01/24/24 documented as of this encounter
--- OUTSIDE RECORDS SUMMARY | 2024-10-26 18:46 | XMS_ITS | Encounter Summary ---
Author Organization [facility] Address [address] [place] [address] Care Team Providers Care Obiee Architect Name Role Phone Gennaro Boone MD Primary Care Provider [phone] Cira Gamboa MD Unavailable [phone] Rico Hernandez MD Unavailable Keon Muniz MD Unavailable Encounter Details Date Type Department Care Team (Late st Contact Info) Description 09/30/2024 Results Follow-Up [facility] Convenient Care at [address] [address] Kimberly Charlton, ANMOL [address] [place] [address] [address] [place] [address] Throat culture Throat, Lucero (yeast) culture Lesion Mouth Social History Tobacco Use Types Packs/Day Years [...] PM CDT Legal Sex Female 8:16 PM RESPIRATORY CARE ASSISTANT Gender Identity Female 10/15/2019 6:32 PM CDT Sexual Orientation Straight 08/26/2019 7: 34 PM CDT documented as of this encounter Plan of Treatment Not on file documented as of this encounter Visit Diagnoses Not on filedocumented in this encounter Care Teams Obiee Architect Relationship Specialty Start Date End Date Gennaro Boone MD PCP - General 12/05/16 Cira Gamboa MD Consulting Physician Endocrinology 03/19/22 Rico Hernandez MD [address] [facility] [phone] [place] [address] Wreath And Garland Maker Obstetrics and Gynecology 11/01/22 Keon Muniz MD [address] [facility] [address] [place] [address] Consulting Physician Reproductive Endocrinology and Infertility 01/24/24 documented as of this encounter
--- OUTSIDE RECORDS SUMMARY | 2024-10-26 18:46 | XMS_ITS ---
Author Organization [facility] Address [address] [place] [address] Care Team Providers Care Financial Services Counselor Name Role Phone Gennaro Boone MD Primary Care Provider [phone] Cira Gamboa MD Unavailable [phone] Rico Hernandez MD Unavailable Keon Muniz MD [...] Returned/Scanned into chart: [] Schedule Mailed/sent via [employer]: [] IVF Injectable Meds Ordered - Pharm - [] IVF Oral Meds Pharm - [] Confirmed Start Button Problem Noted Date Diagnosed Date Transaminitis 06/24/2024 Intractable migraine with aura without status mi grainosus 06/09/2024 Assessment & Plan (06/09/2024 2:06 PM VOLCANOLOGY TEACHER): The patient has a longstanding history of [...] (09/01/2019): Added automatically from request for surgery [id number] PCOS (polycystic ovarian syndrome) 06/23/2019 Overview (06/23/2019): Added automatically from request for surgery [id number] Class 2 obesity 05/28/2019 Assessment & Plan (12/02/2019 6:56 PM CDT): Class 2 obesity with BMI 36 kg/m2 with related comorbidities: hyperlipidemia, pre-diabetes, depression, PCOS complicates the management of pre-diabetes by increasing insulin resistance and glucose intolerance Plan: 1) Resume care under referral to Weight Management Program (Dr. Pita Arias, ) 2) Consider re-starting Ozempic Assessment & Plan (05/28/2019 10:49 AM VOLCANOLOGY TEACHER): Despite lifestyle modifications, she is frustrated regarding [...] profile. Assessment & Plan (05/28/2019 10:43 AM VOLCANOLOGY TEACHER): Given family history, LDL > 190, this [...] stones. Assessment & Plan (05/28/2019 10:44 AM VOLCANOLOGY TEACHER): Calcium and PTH normal previously. Recommend 24 [...] w/r/t gut microbiome. Referred to ADA and [employer] websites for additional information on topics including glycemic index/carbohydrate choices, protein sources. Consider metformin. Avoid GLP-1 w/ h/o delayed gastric emptying. Assessment & Plan (05/28/2019 10:47 AM VOLCANOLOGY TEACHER): She is following a low carb, low [...] (03/08/2022): Added automatically from request for surgery [id number] Class 1 obesity due to exces s [...] (09/01/2019): Added automatically from request for surgery [id number] RLQ abdominal pain 06/23/2019 4 Overview (06/23/2019): Added automatically from request for surgery [id number] Secondary oligomenorrhea 06/23/2019 Overview (06/23/2019): Added automatically from request for surgery [id number] Iron deficiency 04/19/2017 10/31/2017 Blood in stool [...]
--- OUTSIDE RECORDS SUMMARY | 2024-10-26 18:46 | XMS_ITS | Clinical Summary ---
Author Organization [facility] Address [address] [facility] [place] [address] Care Team Providers Care Sheet Rock Taper Helper Name Role Phone Gennaro Boone MD Primary Care Provider [phone] Source Comments [facility],non-owned Affiliates and Associated Physician Practices is amultiple site organization consisting of ambulatory clinics and hospital sitesin [place], [place], [place] and [place]. This disclosure is being madepursuant to the Care Everywhere program and may not contain all information available regarding this patient. Last updated 18.[facility] Allergies Active Allergy Reactions Criticality Noted Date [...] on file Legal Sex Female 2:06 PM DIRECTOR OF ACCOUNTS PAYABLE Gender Identity Not on file Sexual Orientation [...] complete this topic Insurance MARY Care Teams Sheet Rock Taper Helper Relationship Specialty Start Date End Date Gennaro Boone MD [address] [place] [address] PCP - General Family Medicine 06/06/17
--- OUTSIDE RECORDS SUMMARY | 2024-10-26 18:46 | XMS_ITS | Encounter Summary ---
Author Organization [facility] Address [address] [place] [address] Care Team Providers Care Turbine Engineer Name Role Phone Gennaro Boone MD Primary Care Provider Cira Gamboa MD Unavailable Rico Hernandez MD Unavailable Keon Muniz MD Unavailable Encounter Details Date Type Department Care Team (Late st Contact Info) Description 01/23/2023 Telephone [facility] - Interventional Radiology [address] [place] [address] Abbi Medina, SHEA Social History [...] PM CDT Legal Sex Female 8:16 PM FISHERIES OFFICER Gender Identity Female 10/15/2019 6:32 PM CDT [...] documented as of this encounter Care Teams Turbine Engineer Relationship Specialty Start Date End Date Gennaro Boone MD PCP - General 12/05/16 Cira Gamboa MD Consulting Physician Endocrinology 03/19/22 Rico Hernandez MD [address] [facility] [phone] [place] [address] Tank Filler Obstetrics and Gynecology 11/01/22 Keon Muniz MD [address] [facility] [address] [place], [place] [id number] Consulting Physician Reproductive Endocrinology and Infertility 01/24/24 documented as of this encounter
--- OUTSIDE RECORDS SUMMARY | 2024-10-26 18:46 | XMS_ITS | Encounter Summary ---
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 03/30/2020 03/30/2020 07/28/2020 3:06 AM C DT Exposure, COVID-19 Comment:Added automatically based on COVID19 lab answers indicating exposure risk 05/04/2021 05/04/2021 05/19/2021 3:[address] COVID: Suspected 05/04/2021 05/05/2021 05/06/2021 2:18 AM HANDMADE TILE ARTIST COVID: Suspected 10/20/2023 10/20/2023 10/20/2023 11:03 AM CDT documented as of this encounter Care Teams Bounty Trapper Relationship Specialty Start Date End Date Gennaro Boone MD PCP - General 12/05/16 Cira Gamboa MD Consulting Physician Endocrinology 03/19/22 Rico Hernandez MD [address] [facility] [phone] [place] [address] Hot Iron Worker Obstetrics and Gynecology 11/01/22 Keon Muniz MD [address] [facility] [address] [place], [place] [id number] Consulting Physician Reproductive Endocrinology and Infertility 01/24/24 documented as of this encounter
[2024-10-26] MEDS: KETOROLAC 15 MG/ML VIAL (*BKC) IV PUSH (19:04)
[2024-10-26] MEDS: diazePAM INJ (*CRX) 10 MG/2 ML SYRINGE 5 MG IV PUSH (19:05)
[2024-10-26 19:46] VITALS: BP 120/72; PULSE 82; RESP 15; O2SAT 98
== END 2024-10-26 19:48 | disposition home or self-care (01) ==
PROVIDERS: Emergency Medicine; Registered Nurse; Emergency Provider Student in an Organized Health Care Education/Training Program; PCP Family Medicine
DX: R51.9 Headache, unspecified (principal); S16.1XXA Strain of muscle, fascia and tendon at neck level, initial encounter; Z86.711 Personal history of pulmonary embolism; E78.5 Hyperlipidemia, unspecified; Z86.718 Personal history of other venous thrombosis and embolism; F41.9 Anxiety disorder, unspecified; F32.A Depression, unspecified; K21.9 Gastro-esophageal reflux disease without esophagitis; X58.XXXA Exposure to other specified factors, initial encounter
CPT/HCPCS: 36415; 70496; 70498; 71046; 80053; 83690; 84484; 85025; 85380; 85610; 85730; 93005; 96374; 96375; 99284; J1885; J3010; J3360; Q9967

== ENCOUNTER 2024-11-11 07:32 | Outpatient (CLI) | payer BC, SELFPAY ==
--- OUTSIDE RECORDS SUMMARY | 2024-11-11 07:35 | XMS_ITS ---
Author Organization [facility] Address [address] [place] [address] Care Team Providers Care Behavior Clinician Name Role Phone Gennaro Boone MD Primary Care Provider [phone] Cira Gamboa MD Unavailable Rico Hernandez MD Unavailable Keon Muniz MD Unavailable [phone] Nicky Thayer MD Unavailable Active Problems Patient Care Coordination [...] Returned/Scanned into chart: [] Schedule Mailed/sent via Locationaryt: [] IVF Injectable Meds Ordered - Pharm - [] IVF Oral Meds Pharm - [] Confirmed Start Button Problem Noted Date Diagnosed Date Bilateral carotid artery stenosis 10/28/2024 Assessment & Plan (10/28/2024 4:11 PM CDT): Impression: Patient was found to have <50 stenosis to bilateral carotid arteries. She denies any suggestive of TIA/ stroke. Patient does report dizziness and lightheadedness with positional changes and mirgraines. Patient reports a significant family history of stroke. Plan: no surgical interventions indicated at this time. - Recommend patient to continue routine follow-ups with PCP/neurologist for evaluation of her migraines and orthostatic hypotension. -we will have patient follow-up in 6 months for re-evaluation with carotid duplex. Transaminitis 06/24/2024 Intractable migraine with aura without status mi grainosus 06/09/2024 Assessment & Plan (06/09/2024 2:06 PM VP REVENUE CYCLE): The patient has a longstanding history of [...] (09/01/2019): Added automatically from request for surgery [id number] PCOS (polycystic ovarian syndrome) 06/23/2019 Overview (06/23/2019): Added automatically from request for surgery [id number] Class 2 obesity 05/28/2019 Assessment & Plan (12/02/2019 6:56 PM CDT): Class 2 obesity with BMI 36 kg/m2 with related comorbidities: hyperlipidemia, pre-diabetes, depression, PCOS complicates the management of pre-diabetes by increasing insulin resistance and glucose intolerance Plan: 1) Resume care under referral to Weight Management Program (Dr. Pita Arias, ) 2) Consider re-starting Ozempic Assessment & Plan (05/28/2019 10:49 AM VP REVENUE CYCLE): Despite lifestyle modifications, she is frustrated regarding her weight stability. Encouraged calorie tracking. Referral placed to medical weight loss clinic. Did not tolerate metformin, Liraglutide as above. Reviewed side affects, and dosing instructions. Hypercholesterolemia 10/09/2018 Assessment & Plan (10/28/2024 4:29 PM CDT): Impression: Chronic and stable. Plan: Continue atorvastatin. Assessment & Plan (12/02/2019 6:52 PM CDT): Likely familial hypercholesterolemia; sub-optimal response to lifestyle modifications and low-dose statin therapy Plan: 1) Continue weight control, exercise, dietary modifications 2) Increase Atorvastatin 20 to 40 mg/day Assessment & Plan (10/25/2019 7:00 PM CDT): Discussed role of diet, exercise and weight loss in improving lipid profile. Assessment & Plan (05/28/2019 10:43 AM VP REVENUE CYCLE): Given family history, LDL > 190, this [...] stones. Assessment & Plan (05/28/2019 10:44 AM VP REVENUE CYCLE): Calcium and PTH normal previously. Recommend 24 [...] use of insulin 10/09/2018 Assessment & Plan (10/28/2024 4:20 PM CDT): Impression: Chronic. Plan: Continue metformin, Januvia Assessment & Plan (12/03/2019 5:51 PM CDT): [...] w/r/t gut microbiome. Referred to ADA and [facility] websites for additional information on topics including glycemic index/carbohydrate choices, protein sources. Consider metformin. Avoid GLP-1 w/ h/o delayed gastric emptying. Assessment & Plan (05/28/2019 10:47 AM VP REVENUE CYCLE): She is following a low carb, low [...] (03/08/2022): Added automatically from request for surgery [id number] Class 1 obesity due to exces s [...] (09/01/2019): Added automatically from request for surgery [id number] RLQ abdominal pain 06/23/2019 4 Overview (06/23/2019): Added automatically from request for surgery [id number] Secondary oligomenorrhea 06/23/2019 Overview (06/23/2019): Added automatically from request for surgery [id number] Iron deficiency 04/19/2017 10/31/2017 Blood in stool [...]
--- OUTSIDE RECORDS SUMMARY | 2024-11-11 07:35 | XMS_ITS | Encounter Summary ---
Author Organization [facility] Address [address] [place] [address] Phone Care Team Providers Care Emergency Man Name Role Phone Gennaro Boone MD Primary Care Provider Cira Gamboa MD Unavailable Rico Hernandez MD Unavailable Keon Muniz MD Unavailable [phone] Nicky Thayer MD Unavailable [phone] Encounter Details Date Type Department Care Team (Late st Contact Info) Description 10/29/2024 Results Follow-Up [facility] Obstetrics and Gynecology [address] [facility] 13th [place] [address] [place] [address] Wilson Zhang MD [address] [place] [address] Vaginal High Risk HPV DNA Detection with Genotyping (Molecular component) Social History Tobacco Use Types Packs/Day Years [...] PM CDT Legal Sex Female 8:16 PM 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 Gender Identity Female 10/15/2019 6:32 PM CDT Sexual Orientation Straight 08/26/2019 7: 34 PM CDT documented as of this encounter Plan of Treatment Not on file documented as of this encounter Visit Diagnoses Not on filedocumented in this encounter Care Teams Emergency Man Relationship Specialty Start Date End Date Gennaro Boone MD PCP - General 12/05/16 Cira Gamboa MD Consulting Physician Endocrinology 03/19/22 Rico Hernandez MD [address] [facility] [phone] [place] [address] Viticulturist Obstetrics and Gynecology 11/01/22 Keon Muniz MD [address] [facility] [address] [place], [place] [id number] Consulting Physician Reproductive Endocrinology and Infertility 01/24/24 Nicky Thayer MD [address] [place] [address] Viticulturist Obstetrics and Gynecology 10/30/24 documented as of this encounter
--- OUTSIDE RECORDS SUMMARY | 2024-11-11 07:35 | XMS_ITS | Clinical Summary ---
Author Organization [facility] Address [address] [place] [address] Care Team Providers Care Museum Technician Name Role Phone Gennaro Boone MD Primary Care Provider [phone] Source Comments [facility],non-owned Affiliates and Associated Physician Practices is amultiple site organization consisting of ambulatory clinics and hospital sitesin [place], [place], [place] and [place]. This disclosure is being madepursuant to the Care Everywhere program and may not contain all information available regarding this patient. 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
--- OUTSIDE RECORDS SUMMARY | 2024-11-11 07:35 | XMS_ITS | Referral Summary ---
Author Organization [facility] Address [address] [place] [address] Care Team Providers Care Bridge Tender Name Role Phone Gennaro Boone MD Primary Care Provider [phone] Cira Gamboa MD Unavailable Rico Hernandez MD Unavailable Keon Muniz MD Unavailable Nicky Thayer MD Unavailable Encounters Date Type Department Care Team Description 11/09/2024 Results Follow-Up [facility] Endocrinology Metabolism and Lipid [address] [facility] 13th [place] [address] [place] [address] Donald Monterroso MD Albumin Creatinine Ratio, Urine, Lipid panel 11/04/2024 9:00 AM CDT Lab [facility] Endocrinology Metabolism and Lipid [address] [facility] 5th [place] [address] [place] [phone] Type 2 diabetes mellitus without complication, without long-term current use of insulin (HCC); Hypercholesterolem ia 11/04/2024 8:00 AM CDT Office Visit [facility] Endocrinology Metabolism and Lipid [address] [facility] 5th [place] [address] [place] [phone] Cira Gamboa MD Type 2 diabetes mellitus without complication, without long-term current use of insulin (HCC) (Primary Dx); Vitamin D deficiency; Hypercholesterolem ia; Transaminitis; Class 2 severe obesity with serious comorbidity and body mass index (BMI) of 37.0 to 37.9 in adult, unspecified obesity type (HCC); Early menopause; Chronic daily headache 10/29/2024 Results Follow-Up [facility] Obstetrics and Gynecology [address] [facility] 13th [place] [address] [place] [address] Wilson Zhang MD Vaginal High Risk HPV DNA Detection with Genotyping (Molecular component) 10/28/2024 Orders Only [facility] Vascular at [address] [place] [address] Ciaran Espinoza MD Carotid stenosis, right (Primary Dx) 10/28/2024 9:15 AM CDT Office Visit [facility] V[facility] at [address] [place] [address] Dorothy Epperson NP Bilateral carotid artery stenosis (Primary Dx); Type 2 diabetes mellitus without complication, without long-term current use of insulin (HCC); Hypercholesterolem ia 10/26/2024 Results Follow-Up [facility] Endocrinology Metabolism and Lipid [address] [facility] [address] [place] [phone] Julian Sanchez MD Hemoglobin A1c 10/23/2024 Documentation [facility] Vascular Surgery [address] [place] [address] Medical Office Building 3 [address] [place] [phone] Kay Laguna RN New Referral 10/22/2024 4:47 PM CDT - 10/22/2024 11:59 PM CDT Hospital Encounter [address] [address] Cancer of endocervical canal (HCC) Discharge Disposition: Discharge to home or self care 10/22/2024 4:00 PM CDT Office Visit [facility] Obstetrics and Gynecology [address] [facility] 13[address] [place] [phone] Wilson Zhang MD Cancer of endocervical canal (HCC) 10/20/2024 Orders Only [facility] [address] [place] [phone] David Trejo MD Bilateral carotid artery stenosis (Primary Dx) 10/06/2024 9:30 AM CDT Procedure visit [facility] [address] [place] [phone] David Trejo MD Intractable chronic migraine without aura and without status migrainosus (Primary Dx) 09/30/2024 Results Follow-Up [facility] at [address] [phone] Kimberly Charlton PA Throat culture Throat, Lucero (yeast) culture Lesion Mouth 09/29/2024 6:00 PM CDT - 09/29/2024 11:59 PM CDT Hospital Encounter [address] [id number] Sore throat; Thrush Discharge Disposition: Discharge to home or self care 09/29/2024 5:30 PM CDT Office Visit [facility] at [address] [phone] Sangeetha Taylor NP Sore throat (Primary Dx); Herpangina; Thrush 09/16/2024 Orders Only [facility] Endocrinology Metabolism and Lipid [address] [facility] 5th [place] [address] [place] [address] Hao Bellamy, RN Type 2 diabetes mellitus without complication, without long-term current use of insulin ([facility]) (Primary Dx); Vitamin D deficiency from Last 3 Months Allergies Active Allergy Reactions Criticality Noted Date Comments Nuts Other (See comments) Low 11/01/2022 Mouth sores [place] Other (See comments) Low 11/01/2022 Mouth sores Penicillins Unknown 06/06/2017 Reaction as a child Pineapple Other (See comments) Low 11/01/2022 Mouth sores [place] Other (See comments) Low 11/01/2022 Mouth sores [...] [address] (NexIUM) 40 mg capsuleIndications :Gastroesophageal reflux disease, unspecified whether esophagitis present Take 1 capsule (40 mg total) by mouth 2 (two) times a day before breakfast and dinner 60 capsule 2 02/21/20 22 Active cholecalciferol (VITAMIN D-3) 2000 unit capsule Take 1 capsule (2,000 Units total) by mouth nightly Active pen needle, diabetic 32 gauge x /32 needleIndications: Prediabetes,Class 2 obesity due to excess calories without serious comorbidity with body mass index (BMI) of 38.0 to 38.9 in adult,Polycystic ovarian syndrome Use to inject Victoza daily 100 each 3 09/07/19 23 Active triamcinolone (KENALOG) 0.1 % paste Apply 0.25 inches to teeth 2 (two) times a day Dry mouth first, apply only after eating 5 g 3 02/02/20 23 Active meloxicam (MOBIC) 15 mg tablet Take 1 tablet (15 mg total) by mouth as needed 10/12/19 24 Active al-mag hydroxide-simethic one, diphenhydramine, & nystatin 1:1:1 (MAGIC MOUTHWASH) suspensionIndicati ons:Sore throat,Throat ulcer Swish and spit 5 mL [...] Active diphenhydrAMINE 25 mg capsule Take 1 tablet/capsule (25 mg total) by mouth every 6 [...] 04/03/20 24 Active polymyxin B-trimethoprim (POLYTRIM) ophthalmic solutionIndication s:Acute conjunctivitis of right eye, unspecified acute conjunctivitis type Administer 1 drop into the right eye every 4 (four) hours 10 mL 05/07/19 25 Active cromolyn (GASTROCROM) 100 mg/5 mL solution Take 10 mL (200 mg total) by mouth 4 (four) times a day before meals and nightly 1200 mL 3 05/12/19 25 Active escitalopram (LEXAPRO) 20 mg tablet Take 1 tablet (20 mg total) by mouth daily 05/19/19 25 Active Qulipta 60 mg tabletIndications: Intractable migraine with aura without status migrainosus Take 1 tablet by mouth nightly 90 tablet 3 06/09/19 25 Active Ubrelvy 100 mg tabletIndications: Intractable migraine with aura without status migrainosus Take 1 tablet (100 mg total) by mouth as needed for migraine Can repeat in 2 hours if needed. No more than 2 in 24 hours. 10 tablet 06/09/19 25 Active gabapentin (NEURONTIN) 100 mg capsuleIndications :Chronic daily headache Take 1 capsule (100 mg total) by mouth 3 (three) times a day 90 capsule 06/09/19 026 Active ZOLMitriptan (ZOMIG) 5 mg nasal solutionIndication s:Migraine Administer 1 spray into one nostril as needed for migraine May repeat one time after 2 hours if needed. No more than 2 doses in 24 hours. 18 each 3 06/23/19 25 Active SITagliptin phosphate (JANUVIA) 100 mg tabletIndications: type 2 diabetes mellitus Take 1 tablet (100 mg total) by mouth daily 30 tablet 06/24/19 25 026 Active metFORMIN XR (GLUCOPHAGE XR) 500 mg 24 hr tabletIndications: Type 2 diabetes mellitus without complication, without long-term current use of insulin (HCC) Take 1 tablet (500 mg total) by mouth 2 (two) times a day Start at 1 tablet daily; after 1-2 weeks, if tolerating well, increase dose to 500 mg twice daily. 60 tablet 06/24/19 25 026 Active ezetimibe (ZETIA) 10 mg tabletIndications: Hypercholesterolem ia Take 1 tablet (10 mg total) by mouth daily 30 tablet 06/24/19 026 Active atorvastatin (LIPITOR) 40 mg tabletIndications: Pure hypercholesterolem ia,Class 2 obesity due to excess calories without serious comorbidity with body mass index (BMI) of 38.0 to 38.9 in adult TAKE 1 TABLET(40 MG) BY MOUTH EVERY NIGHT 90 tablet 1 09/26/19 25 Active ketorolac (TORADOL) 10 mg tabletIndications: Intractable chronic migraine without aura and without status migrainosus Take 1 tablet (10 mg total) by mouth every 6 (six) hours as needed for pain 10 tablet 10/21/19 25 Active lisdexamfetamine (VYVANSE) 30 mg capsule Take 1 capsule (30 mg total) by mouth daily 09/29/19 25 Active aspirin 81 mg enteric coated tablet Take 1 tablet (81 mg total) by mouth daily Active diazePAM (VALIUM) 5 mg tablet Take 1 tablet (5 mg total) by mouth 3 (three) times a day as needed for muscle spasms 10/27/19 25 Active lisdexamfetamine (VYVANSE) 20 mg capsule Take 1 capsule (20 mg total) by mouth daily 05/15/19 25 025 Discontin ued(Alter gaurav therapy) Active Problems Patient Care Coordination No te [...] Returned/Scanned into chart: [] Schedule Mailed/sent via [employer]: [] IVF Injectable Meds Ordered - Pharm [...] 06/09/2024 Assessment & Plan (06/09/2024 2:06 PM SALES AND MARKETING COORDINATOR): The patient has a longstanding history of [...] (09/01/2019): Added automatically from request for surgery [id number] PCOS (polycystic ovarian syndrome) 06/23/2019 Overview (06/23/2019): Added automatically from request for surgery [id number] Class 2 obesity 05/28/2019 Assessment & Plan (12/02/2019 6:56 PM CDT): Class 2 obesity with BMI 36 kg/m2 with related comorbidities: hyperlipidemia, pre-diabetes, depression, PCOS complicates the management of pre-diabetes by increasing insulin resistance and glucose intolerance Plan: 1) Resume care under referral to Weight Management Program (Dr. Pita Arias, ) 2) Consider re-starting Ozempic Assessment & Plan (05/28/2019 10:49 AM SALES AND MARKETING COORDINATOR): Despite lifestyle modifications, she is frustrated regarding [...] profile. Assessment & Plan (05/28/2019 10:43 AM SALES AND MARKETING COORDINATOR): Given family history, LDL > 190, this [...] stones. Assessment & Plan (05/28/2019 10:44 AM SALES AND MARKETING COORDINATOR): Calcium and PTH normal previously. Recommend 24 [...] PM CDT): Impression: Chronic. Plan: Continue metformin, Meena Assessment & Plan (12/03/2019 5:51 PM CDT): [...] w/r/t gut microbiome. Referred to ADA and [employer] websites for additional information on topics including glycemic index/carbohydrate choices, protein sources. Consider metformin. Avoid GLP-1 w/ h/o delayed gastric emptying. Assessment & Plan (05/28/2019 10:47 AM SALES AND MARKETING COORDINATOR): She is following a low carb, low [...] (03/08/2022): Added automatically from request for surgery [id number] Class 1 obesity due to exces s [...] (09/01/2019): Added automatically from request for surgery [id number] RLQ abdominal pain 06/23/2019 4 Overview (06/23/2019): Added automatically from request for surgery [id number] Secondary oligomenorrhea 06/23/2019 Overview (06/23/2019): Added automatically from request for surgery [id number] Iron deficiency 04/19/2017 10/31/2017 Blood in stool [...] PM CDT Legal Sex Female 8:16 PM SALES AND MARKETING COORDINATOR Gender Identity Female 10/15/2019 6:32 PM CDT Sexual Orientation Straight 08/26/2019 7: 34 PM CDT Last Filed Vital Signs Vital Sign Reading Time Taken Comments Blood Pressure 126/84 11/04/2024 7:49 AM CDT Pulse 84 11/04/2024 7:49 AM CDT Temperature 36.6 C (97.9 F) 11/04/2024 7:49 AM CDT Respiratory Rate 20 10/22/2024 3:52 PM CDT Oxygen Saturation 98% 10/28/2024 9:56 AM CDT Inhaled Oxygen Concentration - - Weight 92.9 kg (204 lb 12.8 oz) 11/04/2024 7:49 AM CDT Height 157.5 cm (5' 2) 11/04/2024 7:49 AM CDT Body Mass Index 37.46 11/04/2024 7:49 AM CDT Plan of Treatment Not on file Procedures Procedure Name Priority Date/Time Associated Diagnosis Comments LIPID PANEL Routine 11/04/2024 8:45 AM CDT Hypercholesterolemia ALBUMIN CREATININE RATIO, URINE Routine 11/04/2024 8:45 AM CDT Type 2 diabetes mellitus without complication, without long-term current use of insulin (HCC) HOMOCYSTEINE Routine 10/24/2024 9:13 AM CDT Bilateral carotid artery stenosis HEMOGLOBIN A1C Routine 10/24/2024 9:12 AM CDT Type 2 diabetes mellitus without complication, without long-term current use of insulin (HCC) Vitamin D deficiency COMPREHENSIVE METABOLIC PANEL Routine 10/24/2024 9:12 AM CDT Type 2 diabetes mellitus without complication, without long-term current use of insulin ([facility]) Vitamin D deficiency VITAMIN D 25 HYDROXY Routine 10/24/2024 9:12 AM CDT Type 2 diabetes mellitus without complication, without long-term current use of insulin (HCC) Vitamin D deficiency PAP AND HIGH RISK HPV, REFLEX TO GENOTYPING Routine 10/22/2024 4:47 PM CDT Cancer of endocervical canal (HCC) VAGINAL HIGH RISK HPV DNA DETECTION WITH GENOTYPING Routine 10/22/2024 4:47 PM CDT Cancer of endocervical canal (HCC) BOTOX INJECTION Routine 10/06/2024 9:30 AM CDT Intractable chronic migraine without aura and without status migrainosus LUCERO (YEAST) CULTURE Routine 09/29/2024 6:00 PM CDT Thrush THROAT CULTURE Routine 09/29/2024 6:00 PM CDT Sore throat POCT RAPID STREP Routine 09/29/2024 5:41 PM CDT Sore throat HEPATITIS C ANTIBODY Routine 11/09/2022 11:11 AM CDT Encounter for screening for infections with predominantly sexual mode of transmission from Last 3 Months or Most Recently Relevant to Health Maintenance Results * Albumin Creatinine Ratio, Urine (11/04/2024 8:45 AM CDT) Microalb, Ur 7.6 0.0 - 22.9 mg/L [facility] Random Urine Creatinine 50.6 mg/dL [facility] Microalb/Creat Ratio 15.0 0.0 - 29.9 mg/g [facility] Urine 11/04/2024 8:45 AM CDT 11/04/2024 9:53 AM CDT us Donald Monterroso MD LAB URINE O RDERABLES Final Result [facility] * (ABNORMAL) Lipid panel (11/04/2024 8:45 AM CDT) Triglycerides 228(H) <150 mg/dL [facility] Comment: Repeated and Verified Persistently elevated triglycerides may enhance atherosclerotic cardiovascular disease. Desirable: <150 mg/dL, fasting <175 mg/dL, non-fasting Total Cholesterol 160 <200 mg/dL [facility] Total HDL-C Direct 42(L) >50 mg/dL [facility] Comment: A low HDL-C may be indicative of metabolic syndrome and enhance atherosclerotic cardiovascular disease risk. Non-HDL cholesterol 118 <220 mg/dL [facility] Calculated LDL Chol 80 <190 mg/dL [facility] Comment: Consider the use of non-HDL-C or Apo B to help estimate atherosclerotic cardiovascular diesase risk if triglycerides are elevated. Blood 11/04/2024 8:45 AM CDT 11/04/2024 9:53 AM CDT Narrative [facility] - 11/04/2024 12:49 PM CDT Beginning August 26, 2024, LDL are now calculated by the Wu-NIH equation (ELIAZAR Cardiol 2020;5:540-8) which is more accuarate than the older Friedewald equation in patients with low LDL cholesterol or high triglycerides. For adults ages 40-79, the ACC/AHA recommends discussing your 10-year atherosclerotic cardiovascular disease risk with your health care provider. https://www.acc.org/ASCVDApp These lab test should be done fasting. This means do not eat or drink for at least 12 hours prior to getting your blood drawn. us Donald Monterroso MD LAB BLOOD O RDERABLES Final Result [facility] * Homocysteine (10/24/2024 9:13 AM CDT) Homocysteine 14.4 0.0 - 14.5 umol/L [facility] - 01 Blood 10/24/2024 9:13 AM CDT 10/24/2024 Narrative [facility] - 10/25/2024 7:08 AM CDT Performed at: [address] [place] [id number] Electrical Products Engineer: Benny Gamboa PhD, Phone: [phone] us David Trejo MD LAB BLOOD ORDERABLES [place] l Result Performing Organization Address City/[facility]/ZIP Co de Phone Number LABCO [facility] - 01 * Vitamin D 25 hydroxy (10/24/2024 9:12 AM CDT) Pathologist [facility] Vitamin D, 25-Hydroxy 34.0 30.0 - 100.0 ng/mL [facility] - 01 Comment: Vitamin D deficiency has been defined by the [place] of Medicine and an Endocrine Society practice guideline as a level of serum 25-OH vitamin D less than 20 ng/mL (1,2). The Endocrine Society went on to further define vitamin D insufficiency as a level between 21 and 29 ng/mL (2). 1. IOM ([place] of Medicine). 2010. Dietary reference intakes for calcium and D. [place]: The National Academies Press. 2. Alonzo MF, Nayeli MORGAN, Marina ALEXANDER, et al. Evaluation, treatment, and prevention of vitamin D deficiency: an Endocrine Society clinical practice guideline. JCEM. 2010; 96(7):1911-30. Blood 10/24/2024 9:12 AM CDT 10/24/2024 Narrative [facility] - 10/25/2024 9:09 AM CDT Performed at: [address] [place] [id number] Electrical Products Engineer: Benny Gamboa PhD, Phone: [phone] Cira Gamboa MD LAB BLOOD ORDERABLES Fin al Result Performing Organization Address [facility] Co de Phone Number [facility] - * (ABNORMAL) Hemoglobin A1c (10/24/2024 9:12 AM CDT) Hgb A1C 6.6(H) 4.8 - 5.6 % [facility] - 01 Comment: Prediabetes: 5.7 - 6.4 Diabetes: >6.4 Glycemic control for adults with diabetes: <7.0 Blood 10/24/2024 9:12 AM CDT 10/24/2024 Narrative [facility] - 10/25/2024 7:08 AM CDT Performed at: [address] [id number] Electrical Products Engineer: Benny Gamboa PhD, Phone: [phone] Cira Gamboa MD LAB BLOOD ORDERABLES Fin al Result Performing Organization Address [facility] de Phone Number [facility]FLRP [facility] - * (ABNORMAL) Comprehensive metabolic panel [...] - 10/25/2024 7:08 AM CDT Performed at: [address] [place] [id number] Electrical Products Engineer: Benny Gamboa PhD, Phone: [phone] Cira Gamboa MD LAB BLOOD ORDERABLES Fin al Result [facility] - * Vaginal High Risk HPV DNA Detection with Genotyping (Molecular component) (10/22/2024 4:47 PM CDT) Pathologist [facility] HPV HR non 16/18 vaginal Negative Negative Comment: The following Other High Risk HPV types were not detected: 31, 33, 35, 39, 45, 51, 52, 56, 58, 59, 66, and 68. ADDITIONAL INFORMATION Testing was performed using the che HPV assay ([employer] This report is intended for use in clinical monitoring and management of patients. It is not intended for use in medical-legal applications. This test has been modified from the chief privacy officer's instructions. Its performance characteristics were determined by [facility] in a manner consistent with CLIA requirements. This test has not been cleared or approved by the U.S. Food and Drug Administration. Test Performed by: [facility] [address] [place] [address] Electrical Products Engineer: Lissy Thompson Ph.D.; CLIA# [id number] HPV HR 16 vaginal Negative Negative [facility] HPV HR 18 vaginal Negative Negative [facility] Vaginal 10/22/2024 4:47 PM CDT 10/26/2024 4:14 PM CDT Narrative [facility] - 10/27/2024 7:01 PM CDT Clinical history and diagnosis->history of AIS, Stage IA endocervical cancer s/p hyst Number of vials->1 Testing type->Screening Last menstrual period (date if known)->post hyst Menstrual status->Post hysterectomy, total Wilson Zhang MD LAB BODY FLUIDS AND STOO LS ORDERABLES Final Result [facility] [place] [address] * Pap and High Risk HPV and Genotyping (Cytology Component) (10/22/2024 4:47 PM CDT) Thin prep (Pap test) 10/22/2024 4:47 PM CDT 10/22/2024 6:09 PM CDT Narrative PATHOLOGY [facility] - 11/08/2024 12:12 PM CDT EPIC results best viewed via link to PDF [facility] [place] [address] Note to Patients: This report may contain a detailed description of human tissue sent by a health care provider to the laboratory for pathologic evaluation. The content of this report is essential for diagnosis and may provide important critical findings. This information may be unfamiliar to patients to review without a medical professional present. It is advised that the patient review this report in the presence of a health care provider who can answer questions and explain the details. CYTOPATHOLOGY REPORT FINAL Patient Name: ELIN GUILLORY Gender: F : 1985 (Age: 39) Address: [facility] [place] [address] Hospital #: [id number] Service: UNKNOWN Location: Patient Type: [facility] SPECIMEN Taken: 10/22/2024 Received: 10/22/2024 Accessioned: 10/23/2024 Reported: 11/08/2024 Physician(s): Wilson Zhang M.D. FINAL INTERPRETATION SOURCE OF SPECIMEN Liquid based Thin Prep pap with HPV: STATEMENT OF ADEQUACY - Satisfactory for evaluation, vaginal smear GENERAL CATEGORIZATION: - Negative for squamous intraepithelial lesion or malignancy INTERPRETATION: - Reactive cellular changes Comments (Normal-Negative for High Risk HPV) HPV HR 16 vaginal- Negative HPV HR 18 vaginal- Negative HPV HR non 16/18 vaginal- Negative Comment: The following Other High Risk HPV types were not detected: 31, 33, 35, 39, 45, 51, 52, 56, 58, 59, 66, and 68 ADDITIONAL INFORMATION Testing was performed using the che HPV assay ([employer] This test has been modified from the chief privacy officer's instructions. Its performance characteristics were determined by [facility] in a manner consistent with CLIA requirements. This test has not been cleared or approved by the U.S. Food and Drug Administration. Test Performed by: [place] [address] Electrical Products Engineer: Brendan Dean M.D. Ph.D.; CLIA# [id number] This specimen has been rescreened in accordance with this laboratory's Make Up Editor Program. 11/05/2024 08:23 By this signature, I attest that the above diagnosis is based upon my personal examination of the slides(and/or other material indicated in the diagnosis). Rosalie Doyle M.D. Report Electronically Reviewed and Signed Out By Rosalie Doyle M.D. 11/08/2024 12:12:14 Lucho Bello MS, CT(ASCP)PA Cervicovaginal Cytology (Pap Test) Disclaimer: The Pap test is a screening test used to detect cervical cancer and its precursors; it is not a diagnostic procedure. False negative and false positive results do occur. Pap test results should be interpreted in the context of pertinent clinical information and biopsy results as indicated. [facility] Clinical Laboratory Improvement Amendments (CLIA) mandate that cytologic and histologic results be correlated for laboratory director quality assurance & improvement standards. FOR ALL HIGH-GRADE CASES we request submission of follow-up histological material and/or reports that have not been previously provided so that we may fulfill said required standards. Gross Description A. 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 Report Images and scanned documents, if included only viewable in PDF version The performance characteristics of some immunohistochemical stains, in-situ hybridization and fluorescence in-situ hybridization tests and immunophenotyping by flow cytometry cited in this report (if any) were determined by the Surgical Pathology Department at [facility] as part of an ongoing quality control assessor program and in compliance with federally mandated regulations drawn from the Clinical Laboratory Improvement Act of 1988 (CLIA '88). Some of these tests rely on the use of analyte specific reagents and are subject to specific labeling requirements by the US Food and Drug Administration. Such diagnostic tests may only be performed in a facility that is certified by the Department of Health and Human Services as a high complexity laboratory under CLIA '88. The FDA has determined that such clearance or approval is not necessary. This test is used for clinical purposes. It should not be regarded as investigational or for research. Nevertheless, federal rules concerning the medical use of analyte specific reagents require that the following disclaimer be attached to the report: This test was developed and its performance characteristics determined by the Surgical Pathology Department of [facility]. It has not been cleared or approved by the U. S. Food and Drug Administration. Wilson Zhang MD LAB CYTOLOGY ORDERABLES Final Result PATHOLOGY [facility] 3rd Floor [place], [place] [phone] * Botox Injection (10/06/2024 9:30 AM CDT) Greta Corcoran - 10/06/2024 9:30 AM CDT Greta Howard 10/07/2024 1:54 PM Botox Injection Performed by: David Trejo MD Authorized by: David Trejo MD [place] Protocol: Procedure Details - Botox Injection: Procedure Details: See Botox flow sheet for details on injection sites and amounts. David Trejo MD IN CLINIC/BEDSIDE ORDERAB LES Final Result * (ABNORMAL) Lucero (yeast) culture Lesion Mouth (09/29/2024 6:00 PM CDT) Report Final Report: Few Lucero albicans Rare Lucero lusitaniae Rare Lucero (Wickerhamomyc es) anomalus (.) Comment:Testing performed by : [facility], [address] [place] [address]., [id number] Organism LUCERO ALBICANS CERNER Organism LUCERO LUSITANIAE CERNER Organism LUCERO (WICKERHAMOMYC ES) ANOMALUS CERNER Lesion (Mouth) 09/29/2024 6: 00 PM CDT 09/30/2024 12:28 AM CDT Narrative CERNER CH - 10/05/2024 6:27 AM CDT Mouth Interpretation data: This culture is NOT intended for the detection of filamentous fungi, endemic mycosis, or Cryptococcus. If detected, yeast will be reported and identified. Routine susceptibility is not performed, but if required, please contact the Microbiology Laboratory at . us Sangeetha Taylor [facility] LAB MICROBIOLOGY - GENERAL ORDERABLES Final Result [facility] [address] [facility] [place] [address] * Throat culture Throat (09/29/2024 6:00 PM CDT) Report Final Report: No growth of pathogens. Comment:Testing performed by : [facility], [address] [place] [address], [place]., [address] Throat 09/29/2024 6:00 PM CDT 09/30/2024 12:28 AM CDT Narrative [facility] 09/30/2024 7:38 PM CDT Testing performed by [facility] Microbiology Laboratory ([phone]). Sangeetha Taylor NP LAB MICROBIOLOGY - GENERAL ORDERABLES Final Result Performing Organization Address City/[facility]/ZIP Co de Phone Number [facility] [address] [address] Department [place] [address] * POCT rapid strep A (09/29/2024 5:41 PM CDT) Rapid Strep A, POC Negative Negative Swab 09/29/2024 5:41 PM CDT Sangeetha Taylor NP POINT OF CARE TEST ORDERAB LES Final Result * Hepatitis C antibody (11/09/2022 11:11 AM CDT) [facility] Hep C Ab Nonreactive Nonreactive [facility] Comment:Antibodies to HCV no t detected. Does NOT exclude the possibility of recent exposure to HCV. Current interpretive data was last revised on 21 Blood 11/09/2022 11:1 1 AM CDT 11/09/2022 1:25 PM CDT Keon Muniz MD LAB MICROBIOLOGY - GENERA L ORDERABLES Final Result Performing Organization Address City/[facility]/ZIP Co de Phone Number [facility] One [facility] [place] [address] from Last 3 Months or Most Recently Relevant to Health Maintenance Insurance [place] [facility] [place] Advance Directives For more information, please contact: [phone] * Full Code (Latest Code Status on File) Date Activated Date Inactivated Comments 01/17/2023 6:27 AM 01/18/2023 4:38 AM * Full Code Date Activated Date Inactivated Comments 02/23/2021 12:15 PM 02/23/2021 7:05 PM * Full Code Date Activated Date Inactivated Comments 09/03/2019 7:27 AM 09/03/2019 1:47 PM Care Teams Bridge Tender Relationship Specialty Start Date End Date Gennaro Boone MD PCP - General 12/05/16 Cira Gamboa MD Consulting Physician Endocrinology 03/19/22 Rico Hernandez MD [address] [facility] [phone] [place] [address] It Project Lead Obstetrics and Gynecology 11/01/22 Keon Muniz MD [address] [facility] [address] [place] [address] Consulting Physician Reproductive Endocrinology and Infertility 01/24/24 [place] [address] [place] [address] It Project Lead Obstetrics and Gynecology 10/30/24
--- OUTSIDE RECORDS SUMMARY | 2024-11-11 07:35 | XMS_ITS | Encounter Summary ---
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 03/30/2020 03/30/2020 07/28/2020 3:06 AM C DT Exposure, COVID-19 Comment:Added automatically based on COVID19 lab answers indicating exposure risk 05/04/2021 05/04/2021 05/19/2021 3:[address] COVID: Suspected 05/04/2021 05/05/2021 05/06/2021 2:18 AM TRANSIT BUS OPERATOR COVID: Suspected 10/20/2023 10/20/2023 10/20/2023 11:03 AM CDT documented as of this encounter Care Teams Picker And Packer Relationship Specialty Start Date End Date Gennaro Boone MD PCP - General 12/05/16 Cira Gamboa MD Consulting Physician Endocrinology 03/19/22 Rico Hernandez MD [address] [facility] [phone] [place], [place] [id number] Box Truck Driver Obstetrics and Gynecology 11/01/22 Keon Muniz MD [address] [facility] [address] [place], [place] [id number] Consulting Physician Reproductive Endocrinology and Infertility 01/24/24 Nicky Thayer MD [address] [place] [address] Box Truck Driver Obstetrics and Gynecology 10/30/24 documented as of this encounter
--- OUTSIDE RECORDS SUMMARY | 2024-11-11 07:35 | XMS_ITS | Encounter Summary ---
Author Organization [facility] Address [address] [place] [address] Phone Care Team Providers Care County Nurse Name Role Phone Gennaro Boone MD Primary Care Provider Cira Gamboa MD Unavailable [phone] Rico Hernandez MD Unavailable Keon Muniz MD Unavailable Nicky Thayer MD Unavailable Encounter Details Date Type Department Care Team (Late st Contact Info) Description 10/26/2024 Results Follow-Up [facility] Endocrinology Metabolism and Lipid [address] [facility] [address] [place] [address] Julian Sanchez MD [address] [place] [address] Hemoglobin A1c Social History Tobacco Use Types [...] PM CDT 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 Gender Identity Female 10/15/2019 6:32 PM CDT Sexual Orientation Straight 08/26/2019 7: 34 PM CDT documented as of this encounter Plan of Treatment Not on file documented as of this encounter Visit Diagnoses Not on filedocumented in this encounter Care Teams County Nurse Relationship Specialty Start Date End Date Gennaro Boone MD PCP - General 12/05/16 Cira Gamboa MD Consulting Physician Endocrinology 03/19/22 Rico Hernandez MD [address] [facility] [phone] [place] [address] Facilities Maintenance Worker Obstetrics and Gynecology 11/01/22 Keon Muniz MD [address] [facility] [address] [place] [address] Consulting Physician Reproductive Endocrinology and Infertility 01/24/24 Nicky Thayer MD [address] [place] [address] Facilities Maintenance Worker Obstetrics and Gynecology 10/30/24 documented as of this encounter
--- OUTSIDE RECORDS SUMMARY | 2024-11-11 07:35 | XMS_ITS | Encounter Summary ---
Author Organization [facility] Address [address] [place] [address] [place] [address] Phone Care Team Providers Care Application Integration Architect Name Role Phone Gennaro Boone MD Primary Care Provider Cira Gamboa MD Unavailable Rico Hernandez MD Unavailable Keon uMniz MD Unavailable [phone] Nicky Thayer MD Unavailable Encounter Details Date Type Department Care Team (Late st Contact Info) Description 11/09/2024 Results Follow-Up [facility] Endocrinology Metabolism and Lipid [address] [facility] 13th [place] [address] [place] [address] Donald Monterroso MD [address] [place] [address] Albumin Creatinine Ratio, Urine, Lipid panel Social History Tobacco Use Types Packs/Day Years [...] PM CDT 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 Gender Identity Female 10/15/2019 6:32 PM CDT Sexual Orientation Straight 08/26/2019 7: 34 PM CDT documented as of this encounter Plan of Treatment Not on file documented as of this encounter Visit Diagnoses Not on filedocumented in this encounter Care Teams Application Integration Architect Relationship Specialty Start Date End Date Gennaro Boone MD PCP - General 12/05/16 Cira Gamboa MD Consulting Physician Endocrinology 03/19/22 Rico Hernandez MD [address] [facility] [phone] [place] [address] In Shop Service Technician Obstetrics and Gynecology 11/01/22 Keon Muniz MD [address] [facility] [address] [place], [place] [phone] Consulting Physician Reproductive Endocrinology and Infertility 01/24/24 Nicky Thayer MD [address] [place] [address] In Shop Service Technician Obstetrics and Gynecology 10/30/24 documented as of this encounter
--- OUTSIDE RECORDS SUMMARY | 2024-11-11 07:35 | XMS_ITS | Encounter Summary ---
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 Gender Identity Female 10/15/2019 6:32 PM CDT [...] documented as of this encounter Care Teams Education Dean Relationship Specialty Start Date End Date Gennaro Boone MD PCP - General 12/05/16 Cira Gamboa MD Consulting Physician Endocrinology 03/19/22 Rico Hernandez MD [address] [facility] [phone] [place] [address] Bulk Truck Driver Obstetrics and Gynecology 11/01/22 Keon Muniz MD [address] [facility] [address] [place] [address] Consulting Physician Reproductive Endocrinology and Infertility 01/24/24 Nicky Thayer MD [address] [place] [address] Bulk Truck Driver Obstetrics and Gynecology 10/30/24 documented as of this encounter
--- OUTSIDE RECORDS SUMMARY | 2024-11-11 07:36 | XMS_ITS | Encounter Summary ---
Author Organization [facility] Healthcare Address [address] [place] [address] Care Team Providers Care Fine Sander Name Role Phone Gennaro Boone MD Primary Care Provider [phone] Cira Gamboa MD Unavailable Rico Hernandez MD Unavailable Keon Muniz MD Unavailable Nicky Thayer MD Unavailable Encounter Details Date Type Department Care Team (Late st Contact Info) Description 09/30/2024 Results Follow-Up [facility] at [address] [address] Kimberly Charlton PA [address] [place] [address] [address] [place] [address] Throat culture Throat, Lucero (yeast) [...] PM CDT 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 Gender Identity Female 10/15/2019 6:32 PM CDT Sexual Orientation Straight 08/26/2019 7: 34 PM CDT documented as of this encounter Plan of Treatment Not on file documented as of this encounter Visit Diagnoses Not on filedocumented in this encounter Care Teams Fine Sander Relationship Specialty Start Date End Date Gennaro Boone MD PCP - General 12/05/16 Cira Gamboa MD Consulting Physician Endocrinology 03/19/22 Rico Hernandez MD [address] [facility] [phone] [place] [address] Data Processing Clerk Obstetrics and Gynecology 11/01/22 Keon Muniz MD [address] [facility] [address] [place] [address] Consulting Physician Reproductive Endocrinology and Infertility 01/24/24 Nicky Thayer MD [address] [place] [address] Data Processing Clerk Obstetrics and Gynecology 10/30/24 documented as of this encounter
--- OUTSIDE RECORDS SUMMARY | 2024-11-11 07:36 | XMS_ITS | Clinical Summary ---
Author Organization [facility] Address [address] [place] [address] Care Team Providers Care Barge Pilot Name Role Phone Gennaro Boone MD Primary Care Provider [phone] Cira Gamboa MD Unavailable Rico Hernandez MD Unavailable Keon Muniz MD Unavailable Nciky Thayer MD Unavailable Allergies Active Allergy Reactions Criticality Noted Date Comments Nuts Other (See comments) Low 11/01/2022 Mouth sores Eure Other (See comments) Low 11/01/2022 Mouth sores Penicillins Unknown 06/06/2017 Reaction as a child Pineapple Other (See comments) Low 11/01/2022 Mouth sores [place] Other (See comments) Low 11/01/2022 Mouth sores [...] Active pen needle, diabetic 32 gauge x needleIndications: Prediabetes,Class 2 obesity due to excess [...] (three) times a day 90 capsule 11 06/09/19 25 026 Active ZOLMitriptan (ZOMIG) 5 mg nasal solutionIndication s:Migraine Administer 1 spray into one nostril as needed for migraine May repeat one time after 2 hours if needed. No more than 2 doses in 24 hours. 18 each 3 06/23/19 Active SITagliptin phosphate (JANUVIA) 100 mg tabletIndications: type 2 diabetes mellitus Take 1 tablet (100 mg total) by mouth daily 30 tablet 06/24/19 Active metFORMIN XR (GLUCOPHAGE XR) 500 mg 24 hr tabletIndications: Type 2 diabetes mellitus without complication, without long-term current use of insulin (HCC) Take 1 tablet (500 mg total) by mouth 2 (two) times a day Start at 1 tablet daily; after 1-2 weeks, if tolerating well, increase dose to 500 mg twice daily. 60 tablet 06/24/19 Active ezetimibe (ZETIA) 10 mg tabletIndications: Hypercholesterolem ia Take 1 tablet (10 mg total) by mouth daily 30 tablet 06/24/19 Active atorvastatin (LIPITOR) 40 mg tabletIndications: Pure [...] mg total) by mouth daily 05/15/19 25 Discontin ued(Alter gaurav therapy) Active Problems Patient [...] Returned/Scanned into chart: [] Schedule Mailed/sent via Addictive: [] IVF Injectable Meds Ordered - Pharm [...] 06/09/2024 Assessment & Plan (06/09/2024 2:06 PM [employer]): The patient has a longstanding history of [...] (09/01/2019): Added automatically from request for surgery [id number] PCOS (polycystic ovarian syndrome) 06/23/2019 Overview (06/23/2019): Added automatically from request for surgery [id number] Class 2 obesity 05/28/2019 Assessment & Plan (12/02/2019 6:56 PM CDT): Class 2 obesity with BMI 36 kg/m2 with related comorbidities: hyperlipidemia, pre-diabetes, depression, PCOS complicates the management of pre-diabetes by increasing insulin resistance and glucose intolerance Plan: 1) Resume care under referral to Weight Management Program (Dr. Pita Arias, ) 2) Consider re-starting Ozempic Assessment & Plan (05/28/2019 10:49 AM [employer]): Despite lifestyle modifications, she is frustrated regarding [...] profile. Assessment & Plan (05/28/2019 10:43 AM [employer]IT[employer]): Given family history, LDL > 190, this [...] stones. Assessment & Plan (05/28/2019 10:44 AM [employer]IT[employer]): Calcium and PTH normal previously. Recommend 24 [...] w/r/t gut microbiome. Referred to ADA and [place] [facility] websites for additional information on topics including glycemic index/carbohydrate choices, protein sources. Consider metformin. Avoid GLP-1 w/ h/o delayed gastric emptying. Assessment & Plan (05/28/2019 10:47 AM [employer]IT[employer]): She is following a low carb, low [...] (03/08/2022): Added automatically from request for surgery [id number] Class 1 obesity due to exces s [...] (09/01/2019): Added automatically from request for surgery [id number] RLQ abdominal pain 06/23/2019 Overview (06/23/2019): Added automatically from request for surgery [id number] Secondary oligomenorrhea 06/23/2019 Overview (06/23/2019): Added automatically from request for surgery [id number] Iron deficiency 04/19/2017 10/31/2017 Blood in stool [...] Department Care Team Description 11/09/2024 Results Follow-Up [facility] Endocrinology Metabolism and Lipid [address] [facility] [address]th [place] [address] [place] [address] Donald Monterroso MD Albumin Creatinine Ratio, Urine, Lipid panel 11/04/2024 9:00 AM CDT Lab [facility] Endocrinology Metabolism and Lipid [address] [facility] Medicine 5th [place] [address] [place] [address] Type 2 diabetes mellitus without complication, without long-term current use of insulin (HCC); Hypercholesterolem ia 11/04/2024 8:00 AM CDT Office Visit [facility] Endocrinology Metabolism and Lipid [address] [facility] 5th [place] [address] [place] [address] Cira Gamboa MD Type 2 diabetes mellitus without complication, without long-term current use of insulin (HCC) (Primary Dx); Vitamin D deficiency; Hypercholesterolem ia; Transaminitis; Class 2 severe obesity with serious comorbidity and body mass index (BMI) of 37.0 to 37.9 in adult, unspecified obesity type (HCC); Early menopause; Chronic daily headache 10/29/2024 Results Follow-Up [facility] Obstetrics and Gynecology [address] [facility] Medicine 13th [place] [address] [place] [address] Wilson Zhang MD Vaginal High Risk HPV DNA Detection with Genotyping (Molecular component) 10/28/2024 9:15 AM CDT Office Visit [facility] V[facility] at [address] [place] [phone] Dorothy Epperson NP Bilateral carotid artery stenosis (Primary Dx); Type 2 diabetes mellitus without complication, without long-term current use of insulin (HCC); Hypercholesterolem ia 10/28/2024 Orders Only [facility] Vascular at [address] [place] [phone] Ciaran Espinoza MD Carotid stenosis, right (Primary Dx) 10/26/2024 Results Follow-Up [facility] Endocrinology Metabolism and Lipid [address] [facility] [address] [place] [phone] Julian Sanchez MD Hemoglobin A1c 10/23/2024 Documentation [facility] Vascular Surgery [address] [place] [address] Medical Office Building 3 [address] [place] [phone] Kay Laguna RN New Referral 10/22/2024 4:47 PM CDT - 10/22/2024 11:59 PM CDT Hospital Encounter [facility] [address] [place], [place] [id number] Cancer of endocervical canal (HCC) Discharge Disposition: Discharge to home or self care 10/22/2024 4:00 PM CDT Office Visit [facility] Obstetrics and Gynecology [address] [facility] 13th [place] [address] [place] [phone] Wilson Zhang MD Cancer of endocervical canal (HCC) 10/20/2024 Orders Only [facility] [facility] [place] [phone] David Trejo MD Bilateral carotid artery stenosis (Primary Dx) 10/06/2024 9:30 AM CDT Procedure visit [facility] [facility] [address] [place] [phone] David Trejo MD Intractable chronic migraine without aura and without status migrainosus (Primary Dx) 09/30/2024 Results Follow-Up [facility] at [address] [phone] Kimberly Charlton PA Throat culture Throat, Lucero (yeast) culture Lesion Mouth 09/29/2024 6:00 PM CDT - 09/29/2024 11:59 PM CDT Hospital Encounter [address] [address] Sore throat; Thrush Discharge Disposition: Discharge to home or self care 09/29/2024 5:30 PM CDT Office Visit [facility] at [address] [phone] Sangeetha Taylor NP Sore throat (Primary Dx); Herpangina; Thrush 09/16/2024 Orders Only [facility] Endocrinology Metabolism and Lipid [address] [facility] Medicine 5th [place] [address] [place] [phone] Hao Bellamy, RN Type 2 diabetes mellitus without complication, without long-term current use of insulin ([facility]) (Primary Dx); Vitamin D deficiency [...] The Cervix - (Added by TW Conv) IA LAPS ABD PRTM&OMENTUM DX W/WO SPEC BR/WA SPX 04/29/2019 - 04/28/2020 Laparoscopy (Diagnostic) - (Added by TW Conv) ANKLE SURGERY 04/29/2002 - 04/28/2003 Right Ankle Surgery - (Added by TW Conv) CHOLECYSTECTOMY 04/29/2015 - 04/28/2016 CERVICAL BIOPSY W/ LOOP ELECTRODE EXCISION 3 between [id number] ANKLE SURGERY 04/29/2011 - 04/28/2012 IMAGE GUIDED [...] 06/23/2019 Added automatically from request for surgery [id number] Dyspareunia in female Peptic ulceration Stomach Ulcers [...] PM CDT Legal Sex Female 8:16 PM [employer] Gender Identity Female 10/15/2019 6:32 PM CDT [...] 11/04/2024 7:49 AM CDT Plan of Treatment Health Maintenance Due [...] - 2023-2 5 season) 2023 10/14/2020, 09/23/2020 Influenza Vaccine (#1) 2024 , 02/01/2023, 01/26/2020, Additional history exists Hemoglobin A1C 04/25/2025 10/24/2024, 05/31, 02/15/2024, Additional history exists eGFR 10/24/2025 10/24/2024, 2 09/2024, 02/27/2024, Additional history exists Albumin Creatinine Ratio, Urine 11/04/2025 , 11/06/2023 Foot Exam 11/04/2025 11/04/2024, 2 09/2024, 04/02/2024, Additional history exists Lipid Panel 11/04/2025 11/04/2024, 05/31, 02/15/2024, Additional history exists HPV Vaccines Completed 07/30/2022, 1208/2021, 02/01/2022 Hepatitis C Screening Completed 11/09/2022, 017 Cervical Cancer Screening Discontinued 2024, 11/07/2023, 11/07/2023, Additional history exists Procedures Procedure Name Priority [...] use of insulin (HCC) Vitamin D deficiency VITAMIN D 25 HYDROXY [...] 8:45 AM CDT 11/04/2024 9:53 AM CDT Donald Monterroso MD LAB URINE O RDERABLES Final Result [facility] * (ABNORMAL) [...] AM CDT 11/04/2024 9:53 AM CDT Narrative [facility] - 11/04/2024 12:49 PM CDT [...] MD LAB BLOOD O RDERABLES Final Result [facility] * Homocysteine (10/24/2024 9:13 AM CDT) Homocysteine 14.4 0.0 - 14.5 umol/L [facility] - 01 Blood 10/24/2024 9:13 AM CDT 10/24/2024 Narrative [facility] - 10/25/2024 7:08 AM CDT Performed at: [address] [id number] Health Safety Coordinator: Benny Gamboa PhD, Phone: [phone] us David Trejo MD LAB BLOOD ORDERABLES [place] l Result Performing Organization Address City/[facility]/ZIP Co de Phone Number LABCO [facility] - 01 * Vitamin D 25 hydroxy (10/24/2024 9:12 AM CDT) Vitamin D, 25-Hydroxy 34.0 30.0 - 100.0 ng/mL [facility] - 01 Comment: Vitamin D deficiency has been defined by the [place] of Medicine and an Endocrine Society practice guideline as a level of serum 25-OH vitamin D less than 20 ng/mL (1,2). The Endocrine Society went on to further define vitamin D insufficiency as a level between 21 and 29 ng/mL (2). 1. IOM ([place] of Medicine). 2010. Dietary reference intakes for calcium and D. [place]: The National Academies Press. 2. Alonzo MF, Nayeli NC, [place] ALEXANDER, et al. Evaluation, treatment, and prevention of vitamin D deficiency: an Endocrine Society clinical practice guideline. JCEM. 2010; 96(7):1911-30. Blood 10/24/2024 9:12 AM CDT 10/24/2024 Narrative [facility] - 10/25/2024 9:09 AM CDT Performed at: [address] [place] [id number] Health Safety Coordinator: Benny Gamboa PhD, Phone: [phone] Cira Gamboa MD LAB BLOOD ORDERABLES Fin al Result Performing Organization Address [facility] de Phone Number [facility] * (ABNORMAL) Hemoglobin A1c (10/24/2024 9:12 AM CDT) Pathologist [facility] Hgb A1C 6.6(H) 4.8 - 5.6 % [facility] - 01 Comment: Prediabetes: 5.7 - 6.4 Diabetes: >6.4 Glycemic control for adults with diabetes: <7.0 Blood 10/24/2024 9:12 AM CDT 10/24/2024 Narrative [facility] - 10/25/2024 7:08 AM CDT Performed at: [address] [place] [id number] Health Safety Coordinator: Benny Gamboa PhD, Phone: [phone] Cira Gamboa MD LAB BLOOD ORDERABLES Fin al Result Performing Organization Address [facility] de Phone Number [facility] * (ABNORMAL) Comprehensive metabolic panel (10/24/2024 9:12 [...] - 10/25/2024 7:08 AM CDT Performed at: [address] [place] [id number] Health Safety Coordinator: Benny Gamboa PhD, Phone: [phone] Cira Gamboa MD LAB BLOOD ORDERABLES [facility] al Result [facility] - * Vaginal High Risk HPV DNA Detection with Genotyping (Molecular component) (10/22/2024 4:47 PM CDT) Pathologist [facility] HPV HR non 16/18 vaginal Negative Negative Comment: The following Other High Risk HPV types were not detected: 31, 33, 35, 39, 45, 51, 52, 56, 58, 59, 66, and 68. ADDITIONAL INFORMATION Testing was performed using the che HPV assay ([employer] This report is intended for use in clinical monitoring and management of patients. It is not intended for use in medical-legal applications. This test has been modified from the talent management specialist's instructions. Its performance characteristics were determined by [facility] in a manner consistent with CLIA requirements. This test has not been cleared or approved by the U.S. Food and Drug Administration. Test Performed by: [address] [address] Health Safety Coordinator: Lissy Thompson Ph.D.; IA# [id number] HPV HR 16 vaginal Negative Negative [facility] HPV HR 18 vaginal Negative Negative [facility] Vaginal 10/22/2024 4:47 PM CDT 10/26/2024 4:14 PM CDT [address]ative [facility] - 10/27/2024 7:01 PM CDT Clinical history and diagnosis->history of AIS, Stage IA endocervical cancer s/p hyst Number of vials->1 Testing type->Screening Last menstrual period (date if known)->post hyst Menstrual status->Post hysterectomy, total us Wilson Zhang MD LAB BODY FLUIDS AND STOO LS ORDERABLES Final Result [facility] Department [place] [address] * Pap and High Risk HPV and Genotyping (Cytology Component) (10/22/2024 4:47 PM CDT) Thin prep (Pap test) 10/22/2024 4:47 PM CDT 10/22/2024 6:09 PM [address] [facility] - 11/08/2024 12:12 PM CDT EPIC results best viewed via link to PDF [facility] [place] [address] Note to Patients: This report may contain [...] Gender: F : 1985 (Age: 39) [address] [facility] [place] [address] [facility] #: [id number] Service: UNKNOWN Location: Patient Type: [facility] SPECIMEN Taken: 10/22/2024 Received: 10/22/2024 Accessioned: 10/23/2024 [...] was performed using the che HPV assay ([employer] This test has been modified from the talent management specialist's instructions. Its performance characteristics were determined by [facility] in a manner consistent with CLIA requirements. This test has not been cleared or approved by the U.S. Food and Drug Administration. Test Performed by: [place] [address] Health Safety Coordinator: Brendan Dean M.D. Ph.D.; CLIA# [id number] This specimen has been rescreened in accordance with this laboratory's Unemployment Benefits Claims Taker Program. gp11/05/2024 08:23 By this signature, I attest that [...] clinical information and biopsy results as indicated. [facility] Clinical Laboratory Improvement Amendments (CLIA) mandate that cytologic and histologic results be correlated for laboratory quality improvement analyst & improvement standards. FOR ALL HIGH-GRADE CASES [...] determined by the Surgical Pathology Department at [facility] as part of an ongoing quality rn program and in compliance with federally mandated [...] determined by the Surgical Pathology Department of [facility]. It has not been cleared or approved by the U. S. Food and Drug Administration. us Wilson Zhang MD LAB CYTOLOGY ORDERABLES Final Result PATHOLOGY [facility] 3rd Floor [place], [place] [phone] * Botox Injection (10/06/2024 9:30 AM CDT) Greta Corcoran - 10/06/2024 9:30 AM CDT Greta Howard 10/07/2024 1:54 PM Botox Injection Performed by: David Trejo MD Authorized by: David Trejo MD Vaughn Protocol: Procedure Details - Botox Injection: Procedure Details: See Botox flow sheet for details on injection sites and amounts. us David Trejo MD IN CLINIC/BEDSIDE ORDERAB LES Final Result * (ABNORMAL) Lucero (yeast) culture Lesion Mouth (09/29/2024 6:00 PM CDT) Report Final Report: Few Lucero albicans Rare Lucero lusitaniae Rare Lucero (Wickerhamomyc es) anomalus (.) Comment:Testing performed by : [facility], [address] [place] [address]., [id number] Organism LUCERO ALBICANS [facility] Organism LUCERO [...] Microbiology Laboratory at . us Sangeetha Taylor NP LAB MICROBIOLOGY - GENERAL ORDERABLES Final Result [facility] [address] Department [place] [address] * Throat culture Throat (09/29/2024 6:00 PM CDT) Report Final Report: No growth of pathogens. Comment:Testing performed by : [facility], [address] [place] [address], [place]., [address] Throat 09/29/2024 6:00 PM CDT 09/30/2024 12:28 AM CDT Narrative [facility] - 09/30/2024 7:38 PM CDT Testing performed by [facility] Microbiology Laboratory ([phone]). Sangeetha Taylor NP LAB MICROBIOLOGY - GENERAL ORDERABLES Final Result [facility] [address] Department [place] [address] * POCT rapid strep A (09/29/2024 5:41 PM CDT) Rapid Strep A, POC Negative Negative Swab 09/29/2024 5:41 PM CDT Sangeetha Taylor NP POINT OF CARE TEST ORDERAB LES Final Result * Hepatitis C antibody (11/09/2022 11:11 AM CDT) Pathologist [facility] Hep C Ab Nonreactive Nonreactive [facility] Comment:Antibodies to HCV no t detected. Does NOT exclude the possibility of recent exposure to HCV. Current interpretive data was last revised on 21 Blood 11/09/2022 11:1 1 AM CDT 11/09/2022 1:25 PM CDT Keon Muniz MD LAB MICROBIOLOGY - GENERA L ORDERABLES Final Result Performing Organization Address City/[facility]/ZIP Co de Phone Number [facility] Department [place] [address] from Last 3 Months or Most Recently Relevant to Health Maintenance Insurance [place] [employer] [place] Advance Directives For more information, please contact: [phone] * Full Code (Latest Code Status on File) Date Activated Date Inactivated Comments 01/17/2023 6:27 AM 01/18/2023 4:38 AM * Full Code Date Activated Date Inactivated Comments 02/23/2021 12:15 PM 02/23/2021 7:05 PM * Full Code Date Activated Date Inactivated Comments 09/03/2019 7:27 AM 09/03/2019 1:47 PM Care Teams Barge Pilot Relationship Specialty Start Date End Date Gennaro Boone MD PCP - General 12/05/16 Cira Gamboa MD Consulting Physician Endocrinology 03/19/22 Rico Hernandez MD [address] [facility] [phone] [place] [address] Rn Wound Obstetrics and Gynecology 11/01/22 Keon Muniz MD [address] [facility] [address] [place] [address] Consulting Physician Reproductive Endocrinology and Infertility 01/24/24 Nicky Thayer MD [address] [place] [address] Rn Wound Obstetrics and Gynecology 10/30/24
--- NOTE | 2024-11-11 07:42 | ECHO_ITS ---
Patient Info Name: Elin Guillory Age: 39 years : 1985 Gender: Female Ht: 62 in Wt: 205 lbs BSA: 2.06 m2 HR: 76 bpm BP: 118 / 91 mmHg Heart Rhythm: Sinus Rhythm Technical Quality: Good Exam Date: 11/11/2024 7:47 AM Patient Status: O Admit Date: 11/11/2024 Exam Type: CA echo doppler color flow Complete two-dimensional, color flow and Doppler transthoracic echocardiogram is performed. Airline Radio Operator: Mahnaz Ceja Attending Provider: Yael Oconnor Summary 1. Complete two-dimensional, color flow and Doppler transthoracic echocardiogram is performed. 2. Left ventricular chamber dimension is normal. 3. Left ventricular systolic function is normal, estimated at 60-65. 4. The left ventricular diastolic function is grade II diastolic dysfunction. 5. E/e' 8 is minimally elevated. 6. No pulmonary hypertension, estimated pulmonary arterial systolic pressure is 26 mmHg. Left Ventricle E/e' 8 is minimally elevated. Left ventricular chamber dimension is normal. Left ventricular systolic function is normal, estimated at 60-65. The left ventricular diastolic function is grade II diastolic dysfunction. Right Ventricle Right ventricular chamber dimension is normal. Right ventricular systolic function is normal and with normal TAPSE 2.0 cm. Left Atria Left atrial chamber dimension is normal. Right Atria Right atrial chamber dimension is normal. Aortic Valve The aortic valve is trileaflet. There is no aortic valve stenosis. There is no aortic valve regurgitation. Pulmonic Valve There is no pulmonic regurgitation. Mitral Valve There is no mitral valve stenosis. There is no mitral valve regurgitation. Tricuspid Valve There is no tricuspid valve regurgitation. No pulmonary hypertension, estimated pulmonary arterial systolic pressure is 26 mmHg. Pericardium/Pleural There is no pericardial effusion. Inferior Vena Cava Normal inferior vena cava with >50% collapse upon inspiration consistent with normal right atrial pressure, 5 mmHg. Aorta The aortic root size at the sinus of Valsalva is normal. Left Ventricular Outflow Tract Name Value Normal LVOT 2D LVOT Diameter 2.0 cm LVOT Doppler LVOT Peak Velocity 88 cm/s LVOT Peak Gradient 3 mmHg LVOT Mean Gradient 2 mmHg LVOT VTI 14 cm LVOT VTI/AV VTI Ratio 0.6 LVOT Stroke Volume 43 ml LVOT CO 3.4 l/min LVOT CI 1.6 l/min/m2 Pulmonic Valve Name Value Normal RVOT Doppler RVOT Peak Velocity 73 cm/s RVOT Peak Gradient 2 mmHg PV Doppler PV Peak Velocity 92 cm/s PV Peak Gradient 3 mmHg Mitral Valve Name Value Normal MV Diastolic Function MV E Peak Velocity 71 cm/s MV A Peak Velocity 62 cm/s MV E/A 1.1 MV Decel Time (PW) 127 ms MV Annular TDI MV E/e' (Septal) 9.7 MV E/e' (Lateral) 6.9 MV E/e' (Average) 8.3 Tricuspid Valve Name Value Normal TV Regurgitation Doppler TR Peak Velocity 227 cm/s TR Peak Gradient 19 mmHg Estimated PAP/RSVP RA Pressure 5 mmHg <=5 PA Systolic Pressure 26 mmHg <36 RV Systolic Pressure 26 mmHg <36 TV Annular TDI TV Lateral Margaret s' Velocity 11.0 cm/s >=9.5 Aortic Valve Name Value Normal AV Doppler AV Peak Velocity 137 cm/s AV Peak Gradient 8 mmHg AV Mean Gradient 4 mmHg AV VTI 24 cm AV Area (Cont Eq VTI) 1.8 cm2 >=3.0 AV Area (Cont Eq Jordan) 2.0 cm2 AV DI (Jordan) 0.64 AV Regurgitation 2D LVOT Area 3.1 cm2 Ventricles Name Value Normal LV Dimensions 2D/MM IVS Diastolic Thickness (2D) 1.0 cm 0.6-1.0 LVID Diastole (2D) 4.5 cm 3.8-5.2 LVIW Diastolic Thickness (2D) 0.9 cm 0.6-0.9 LVID Systole (2D) 3.1 cm 2.2-3.5 LVOT Diameter 2.0 cm LV Mass (2D Cubed) 149.62 g 67.00-162.00 LV Mass Index (2D Cubed) 73 g/m2 43-95 Relative Wall Thickness (2D) 0.40 <=0.42 LV Fractional Shortening/Ejection Fraction 2D/MM LV Fractional Shortening (2D) 32 % 27-45 LV EF (2D Teichholz) 60 % LV Diastolic Volume (4C MOD) 59 ml LV EF (4C MOD) 57 % LV Diastolic Volume (2C MOD) 50 ml LV EF (2C MOD) 56 % LV Diastolic Volume (BP MOD) 55 ml 46-106 LV Diastolic Volume Index (BP MOD) 27 ml/m2 29-61 LV Systolic Volume (BP MOD) 24 ml 14-42 LV Systolic Volume Index (BP MOD) 12 ml/m2 8-24 LV EF (BP MOD) 57 % 54-74 LV Diastolic Length (4C) 7.4 cm LV Systolic Length (4C) 6.5 cm LV Stroke Volume (4C MOD) 34 ml Atria Name Value Normal LA Dimensions LA Volume (4C A-L) 22 ml LA Volume (BP A-L) 24 ml RA Dimensions RA Area (4C) 9.6 cm2 <=18.0 Report Signatures
== END 2024-11-11 07:33 | disposition home or self-care (01) ==
LOC: ANHCARD 07:33
PROVIDERS: PCP Family Medicine; Visit Provider Nurse Practitioner Family
DX: I50.32 Chronic diastolic (congestive) heart failure (principal); R55 Syncope and collapse; G43.901 Migraine, unspecified, not intractable, with status migrainosus
CPT/HCPCS: 93306

== ENCOUNTER 2024-11-30 16:30 | Outpatient (CLI) | payer BC, SELFPAY ==
--- NOTE | ~2024-11-30 | XR_ITS ---
Cervical Spine: AP, lateral, open-mouth views Clinical History: Pain Findings: The normal lordotic curve is maintained. The vertebral bodies and posterior elements appea r intact. The intervertebral disc spaces are well maintained. Pre-vertebral soft tissues are unremar kable. Impression: No significant abnormality is seen. Reviewed, dictated and finalized at [facility]. Impression: No significant abnormality is seen.
== END 2024-11-30 16:31 | disposition home or self-care (01) ==
LOC: MICIMG 16:31
PROVIDERS: PCP Family Medicine; Visit Provider Nurse Practitioner Adult Health
DX: M54.2 Cervicalgia (principal); M79.2 Neuralgia and neuritis, unspecified
CPT/HCPCS: 72040

== ENCOUNTER 2025-01-01 09:37 | Outpatient (CLI) | payer BC, SELFPAY ==
--- NOTE | ~2025-01-01 | XR_ITS ---
EXAMINATION: XR abdomen/kub 1V DATE: 01/01/2025 09:51 INDICATION: History of bilateral stones TECHNIQUE: 2 images of the abdomen were obtained. COMPARISON: None. FINDINGS: Lung bases are clear. Cholecystectomy clips are present. 3 mm calcification projects over the left hemipelvis. Moderate amount of stool and air in nondilated large bowel. Small amount of air in nondilated small bowel. There is a 2.5 x 0.9 cm hyperdense indeterminate structure projecting over the medial aspect of the left upper abdomen possibly in the stomach. IMPRESSION: 1. Nonspecific abdomen with a moderate amount of stool. 2. There is a 2.5 x 0.9 cm hyperdense indeterminate structure projecting over the medial aspect of the left upper abdomen possibly in the stomach. Correlate clinically. If of concern, consider a CT of the abdomen and pelvis for further assessment Reviewed, dictated and finalized at location Q. IMPRESSION: 1. Nonspecific abdomen with a moderate amount of stool. 2. There is a 2.5 x 0.9 cm hyperdense indeterminate structure projecting over t he medial aspect of the left upper abdomen possibly in the stomach. Correlate c linically. If of concern, consider a CT of the abdomen and pelvis for further a ssessment
--- OUTSIDE RECORDS SUMMARY | 2025-01-01 09:46 | XMS_ITS | Clinical Summary ---
Author Organization [facility] Address [address] [place] [address] Care Team Providers Care Evaluation Specialist Name Role Phone Gennaro Boone MD Primary Care Provider [phone] Cira Gamboa MD Unavailable Rico Hernandez MD Unavailable Keon Muniz MD Unavailable Nicky Thayer MD Unavailable Kimmy Albert MD Unavailable Allergies Active Allergy Reactions Criticality Noted Date Comments Nuts Other (See comments) Low 11/01/2022 Mouth sores [place] Other (See comments) Low 11/01/2022 Mouth sores Penicillins Unknown 06/06/2017 Reaction as a child Pineapple Other (See comments) Low 11/01/2022 Mouth sores [place] Other (See comments) Low 11/01/2022 Mouth sores [...] (two) times a day 03/07/20 24 Active tiZANidine (ZANAFLEX) 4 mg tablet Take 1 tablet (4 mg total) by mouth 04/03/20 24 Active polymyxin B-trimethoprim (POLYTRIM) ophthalmic solutionIndication s:Acute conjunctivitis of right eye, unspecified acute conjunctivitis type Administer 1 drop into the right eye every 4 (four) hours 10 mL 05/07/19 25 Active Additional Information Patient not taking.Reported on 12/27/2024 cromolyn (GASTROCROM) 100 mg/5 mL solution Take [...] 2 doses in 24 hours. 18 each 06/23/19 Active SITagliptin phosphate (JANUVIA) 100 mg [...] by mouth daily 30 tablet 06/24/19 Active ketorolac (TORADOL) 10 mg tabletIndications: Intractable [...] needed for muscle spasms 10/27/19 25 Active atorvastatin (LIPITOR) 80 mg tabletIndications: Pure hypercholesterolem ia,Class 2 obesity due to excess calories without serious comorbidity with body mass index (BMI) of 38.0 to 38.9 in adult Take 1 tablet (80 mg total) by mouth nightly 90 tablet 11/13/19 Active Veozah tablet tablet TAKE 1 TABLET(45 MG) BY MOUTH DAILY 90 tablet 1 12/01/19 25 Active Additional Information Patient not taking.Reported on 12/27/2024 metroNIDAZOLE (FLAGYL) 500 mg tabletIndications: BV (bacterial vaginosis) Take 1 tablet (500 mg total) by mouth 2 (two) times a day for 7 days 14 tablet 12/01/19 25 025 nystatin 100,000 unit/mL suspensionIndicati ons:Thrush Take 5 mL (500,000 Units total) by mouth 4 (four) times a day for 14 days Swish in mouth and swallow. 280 mL 12/13/19 25 025 Active Problems Patient Care Coordination No te [...] Returned/Scanned into chart: [] Schedule Mailed/sent via [employer]: [] IVF Injectable Meds Ordered - Pharm [...] 06/09/2024 Assessment & Plan (06/09/2024 2:06 PM IMMERSION METALCLEANER): The patient has a longstanding history of [...] (09/01/2019): Added automatically from request for surgery [id number] PCOS (polycystic ovarian syndrome) 06/23/2019 Overview (06/23/2019): Added automatically from request for surgery [id number] Class 2 obesity 05/28/2019 Assessment & Plan (12/02/2019 6:56 PM CDT): Class 2 obesity with BMI 36 kg/m2 with related comorbidities: hyperlipidemia, pre-diabetes, depression, PCOS complicates the management of pre-diabetes by increasing insulin resistance and glucose intolerance Plan: 1) Resume care under referral to Weight Management Program (Dr. Pita Arias, ) 2) Consider re-starting Ozempic Assessment & Plan (05/28/2019 10:49 AM IMMERSION METALCLEANER): Despite lifestyle modifications, she is frustrated regarding [...] profile. Assessment & Plan (05/28/2019 10:43 AM IMMERSION METALCLEANER): Given family history, LDL > 190, this [...] stones. Assessment & Plan (05/28/2019 10:44 AM IMMERSION METALCLEANER): Calcium and PTH normal previously. Recommend 24 [...] PM CDT): Impression: Chronic. Plan: Continue metformin, Sedrickuvia Assessment & Plan (12/03/2019 5:51 PM CDT): [...] w/r/t gut microbiome. Referred to ADA and Twitch websites for additional information on topics including glycemic index/carbohydrate choices, protein sources. Consider metformin. Avoid GLP-1 w/ h/o delayed gastric emptying. Assessment & Plan (05/28/2019 10:47 AM IMMERSION METALCLEANER): She is following a low carb, low [...] (03/08/2022): Added automatically from request for surgery [id number] Class 1 obesity due to exces s [...] (09/01/2019): Added automatically from request for surgery [id number] RLQ abdominal pain 06/23/2019 4 Overview (06/23/2019): Added automatically from request for surgery [id number] Secondary oligomenorrhea 06/23/2019 Overview (06/23/2019): Added automatically from request for surgery [id number] Iron deficiency 04/19/2017 10/31/2017 Blood in stool [...] Encounters Date Type Department Care Team Description 12/27/2024 6:00 PM CDT Office Visit [facility] at [address] [phone] Rosey Patel NP Burning with urination (Primary Dx); Acute bilateral low back pain without sciatica 12/12/2024 5:30 PM CDT Office Visit [facility] at [address] [address] Sangeetha Taylor NP Thrush (Primary Dx) 12/12/2024 9:25 AM CDT E-Visit [facility] [address] [address] Kimmy Newton, VICKIE E-Visit for Cough 12/12/2024 Patient Self-Triage [facility] [address] [place] [address] Mychart, Generic Provider 12/12/2024 Patient Self-Triage [facility] [address] [place] [phone] Mychart, Generic Provider 12/07/2024 Telephone [facility] Obstetrics and Gynecology [address] [facility] 13th [place] [address] [place] [address] Sheyla Dowd, SHEA 11/30/[address] [facility] Medicine Obstetrics and Gynecology [address] [facility] 13th [place] [address] [place] [address] Sheyla Dowd, SHEA Antibiotic-induced yeast infection (Primary Dx) 11/30/[address] [facility] Medicine Obstetrics and Gynecology [address] [facility] [address]th [place] [address] [place] [address] Sheyla Dowd, SHEA BV (bacterial vaginosis) (Primary Dx) 11/30/2024 Telephone [place] [id number] [facility] 1st [place] [address] Ella Marte, seam rubbing machine operator 11/09/2024 Results Follow-Up [facility] Medicine Endocrinology Metabolism and Lipid [address] [facility] 13th [place] [address] [place] [address] Donald Monterroso MD Albumin Creatinine Ratio, Urine, Lipid panel 11/04/2024 9:00 AM CDT Lab [facility] Medicine Endocrinology Metabolism and Lipid [address] [facility] 5th [place] [address] [place] [phone] Type 2 diabetes mellitus without complication, without long-term current use of insulin (HCC); Hypercholesterolem ia 11/04/2024 8:00 AM CDT Office Visit [facility] Endocrinology Metabolism and Lipid [address] [facility] 5th [place] [address] [place] [phone] Cira Gamboa MD Type 2 diabetes mellitus without complication, without long-term current use of insulin (HCC) (Primary Dx); Vitamin D deficiency; Hypercholesterolem ia; Transaminitis; Class 2 severe obesity with serious comorbidity and body mass index (BMI) of 37.0 to 37.9 in adult, unspecified obesity type (HCC); Early menopause; Chronic daily headache 10/29/2024 Results Follow-Up [facility] Obstetrics and Gynecology [address] [facility] 13th [place] [address] [place] [phone] Wilson Zhang MD Vaginal High Risk HPV DNA Detection with Genotyping (Molecular component), Pap and High Risk HPV and Genotyping (Cytology Component) 10/28/2024 9:15 AM CDT Office Visit [facility] Vascular at [address] [place] [address] Dorothy Epperson NP Bilateral carotid artery stenosis (Primary Dx); Type 2 diabetes mellitus without complication, without long-term current use of insulin (HCC); Hypercholesterolem ia 10/28/[address] [facility] at [address] [place] [address] Ciaran Espinoza MD Carotid stenosis, right (Primary Dx) 10/26/2024 Results Follow-Up [facility] Endocrinology Metabolism and Lipid [address] [facility] [address] [place] [phone] Julian Sanchez MD Hemoglobin A1c 10/23/2024 Documentation [facility] Vascular Surgery [address] [place] [address] Medical Office Building [address] [place] [phone] Kay Laguna RN New Referral 10/22/2024 4:47 PM CDT - 10/22/2024 11:59 PM CDT Hospital Encounter [facility] [address] [place] [address] Cancer of endocervical canal (HCC) Discharge Disposition: Discharge to home or self care 10/22/2024 4:00 PM CDT Office Visit [facility] Medicine Obstetrics and Gynecology [address] [facility] [address]th [place] [address] [place] [address] Wilson Zhang MD Cancer of endocervical canal (HCC) 10/20/2024 Orders Only [facility] [address] [facility] [address] [place] [address] David Trejo MD Bilateral carotid artery stenosis (Primary Dx) 10/06/2024 9:30 AM CDT Procedure visit [facility] [address] [facility] [address] [place] [address] David Trejo MD Intractable chronic migraine without aura and without status migrainosus (Primary Dx) from Last 3 Months Immunizations Immunization Administration [...] The Cervix - (Added by TW Conv) [place] LAPS ABD PRTM&OMENTUM DX W/WO SPEC BR/WA SPX 04/29/2019 - 04/28/2020 Laparoscopy (Diagnostic) - (Added by TW Conv) ANKLE SURGERY 04/29/2002 - 04/28/2003 Right Ankle Surgery - (Added by TW Conv) CHOLECYSTECTOMY 04/29/2015 - 04/28/2016 CERVICAL BIOPSY W/ LOOP ELECTRODE EXCISION 3 between [id number] ANKLE SURGERY 04/29/2011 - 04/28/2012 IMAGE GUIDED [...] Conv) Migraines Anxiety Type 2 diabetes mellitus GERD (gastroesophageal reflu x disease) PONV (postoperative nausea a nd vomiting) mild improvement with scope patch Hyperlipidemia Migraines PCOS (polycystic ovarian syndrome) 06/23/2019 Added automatically from request for surgery [id number] Dyspareunia in female Peptic ulceration Stomach Ulcers DVT (deep venous thrombosis) 03/06/2024 Pulmonary embolism 03/09/2024 Family History Medical History Relation Name [...] you have a drink containing alcohol? Never 12/27/2024 Q2: How many drinks containi ng alcohol do you have on a typical day when you are drinking? Patient does not drink Q3: How often do you have si x or more drinks on one occasion? Never 12/27/2024 Personal Safety Answer Date Recorded Have you ever been in or are you currently in a harmful physical or emotional relationship or is someone making you feel afraid or unsafe? Denies 03/03/2024 Comments No Sex and Gender Information Value Date Recorded Sex Assigned at Female 11/01/2022 12:16 PM CDT Legal Sex Female 8:16 PM IMMERSION METALCLEANER Gender Identity Female 10/15/2019 6:32 PM CDT Sexual Orientation Straight 08/26/2019 7: 34 PM CDT Obstetrics History Para Term AB IAB SAB Ectopic Multiple Livin g Live Births 0 0 0 0 0 0 0 0 0 0 0 Last Filed Vital Signs Vital Sign Reading Time Taken Comments Blood Pressure 120/72 12/27/2024 5:57 PM CDT Pulse 88 12/27/2024 5:57 PM CDT Temperature 36.7 C (98.1 F) 12/27/2024 5:57 PM CDT Respiratory Rate 20 12/27/2024 5:57 PM CDT Oxygen Saturation 100% 12/27/2024 5:57 PM CDT Inhaled Oxygen Concentration - - Weight 95.2 kg (209 lb 14.4 oz) 12/27/2024 5:57 PM CDT Height 157.5 cm (5' 2) 12/27/2024 5:57 PM CDT Body Mass Index 38.39 12/27/2024 5:57 PM CDT Plan of Treatment Health Maintenance [...] Tdap) 09/27/2023 09/26/2013 Covid-19 Vaccine (3 - 2024-2 6 season) 2024 10/14/2020, 09/23/2020 Influenza Vaccine (#1) 2024 4, 02/01/2023, 02/02/2022, Additional history exists Hemoglobin A1C 04/25/2025 10/24/2024, 05/31, 02/15/2024, Additional history exists eGFR 10/24/2025 10/24/2024, 05/31, 02/27/2024, Additional history exists Albumin Creatinine Ratio, Urine 11/04/2025 , 11/06/2023 Foot Exam 11/04/2025 11/04/2024, 05/31, 04/02/2024, Additional history exists Lipid Panel 11/04/2025 11/04/2024, 05/31, 02/15/2024, Additional history exists HPV Vaccines Completed 07/30/2022, 12/08/2021, 02/01/2022 Hepatitis C Screening Completed 11/09/2022, 017 Cervical Cancer Screening Discontinued 2024, 11/07/2023, 11/07/2023, Additional history exists Procedures Procedure Name Priority Date/Time Associated Diagnosis Comments POCT URINALYSIS DIPSTICK Routine 12/27/2024 6:11 PM CDT Burning with urination LIPID PANEL Routine 11/04/2024 8:45 AM CDT [...] migraine without aura and without status migrainosus HEPATITIS C ANTIBODY Routine 11/09/2022 11:11 AM CDT Encounter for screening for infections with predominantly sexual mode of transmission from Last 3 Months or Most Recently Relevant to Health Maintenance Results * (ABNORMAL) POCT urinalysis dipstick (12/27/2024 6:11 PM CDT) Color, Urine, POC Yellow Clarity, ur, POC Clear Clear Glucose, ur, POC Negative Negative Bilirubin, ur, POC Negative Negative Ketones, ur, POC Negative Negative Specific [place], POC 1.030 1.003 - 1.030 Blood, ur, POC Trace(A) Negative pH, ur, POC 7.5 5.0 - 8.0 Protein, ur, POC 30.(A) Negative Urobilinogen, urine, POC 0.2 0.2 - 1.0 mg/dL Nitrite, ur, POC Negative Negative Leukocytes, ur, POC Negative Negative Lot Number [id number] Urine 12/27/2024 6:11 PM CDT Rosey Patel NP POINT OF CARE TEST ORDERABLES Final Result * Albumin Creatinine Ratio, Urine (11/04/2024 8:45 AM CDT) Microalb, Ur 7.6 0.0 - 22.9 mg/L [facility] Random Urine Creatinine 50.6 mg/dL [facility] Microalb/Creat Ratio 15.0 0.0 - 29.9 mg/g [facility] Urine 11/04/2024 8:45 AM CDT 11/04/2024 9:53 AM CDT us Donald Monterroso MD LAB URINE O RDERABLES Final Result [facility] * [...] AM CDT 11/04/2024 9:53 AM CDT Narrative [facility] - 11/04/2024 12:49 PM [...] MD LAB BLOOD O RDERABLES Final Result [facility] * Homocysteine (10/24/2024 9:13 AM CDT) Homocysteine 14.4 0.0 - 14.5 umol/L [facility] - 01 Blood 10/24/2024 9:13 AM CDT 10/24/2024 Narrative [facility] - 10/25/2024 7:08 AM CDT Performed at: [address] [id number] Environmental Services Manager: Benny Gamboa PhD, Phone: [phone] us David Trejo MD LAB BLOOD ORDERABLES [place] l Result Performing Organization Address City/[facility]/ZIP Co de Phone Number [facility] - 01 * Vitamin D 25 hydroxy (10/24/2024 9:12 AM CDT) Vitamin D, 25-Hydroxy 34.0 30.0 - 100.0 ng/mL [facility] - 01 Comment: Vitamin D deficiency has been defined by the [place] of Medicine and an Endocrine Society practice guideline as a level of serum 25-OH vitamin D less than 20 ng/mL (1,2). The Endocrine Society went on to further define vitamin D insufficiency as a level between 21 and 29 ng/mL (2). 1. IOM ([place] of Medicine). 2010. Dietary reference intakes for calcium and D. [place]: The National Academies Press. 2. Alonzo MF, Nayeli NC, Marina ALEXANDER, et al. Evaluation, treatment, and prevention of vitamin D deficiency: an Endocrine Society clinical practice guideline. JCEM. 2010; 96(7):1911-30. Blood 10/24/2024 9:12 AM CDT 10/24/2024 Narrative [facility] - 10/25/2024 9:09 AM CDT Performed at: [address] [id number] Environmental Services Manager: Benny Gamboa PhD, Phone: [phone] Cira Gamboa MD LAB BLOOD ORDERABLES Fin al Result Performing Organization Address [facility] de Phone Number [facility] * (ABNORMAL) Hemoglobin A1c (10/24/2024 9:12 AM CDT) Pathologist [facility] Hgb A1C 6.6(H) 4.8 - 5.6 % [facility] - Comment: Prediabetes: 5.7 - 6.4 Diabetes: >6.4 Glycemic control for adults with diabetes: <7.0 Blood 10/24/2024 9:12 AM CDT 10/24/2024 Narrative [facility] - 10/25/2024 7:08 AM CDT Performed at: [address] [place] [id number] Environmental Services Manager: Benny Gamboa PhD, Phone: [phone] Cira Gamboa MD LAB BLOOD ORDERABLES Fin al Result Performing Organization Address [facility] de Phone Number [facility] * (ABNORMAL) Comprehensive metabolic panel [...] - 10/25/2024 7:08 AM CDT Performed at: [address] [place] [id number] Environmental Services Manager: Benny Gamboa PhD, Phone: [phone] Cira Gamboa MD LAB BLOOD ORDERABLES Fin al Result [facility] * Vaginal High Risk HPV DNA Detection with Genotyping (Molecular component) (10/22/2024 4:47 PM CDT) HPV HR non 16/18 vaginal Negative Negative Comment: The following Other High Risk HPV types were not detected: 31, 33, 35, 39, 45, 51, 52, 56, 58, 59, 66, and 68. ADDITIONAL INFORMATION Testing was performed using the che HPV assay ([employer] This report is intended for use in clinical monitoring and management of patients. It is not intended for use in medical-legal applications. This test has been modified from the feed handler's instructions. Its performance characteristics were determined by [facility] in a manner consistent with CLIA requirements. This test has not been cleared or approved by the U.S. Food and Drug Administration. Test Performed by: [facility] - [address] [address] Environmental Services Manager: Lissy Thompson Ph.D.; CLIA# [id number] HPV HR 16 vaginal Negative Negative [facility] HPV HR 18 vaginal Negative Negative [facility] Vaginal 10/22/2024 4:47 PM CDT 10/26/2024 4:14 PM CDT [address]arrative [facility] - 10/27/2024 7:01 PM CDT Clinical history and diagnosis->history of AIS, Stage IA endocervical cancer s/p hyst Number of vials->1 Testing type->Screening Last menstrual period (date if known)->post hyst Menstrual status->Post hysterectomy, total us Wilson Zhang MD LAB BODY FLUIDS AND STOO LS ORDERABLES Final Result [facility] Department [place] [address] * Pap and High Risk HPV and Genotyping (Cytology Component) (10/22/2024 4:47 PM CDT) Thin prep (Pap test) 10/22/2024 4:47 PM CDT 10/22/2024 6:[address] [facility] - 11/08/2024 12:12 PM CDT EPIC results best viewed via link to PDF [facility] [place] [address] Note to Patients: This report may contain [...] Gender: F : 1985 (Age: 39) Address: [facility] [place] [address] [facility] #: [id number] Service: UNKNOWN Location: Patient Type: [facility] SPECIMEN Taken: 10/22/2024 Received: 10/22/2024 Accessioned: [...] was performed using the che HPV assay ([employer] This test has been modified from the feed handler's instructions. Its performance characteristics were determined by [facility] in a manner consistent with CLIA requirements. This test has not been cleared or approved by the U.S. Food and Drug Administration. Test Performed by: [address] [address] Environmental Services Manager: Brendan Dean M.D. Ph.D.; CLIA# [id number] This specimen has been rescreened in accordance with this laboratory's Data Communications Technician Program. gp11/05/2024 08:23 By this signature, I [...] clinical information and biopsy results as indicated. [facility] Clinical Laboratory Improvement Amendments (CLIA) mandate that cytologic and histologic results be correlated for laboratory quality assurance supervisor final & improvement standards. FOR ALL HIGH-GRADE CASES [...] determined by the Surgical Pathology Department at [facility] as part of an ongoing quality assurance supervisor final program and in compliance with federally mandated [...] determined by the Surgical Pathology Department of [facility]. It has not been cleared or approved by the U. S. Food and Drug Administration. us Wilson Zhang MD LAB CYTOLOGY ORDERABLES Final Result PATHOLOGY [facility] 3rd Floor [place], [place] [phone] * Botox Injection (10/06/2024 9:30 AM CDT) Greta Corcoran - 10/06/2024 9:30 AM CDT Greta Howard 10/07/2024 1:54 PM Botox Injection Performed by: David Trejo MD Authorized by: David Trejo MD [place] Protocol: Procedure Details - Botox Injection: Procedure Details: See Botox flow sheet for details on injection sites and amounts. us David Trejo MD IN CLINIC/BEDSIDE ORDERAB LES Final Result * Hepatitis C antibody (11/09/2022 11:11 AM CDT) Hep C Ab Nonreactive Nonreactive [facility] Comment:Antibodies to HCV no t detected. Does NOT exclude the possibility of recent exposure to HCV. Current interpretive data was last revised on 21 Blood 11/09/2022 11:1 1 AM CDT 11/09/2022 1:25 PM CDT Keon Muniz MD LAB MICROBIOLOGY - GENERA L ORDERABLES Final Result [facility] Department [place] [address] from Last 3 Months or Most Recently Relevant to Health Maintenance [place] Advance Directives For more information, please contact: [phone] * Full Code (Latest Code Status on File) Date Activated Date Inactivated Comments 01/17/2023 6:27 AM 01/18/2023 4:38 AM * Full Code Date Activated Date Inactivated Comments 02/23/2021 12:15 PM 02/23/2021 7:05 PM * Full Code Date Activated Date Inactivated Comments 09/03/2019 7:27 AM 09/03/2019 1:47 PM Care Teams Evaluation Specialist Relationship Specialty Start Date End Date Gennaro Boone MD PCP - General 12/05/16 Cira Gamboa MD Consulting Physician Endocrinology 03/19/22 Rico Hernandez MD [address] [facility] [phone] [place] [address] Classifier Operator Obstetrics and Gynecology 11/01/22 Koen Muniz MD [address] [facility] [address] [place] [address] Consulting Physician Reproductive Endocrinology and Infertility 01/24/24 Nicky Thayer MD [address] [place] [id number] Classifier Operator Obstetrics and Gynecology 10/30/24 Kimmy Albert MD [address] [facility] [place] [address] Consulting Physician Physical Medicine and Rehabilitation 12/30/24
--- OUTSIDE RECORDS SUMMARY | 2025-01-01 09:46 | XMS_ITS | Encounter Summary ---
Author Organization [facility] Address [address] [place] [address] Phone Care Team Providers Care Power Lineman Technician Name Role Phone Gennaro Boone MD Primary Care Provider Cira Gamboa MD Unavailable Rico Hernandez MD Unavailable Keon Muniz MD Unavailable Nicky Thayer MD Unavailable Kimmy Albert MD Unavailable Encounter Details Date Type Department Care Team (Late st Contact Info) Description 08/27/2019 Orders Only [facility] Scanning, Provider Social History Tobacco Use Types Packs/Day Years Used Date Smoking Tobacco: Never Smokeless Tobacco: Never Alcohol Use Standard Drinks/Week Comments Not Currently 0 (1 standard drink = 0.6 oz pur e alcohol) rarely Comments No Sex and Gender Information Value Date Recorded Sex Assigned at Female 11/01/2022 12:16 PM CDT Legal Sex Female 8:16 PM BUSINESS ANALYST PROJECT MANAGER Gender Identity Female 10/15/2019 6:32 PM CDT [...] COVID: Suspected 03/16/2020 03/16/2020 03/17/2020 9:11 PM BUSINESS ANALYST PROJECT MANAGER COVID19 03/16/2020 03/16/2020 03/30/2020 3:08 AM BUSINESS ANALYST PROJECT MANAGER COVID: Recovered Comment:Added based on recent COVID infection. 03/30/2020 03/30/2020 07/28/2020 3:06 AM C DT Exposure, COVID-19 Comment:Added automatically based on COVID19 lab answers indicating exposure risk 05/04/2021 05/04/2021 05/19/2021 3:[address] COVID: Suspected 05/04/2021 05/05/2021 05/06/2021 2:18 AM BUSINESS ANALYST PROJECT MANAGER COVID: Suspected 10/20/2023 10/20/2023 10/20/2023 11:03 AM CDT documented as of this encounter Care Teams Power Lineman Technician Relationship Specialty Start Date End Date Gennaro Boone MD PCP - General 12/05/16 Cira Gamboa MD Consulting Physician Endocrinology 03/19/22 Rico Hernandez MD [address] [facility] [phone] [place] [address] Hr Advisor Obstetrics and Gynecology 11/01/22 Keon Muniz MD [address] [facility] [address] [place] [address] Consulting Physician Reproductive Endocrinology and Infertility 01/24/24 Nicky Thayer MD [address] [place] [address] Hr Advisor Obstetrics and Gynecology 10/30/24 Kimmy Albert MD [address] [facility] [address] Consulting Physician Physical Medicine and Rehabilitation 12/30/24 documented as of this encounter
--- OUTSIDE RECORDS SUMMARY | 2025-01-01 09:46 | XMS_ITS | Encounter Summary ---
Author Organization [facility] Address [address] [place] [address] Care Team Providers Care Spray Gun Repairer Helper Name Role Phone Gennaro Boone MD Primary Care Provider Cira Gamboa MD Unavailable Rico Hernandez MD Unavailable Keon Muniz MD Unavailable Nicky Thayer MD Unavailable Kimmy Albert MD Unavailable Encounter Details Date Type Department Care Team (Late st Contact Info) Description 01/23/2023 Telephone [facility] - Interventional Radiology [address] [place] [address] Abbi Medina, SHEA Social History [...] you are drinking? 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 Gender Identity Female 10/15/2019 6:32 PM CDT [...] documented as of this encounter Care Teams Spray Gun Repairer Helper Relationship Specialty Start Date End Date Gennaro Boone MD PCP - General 12/05/16 Cira Gamboa MD Consulting Physician Endocrinology 03/19/22 Rico Hernandez MD [address] [facility] [id number] [place], [place] [id number] Chocolate Production Machine Operator Obstetrics and Gynecology 11/01/22 Keon Muniz MD [address] [facility] [address] [place], [place] [id number] Consulting Physician Reproductive Endocrinology and Infertility 01/24/24 Nicky Thayer MD [address] [place] [address] Chocolate Production Machine Operator Obstetrics and Gynecology 10/30/24 Kimmy Albert MD [address] [facility] [place] [address] Consulting Physician Physical Medicine and Rehabilitation 12/30/24 documented as of this encounter
--- OUTSIDE RECORDS SUMMARY | 2025-01-01 09:46 | XMS_ITS ---
Author Organization [facility] Address [address] [place] [address] Care Team Providers Care Risk Control Officer Name Role Phone Gennaro Boone MD Primary Care Provider [phone] Cira Gamboa MD Unavailable Rico Hernandez MD Unavailable Keon Muniz MD Unavailable Nicky Thayer MD Unavailable Kimmy Albert MD Unavailable [phone] Active Problems Patient Care Coordination No te [...] Returned/Scanned into chart: [] Schedule Mailed/sent via [employer]: [] IVF Injectable Meds Ordered - Pharm [...] 06/09/2024 Assessment & Plan (06/09/2024 2:06 PM DEHYDROGENATION CONVERTER OPERATOR): The patient has a longstanding history [...] (09/01/2019): Added automatically from request for surgery [id number] PCOS (polycystic ovarian syndrome) 06/23/2019 Overview (06/23/2019): Added automatically from request for surgery [id number] Class 2 obesity 05/28/2019 Assessment & Plan (12/02/2019 6:56 PM CDT): Class 2 obesity with BMI 36 kg/m2 with related comorbidities: hyperlipidemia, pre-diabetes, depression, PCOS complicates the management of pre-diabetes by increasing insulin resistance and glucose intolerance Plan: 1) Resume care under referral to Weight Management Program (Dr. Pita Arias, ) 2) Consider re-starting Ozempic Assessment & Plan (05/28/2019 10:49 AM DEHYDROGENATION CONVERTER OPERATOR): Despite lifestyle modifications, she is frustrated [...] profile. Assessment & Plan (05/28/2019 10:43 AM DEHYDROGENATION CONVERTER OPERATOR): Given family history, LDL > 190, [...] stones. Assessment & Plan (05/28/2019 10:44 AM DEHYDROGENATION CONVERTER OPERATOR): Calcium and PTH normal previously. Recommend [...] w/r/t gut microbiome. Referred to ADA and [facility] websites for additional information on topics including glycemic index/carbohydrate choices, protein sources. Consider metformin. Avoid GLP-1 w/ h/o delayed gastric emptying. Assessment & Plan (05/28/2019 10:47 AM DEHYDROGENATION CONVERTER OPERATOR): She is following a low carb, [...] (03/08/2022): Added automatically from request for surgery [id number] Class 1 obesity due to exces s [...] (09/01/2019): Added automatically from request for surgery [id number] RLQ abdominal pain 06/23/2019 4 Overview (06/23/2019): Added automatically from request for surgery [id number] Secondary oligomenorrhea 06/23/2019 Overview (06/23/2019): Added automatically from request for surgery [id number] Iron deficiency 04/19/2017 10/31/2017 Blood in stool [...]
--- OUTSIDE RECORDS SUMMARY | 2025-01-01 09:46 | XMS_ITS | Clinical Summary ---
Author Organization [facility] Address [address] [place] [address] Care Team Providers Care Supervisor Cleaning And Annealing Name Role Phone Gennaro Boone MD Primary Care Provider [phone] Source Comments [facility],non-owned Affiliates and Associated Physician Practices is amultiple site organization consisting of ambulatory clinics and hospital sitesin [place], [place], [place] and [place]. This disclosure is being madepursuant to the Care Everywhere program and may not contain all information available regarding this patient. 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
== END 2025-01-01 09:38 | disposition home or self-care (01) ==
PROVIDERS: PCP Family Medicine; Visit Provider Nurse Practitioner Family
DX: N20.0 Calculus of kidney (principal); R39.9 Unspecified symptoms and signs involving the genitourinary system
CPT/HCPCS: 74018

== ENCOUNTER 2025-02-24 08:32 | Outpatient (CLI) | payer BC, SELFPAY ==
--- OUTSIDE RECORDS SUMMARY | 2025-02-24 06:50 | XMS_ITS | Encounter Summary ---
Author Organization [facility] Healthcare Address [address] [place] [address] Care Team Providers Care Dressing Room Porter Name Role Phone Gennaro Boone MD Primary Care Provider [phone] Cira Gamboa MD Unavailable Rico Hernandez MD Unavailable Keon Muniz MD Unavailable Nicky Thayer MD Unavailable Kimmy Albert MD Unavailable Reason for Referral * MRI/CAT/PET Scan (Routine) - Closed Specialty Diagnoses / Procedures Referred By Contac t Referred To Contact Radiology Diagnoses Neuralgia and neuritis, unspecified Migraine with status migrainosus, not intractable, unspecified migraine type Cervicalgia Hypermobile Shelbie-Danlos syndrome Procedures MRI Cervical Spine WO Contrast Sammi Sanchez, MANAGER CARDIAC [address] [place] [address] Phone: tel: fax: [address] [phone] Referral ID Status Reason Start Date Expiration Date Visits Re quested Visits Authorized [id number] Closed 02/08/2025 05/08/2025 1 1 Reason for Visit * MRI/CAT/PET Scan (Routine) - Closed Specialty Diagnoses / Procedures Referred By Kerry mckeon Referred To Contact Radiology Diagnoses Neuralgia and neuritis, unspecified Migraine with status migrainosus, not intractable, unspecified migraine type Cervicalgia Hypermobile Shelbie-Danlos syndrome Procedures MRI Cervical Spine WO Contrast Sammi Sanchez NP [address] [place] [address] Phone: tel: fax: [address] [phone] Referral ID Status Reason Start Date Expiration Date Visits Re quested Visits Authorized [id number] Closed 02/08/2025 05/08/2025 1 1 Encounter Details Date Type Department Care Team (Latest Contact Info) Description 02/24/2025 6:50 AM CDT Hospital Encounter [facility] [address] [place] [address] Neuralgia and neuritis, unspecified; Migraine with status migrainosus, not intractable, unspecified migraine type; Cervicalgia; Hypermobile Shelbie-Danlos syndrome Social History Tobacco Use Types Packs/Day Years [...] PM CDT Legal Sex Female 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 Gender Identity Female 10/15/2019 6:32 PM CDT Sexual Orientation Straight 08/26/2019 7: 34 PM CDT documented as of this encounter Plan of Treatment Not on file documented as of this encounter Procedures Procedure Name Priority Date/Time Associated Diagnosis Comments MRI CERVICAL SPINE WO CONTRAST Schedule Routine, Read Routine (OP Routine) 02/24/2025 7:28 AM CDT Neuralgia and neuritis, unspecified Migraine with status migrainosus, not intractable, unspecified migraine type Cervicalgia Hypermobile Shelbie-Danlos syndrome documented in this encounter Results * MRI Cervical Spine WO Contrast (02/24/2025 7:28 AM CDT) Anatomical Region Laterality Modality Spine N/A Magnetic Resonan ce 02/24/2025 8:23 AM CDT Impressions 02/24/2025 8:23 AM CDT 1. Multilevel cervical disc degeneration with uncovertebral spurring and facet arthropathy as described. The C6-C7 disc protrusion abuts the left ventral cord. 2. Neural foraminal narrowing and other findings as above. 3. Previous imaging studies are not available for comparison. Electronically signed by: Satinder Lazar D.O. Narrative 02/24/2025 8:23 AM CDT EXAM DESCRIPTION:MRI CERVICAL SPINE WO CONTRAST REASON FOR STUDY:H/O neck pain since September with nki, pain is at base of skull and goes into right side down into shoulder, no prior sx. Migraine with status migrainosus, not intractable, unspecified migraine type.Cervicalgia. Hypermobile Shelbie-Danlos syndrome. Neuralgia and neuritis TECHNIQUE: Sagittal and Axial imaging includes T1, T2, STIR and gradient echo sequences. COMPARISON:None available FINDINGS: ALIGNMENT: Reversal of the normal cervical lordosis. VERTEBRAE: No acute compression fracture in the cervical spine. If trauma is suspected then a CT has higher sensitivity for spinal fractures and can be obtained as clinically indicated. Multilevel endplate degenerative changes and marginal spur formation. DISCS: Multilevel disc desiccation and height loss, most noticeable at C5-C6 and C6-C7. HARDWARE: None in the spine. CORD: No definite T2 hyperintense cord signal alteration is reproduced on 2 separate sequences. INDIVIDUAL LEVELS: C2-C3: No significant disc bulge, spinal canal or neural foraminal narrowing. C3-C4: Minor disc bulge. No significant spinal canal stenosis. Uncovertebral spurring and facet arthropathy with mild right and no significant left neural foraminal narrowing. C4-C5: No significant disc bulge, spinal canal or neural foraminal narrowing. C5-C6: Disc bulge without significant spinal canal stenosis. Uncovertebral spurring and facet arthropathy with mild bilateral neural foraminal narrowing. C6-C7: Disc protrusion indents the left ventral cord. Dorsal CSF cleft is maintained. No significant neural foraminal narrowing. C7-T1: No significant disc bulge, spinal canal or neural foraminal narrowing. UPPER THORACIC: Incompletely imaged. Degenerative changes without high-grade spinal canal stenosis. OTHER: No made of a few scattered nonspecific bilateral cervical chain lymph nodes. Procedure Note Satinder Lazar, DO - 02/24/2025 EXAM DESCRIPTION:MRI CERVICAL SPINE WO CONTRAST REASON FOR STUDY:H/O neck pain since September with nki, pain is at base of skull and goes into right side down into shoulder, no prior sx. Migraine with status migrainosus, not intractable, unspecified migraine type.Cervicalgia. Hypermobile Shelbie-Danlos syndrome. Neuralgia and neuritis TECHNIQUE: Sagittal and Axial imaging includes T1, T2, STIR and gradient echo sequences. COMPARISON:None available FINDINGS: ALIGNMENT: Reversal of the normal cervical lordosis. VERTEBRAE: No acute compression fracture in the cervical spine. If trauma is suspected then a CT has higher sensitivity for spinal fractures and can be obtained as clinically indicated. Multilevel endplate degenerative changes and marginal spur formation. DISCS: Multilevel disc desiccation and height loss, most noticeable at C5-C6 and C6-C7. HARDWARE: None in the spine. CORD: No definite T2 hyperintense cord signal alteration is reproduced on 2 separate sequences. INDIVIDUAL LEVELS: C2-C3: No significant disc bulge, spinal canal or neural foraminal narrowing. C3-C4: Minor disc bulge. No significant spinal canal stenosis. Uncovertebral spurring and facet arthropathy with mild right and no significant left neural foraminal narrowing. C4-C5: No significant disc bulge, spinal canal or neural foraminal narrowing. C5-C6: Disc bulge without significant spinal canal stenosis. Uncovertebral spurring and facet arthropathy with mild bilateral neural foraminal narrowing. C6-C7: Disc protrusion indents the left ventral cord. Dorsal CSF cleft is maintained. No significant neural foraminal narrowing. C7-T1: No significant disc bulge, spinal canal or neural foraminal narrowing. UPPER THORACIC: Incompletely imaged. Degenerative changes without high-grade spinal canal stenosis. OTHER: No made of a few scattered nonspecific bilateral cervical chain lymph nodes. IMPRESSION: 1. Multilevel cervical disc degeneration with uncovertebral spurring and facet arthropathy as described. The C6-C7 disc protrusion abuts the left ventral cord. 2. Neural foraminal narrowing and other findings as above. 3. Previous imaging studies are not available for comparison. Electronically signed by: Satinder Lazar D.O. Sammi Sanchez MANAGER CARDIAC IMG MRI PROCEDURES [place] l Result documented in this encounter Visit Diagnoses Diagnosis Neuralgia and neuritis, unspecified Migraine with status migrainosus, not intractable, unspecified migraine type Cervicalgia Hypermobile Shelbie-Danlos syndrome documented in this encounter Care Teams Dressing Room Porter Relationship Specialty Start Date End Date Gennaro Boone MD PCP - General 12/05/16 Cira Gamboa MD Consulting Physician Endocrinology 03/19/22 Rico Hernandez MD [address] [facility] [id number] [place], [place] [id number] Microarray Analyst Obstetrics and Gynecology 11/01/22 Keon Muniz MD [address] [facility] [address] [place], [place] [id number] Consulting Physician Reproductive Endocrinology and Infertility 01/24/24 Nicky Thayer MD [address] [place] [address] Microarray Analyst Obstetrics and Gynecology 10/30/24 Kimmy Albert MD [address] [facility] [place] [address] Consulting Physician Physical Medicine and Rehabilitation 12/30/24 documented as of this encounter
--- OUTSIDE RECORDS SUMMARY | 2025-02-24 08:56 | XMS_ITS | Encounter Summary ---
Author Organization [facility] Address [address] [place] [address] Phone Care Team Providers Care Resource Recovery Engineer Name Role Phone Gennaro Boone MD [...] PM CDT Legal Sex Female 8:16 PM ORTHOTICS PROSTHETICS ASSISTANT Gender Identity Female 10/15/2019 6:32 PM [...] COVID: Suspected 03/16/2020 03/16/2020 03/17/2020 9:11 PM ORTHOTICS PROSTHETICS ASSISTANT COVID19 03/16/2020 03/16/2020 03/30/2020 3:08 AM ORTHOTICS PROSTHETICS ASSISTANT COVID: Recovered Comment:Added based on recent COVID infection. 03/30/2020 03/30/2020 07/28/2020 3:06 AM C DT Exposure, COVID-19 Comment:Added automatically based on COVID19 lab answers indicating exposure risk 05/04/2021 05/04/2021 05/19/2021 3:[address] COVID: Suspected 05/04/2021 05/05/2021 05/06/2021 2:18 AM ORTHOTICS PROSTHETICS ASSISTANT COVID: Suspected 10/20/2023 10/20/2023 10/20/2023 11:03 AM CDT documented as of this encounter Care Teams Resource Recovery Engineer Relationship Specialty Start Date End Date Gennaro Boone MD PCP - General 12/05/16 Cira Gamboa MD Consulting Physician Endocrinology 03/19/22 Rico Hernandez MD [address] [facility] [phone] [place] [address] Web Site Project Manager Obstetrics and Gynecology 11/01/22 Keon Muniz MD [address] [facility] [address] [address] [place] [address] Consulting Physician Reproductive Endocrinology and Infertility 01/24/24 Nicky Thayer MD [address] [place] [address] Web Site Project Manager Obstetrics and Gynecology 10/30/24 Kimmy Albert MD [address] [facility] [place] [address] Consulting Physician Physical Medicine and Rehabilitation 12/30/24 documented as of this encounter
--- OUTSIDE RECORDS SUMMARY | 2025-02-24 08:56 | XMS_ITS | Clinical Summary ---
Author Organization [facility] Address [address] [facility] [place] [address] Care Team Providers Care Shrink Pit Supervisor Name Role Phone Gennaro Boone MD Primary Care Provider Source Comments [facility],non-owned Affiliates and Associated Physician Practices is amultiple site organization consisting of ambulatory clinics and hospital sitesin [place], [place], [place] and [place]. This disclosure is being madepursuant to the Care Everywhere program and may not contain all information available regarding this patient. 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
--- OUTSIDE RECORDS SUMMARY | 2025-02-24 08:57 | XMS_ITS | Encounter Summary ---
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 Gender Identity Female 10/15/2019 6:32 PM CDT [...] documented as of this encounter Care Teams Configurator Relationship Specialty Start Date End Date Gennaro Boone MD PCP - General 12/05/16 Cira Gamboa MD Consulting Physician Endocrinology 03/19/22 Rico Hernandez MD [address] [facility] [id number] [place], [place] [id number] Creative Services Manager Obstetrics and Gynecology 11/01/22 Keon Muniz MD [address] [facility] [address] [place], [place] [id number] Consulting Physician Reproductive Endocrinology and Infertility 01/24/24 Nicky Thayer MD [address] [place] [id number] Creative Services Manager Obstetrics and Gynecology 10/30/24 Kimmy Albert MD [address] [facility] [place] [address] Consulting Physician Physical Medicine and Rehabilitation 12/30/24 documented as of this encounter
--- OUTSIDE RECORDS SUMMARY | 2025-02-24 08:57 | XMS_ITS | Encounter Summary ---
Author Organization [facility] Address [address] [place] [address] Phone Care Team Providers Care Flume Maker Name Role Phone Gennaro Boone MD Primary Care Provider [phone] Cira Gamboa MD Unavailable [phone] Rico Hernandez MD Unavailable Keon Muniz MD Unavailable Nicky Thayer MD Unavailable Kimmy Albert MD Unavailable Encounter Details Date Type Department Care Team (Late st Contact Info) Description 02/18/2025 Results Follow-Up [facility] Endocrinology Metabolism and Lipid [address] [facility] [address] [place] [address] Cira Gamboa MD [address] [address] Vitamin D 25 hydroxy, PTH, Basic metabolic panel, Additional followed-up results: 4 Social History Tobacco Use Types Packs/Day Years [...] PM CDT Legal 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 Gender Identity Female 10/15/2019 6:32 PM CDT Sexual Orientation Straight 08/26/2019 7: 34 PM CDT documented as of this encounter Plan of Treatment Not on file documented as of this encounter Visit Diagnoses Not on filedocumented in this encounter Care Teams Flume Maker Relationship Specialty Start Date End Date Gennaro Boone MD PCP - General 12/05/16 Cira Gamboa MD Consulting Physician Endocrinology 03/19/22 Rico Hernandez MD [address] [facility] [id number] [place], [place] [id number] Solutions Analyst Obstetrics and Gynecology 11/01/22 Keon Muniz MD [address] [facility] [address] [place] [address] Consulting Physician Reproductive Endocrinology and Infertility 01/24/24 Nicky Thayer MD [address] [place] [address] Solutions Analyst Obstetrics and Gynecology 10/30/24 Kimmy Albert MD [address] [facility] [place] [address] Consulting Physician Physical Medicine and Rehabilitation 12/30/24 documented as of this encounter
--- OUTSIDE RECORDS SUMMARY | 2025-02-24 08:57 | XMS_ITS | Clinical Summary ---
Author Organization [facility] Address [address] [place] [address] Care Team Providers Care Building Certifier Name Role Phone Gennaro Boone MD Primary Care Provider [phone] Cira Gamboa MD Unavailable Rico Hernandez MD Unavailable Keon Muniz MD Unavailable Nicky Thayer MD Unavailable Kimmy Albert MD Unavailable Allergies Active Allergy Reactions Criticality Noted Date Comments Chlorhexidine Anaphylaxis High 10/01/2024 Hydrocodone Anaphylaxis High 10/01/2024 Nut - Unspecified Other (See comments) High 10/02/19 25 Nuts Other (See comments) Low 11/01/2022 Mouth sores [place] Other (See comments) Low 11/01/2022 Mouth sores Oxycodone Anaphylaxis High 10/01/2024 Penicillins Unknown 06/06/2017 Reaction as a child Pineapple Other (See comments) Low 11/01/2022 Mouth sores [place] Other (See comments) Low 11/01/2022 Mouth sores Topiramate Mental status changes Low 11/19/2019 fogginess Tree Nut Other (See comments) High 10/01/2024 Hydrocodone-Acetaminoph en Swelling Medium 03/01/2011 Medications ALPRAZolam (XANAX) 0.5 mg tablet Take 1 tablet (0.5 mg total) by mouth as needed for anxiety Active spironolactone (ALDACTONE) 100 mg tablet Take 1 tablet (100 mg total) by mouth nightly Active valACYclovir (VALTREX) 1 gram tablet Take [...] (2,000 Units total) by mouth nightly Active triamcinolone (KENALOG) 0.1 % paste Apply 0.25 inches to teeth 2 (two) times a day Dry mouth first, apply only after eating 5 g 3 Active meloxicam (MOBIC) 15 mg tablet Take 1 tablet (15 mg total) by mouth as needed Active clobetasoL (TEMOVATE) 0.05 % ointment Apply [...] (two) times a day 30 g Active tiZANidine (ZANAFLEX) 4 mg tablet Take 1 tablet (4 mg total) by mouth Active cromolyn (GASTROCROM) 100 mg/5 mL solution Take 10 mL (200 mg total) by mouth 4 (four) times a day before meals and nightly 1200 mL 3 Active Additional Information Patient not taking.Reported on 02/17/2025 escitalopram (LEXAPRO) 20 mg tablet Take 1 [...] 2 in 24 hours. 10 tablet 11 Active ZOLMitriptan (ZOMIG) 5 mg nasal solutionIndicatio ns:Migraine Administer 1 spray into one nostril as needed for migraine May repeat one time after 2 hours if needed. No more than 2 doses in 24 hours. 18 each 3 2025 Active ketorolac (TORADOL) 10 mg tabletIndications :Intractable chronic migraine without aura and without status migrainosus Take 1 tablet (10 mg total) by mouth every 6 (six) hours as needed for pain 10 tablet Active aspirin 81 mg enteric coated tablet Take 1 tablet (81 mg total) by mouth daily Active diazePAM (VALIUM) 5 mg tablet Take 1 tablet (5 mg total) by mouth 3 (three) times a day as needed for muscle spasms Active finasteride (PROSCAR) 5 mg tablet Active lisdexamfetamine (VYVANSE) 40 mg capsule Take 1 capsule (40 mg total) by mouth daily Active atorvastatin (LIPITOR) 40 mg tabletIndications :Pure hypercholesterole praful,Hypercholeste rolemia Take 1 tablet (40 mg total) by mouth daily 90 tablet 3 025 2025 Active gabapentin (NEURONTIN) 100 mg capsuleIndication s:Vasomotor Symptoms associated with Menopause Take one pill twice a day and 3 pills in the evening. 150 capsule 11 Active ezetimibe (ZETIA) 10 mg tabletIndications :Hypercholesterol emia Take 1 tablet (10 mg total) by mouth daily 90 tablet 3 025 2025 Active SITagliptin phosphate (JANUVIA) 100 mg tabletIndications :type 2 diabetes mellitus Take 1 tablet (100 mg total) by mouth daily 90 tablet 3 2025 Active metFORMIN XR (GLUCOPHAGE XR) 500 mg 24 hr tabletIndications :Type 2 diabetes mellitus without complication, without long-term current use of insulin (HCC) Take 1 tablet (500 mg total) by mouth 2 (two) times a day Start at 1 tablet daily; after 1-2 weeks, if tolerating well, increase dose to 500 mg twice daily. 180 tablet 3 2025 Active pen needle, diabetic 32 gauge x 5/32 needleIndications :Prediabetes,Clas s 2 obesity due to excess calories without serious comorbidity with body mass index (BMI) of 38.0 to 38.9 in adult,Polycystic ovarian syndrome Use to inject Victoza daily 100 each 3 023 2024 Discontinued al-mag hydroxide-simethi cone, diphenhydramine, & nystatin 1:1:1 (MAGIC MOUTHWASH) suspensionIndicat ions:Sore throat,Throat ulcer Swish and spit 5 mL every 6 (six) hours as needed (as directed) 240 mL 024 2024 Discontinued Eliquis 5 mg tablet Take 1 tablet (5 mg total) by mouth 2 (two) times a day 2024 Discontinued polymyxin B-trimethoprim (POLYTRIM) ophthalmic solutionIndicatio ns:Acute conjunctivitis of right eye, unspecified acute conjunctivitis type Administer 1 drop into the right eye every 4 (four) hours 10 mL 025 2024 Discontinued gabapentin (NEURONTIN) 100 mg capsuleIndication s:Chronic daily headache Take 1 capsule (100 mg total) by mouth 3 (three) times a day 90 capsule 11 025 2024 Discontinued(R eorder) SITagliptin phosphate (JANUVIA) 100 mg tabletIndications :type 2 diabetes mellitus Take 1 tablet (100 mg total) by mouth daily 30 tablet 11 2024 Discontinued(R eorder) metFORMIN XR (GLUCOPHAGE XR) 500 mg 24 hr tabletIndications :Type 2 diabetes mellitus without complication, without long-term current use of insulin (HCC) Take 1 tablet (500 mg total) by mouth 2 (two) times a day Start at 1 tablet daily; after 1-2 weeks, if tolerating well, increase dose to 500 mg twice daily. 60 tablet 11 2024 Discontinued(R eorder) ezetimibe (ZETIA) 10 mg tabletIndications :Hypercholesterol emia Take 1 tablet (10 mg total) by mouth daily 30 tablet 11 025 2024 Discontinued(R eorder) atorvastatin (LIPITOR) 80 mg tabletIndications :Pure hypercholesterole praful,Class 2 obesity due to excess calories without serious comorbidity with body mass index (BMI) of 38.0 to 38.9 in adult Take 1 tablet (80 mg total) by mouth nightly 90 tablet 3 2024 Discontinued(T herapy completed) Veozah tablet tablet TAKE 1 TABLET(45 MG) BY MOUTH DAILY 90 tablet 1 2024 Discontinued nitrofurantoin monohydrate (MACROBID) 100 mg capsule TAKE 1 CAPSULE BY MOUTH EVERY 12 HOURS FOR 7 DAYS 2024 Discontinued predniSONE (DELTASONE) 10 mg tablet 2024 Discontinued Active Problems Patient Care Coordination [...] Returned/Scanned into chart: [] Schedule Mailed/sent via [employer]iot: [] IVF Injectable Meds Ordered - Pharm [...] 06/09/2024 Assessment & Plan (06/09/2024 2:06 PM MATCHBOOK MAKER): The patient has a longstanding history of [...] (09/01/2019): Added automatically from request for surgery [id number] PCOS (polycystic ovarian syndrome) 06/23/2019 Overview (06/23/2019): Added automatically from request for surgery [id number] Class 2 obesity 05/28/2019 Assessment & Plan (12/02/2019 6:56 PM CDT): Class 2 obesity with BMI 36 kg/m2 with related comorbidities: hyperlipidemia, pre-diabetes, depression, PCOS complicates the management of pre-diabetes by increasing insulin resistance and glucose intolerance Plan: 1) Resume care under referral to Weight Management Program (Dr. Pita Arias, ) 2) Consider re-starting Ozempic Assessment & Plan (05/28/2019 10:49 AM MATCHBOOK MAKER): Despite lifestyle modifications, she is frustrated regarding [...] profile. Assessment & Plan (05/28/2019 10:43 AM MATCHBOOK MAKER): Given family history, LDL > 190, this [...] stones. Assessment & Plan (05/28/2019 10:44 AM MATCHBOOK MAKER): Calcium and PTH normal previously. Recommend 24 [...] w/r/t gut microbiome. Referred to ADA and [facility] websites for additional information on topics including glycemic index/carbohydrate choices, protein sources. Consider metformin. Avoid GLP-1 w/ h/o delayed gastric emptying. Assessment & Plan (05/28/2019 10:47 AM MATCHBOOK MAKER): She is following a low carb, low [...] (03/08/2022): Added automatically from request for surgery [id number] Class 1 obesity due to exces s [...] (09/01/2019): Added automatically from request for surgery [id number] RLQ abdominal pain 06/23/2019 4 Overview (06/23/2019): Added automatically from request for surgery [id number] Secondary oligomenorrhea 06/23/2019 Overview (06/23/2019): Added automatically from request for surgery [id number] Iron deficiency 04/19/2017 10/31/2017 Blood in stool [...] Encounters Date Type Department Care Team Description 02/24/2025 6:50 AM CDT Hospital Encounter [address] [address] Neuralgia and neuritis, unspecified; Migraine with status migrainosus, not intractable, unspecified migraine type; Cervicalgia; Hypermobile Shelbie-Danlos syndrome 02/19/2025 9:41 AM CDT - 02/19/2025 11:59 PM CDT Hospital Encounter [address] [address] Well woman exam Discharge Disposition: Discharge to home or self care 02/18/2025 Results Follow-Up [facility] Medicine Endocrinology Metabolism and Lipid [address] [facility] [address] [place] [address] [place] [address] Cira Gamboa MD Vitamin D 25 hydroxy, PTH, Basic metabolic panel, Additional followed-up results: 4 02/18/2025 [facility] and Lipid [address] [facility] 13 [place] [address] [place] [phone] Dang Mccormick RN Pure hypercholesterolemia (Primary Dx); Hypercholesterolemia; Transaminitis; Type 2 diabetes mellitus without complication, without long-term current use of insulin (HCC) 02/17/2025 9:05 AM CDT Lab [facility] Medicine ([facility]) [address] [place] [address] Vitamin D deficiency; Kidney stones; History of blood clots 02/17/2025 8:20 AM CDT Office Visit [facility] Endocrinology Metabolism and Lipid [address] [facility] Advanced Medicine 13 [place] [address] [place] [address] Cira Gamboa MD Type 2 diabetes mellitus without complication, without long-term current use of insulin (HCC) (Primary Dx); Chronic daily headache; Early menopause; Vitamin D deficiency; History of blood clots; Kidney stones; Hypercholesterolemia; Class 2 obesity 02/02/2025 6:56 AM CDT - 02/02/2025 11:59 PM CDT Hospital Encounter [address] [address] Calculus of kidney Discharge Disposition: Discharge to home or self care 01/19/2025 Orders Only [address] [address] Yael Oconnor NP 01/12/2025 8:30 AM CDT Procedure [facility] [address] [facility] [address] [place] [phone] David Trejo MD Intractable chronic migraine without aura and without status migrainosus 01/11/2025 Results Follow-Up [facility] Obstetrical Gynecology [address] [place] [phone] Nicky Thayer MD Vaginitis panel Vaginal 01/07/2025 11:35 AM CDT - 01/07/2025 11:59 PM CDT Hospital Encounter [facility] Office Building [address] [place] [id number] Vaginal irritation Discharge Disposition: Discharge to home or self care 01/07/2025 10:00 AM CDT Office Visit [facility] Obstetrical Gynecology [address] [place] [address] [place] [phone] Nicky Thayer MD Well woman exam (Primary Dx); Vaginal irritation; Vasomotor symptoms due to menopause 12/27/2024 6:00 PM CDT Office Visit [facility] at [address] [phone] Rosey Patel NP Burning with urination (Primary Dx); Acute bilateral low back pain without sciatica 12/12/2024 5:30 PM CDT Office Visit [facility] at [address] [phone] Sangeetha Taylor NP Thrush (Primary Dx) 12/12/2024 9:25 AM CDT E-Visit [address] [phone] Kimmy Newton NP E-Visit for Cough 12/12/2024 Patient Self-Triage [facility]/ Physicians [address] [place] [id number] Mychart, Generic Provider 12/12/2024 Patient Self-Triage [facility]/ Physicians [address] [place] [address] Mychart, Generic Provider 12/07/2024 Telephone [facility] Medicine Obstetrics and Gynecology [address] [facility] Medicine 13th [place] [phone] Sheyla Dowd, SHEA 11/30/2024 Orders Only [facility] Medicine Obstetrics and Gynecology [address] [facility] Medicine 13th [place] [phone] Sheyla Dowd, RN Antibiotic-induced yeast infection (Primary Dx) 11/30/2024 Orders Only [facility] Medicine Obstetrics and Gynecology [address] [facility] Medicine 13th [place] [phone] Sheyla Dowd, RN BV (bacterial vaginosis) (Primary Dx) 11/30/2024 Telephone [facility] [address] [facility] 1st [place] [address] Ella Marte, photogrammetric tech from Last 3 Months Immunizations Immunization Administration [...] BIOPSY W/ LOOP ELECTRODE EXCISION 3 between [id number] ANKLE SURGERY 04/29/2011 - 04/28/2012 IMAGE GUIDED [...] 06/23/2019 Added automatically from request for surgery [id number] Dyspareunia in female Peptic ulceration Stomach Ulcers DVT (deep venous thrombosis) 03/06/2024 Pulmonary embolism 03/09/2024 Cancer (HCC) 12/2023 Depression 2017 Arthritis 2012 Family History Medical History Relation Name Comments Hearing loss Father John Engeling Heart attack Father John Engeling Hyperlipidemia Father John Engeling Hypertension Father John Engeling Family history of hypertension - (Added by TW Conv) Stroke Father John Engoni Kidney cancer Maternal Grandfather Heart attack Maternal Grandmother Rachel Frederick Breast cancer Maternal Great-Grandmother Hemorrage Mother Brie Engeling Hyperlipidemia Mother Brie Engeling Hypertension Mother Brie Engoni Family hist ory of hypertension - (Added by TW Conv) Stroke Mother Brie Engeling Family hist ory of cerebrovascular accident - (Added by TW Conv) Diabetes Other uncle Hearing loss Sister Selene Engeling Hyperlipidemia Sister Selene Engeling Hypertension Sister Selene Engeling Anesthesia problems Neg Hx Ovarian cancer Neg Hx Uterine cancer Neg Hx Relation Name Status Comments Father John Guillory Maternal Grandfather Maternal Grandmother Rachel Frederick Alive Maternal Great-Grandmother Mother Brie Guillory Other uncle Alive Sister Selene Guillory Social History Tobacco Use Types Packs/Day Years Used Date Smoking Tobacco: Never Passive Smoke Exposure: Never Smokeless Tobacco: Never Tobacco Cessation:Counseling Given: Not Answered Comments:never used Alcohol Use Standard Drinks/Week Comments [...] PM CDT Legal Sex Female 8:16 PM MATCHBOOK MAKER Gender Identity Female 10/15/2019 6:32 PM CDT Sexual Orientation Straight 08/26/2019 7: 34 PM CDT Obstetrics History Para Term AB IAB SAB Ectopic Multiple Livin g Live Births 0 0 0 0 0 0 0 0 0 0 0 Comments 12 hyst Last Filed Vital Signs Vital Sign Reading Time Taken Comments Blood Pressure 128/84 02/17/2025 8:03 AM CDT Pulse 94 02/17/2025 8:03 AM CDT Temperature 36.8 C (98.3 F) 02/17/2025 8:03 AM CDT Respiratory Rate 20 12/27/2024 5:57 PM CDT Oxygen Saturation 99% 01/12/2025 8:29 AM CDT Inhaled Oxygen Concentration - - Weight 95.4 kg (210 lb 6.4 oz) 02/17/2025 8:03 A M CDT Height 157.5 cm (5' 2.01) 02/17/2025 8:03 AM CD T Body Mass Index 38.47 02/17/2025 8:03 AM CDT Plan of Treatment Health Maintenance Due Date Last Done Comments Depression Screening 1984 Dilated Eye Exam 1984 Varicella Vaccines (1 of 2 - 13+ 2-dose series) 1997 Hepatitis B Screening 2002 Pneumococcal vaccine <65 (1 of 2 - PCV) 08/21/2003 Regular Well Visit/Exam 18-64 12/25/2022 12/25/2021, 10/31/2017 DTaP/Tdap/Td Vaccine (2 - Td or Tdap) 09/27/2023 09/26/2013 Covid-19 Vaccine (3 - 2024-2 6 season) 2024 10/14/2020, 09/23/2020 Influenza Vaccine (#1) 2024 , 02/01/2023, 02/02/2022, Additional history exists Hemoglobin A1C 08/18/2025 02/17/2025, 09/28, 06/20/2024, Additional history exists Albumin Creatinine Ratio, Urine 11/04/2025 , 11/06/2023 Foot Exam 11/04/2025 11/04/2024, 05/31, 04/02/2024, Additional history exists Lipid Panel 11/04/2025 11/04/2024, 05/31, 02/15/2024, Additional history exists eGFR 02/17/2026 02/17/2025, 09/28, 06/24/2024, Additional history exists Breast Cancer Screening-Mammogram 02/19/2026 025 HPV Vaccines Completed 07/30/2022, 08/2021, 02/01/2022 Hepatitis C Screening Completed 11/09/2022, 017 Cervical Cancer Screening Discontinued 2024, 11/07/2023, 11/07/2023, Additional history exists Procedures Procedure Name Priority Date/Time Associated Diagnosis Comments MRI CERVICAL SPINE WO CONTRAST Schedule Routine, Read Routine (OP Routine) 02/24/2025 7:28 AM CDT Neuralgia and neuritis, unspecified Migraine with status migrainosus, not intractable, unspecified migraine type Cervicalgia Hypermobile Shelbie-Danlos syndrome SCREENING MAMMOGRAM BILATERAL W CROW Schedule Routine, Read Routine (OP Routine) 02/19/2025 10:43 AM CDT Well woman exam F5 (FVL) AND F2 (PROTHROMBIN) MUTATIONS Routine 02/17/2025 9:15 AM CDT EGFR Routine 02/17/2025 9:15 AM CDT Kidney stones ANTITHROMBIN Routine 02/17/2025 9:15 AM CDT History of blood clots FACTOR V ACTIVITY Routine 02/17/2025 9:1 5 AM CDT History of blood clots PROTEIN C ACTIVITY Routine 02/17/2025 9: 15 AM CDT History of blood clots BASIC METABOLIC PANEL Routine 02/17/2025 9:15 AM CDT Kidney stones PTH Routine 02/17/2025 9:15 AM CDT Kidney stones VITAMIN D 25 HYDROXY Routine 02/17/2025 9:15 AM CDT Vitamin D deficiency Kidney stones POCT HEMOGLOBIN A1C Routine 02/17/2025 8 :13 AM CDT Type 2 diabetes mellitus without complication, without long-term current use of insulin (HCC) CT ABDOMEN PELVIS WO CONTRAST Schedule Routine, Read Routine (OP Routine) 02/02/2025 7:06 AM CDT Calculus of kidney BOTOX INJECTION Routine 01/12/2025 8:30 AM CDT Intractable chronic migraine without aura and without status migrainosus VAGINITIS PANEL Routine 01/07/2025 10:56 AM CDT Vaginal irritation POCT URINALYSIS DIPSTICK Routine 12/27/2024 6:11 PM CDT Burning with urination LIPID PANEL Routine 11/04/2024 8:45 AM CDT Hypercholesterolemi a ALBUMIN CREATININE RATIO, URINE Routine 11/04/2024 8:45 AM CDT Type 2 diabetes mellitus without complication, without long-term current use of insulin (HCC) PAP AND HIGH RISK HPV, REFLEX TO GENOTYPING Routine 10/22/2024 4:47 PM CDT Cancer of endocervical canal (HCC) HEPATITIS C ANTIBODY Routine 11/09/2022 11:11 AM CDT Encounter for screening for infections with predominantly sexual mode of transmission from Last 3 Months or Most Recently Relevant to Health Maintenance Results * MRI Cervical Spine WO Contrast [...] signed by: Satinder Lazar D.O. Sammi Sanchez FRESCO ARTIST IMG MRI PROCEDURES [place] taylor Result * SCREENING MAMMOGRAM BILATERAL W CROW (02/19/2025 10:43 AM CDT) Anatomical Region Laterality Modality Breast Bilateral Mammography Impressions 02/19/2025 11:28 AM CDT Bilateral No evidence of malignancy in either breast. OVERALL BI-RADS FINAL ASSESSMENT: 1 - Negative RECOMMENDATION: Recommend bilateral annual screening mammography. Narrative 02/19/2025 11:28 AM CDT EXAMINATION: SCREENING MAMMOGRAM BILATERAL W CROW: 02/19/2025 COMPARISON: This is the patient's baseline mammogram. TECHNIQUE: Mammography was performed with 2D and 3D digital breast tomosynthesis (DBT) images. CAD was utilized. BREAST PARENCHYMAL COMPOSITION: The breasts are almost entirely fatty. FINDINGS: Bilateral There is no suspicious mass, calcification, or architectural distortion in either breast. Nicky Thayer MD IMG MAMMO PROCEDURES [place] l Result * F5 (FVL) and F2 (Prothrombin) Mutations (02/17/2025 9:15 AM CDT) Factor V Leiden F5 Normal Normal [facility] Factor V Leiden Interpretation The patient is negative for the Factor V Leiden mutation (F5:c.1601G>A, p.R534Q) with two copies of the normal allele. [facility] Prothrombin F2 Mutation Normal Normal [facility] Prothrombin F2 Interpretation The patient is negative for the prothrombin gene mutation (F2 c.*97G>A ([id number])) with two copies of the normal allele). [facility] FVL and Prothrombin Specimen Blood [facility] FVL and Prothrombin Result Review Final report reviewed by: GI Ward, MB([facility]) Stonework Tracer, on 02/19/2025 08:16:12 CDT. [facility] Comment: Interpretive Data Testing was performed simultaneously for the presence of the F5:c.1601G>A(R534Q) (aka Factor V Leiden) mutation and the F2:c.*97G>A mutation. The presence of either of these F5 or F2 variants increases the relative risk of venous thromboembolism (VTE) but is not predictive of a thrombotic event. The population allele frequency for F5:c.1601G>A(R534Q) is up to 5% in persons of ancestry and 1.2% in those with ancestry. The reported frequency among other ethnicities is less than 3%. The increased risk of VTE for adults is 4-8 fold for F5 heterozygotes and 80-fold higher for F5 homozygotes. The population allele frequency for the F2:c.*97G>A mutation is approximately 1-3% in persons of ancestry and 0.3% in those with ancestry. The reported frequency among other ethnicities is less than 2%. The increased risk of VTE for adults is 2-5 fold for F2 heterozygotes and is higher, though not well-defined, for F2 homozygotes. The risk of VTE in individuals heterozygous for both F2 & F5 is 20-fold higher. Absence of these mutations does not indicate a lack of risk for VTE. Genetic counseling is recommended. Method: This assay utilizes the [employer] Xpert FII & FV qualitative in vitro diagnostic genotyping test for the detection of targeted FV and F2 alleles from sodium citrate or EDTA anticoagulated whole blood. This test is performed on the [employer] System which automates and integrates sample purification, nucleic acid amplification, and detection of the target sequence in whole blood using real- time Polymerase Chain Reaction (PCR) assays based on Scorpion PCR technology. Note: F5 (NM_000130.5):c.1601G>A, R534Q or Factor V Leiden is also referred to as c.1691G>A, p.R506Q in the literature. FDA statement: The [employer] Xpert FII & FV qualitative in vitro diagnostic genotyping test for use on specimens from adult populations. The television production assistant did not evaluate testing on samples from pediatric patients (<18 years of age). The performance characteristics of this test on specimens from pediatric patients have been assessed by the [facility] and deemed acceptable for clinical reporting. The [employer] Xpert FII & FV genotyping test is FDA-cleared for testing unprocessed peripheral blood specimens containing either EDTA or sodium citrate. Processing of specimens submitted for reflex testing requires modifications from the television production assistant's instructions. The performance characteristics of those modifications, if necessary, have been determined by [facility] in a manner consistent with CLIA requirements. Limitations and interfering substances: The performance of the Xpert Factor II & Factor V Assay was validated using the procedures provided in the package insert only. Results from the Xpert Factor II & Factor V Assay should be interpreted in conjunction with other laboratory and clinical data available to the clinician. Rare Factor V variants including but not limited to: F5:c.1599G>A, F5:c.1602A>C, F5:c.1606A>G, rare Factor II mutations and any additional SNPs in the probe binding region, may interfere with the target detection and yield an invalid result. Patients on heparin therapy and receiving blood transfusions may have interfering substances that potentially lead to invalid or erroneous results. References: 1. [employer] Xpert Factor II and Factor V package insert. [id number], Rev. B. November 2016. 2. Bernabe WW, et al; [place] Factor V Leiden Working Group. Karen Med. 2001. 3:139- 48. 3. REBEKAH Henderson, et al. Nature. 2019. 581:434 4 43 4. Josh ORTEGA. Factor V Leiden Thrombophilia. 1998September 09 [Updated 2018 May 02]. Available from: https://www.ncbi.nlm.nih.gov/books/MYU8703/ 5. Latrell PM, et al. N Engl J Med. 1995. 332:912-17. 6. Анна ROSARIO and Octavia PH. J Thromb Haemost. 2009. 7 Suppl 1:301 4 . 7. Ming S., et al. Karen Med. 2018. 20:1489 1 498 This test was performed at: [facility], [facility], [facility]#[id number], Margaret Ledesma, Ph.D., [place], [address], [place] Current interpretive data was last revised 2022. Blood 02/17/2025 9:15 AM CDT 02/18/2025 10:57 AM CDT Tarah THOMAS - 02/19/2025 8:16 AM CDT 2 spun sodium citrate tubes us Florinda Joy MD LAB GENETIC TE STING Final Result [facility] [address] [place] [address] [facility] * eGFR (02/17/2025 9:15 AM CDT) eGFR 72 >=60 mL/min/1. 73 m2 Comment: Interpretive Data Reference Interval Normal >/= 90 mL/min/1.73m2 Mildly decreased* 60 - 89 mL/min/1.73m2 Mildly to moderately decreased 45 - 59 mL/min/1.73m2 Moderately to severely decreased 30 - 44 mL/min/1.73m2 Severely decreased 15 - 29 mL/min/1.73m2 Kidney Failure < 15 mL/min/1.73m2 *Relative to young adult level Estimated glomerular filtration rate is determined by the 2020 CKD-EPI equation recommended by the National Kidney Foundation (A Unifying Approach to GFR Estimation: Recommendations of the NKF-ASK Task Force on Reassessing the Inclusion of Race in Diagnosing Kidney Disease, JASN 2020). The CKD-EPI equation should not be used for patients with unstable renal function and has not been validated in children and those over 70. Current interpretive data was last reviewed 2021. Blood 02/17/2025 9:15 AM CDT 02/17/2025 9:39 AM CDT us Florinda Joy MD LAB BLOOD ORDE RABLES Final Result Performing Organization Address City/[facility]/ZIP Co de Phone Number [facility] [place] [address] * Vitamin D 25 hydroxy (02/17/2025 9:15 AM CDT) Pathologist [facility] Vitamin D 25-OH 35 30 - 80 ng/mL Blood 02/17/2025 9:15 AM CDT 02/17/2025 9:39 AM CDT us Florinda oJy MD LAB BLOOD ORDE RABLES Final Result [facility] [place] [address] * (ABNORMAL) Protein C activity (02/17/2025 9:15 AM CDT) Protein C >150(H) 60 - 150 % Blood 02/17/2025 9:15 AM CDT 02/17/2025 10:59 AM CDT us Florinda Joy MD LAB BLOOD ORDE RABLES Final Result Performing Organization Address [facility] [place] [address] * Antithrombin Activity (02/17/2025 9:15 AM CDT) Antithrombin III 121 80 - 125 % Comment: Interpretive Data High concentrations of anti-Xa direct oral anticoagulants can cause Antithrombin activities to be falsely elevated. Current interpretive data was last reviewed 2023 Blood 02/17/2025 9:15 AM CDT 02/17/2025 10:59 AM CDT us Florinda Joy MD LAB BLOOD ORDE RABMANSI Final Result Performing Organization Address [facility] [place] [address] * Factor V activity (02/17/2025 9:15 AM CDT) Factor V activity 84 50 - 125 % Blood 02/17/2025 9:15 AM CDT 02/17/2025 9:56 AM CDT Narrative DANISH [facility] - 02/17/2025 10:38 AM CDT What is the purpose of this testing?->To evaluate for Factor V LEIDEN (thrombophilia) us Florinda Joy MD LAB BLOOD ORDE RABMANSI Final Result [facility] Department [place] [address] * PTH (02/17/2025 9:15 AM CDT) [facility] PTH 23 18 - 59 pg/mL Blood 02/17/2025 9:15 AM CDT 02/17/2025 9:39 AM CDT Florinda Joy MD LAB BLOOD ORDE PARI Final Result Performing Organization Address [facility] Co de Phone Number [facility] [place] [address] * Basic metabolic panel (02/17/2025 9:15 AM CDT) [facility] Sodium 139 135 - 145 mmol/L Potassium, pl 4.9 3.3 - 4.9 mmol/L [facility] Chloride 102 97 - 110 mmol/L [facility] CO2 28 22 - 32 mmol/L [facility] Anion gap 9 2 - 15 mmol/L [facility] BUN 15 6 - 25 mg/dL [facility] Creatinine 1.01 0.60 - 1.10 mg/dL [facility] Glucose 102 70 - 199 mg/dL [facility] Comment: Interpretive Data Fasting glucose >/= 126 mg/dl is diagnostic for diabetes. Fasting is defined as no caloric intake for at least 8 hours. Fasting glucose between 100 mg/dl to 125 mg/dl is diagnostic of prediabetes. In a patient with classic symptoms of hyperglycemia or hyperglycemic crisis, a random glucose >/= 200 mg/dl is diagnostic for diabetes. In the absence of unequivocal hyperglycemia, results should be confirmed by repeat testing. The classification and Diagnosis of Diabetes Diabetes Care 2021; 46: S19-S40. Current interpretive data was last revised 2022. Calcium 9.9 8.5 - 10.3 mg/dL [facility] Blood 02/17/2025 9:15 AM CDT 02/17/2025 9:39 AM CDT us Florinda Joy MD LAB BLOOD ORDE PARI Final Result DANISH THOM[facility] Department [place] [address] * (ABNORMAL) POCT hemoglobin A1c (02/17/2025 8:13 AM CDT) Hemoglobin A1C, POC 6.9(A) 4.0 - 5.6 % Blood 02/17/2025 8:13 AM CDT Cira Gamboa MD POINT OF CARE TEST ORDER CASSIE Final Result * CT Abdomen Pelvis WO Contrast (02/02/2025 7:06 AM CDT) Anatomical Region Laterality Modality Body N/A Computed Tomogra phy 02/02/2025 8:06 AM CDT Narrative 02/02/2025 8:12 AM CDT EXAM DESCRIPTION: CT ABDOMEN PELVIS WO CONTRAST REASON FOR STUDY: n20.0 Pt complains of bilateral flank pain for about six weeks. Prior cholecystectomy and hysterectomy. Cervical cancer history in October 2023 TECHNIQUE: CT scan of the abdomen and pelvis performed without intravenous and without oral contrast using helical scanning technique. Reconstructed coronal and sagittal MPR images reviewed. All images stored on PACS. Automated exposure control was used as a dose optimization technique for this examination. COMPARISON: 04/01/2021. FINDINGS: The sensitivity for detection of visceral lesions is diminished without the use of intravenous contrast. Lower chest: Lung bases are clear. No pleural effusion. Liver: Slightly lobular surface contour of the liver. No focal hepatic lesion is identified. The size is normal. Gallbladder: Surgically absent. Biliary: No ductal dilation is seen. Spleen: Size normal with no focal lesion. Pancreas: No identified mass or overt inflammatory change. Adrenals: Normal. Urinary: There is a calculus in the lower pole the right kidney 0.4 cm. There is an exophytic lesion from the mid pole right kidney anteriorly 1.4 cm, 26 Hounsfield units appears to be a cyst on the prior contrast CT. There is a calculus in the upper pole left kidney 0.4 cm. Calculi in the lower pole, the largest is 0.7 cm. No ureteral calculi. Small amount of fluid urinary bladder. No urinary bladder mass or calculus. Bowel: No evidence of obstruction. Mild colonic diverticulosis descending colon. The terminal ileum is normal. The appendix is normal. The stomach and duodenum are normal. No abnormal bowel wall thickening. There is no obvious mass. Peritoneum: No ascites or free air. No mesenteric mass or lymphadenopathy. Small fat containing umbilical hernia. Retroperitoneum: No retroperitoneal mass or lymphadenopathy. Vascular: Abdominal aorta nonaneurysmal. Reproductive: Status post hysterectomy. No pelvic mass or adnexal mass. Musculoskeletal: Bone windows demonstrate no acute or aggressive osseous abnormality. Limbus vertebra at L4. IMPRESSION: 1. No evidence of an acute abnormality of the abdomen and pelvis. 2. Bilateral nonobstructing renal calculi. 3. Cholecystectomy and hysterectomy. 4. Slightly lobular surface contour of the liver which is nonspecific but could be seen with cirrhosis. 5. Small fat containing umbilical hernia. THIS IS AN ELECTRONICALLY VERIFIED FINAL REPORT 02/02/2025 8:12 AM - Electronically signed by Donnie Brooke M.D. T: Report ID: [id number] Reading Location: [id number] Procedure Note Donnie Brooke MD - 02/02/2025 EXAM DESCRIPTION: CT ABDOMEN PELVIS WO CONTRAST REASON FOR STUDY: n20.0 Pt complains of bilateral flank pain for about six weeks. Prior cholecystectomy and hysterectomy. Cervical cancer history in October 2023 TECHNIQUE: CT scan of the abdomen and pelvis performed without intravenousand without oral contrast using helical scanning technique. Reconstructed coronal and sagittal MPR images reviewed. All images stored on PACS.Automated exposure control was used as a dose optimization technique for this examination. COMPARISON: 04/01/2021. FINDINGS: The sensitivity for detection of visceral lesions is diminished without the use of intravenous contrast. Lower chest: Lung bases are clear. No pleural effusion. Liver: Slightly lobular surface contour of the liver. No focal hepaticlesion is identified. The size is normal. Gallbladder: Surgically absent. Biliary: No ductal dilation is seen. Spleen: Size normal with no focal lesion. Pancreas: No identified mass or overt inflammatory change. Adrenals: Normal. Urinary: There is a calculus in the lower pole the right kidney 0.4 cm.There is an exophytic lesion from the mid pole right kidney anteriorly 1.4 cm,26 Hounsfield units appears to be a cyst on the prior contrast CT. There pavel calculus in the upper pole left kidney 0.4 cm. Calculi in the lower pole,the largest is 0.7 cm. No ureteral calculi. Small amount of fluid urinary bladder. No urinary bladder mass or calculus. Bowel: No evidence of obstruction. Mild colonic diverticulosis descending colon. The terminal ileum is normal. The appendix is normal. Thestomach and duodenum are normal. No abnormal bowel wall thickening. There is no obvious mass. Peritoneum: No ascites or free air. No mesenteric mass orlymphadenopathy. Small fat containing umbilical hernia. Retroperitoneum: No retroperitoneal mass or lymphadenopathy. Vascular: Abdominal aorta nonaneurysmal. Reproductive: Status post hysterectomy. No pelvic mass or adnexal mass. Musculoskeletal: Bone windows demonstrate no acute or aggressive osseous abnormality. Limbus vertebra at L4. IMPRESSION: 1. No evidence of an acute abnormality of the abdomen and pelvis. 2. Bilateral nonobstructing renal calculi. 3. Cholecystectomy and hysterectomy. 4. Slightly lobular surface contour of the liver which is nonspecificbut could be seen with cirrhosis. 5. Small fat containing umbilical hernia. THIS IS AN ELECTRONICALLY VERIFIED FINAL REPORT 02/02/2025 8:12 AM - Electronically signed by Donnie Brooke M.D. T: Report ID: [id number] Reading Location: [id number] Yael Oconnor NP IMG CT PROCEDURES Final Res ult * Botox Injection (01/12/2025 8:30 AM CDT) Greta Corcoran - 01/12/2025 8:30 AM CDT Greta Howard 01/13/2025 1:46 PM Botox Injection Performed by: David Trejo MD Authorized by: David Trejo MD [place] Protocol: Procedure Details - Botox Injection: Procedure Details: See Botox flow sheet for details on injection sites and amounts. David Trejo MD IN CLINIC/BEDSIDE ORDERAB LES Final Result * Vaginitis panel Vaginal (01/07/2025 10:56 AM CDT) Bacterial Vaginosis Not Detected Not Detected Comment: A negative result does not preclude a possible infection. Results should be considered in conjunction with clinical presentation to determine the disease status. Testing performed by: [address] [address] Lucero group Not Detected Not Detected [facility] Comment:Testing performed by : [address], [place]., [address] Lucero glabrata/ krusei Not Detected Not Detected [facility] Comment:Testing performed by : [address], [place]., [address] Trichomonas DNA Not Detected Not Detected [facility] Comment:Testing performed by : [address] [address] Vaginal 01/07/2025 10:5 6 AM CDT 01/07/2025 1:47 PM CDT Narrative [facility] - 01/07/2025 4:35 PM CDT The CepPenPathid Xpert Xpress MVP test detects DNA targets from anaerobic bacteria associated with bacterial vaginosis, Lucero species associated with vulvovaginal candidiasis, and Trichomonas vaginalis by nucleic acid amplification testing (NAAT). Results should be interpreted in conjunction with other clinical data. This test cannot be used to assess therapeutic success or failure because target nucleic acids may persist following antimicrobial therapy. This test has been cleared by the [place] Food and Drug Administration to aid in the diagnosis of vaginal infections in symptomatic women ages 14 and older. The performance characteristics of this test have been verified by the [facility]. us Nicky Thayer MD LAB MICROBIOLOGY - GENERA L ORDERABLES Final Result D[facility]ISH [address] [facility] Department of Laboratories [place], [place] [id number] * (ABNORMAL) POCT urinalysis dipstick (12/27/2024 6:11 PM CDT) Color, Urine, POC Yellow Clarity, ur, POC Clear Clear Glucose, ur, POC Negative Negative Bilirubin, ur, POC Negative Negative Ketones, ur, POC Negative Negative [place], POC 1.030 1.003 - 1.030 Blood, ur, POC Trace(A) Negative pH, ur, POC 7.5 5.0 - 8.0 Protein, ur, POC 30.(A) Negative Urobilinogen, urine, POC 0.2 0.2 - 1.0 mg/dL Nitrite, ur, POC Negative Negative Leukocytes, ur, POC Negative Negative Lot Number [id number] Urine 12/27/2024 6:11 PM CDT Rosey Patel NP POINT OF CARE TEST ORDERABLES Final Result * Albumin Creatinine Ratio, Urine (11/04/2024 8:45 AM CDT) Pathologist [facility] Microalb, Ur 7.6 0.0 - 22.9 mg/L [facility] Random Urine Creatinine 50.6 mg/dL [facility] Microalb/Creat Ratio 15.0 0.0 - 29.9 mg/g [facility] Urine 11/04/2024 8:45 AM CDT 11/04/2024 9:53 AM CDT Donald Monterroso MD LAB URINE O RDERABLES Final Result [facility] * (ABNORMAL) Lipid panel (11/04/2024 8:45 AM CDT) Pathologist [facility] Triglycerides 228(H) <150 mg/dL [facility] Comment: Repeated and Verified Persistently elevated triglycerides may enhance atherosclerotic cardiovascular disease. Desirable: <150 mg/dL, fasting <175 mg/dL, non-fasting Total Cholesterol 160 <200 mg/dL [facility] Total HDL-C Direct 42(L) >50 mg/dL [facility] Comment: A low HDL-C may [...] AM CDT 11/04/2024 9:53 AM CDT Narrative [facility] - 11/04/2024 12:49 [...] MD LAB BLOOD O RDERABLES Final Result [facility] * Pap and High Risk HPV and Genotyping (Cytology Component) (10/22/2024 4:47 PM CDT) Thin prep (Pap test) 10/22/2024 4:47 PM CDT 10/22/2024 6:09 PM CDT Narrative PATHOLOGY [facility] - 11/08/2024 12:12 PM CDT EPIC results best viewed via link to PDF [facility] [place] [address] Note to Patients: This report may contain [...] REPORT FINAL Patient Name: ELIN GUILLORY Gender: Afshin : 1985 (Age: 39) Address: [address] [place] [address] [place] [address] Hospital #: [id number] Service: UNKNOWN Location: Patient Type: [facility] SPECIMEN Taken: 10/22/2024 Received: 10/22/2024 Accessioned: 10/23/2024 [...] performed using the che HPV assay ([employer] This test has been modified from the television production assistant's instructions. Its performance characteristics were determined by [facility] in a manner consistent with CLIA requirements. This test has not been cleared or approved by the U.S. Food and Drug Administration. Test Performed by: [address] [address] Junior Art Director: Brendan Dean M.D. Ph.D.; CLIA# [id number] This specimen has been rescreened in accordance with this laboratory's Human Resources Benefits Assistant Program. 11/05/2024 08:23 By this signature, I [...] clinical information and biopsy results as indicated. [facility] Clinical Laboratory Improvement Amendments (CLIA) mandate that cytologic and histologic results be correlated for laboratory quality assurance monitor chassis & improvement standards. FOR ALL HIGH-GRADE CASES [...] determined by the Surgical Pathology Department at [facility] as part of an ongoing quality control projectionist program and in compliance with federally mandated [...] determined by the Surgical Pathology Department of [facility]. It has not been cleared or approved by the [place]. S. Food and Drug Administration. Wilson Zhang MD LAB CYTOLOGY ORDERABLES Final Result PATHOLOGY [facility] IO 3rd Floor [place], [place] [phone] * Hepatitis C antibody (11/09/2022 11:11 AM CDT) Hep C Ab Nonreactive Nonreactive [facility] Comment:Antibodies to HCV no t detected. Does NOT exclude the possibility of recent exposure to HCV. Current interpretive data was last revised on 21 Blood 11/09/2022 11:1 1 AM CDT 11/09/2022 1:25 PM CDT us Keon Muniz MD LAB MICROBIOLOGY - GENERA L ORDERABLES Final Result [facility] [place] [address] from Last 3 Months or Most Recently Relevant to Health Maintenance Insurance CHOICE PRF [place] [facility] BL [place] Advance Directives For more information, please contact: [phone] * Full Code (Latest Code Status on File) Date Activated Date Inactivated Comments 01/17/2023 6:27 AM 01/18/2023 4:38 AM * Full Code Date Activated Date Inactivated Comments 02/23/2021 12:15 PM 02/23/2021 7:05 PM * Full Code Date Activated Date Inactivated Comments 09/03/2019 7:27 AM 09/03/2019 1:47 PM Care Teams Building Certifier Relationship Specialty Start Date End Date Gennaro Boone MD PCP - General 12/05/16 Cira Gamboa MD Consulting Physician Endocrinology 03/19/22 Rico Hernandez MD [address] [facility] [phone] [place] [address] Marketing Analytics Lead Obstetrics and Gynecology 11/01/22 Keon Muniz MD [address] [facility] [address] [place] [address] Consulting Physician Reproductive Endocrinology and Infertility 01/24/24 Nicky Thayer MD [address] [place] [address] Marketing Analytics Lead Obstetrics and Gynecology 10/30/24 Kimmy Albert MD [address] [facility] [place] [address] Consulting Physician Physical Medicine and Rehabilitation 12/30/24
--- OUTSIDE RECORDS SUMMARY | 2025-02-24 08:57 | XMS_ITS ---
Author Organization [facility] Address [address] [place] [address] Care Team Providers Care Melt Superintendant Name Role Phone Gennaro Boone MD Primary Care Provider [phone] Cira Gamboa MD Unavailable Rico Hernandez MD Unavailable Keon Muniz MD Unavailable Nicky Thayer MD Unavailable Kimmy Albert MD Unavailable [phone] Active Problems Patient Care Coordination No te [...] Returned/Scanned into chart: [] Schedule Mailed/sent via Apiaryt: [] IVF Injectable Meds Ordered - Pharm [...] 06/09/2024 Assessment & Plan (06/09/2024 2:06 PM TOOL AND DIE ASSEMBLER): The patient has a longstanding history of [...] (09/01/2019): Added automatically from request for surgery [id number] PCOS (polycystic ovarian syndrome) 06/23/2019 Overview (06/23/2019): Added automatically from request for surgery [id number] Class 2 obesity 05/28/2019 Assessment & Plan (12/02/2019 6:56 PM CDT): Class 2 obesity with BMI 36 kg/m2 with related comorbidities: hyperlipidemia, pre-diabetes, depression, PCOS complicates the management of pre-diabetes by increasing insulin resistance and glucose intolerance Plan: 1) Resume care under referral to Weight Management Program (Dr. Pita Arias, ) 2) Consider re-starting Ozempic Assessment & Plan (05/28/2019 10:49 AM TOOL AND DIE ASSEMBLER): Despite lifestyle modifications, she is frustrated regarding [...] profile. Assessment & Plan (05/28/2019 10:43 AM TOOL AND DIE ASSEMBLER): Given family history, LDL > 190, this [...] stones. Assessment & Plan (05/28/2019 10:44 AM TOOL AND DIE ASSEMBLER): Calcium and PTH normal previously. Recommend 24 [...] w/r/t gut microbiome. Referred to ADA and [facility] websites for additional information on topics including glycemic index/carbohydrate choices, protein sources. Consider metformin. Avoid GLP-1 w/ h/o delayed gastric emptying. Assessment & Plan (05/28/2019 10:47 AM TOOL AND DIE ASSEMBLER): She is following a low carb, low [...] (03/08/2022): Added automatically from request for surgery [id number] Class 1 obesity due to exces s [...] (09/01/2019): Added automatically from request for surgery [id number] RLQ abdominal pain 06/23/2019 4 Overview (06/23/2019): Added automatically from request for surgery [id number] Secondary oligomenorrhea 06/23/2019 Overview (06/23/2019): Added automatically from request for surgery [id number] Iron deficiency 04/19/2017 10/31/2017 Blood in stool [...]
--- OUTSIDE RECORDS SUMMARY | 2025-02-24 08:57 | XMS_ITS | Encounter Summary ---
Author Organization [facility] Address [address] [place] [address] Care Team Providers Care Last Sawyer Name Role Phone Gennaro Boone MD Primary Care Provider [phone] Cira Gamboa MD Unavailable Rico Hernandez MD Unavailable Keon Muniz MD Unavailable Nicky Thayer MD Unavailable Kimmy Albert MD Unavailable Encounter Details Date Type Department Care Team (Latest Contact Info) Description 01/11/2025 Results Follow-Up [facility] Obstetrical Gynecology [address] [phone] Nicky Thayer MD [address] [place] [address] Vaginitis panel Vaginal Social History Tobacco Use Types Packs/Day Years [...] PM CDT Legal Sex Female 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 CORK INSULATION SETTER Gender Identity Female 10/15/2019 6:32 PM CDT Sexual Orientation Straight 08/26/2019 7: 34 PM CDT documented as of this encounter Plan of Treatment Not on file documented as of this encounter Visit Diagnoses Not on filedocumented in this encounter Care Teams Last Sawyer Relationship Specialty Start Date End Date Gennaro Boone MD PCP - General 12/05/16 Cira Gamboa MD Consulting Physician Endocrinology 03/19/22 Rico Hernandez MD [address] [facility] [phone] [place], [place] [phone] Sammying Machine Operator Obstetrics and Gynecology 11/01/22 Keon Muniz MD [address] [facility] [address] [place] [address] Consulting Physician Reproductive Endocrinology and Infertility 01/24/24 Nicky Thayer MD [address] [place] [address] Sammying Machine Operator Obstetrics and Gynecology 10/30/24 Kimmy Albert MD [address] [facility] [address] Consulting Physician Physical Medicine and Rehabilitation 12/30/24 documented as of this encounter
[2025-02-24 09:02] LABS: INR 1.0; Prothrombin Time 13.1 Seconds (11.1-14.7)
[2025-02-24 09:03] LABS: Partial Thromboplastin Time 28.3 Seconds (22.3-36.8)
[2025-02-24 09:10] LABS: Anion Gap 11 mmol/L (4-12); Blood Urea Nitrogen 17 mg/dL (7-17); Calcium 9.9 mg/dL (8.4-10.2); Carbon Dioxide 28 mmol/L (22-30); Chloride 100 mmol/L (98-107); Estimated Glomerular Filt Rate > 60; Glucose 138 mg/dL (65-110); Potassium 4.8 mmol/L (3.4-5.0); Sodium 139 mmol/L (137-145)
== END 2025-02-24 08:33 | disposition home or self-care (01) ==
PROVIDERS: Anesthesiology; PCP Family Medicine; Visit Provider Urology
DX: N20.0 Calculus of kidney (principal); Z79.899 Other long term (current) drug therapy; Z01.818 Encounter for other preprocedural examination
CPT/HCPCS: 36415; 80048; 85610; 85730

== ENCOUNTER 2025-03-02 00:56 | Day surgery (SDC) | payer BC, SELFPAY ==
--- NOTE | 2025-02-22 11:19 | SUR.PREOP ---
[facility] has started construction of its new state of the art ER which will open Spring 2026. With this, we anticipate parking may be a challenge for some our surgical patients and families. Parking spaces are limited but are available for all Surgical, obstetrics, and ER patients sharing this lot. If you arrive and find you are having a hard time finding a parking space, please note that we understand the challenges, please drive around the hospital and park near Hospital Entrance 1. When you enter this entrance, you can ask a volunteer to direct or take you back to the surgical waiting area to check in. We appreciate everyone?s understanding of these expected challenges while we build for your future. Report to the Outpatient Waiting Room, entrance under the green pavilion located off [address], at time __11AM__ on date __03/02/25_. Planned Procedure Time: _1PM_.? Time changes happen often and if your time is changed the preop area will call you the afternoon before. - You and your visitor will be asked to self-screen and do not enter if you have any COVID symptoms. Please call surgeon if you need to reschedule. - A mask is optional within the hospital at this time. Patients may have clear liquids (water, carbonated beverages, clear teas, apple juice) until 3 hours prior to surgery with a maximum of 20 ounces. - No food from midnight until time of surgery and no smoking, or chewing tobacco (or any form of nicotine). No chewing gum, candy or mints. Take only the following medications with a SIP of water on the morning of surgery: _escitalopram, or meds as needed (tylenol with codeine, alprazolam, prochlorperazine,tizanidine, tramadol, or zolmitriptan). DO NOT STOP ANY OF YOUR OTHER PRESCRIPTION MEDICATIONS PRIOR TO SURGERY EXCEPT THE FOLLOWING Hold all vitamins and supplements for 3 days per anesthesiologist last day 02/26/25 Medications to hold per physician _meloxicam 7 days prior per the patient._ Date to take last dose___02/22/25___ Please no make-up, nail luxembourgish, hairspray, perfume, deodorant, or body powder the day of surgery.? No jewelry (including any body piercings) or valuables the day of surgery, leave them at home.? Please take a shower or bath the night before, or the morning of, surgery with an antibacterial soap.? Wear comfortable, loose fitting clothing.? - Jewelry must be removed prior to entering the operating room.? Rings and piercings that are not removed may be cut off. - The hospital will not accept responsibility for valuables.? - Please leave all valuables, including medications, at home the day of surgery. If you are going home after surgery, a licensed mechanic driver must drive you home.? - NO public transportation without another adult if you receive anesthesia. - We recommend that an adult stay with you for 24 hours following discharge. - We also recommend that you do not drive, make important decision, drink alcoholic beverages, or take any drugs that were not prescribed by your health care provider for at least 24 hours after your discharge time. Follow any additional instructions given to you from your surgeon. Telephone instructions given to __Erin__and asked if any additional questions and then verbalized understanding. Patient advised to call surgeon office or pre surgery nurse liaison [phone] if any additional questions.
[2025-02-22 11:27] VITALS: BMI 38.5
[2025-03-02] VITALS (7 sets, daily range): BP systolic 123–144; BP diastolic 67–94; PULSE 83–94; RESP 14–16; TEMP 36.2–36.4; O2SAT 95–100
--- NOTE | ~2025-03-02 | XR_ITS ---
EXAMINATION: XR abdomen/kub 1V DATE: 03/02/2025 11:02 INDICATION: Left-sided nephrolithiasis. Lithotripsy TECHNIQUE: A supine view of the abdomen on 2 radiographs was obtained. COMPARISON: CT dated 03/14/2022 FINDINGS: Again seen are a few left renal stones, one projecting over the interpolar region measuring 2 mm, 2 stones projecting over the lower pole measuring 5 mm and 3 mm and possible fourth 3 mm stone at the upper pole of the left kidney. Unchanged pattern of a few phleboliths in the deep pelvis. No other evident urolithiasis although assessment at the right kidney is limited by superimposed mottled pattern of stool and gas in the colon. No dilated loops of gas-filled bowel to suggest obstruction. Lung bases are clear. Heart size is normal. IMPRESSION: 1. Left nephrolithiasis. Reviewed, dictated and finalized at location A. ERCIAL DECORATOR IMPRESSION: 1. Left nephrolithiasis.
--- OUTSIDE RECORDS SUMMARY | 2025-03-02 00:58 | XMS_ITS ---
Author Organization [facility] Address [address] [place] [address] Care Team Providers Care Dentures Lab Technician Name Role Phone Gennaro Boone MD Primary Care Provider [phone] Cira Gamboa MD Unavailable [phone] Rico Hernandez MD Unavailable Keon Muniz MD Unavailable Nicky Thayer MD Unavailable Kimmy Albert MD Unavailable Active Problems Patient Care Coordination [...] Returned/Scanned into chart: [] Schedule Mailed/sent via [employer]: [] IVF Injectable Meds Ordered - Pharm [...] 06/09/2024 Assessment & Plan (06/09/2024 2:06 PM OIL RECOVERY OPERATOR): The patient has a longstanding history [...] (09/01/2019): Added automatically from request for surgery [id number] PCOS (polycystic ovarian syndrome) 06/23/2019 Overview (06/23/2019): Added automatically from request for surgery [id number] Class 2 obesity 05/28/2019 Assessment & Plan (12/02/2019 6:56 PM CDT): Class 2 obesity with BMI 36 kg/m2 with related comorbidities: hyperlipidemia, pre-diabetes, depression, PCOS complicates the management of pre-diabetes by increasing insulin resistance and glucose intolerance Plan: 1) Resume care under referral to Weight Management Program (Dr. Pita Arias, ) 2) Consider re-starting Ozempic Assessment & Plan (05/28/2019 10:49 AM OIL RECOVERY OPERATOR): Despite lifestyle modifications, she is frustrated [...] profile. Assessment & Plan (05/28/2019 10:43 AM OIL RECOVERY OPERATOR): Given family history, LDL > 190, [...] stones. Assessment & Plan (05/28/2019 10:44 AM OIL RECOVERY OPERATOR): Calcium and PTH normal previously. Recommend [...] w/r/t gut microbiome. Referred to ADA and [facility] websites for additional information on topics including glycemic index/carbohydrate choices, protein sources. Consider metformin. Avoid GLP-1 w/ h/o delayed gastric emptying. Assessment & Plan (05/28/2019 10:47 AM OIL RECOVERY OPERATOR): She is following a low carb, [...] (03/08/2022): Added automatically from request for surgery [id number] Class 1 obesity due to exces s [...] (09/01/2019): Added automatically from request for surgery [id number] RLQ abdominal pain 06/23/2019 4 Overview (06/23/2019): Added automatically from request for surgery [id number] Secondary oligomenorrhea 06/23/2019 Overview (06/23/2019): Added automatically from request for surgery [id number] Iron deficiency 04/19/2017 10/31/2017 Blood in stool [...]
--- OUTSIDE RECORDS SUMMARY | 2025-03-02 00:58 | XMS_ITS | Encounter Summary ---
Author Organization [facility] Address [address] [place] [address] Care Team Providers Care Web Marketing Strategist Name Role Phone Gennaro Boone MD Primary Care Provider [phone] Cira Gamboa MD Unavailable Rico Hernandez MD Unavailable Keon Muniz MD Unavailable Nicky Thayer MD Unavailable Kimmy Albert MD Unavailable [phone] Encounter Details Date Type Department Care Team (Latest Contact Info) Description 01/11/2025 Results Follow-Up [facility] Obstetrical Gynecology [address] [address] Nicky Thayer MD [address] [place] [id number] Vaginitis panel Vaginal Social History Tobacco [...] PM CDT Legal Sex Female 8:16 PM MESSENGER COPY Gender Identity Female 10/15/2019 6:32 PM CDT Sexual Orientation Straight 08/26/2019 7: 34 PM CDT documented as of this encounter Plan of Treatment Not on file documented as of this encounter Visit Diagnoses Not on filedocumented in this encounter Care Teams Web Marketing Strategist Relationship Specialty Start Date End Date Gennaro Boone MD PCP - General 12/05/16 Cira Gamboa MD Consulting Physician Endocrinology 03/19/22 Rico Hernandez MD [address] [facility] [id number] [place], [place] [id number] Catalog Librarian Obstetrics and Gynecology 11/01/22 Keon Muniz MD [address] [facility] [address] [place] [address] Consulting Physician Reproductive Endocrinology and Infertility 01/24/24 Nicky Thayer MD [address] [place] [address] Catalog Librarian Obstetrics and Gynecology 10/30/24 Kimmy Albert MD [address] [facility] [place] [address] Consulting Physician Physical Medicine and Rehabilitation 12/30/24 documented as of this encounter
--- OUTSIDE RECORDS SUMMARY | 2025-03-02 00:58 | XMS_ITS | Clinical Summary ---
Author Organization [facility] Address [address] [place] [address] Care Team Providers Care Business Development Consultant Name Role Phone Gennaro Boone MD Primary Care Provider [phone] Cira Gamboa MD Unavailable [phone] Rico Hernandez MD Unavailable Keon Muniz MD Unavailable Nicky Thayer MD Unavailable Kimmy Albert MD Unavailable Allergies Active Allergy Reactions Criticality Noted Date Comments Chlorhexidine Anaphylaxis High 10/01/2024 Hydrocodone Anaphylaxis High 10/01/2024 Nut - Unspecified Other (See comments) High 10/02/19 25 Nuts Other (See comments) Low 11/01/2022 Mouth sores [place] Other (See comments) Low 11/01/2022 Mouth sores Oxycodone Anaphylaxis High 10/01/2024 Penicillins Unknown 06/06/2017 Reaction as a child Pineapple Other (See comments) Low 11/01/2022 Mouth sores [place] Other (See comments) Low 11/01/2022 Mouth sores [...] twice daily. 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,Post -Menopausal Osteoporosis Prevention Place 1 patch on the skin 2 (two) times a week 8 patch 5 2025 Active pen needle, diabetic 32 gauge [...] by mouth 2 (two) times a day 024 2024 Discontinued polymyxin B-trimethoprim (POLYTRIM) ophthalmic solutionIndicatio [...] 30 tablet 11 025 2024 Discontinued(R eorder) metFORMIN XR (GLUCOPHAGE XR) 500 mg 24 hr tabletIndications :Type 2 diabetes mellitus without complication, without long-term current use of insulin (HCC) Take 1 tablet (500 mg total) by mouth 2 (two) times a day Start at 1 tablet daily; after 1-2 weeks, if tolerating well, increase dose to 500 mg twice daily. 60 tablet 2024 Discontinued(R eorder) ezetimibe (ZETIA) 10 mg tabletIndications :Hypercholesterol emia Take 1 tablet (10 mg total) by mouth daily 30 tablet 11 025 2024 Discontinued(R eorder) Veozah tablet tablet TAKE 1 TABLET(45 MG) BY MOUTH DAILY 90 tablet 1 025 2024 Discontinued nitrofurantoin monohydrate (MACROBID) 100 mg [...] Returned/Scanned into chart: [] Schedule Mailed/sent via beatlabt: [] IVF Injectable Meds Ordered - Pharm [...] 06/09/2024 Assessment & Plan (06/09/2024 2:06 PM ICT TEACHER): The patient has a longstanding history [...] (09/01/2019): Added automatically from request for surgery [id number] PCOS (polycystic ovarian syndrome) 06/23/2019 Overview (06/23/2019): Added automatically from request for surgery [id number] Class 2 obesity 05/28/2019 Assessment & Plan (12/02/2019 6:56 PM CDT): Class 2 obesity with BMI 36 kg/m2 with related comorbidities: hyperlipidemia, pre-diabetes, depression, PCOS complicates the management of pre-diabetes by increasing insulin resistance and glucose intolerance Plan: 1) Resume care under referral to Weight Management Program (Dr. Pita Arias, ) 2) Consider re-starting Ozempic Assessment & Plan (05/28/2019 10:49 AM ICT TEACHER): Despite lifestyle modifications, she is frustrated [...] profile. Assessment & Plan (05/28/2019 10:43 AM ICT TEACHER): Given family history, LDL > 190, [...] stones. Assessment & Plan (05/28/2019 10:44 AM ICT TEACHER): Calcium and PTH normal previously. Recommend [...] w/r/t gut microbiome. Referred to ADA and [place] websites for additional information on topics including glycemic index/carbohydrate choices, protein sources. Consider metformin. Avoid GLP-1 w/ h/o delayed gastric emptying. Assessment & Plan (05/28/2019 10:47 AM ICT TEACHER): She is following a low carb, [...] (03/08/2022): Added automatically from request for surgery [id number] Class 1 obesity due to exces s [...] (09/01/2019): Added automatically from request for surgery [id number] RLQ abdominal pain 06/23/2019 4 Overview (06/23/2019): Added automatically from request for surgery [id number] Secondary oligomenorrhea 06/23/2019 Overview (06/23/2019): Added automatically from request for surgery [id number] Iron deficiency 04/19/2017 10/31/2017 Blood in stool [...] Encounters Date Type Department Care Team Description 02/25/2025 Orders Only [facility] Medicine Endocrinology Metabolism and Lipid [address] [facility] 13th [place] [address] [place] [address] Florinda Murry MD 02/24/2025 6:50 AM CDT - 02/24/2025 11:59 PM CDT Hospital Encounter [address] [address] Neuralgia and neuritis, unspecified; Migraine with status migrainosus, not intractable, unspecified migraine type; Cervicalgia; Hypermobile Shelbie-Danlos syndrome Discharge Disposition: Discharge to home or self care 02/19/2025 9:41 AM CDT - 02/19/2025 11:59 PM CDT Hospital Encounter [address] [address] Well woman exam Discharge Disposition: Discharge to home or self care 02/18/2025 Results Follow-Up [facility] Medicine Endocrinology Metabolism and Lipid [address] [facility] Medicine 13 [place] [address] [place] [address] Cira Gamboa MD Vitamin D 25 hydroxy, PTH, Basic metabolic panel, Additional followed-up results: 4 02/18/2025 Orders Only [facility] Endocrinology Metabolism and Lipid [address] [facility] 13 [place] [address] [place] [address] Dang Mccormick RN Pure hypercholesterolemia (Primary Dx); Hypercholesterolemia; Transaminitis; Type 2 diabetes mellitus without complication, without long-term current use of insulin (HCC) 02/17/2025 9:[address] [facility] ([facility]) [address] [place] [address] Vitamin D deficiency; Kidney stones; History of blood clots 02/17/2025 8:20 AM CDT Office Visit [facility] Endocrinology Metabolism and Lipid [address] [facility] 13 [place] [address] [place] [address] Cira Gamboa MD Type 2 diabetes mellitus without complication, without long-term current use of insulin (HCC) (Primary Dx); Chronic daily headache; Early menopause; Vitamin D deficiency; History of blood clots; Kidney stones; Hypercholesterolemia; Class 2 obesity 02/02/2025 6:56 AM CDT - 02/02/2025 11:59 PM CDT Hospital Encounter [address] [address] Calculus of kidney Discharge Disposition: Discharge to home or self care 01/19/2025 Orders Only [address] [address] Yael Oconnor NP 01/12/2025 8:30 AM CDT Procedure visit [facility] [address] [facility] [address] [place] [phone] David Trejo MD Intractable chronic migraine without aura and without status migrainosus 01/11/2025 Results Follow-Up [facility] Obstetrical Gynecology [address] [place] [phone] Nicky Thayer MD Vaginitis panel Vaginal 01/07/2025 11:35 AM CDT - 01/07/2025 11:59 PM CDT Hospital Encounter [facility] Medical Office Building 1 Lab [address] [place] [address] Vaginal irritation Discharge Disposition: Discharge to home or self care 01/07/2025 10:00 AM CDT Office Visit [place] [facility] Obstetrical Gynecology [address] [facility] [address] [place] [phone] Nicky Thayer MD Well woman exam (Primary Dx); Vaginal irritation; Vasomotor symptoms due to menopause 12/27/2024 6:00 PM CDT Office Visit [place] [facility] at [address] [address] Rosey Patel NP Burning with urination (Primary Dx); Acute bilateral low back pain without sciatica 12/12/2024 5:30 PM CDT Office Visit [place] [facility] [address] [address] Sangeetha Taylor NP Thrush (Primary Dx) 12/12/2024 9:25 AM CDT E-Visit [address] [address] Kimmy Newton, VICKIE E-Visit for Cough 12/12/2024 Patient Self-Triage [facility] [address] [place] [phone] Mychart, Generic Provider 12/12/2024 Patient Self-Triage [facility] [address] [place] [address] Mychart, Generic Provider 12/07/2024 Telephone [facility] Medicine Obstetrics and Gynecology [address] [facility] 13th [place] [phone] Sheyla Dowd, RN 11/30/2024 Orders Only [facility] Medicine Obstetrics and Gynecology [address] [facility] 13th [place] [address] [place] [phone] Sheyla Dowd, RN Antibiotic-induced yeast infection (Primary Dx) 11/30/2024 Orders Only [facility] Medicine Obstetrics and Gynecology [address] [facility] 13th [place] [address] [place] [phone] Sheyla Dowd, SHEA BV (bacterial vaginosis) (Primary Dx) 11/30/2024 Telephone [facility] [address] [facility] 1st [place] [address] Ella Marte, distributing clerk from Last 3 Months Immunizations Immunization Administration [...] The Cervix - (Added by TW Conv) AR LAPS ABD PRTM&OMENTUM DX W/WO SPEC BR/WA SPX 04/29/2019 - 04/28/2020 Laparoscopy (Diagnostic) - (Added by TW Conv) ANKLE SURGERY 04/29/2002 - 04/28/2003 Right Ankle Surgery - (Added by TW Conv) CHOLECYSTECTOMY 04/29/2015 - 04/28/2016 CERVICAL BIOPSY W/ LOOP ELECTRODE EXCISION 3 between [id number] ANKLE SURGERY 04/29/2011 - 04/28/2012 IMAGE GUIDED [...] 06/23/2019 Added automatically from request for surgery [id number] Dyspareunia in female Peptic ulceration Stomach Ulcers DVT (deep venous thrombosis) 03/06/2024 Pulmonary embolism 03/09/2024 Cancer (HCC) 12/2023 Depression 2017 Arthritis 2011 Family History Medical History Relation Name Comments Hearing loss Father John Engeling Heart attack Father John Engeling Hyperlipidemia Father John Engeling Hypertension Father John Engeling Family history of hypertension - (Added by TW Conv) Stroke Father John Engeling Kidney cancer Maternal Grandfather Heart attack Maternal Grandmother Rachel Frederick Breast cancer Maternal Great-Grandmother Hemorrage Mother Brie Engeling Hyperlipidemia Mother Brie Engeling Hypertension Mother Brie Engeling Family hist ory of hypertension - (Added by TW Conv) Stroke Mother Brie Engeling Family hist ory of cerebrovascular accident - (Added by TW Conv) Diabetes Other uncle Hearing loss Sister Selene Engeling Hyperlipidemia Sister Selene Engeling Hypertension Sister Selene Engeling Anesthesia problems Neg Hx Ovarian cancer Neg Hx Uterine cancer Neg Hx Relation Name Status Comments Father John Engeling Maternal Grandfather Maternal Grandmother Rachel Frederick Alive Maternal Great-Grandmother Mother Brie Guillory Other uncle Alive Sister Selene Engeling Social History Tobacco Use Types Packs/Day Years [...] PM CDT Legal Sex Female 8:16 PM 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 Sammi Sanchez NP [facility] MRI PROCEDURES [place] Result * SCREENING MAMMOGRAM BILATERAL W CROW [...] distortion in either breast. Nicky Thayer MD [facility] MAMMO PROCEDURES [place] Result * F5 (FVL) and F2 (Prothrombin) Mutations (02/17/2025 9:15 AM CDT) Factor V Leiden F5 Normal Normal [facility] Factor V Leiden Interpretation The patient is negative for the Factor V Leiden mutation (F5:c.1601G>A, p.R534Q) with two copies of the normal allele. [facility] Prothrombin F2 Mutation Normal Normal [facility] Prothrombin F2 Interpretation The patient is negative for the prothrombin gene mutation (F2 c.*97G>A ([id number])) with two copies of the normal allele). [facility] FVL and Prothrombin Specimen Blood [facility] FVL and Prothrombin Result Review Final report reviewed by: GI Ward, MB([facility]) Museum Technician, on 02/19/2025 08:16:12 CDT. [facility] Comment: Interpretive Data Testing was performed simultaneously [...] is recommended. Method: This assay utilizes the MedHab Xpert FII & FV qualitative in vitro diagnostic genotyping test for the detection of targeted FV and F2 alleles from sodium citrate or EDTA anticoagulated whole blood. This test is performed on the [employer] Dx System which automates and integrates sample purification, nucleic acid amplification, and detection of the target sequence in whole blood using real- time Polymerase Chain Reaction (PCR) assays based on Scorpion PCR technology. Note: F5 (NM_000130.5):c.1601G>A, R534Q or Factor V Leiden is also referred to as c.1691G>A, p.R506Q in the literature. FDA statement: The MedHab Xpert FII & FV qualitative in vitro diagnostic genotyping test for use on specimens from adult populations. The job site superintendent did not evaluate testing on samples from pediatric patients (<18 years of age). The performance characteristics of this test on specimens from pediatric patients have been assessed by the [facility] and deemed acceptable for clinical reporting. The MedHab Xpert FII & FV genotyping test is FDA-cleared for testing unprocessed peripheral blood specimens containing either EDTA or sodium citrate. Processing of specimens submitted for reflex testing requires modifications from the job site superintendent's instructions. The performance characteristics of those modifications, if necessary, have been determined by [facility] in a manner consistent [...] to invalid or erroneous results. References: 1. MedHab Xpert Factor II and Factor V package insert. [id number], Rev. B. November 2016. 2. Bernabe WW, et al; MG Factor V Leiden Working Group. Karen Med. 2001. 3:139- 48. 3. REBEKAH [place], et al. Nature. 2020. 581:434 4 43 4. Josh ORTEGA. Factor V Leiden Thrombophilia. 1998September 09 [Updated 2018 May 02]. Available from: https://www.ncbi.nlm.nih.gov/books/JBB8608/ 5. Latrell PM, et al. N Engl J Med. 1995. 332:912-17. 6. Анна ROSARIO and Octavia PH. J Thromb Haemost. 2009. 7 Suppl 1:301 4 . 7. Ming S., et al. Karen Med. 2018. 20:1489 1 498 This test was performed at: [facility], [facility], CLIA#[id number], Margaret Ledesma, Ph.D., [place], [address], [place] Current interpretive data was last revised 2022. Blood 02/17/2025 9:15 AM CDT 02/18/2025 10:57 AM CDT Narrative DANISH [facility] - 02/19/2025 8:16 AM CDT 2 spun sodium citrate tubes Florinda Joy MD LAB GENETIC TE STING Final Result Performing Organization Address City/[facility] Co de Phone Number DANISH [facility] [place] [place] [address] [facility] * eGFR (02/17/2025 9:15 AM CDT) eGFR [...] MD LAB BLOOD ORDE RABLES Final Result [facility] [place] [address] * Vitamin D 25 hydroxy (02/17/2025 9:15 AM CDT) Vitamin D 25-OH 35 30 - 80 ng/mL Blood 02/17/2025 9:15 AM CDT 02/17/2025 9:39 AM CDT us Florinda Joy MD LAB BLOOD ORDE PARI Final Result Performing Organization Address City/[facility] Co de Phone Number DANISH [facility] [place] [place] [address] * (ABNORMAL) Protein C activity (02/17/2025 9:15 AM CDT) Protein C >150(H) 60 - 150 % Blood 02/17/2025 9:15 AM CDT 02/17/2025 10:59 AM CDT us Florinda Joy MD LAB BLOOD ORDE PARI Final Result Performing Organization Address [facility] [place] [address] * Antithrombin Activity (02/17/2025 9:15 AM CDT) Antithrombin III 121 80 - 125 % Comment: Interpretive Data High concentrations of anti-Xa direct oral anticoagulants can cause Antithrombin activities to be falsely elevated. Current interpretive data was last reviewed 2023 Blood 02/17/2025 9:15 AM CDT 02/17/2025 10:59 AM CDT us Florinda Joy MD LAB BLOOD ORDE RABMANSI Final Result Performing Organization Address [facility] Co de Phone Number [facility] [place] [address] * Factor V activity (02/17/2025 9:15 AM CDT) Factor V activity 84 50 - 125 % Blood 02/17/2025 9:15 AM CDT 02/17/2025 9:56 AM CDT Narrative [facility] - 02/17/2025 10:38 AM CDT What is the purpose of this testing?->To evaluate for Factor V LEIDEN (thrombophilia) Florinda Joy MD LAB BLOOD ORDE RABMANSI Final Result Performing Organization Address City/[facility]/ZIP Co de Phone Number [facility] [place] [address] * PTH (02/17/2025 9:15 AM CDT) Pathologist [facility] PTH 23 18 - 59 pg/mL Blood 02/17/2025 9:15 AM CDT 02/17/2025 9:39 AM CDT Florinda Joy MD LAB BLOOD ORDE PARI Final Result Performing Organization Address [facility] Co de Phone Number [facility] [place] [address] * Basic metabolic panel (02/17/2025 9:15 AM CDT) Pathologist [facility] Sodium 139 135 - 145 mmol/L Potassium, pl 4.9 3.3 - 4.9 mmol/L [facility] Chloride 102 97 - 110 mmol/L [facility] CO2 28 22 - 32 mmol/L [facility] Anion gap 9 2 - 15 mmol/L [facility] BUN 15 6 - 25 mg/dL [facility] Creatinine 1.01 0.60 - 1.10 mg/dL [facility] Glucose 102 70 - 199 mg/dL [facility] Comment: Interpretive Data Fasting glucose >/= 126 [...] classification and Diagnosis of Diabetes Diabetes Care 202; 46: S19-S40. Current interpretive data was last revised 2022. Calcium 9.9 8.5 - 10.3 mg/dL [facility] Blood 02/17/2025 9:15 AM CDT 02/17/2025 9:39 AM CDT us Florinda Joy MD LAB BLOOD ORDE PARI Final Result [facility] [place] [address] * (ABNORMAL) POCT hemoglobin A1c (02/17/2025 8:13 [...] by Donnie Brooke M.D. T: Report ID: [id number] Reading Location: [id number] Procedure Note Donnie Brooke MD - 02/02/2025 [...] by Donnie Brooke M.D. T: Report ID: [id number] Reading Location: [id number] Yael Oconnor NP IMG CT PROCEDURES Final Res ult * Botox Injection (01/12/2025 8:30 AM CDT) Greta Corcoran - 01/12/2025 8:30 AM CDT Greta Howard 01/13/2025 1:46 PM Botox Injection Performed by: David Trejo MD Authorized by: David Trejo MD [place] Protocol: Procedure Details - Botox Injection: Procedure [...] determine the disease status. Testing performed by: [address], [place]., [address] Lucero group Not Detected Not Detected DANISH Comment:Testing performed by : [address] [address] Lucero glabrata/ krusei Not Detected Not Detected DANISH Comment:Testing performed by : [address], [place]., [address] Trichomonas DNA Not Detected Not Detected DANISH Comment:Testing performed by : [address] [address] Vaginal 01/07/2025 10:5 6 AM CDT 01/07/2025 1:47 PM CDT Narrative DANISH - 01/07/2025 4:35 PM CDT The [employer] Xpert Xpress MVP test detects DNA targets [...] this test have been verified by the [facility]. us Nicky Thayer MD LAB MICROBIOLOGY - GENERA L ORDERABLES Final Result DANISH [id number] [facility] Department [place] [address] * (ABNORMAL) POCT urinalysis dipstick (12/27/2024 6:11 PM CDT) Pathologist [facility] Color, Urine, POC Yellow Clarity, ur, POC Clear Clear Glucose, ur, POC Negative Negative Bilirubin, ur, POC Negative Negative Ketones, ur, POC Negative Negative Specific [place], POC 1.030 1.003 - 1.030 Blood, ur, POC Trace(A) Negative pH, ur, POC 7.5 5.0 - 8.0 Protein, ur, POC 30.(A) Negative Urobilinogen, urine, POC 0.2 0.2 - 1.0 mg/dL Nitrite, ur, POC Negative Negative Leukocytes, ur, POC Negative Negative Lot Number [id number] Urine 12/27/2024 6:11 PM CDT Rosey Patel NP POINT OF CARE TEST ORDERABLES Final Result * Albumin Creatinine Ratio, Urine (11/04/2024 8:45 AM CDT) Pathologist [facility] Microalb, Ur 7.6 0.0 - 22.9 mg/L [facility] Random Urine Creatinine 50.6 mg/dL [facility] Microalb/Creat Ratio 15.0 0.0 - 29.9 mg/g [facility] Urine 11/04/2024 8:45 AM CDT 11/04/2024 9:53 AM CDT Donald Monterroso MD LAB URINE O RDERABLES Final Result [facility] * (ABNORMAL) Lipid panel (11/04/2024 8:45 AM CDT) Pathologist [facility] Triglycerides 228(H) <150 mg/dL [facility] [...] AM CDT 11/04/2024 9:53 AM CDT Narrative [facility] - 11/04/2024 12:49 PM [...] MD LAB BLOOD O RDERABLES Final Result [facility] * Pap and High Risk HPV and Genotyping (Cytology Component) (10/22/2024 4:47 PM CDT) Thin prep (Pap test) 10/22/2024 4:47 PM CDT 10/22/2024 6:09 PM CDT Narrative PATHOLOGY [facility] - 11/08/2024 12:12 PM CDT EPIC results best viewed via link to PDF [facility] [place] [address] Note to Patients: This report may contain [...] Gender: Afshin : 1985 (Age: 39) Address: [address] [place] [phone] Hospital #: [id number] Service: UNKNOWN Location: Patient Type: [facility] SPECIMEN Taken: 10/22/2024 Received: 10/22/2024 Accessioned: [...] performed using the che HPV assay ([employer] This test has been modified from the job site superintendent's instructions. Its performance characteristics were determined by [facility] in a manner consistent with CLIA requirements. This test has not been cleared or approved by the U.S. Food and Drug Administration. Test Performed by: [address] [address] Daily Sales Audit Clerk: Brendan Dean M.D. Ph.D.; CLIA# [id number] This specimen has been rescreened in accordance with this laboratory's Tube Rebuilder Program. gp11/05/2024 08:23 By this signature, I [...] clinical information and biopsy results as indicated. [facility] Clinical Laboratory Improvement Amendments (CLIA) mandate that cytologic and histologic results be correlated for laboratory quality control inspector & improvement standards. FOR ALL HIGH-GRADE CASES [...] determined by the Surgical Pathology Department at [facility] as part of an ongoing quality auditor program and in compliance with federally mandated [...] determined by the Surgical Pathology Department of [facility]. It has not been cleared or approved by the U. S. Food and Drug Administration. us Wilson Zhang MD LAB CYTOLOGY ORDERABLES Final Result PATHOLOGY [facility] 3rd Floor [place], [place] [phone] * Hepatitis C antibody (11/09/2022 11:11 AM CDT) Hep C Ab Nonreactive Nonreactive [facility] Comment:Antibodies to HCV no t detected. Does NOT exclude the possibility of recent exposure to HCV. Current interpretive data was last revised on 21 Blood 11/09/2022 11:1 1 AM CDT 11/09/2022 1:25 PM CDT Keon Muniz MD LAB MICROBIOLOGY - GENERA L ORDERABLES Final Result Performing Organization Address City/[facility]/ZIP Co de Phone Number [facility] [place] [address] from Last 3 Months or Most Recently Relevant to Health Maintenance Insurance [facility] [place] [facility] [place] Advance Directives For more information, please contact: [phone] * Full Code (Latest Code Status on File) Date Activated Date Inactivated Comments 01/17/2023 6:27 AM 01/18/2023 4:38 AM * Full Code Date Activated Date Inactivated Comments 02/23/2021 12:15 PM 02/23/2021 7:05 PM * Full Code Date Activated Date Inactivated Comments 09/03/2019 7:27 AM 09/03/2019 1:47 PM Care Teams Business Development Consultant Relationship Specialty Start Date End Date Gennaro Boone MD PCP - General 12/05/16 Cira Gamboa MD Consulting Physician Endocrinology 03/19/22 Rico Hernandez MD [address] [facility] [id number] [place] [address] Buzzsaw Operator Helper Obstetrics and Gynecology 11/01/22 Keon Muniz MD [address] [facility] [address] [place] [address] Consulting Physician Reproductive Endocrinology and Infertility 01/24/24 Nicky Thayer MD [address] [place] [address] Buzzsaw Operator Helper Obstetrics and Gynecology 10/30/24 Kimmy Albert MD [address] [facility] [place] [address] Consulting Physician Physical Medicine and Rehabilitation 12/30/24
--- OUTSIDE RECORDS SUMMARY | 2025-03-02 00:58 | XMS_ITS | Clinical Summary ---
Author Organization [facility] Address [address] [facility] [place] [address] Care Team Providers Care Informatics Pharmacist Name Role Phone Gennaro Boone MD Primary Care Provider [phone] Source Comments [facility],non-owned Affiliates and Associated Physician Practices is amultiple site organization consisting of ambulatory clinics and hospital sitesin [place], [place] and [place]. This disclosure is being madepursuant to the Care Everywhere program and may not contain all information available regarding this patient. 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
--- OUTSIDE RECORDS SUMMARY | 2025-03-02 00:58 | XMS_ITS | Encounter Summary ---
Author Organization [facility] Address [address] [place] [address] Phone Care Team Providers Care Emergency Management Consultant Name Role Phone Gennaro Boone MD Primary Care Provider Cira Gamboa MD Unavailable [phone] Rico Hernandez MD Unavailable Keon Muniz MD Unavailable Nicky Thayer MD Unavailable Kimmy Albert MD Unavailable Encounter Details Date Type Department Care Team (Late st Contact Info) Description 02/18/2025 Results [facility] and Lipid [address] [facility] Advanced Medicine [address] [place] [address] [place] [address] Cira Gamboa MD [address] [address] Vitamin D 25 hydroxy, PTH, [...] PM CDT Legal Sex Female 8:16 PM RESERVATIONS SPECIALIST Gender Identity Female 10/15/2019 6:32 PM CDT Sexual Orientation Straight 08/26/2019 7: 34 PM CDT documented as of this encounter Plan of Treatment Not on file documented as of this encounter Visit Diagnoses Not on filedocumented in this encounter Care Teams Emergency Management Consultant Relationship Specialty Start Date End Date Gennaro Boone MD PCP - General 12/05/16 Cira Gamboa MD Consulting Physician Endocrinology 03/19/22 Rico Hernandez MD [address] [facility] [id number] [place], [place] [id number] Wildlife Veterinarian Obstetrics and Gynecology 11/01/22 Keon Muniz MD [address] [facility] [address] [place] [address] Consulting Physician Reproductive Endocrinology and Infertility 01/24/24 Nicky Thayer MD [address] [place] [address] Wildlife Veterinarian Obstetrics and Gynecology 10/30/24 Kimmy Albert MD [address] [facility] [place] [address] Consulting Physician Physical Medicine and Rehabilitation 12/30/24 documented as of this encounter
--- OUTSIDE RECORDS SUMMARY | 2025-03-02 00:58 | XMS_ITS | Encounter Summary ---
Author Organization [facility] Address [address] [place] [address] Phone Care Team Providers Care Nurse Paralegal Name Role Phone Gennaro Boone MD Primary Care Provider [phone] Cira Gamboa MD Unavailable [phone] Rico Hernandez MD Unavailable Keon Muniz MD [...] PM CDT Legal Sex Female 8:16 PM EXPLOSIVES HANDLER Gender Identity Female 10/15/2019 6:32 PM CDT [...] COVID: Suspected 03/16/2020 03/16/2020 03/17/2020 9:11 PM EXPLOSIVES HANDLER COVID19 03/16/2020 03/16/2020 03/30/2020 3:08 AM EXPLOSIVES HANDLER COVID: Recovered Comment:Added based on recent COVID infection. 03/30/2020 03/30/2020 07/28/2020 3:06 AM C DT Exposure, COVID-19 Comment:Added automatically based on COVID19 lab answers indicating exposure risk 05/04/2021 05/04/2021 05/19/2021 3:[address] COVID: Suspected 05/04/2021 05/05/2021 05/06/2021 2:18 AM EXPLOSIVES HANDLER COVID: Suspected 10/20/2023 10/20/2023 10/20/2023 11:03 AM CDT documented as of this encounter Care Teams Nurse Paralegal Relationship Specialty Start Date End Date Gennaro Boone MD PCP - General 12/05/16 Cira Gamboa MD Consulting Physician Endocrinology 03/19/22 Rico Hernandez MD [address] [facility] [id number] [place] [address] Casting Machine Adjuster Obstetrics and Gynecology 11/01/22 Keon Muniz MD [address] [facility] [address] [place] [address] Consulting Physician Reproductive Endocrinology and Infertility 01/24/24 Nicky Thayer MD [address] [place] [address] Casting Machine Adjuster Obstetrics and Gynecology 10/30/24 Kimmy Albert MD [address] [facility] [place] [address] Consulting Physician Physical Medicine and Rehabilitation 12/30/24 documented as of this encounter
--- OUTSIDE RECORDS SUMMARY | 2025-03-02 00:58 | XMS_ITS | Encounter Summary ---
Author Organization [facility] Address [address] [place] [address] Care Team Providers Care Compliance Associate Name Role Phone Gennaro Boone MD Primary Care Provider [phone] Cira Gamboa MD Unavailable Rico Hernandez MD Unavailable Keon Muniz MD Unavailable Nicky Thayer MD Unavailable Kimmy Albert MD Unavailable [phone] Encounter Details Date Type Department Care Team (Late st Contact Info) Description 01/23/2023 Telephone [facility] - Interventional Radiology [address] [place] [address] Abbi Medina, SHEA Social History [...] PM CDT Legal Sex Female 8:16 PM TABLEAU 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 [address] [place], [place] [id number] Consulting Physician Reproductive Endocrinology and Infertility 01/24/24 Nicky Thayer MD [address] [place] [address] Electrical Maintenance Worker Obstetrics and Gynecology 10/30/24 Kimmy Albert MD [address] [facility] [place] [address] Consulting Physician Physical Medicine and Rehabilitation 12/30/24 documented as of this encounter
--- NOTE | 2025-03-02 09:03 | WPDHPUPDATE1 ---
History and Physical Update Update Date/Time: 03/02/25 09:03 History and Physical has been reviewed, including an updated exam of the patient. There are NO changes in the patient's condition. Risks, benefits, and alternatives have been discussed and questions answered. Patient agrees to proceed with procedure.
--- NOTE | 2025-03-02 09:03 | PM.HPGS ---
History of Present Illness History of Present Illness Consent: Risks, benefits, and alternatives have been discussed and questions answered. Patient agrees to proceed with procedure. Chief complaint: Jorge Kidney Stones Narrative: Elin Guillory is a 39 year old female with history of urolithiasis who was found on recent imaging to have left-sided kidney stones. She was recently evaluated by one of my colleagues in the urology office and had expressed desire to proceed with proactive treatment of her left-sided kidney stones. She presents today for left renal extracorporeal shockwave lithotripsy. She denies any changes passed her baseline and is ready for the procedure today. Review of Systems Review of Systems: Constitutional: No fevers or chills Eyes: No changes in vision HENT: No hearing loss Cardiovascular: No chest pain or palpitations Respiratory: No shortness of breath, cough, wheezing GI: No abdominal pain, nausea, or vomiting : No dysuria or difficulty urinating Heme: No easy bruising or bleeding Skin: No rash or itching MSK: No myalgias or joint pain Psych: No hallucinations Neuro: No lateralized numbness or tingling PMFSH Past Medical History Medical History (Updated 03/02/25 @ 09:05 by Zacarias Malone MD) Pre-diabetes Neck pain Neuralgia of upper extremity Hypotension Cough Fever Vomiting Vision changes Conjunctivitis Acute pharyngitis Eustachian tube dysfunction Otitis media Phlebitis after infusion Elevated cholesterol Chest pain Pulmonary emboli Adenocarcinoma of cervix Prediabetes Migraine headache Polycystic ovarian syndrome Hyperlipidemia DVT (deep venous thrombosis) Hypermobile Shelbie-Danlos syndrome Recurrent epistaxis Pain of left calf Pyloric stenosis Mouth sores Yeast infection COVID-19 Anxiety and depression Fatty liver GERD without esophagitis Irritable bowel syndrome with diarrhea Myalgia Other symptoms and signs involving emotional state Vitamin D deficiency Surgical History Surgical History History of total abdominal hysterectomy and bilateral salpingo-oophorectomy (02/25/24) for cervical cancer- no residual in situ or invasive endocervical adenocarcinoma H/O: hysterectomy History of endoscopy History of cholecystectomy History of colposcopy History of knee surgery History of ankle surgery History of abdominal surgery Family History Family History Father Hypertension Mother Hypertension Cerebrovascular accident Sibling COVID Social History Social History Social History: Surrogate medical decision maker: Selene Guillory, sibling. Code status: Full code. 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 Spiritual care concerns: No Agree to blood products: Yes Meds Home Medications and Allergies Home Medications ?Medication ?Instructions ?Recorded ?Confirmed ?Type prochlorperazine maleate 5 mg 5 mg PO Q8H PRN nausea and 11/24/19 02/22/25 Rx tablet (Compazine) vomiting #30 tabs spironolactone 100 mg tablet 100 mg PO DAILY 10/17/21 02/22/25 History esomeprazole magnesium 20 mg 20 mg PO DAILY 06/05/22 02/22/25 History capsule,delayed release (Nexium) atogepant 60 mg tablet (Qulipta) 60 mg PO DAILY #90 tabs 09/18/23 02/22/25 Rx acetaminophen 300 mg-codeine 30 mg 1 tablet PO Q6H PRN pain #90 tabs 01/02/24 02/22/25 Rx tablet ubrogepant 100 mg tablet (Ubrelvy) 100 mg PO DAILY PRN Migraine 03/10/24 02/22/25 History Headache tizanidine 4 mg capsule 4 mg PO BID PRN muscle spasticity 04/03/24 02/22/25 Rx #60 caps zolmitriptan 5 mg nasal spray 1 spray intranasal Q2H PRN 04/17/24 02/22/25 Rx (Zomig) headache #6 ea alprazolam 0.5 mg tablet 0.5 mg PO TID PRN anxiety #90 tabs 05/15/24 02/22/25 Rx ezetimibe 10 mg tablet 10 mg PO DAILY 10/01/24 02/22/25 History metformin 500 mg tablet,extended 500 mg PO BID 10/01/24 02/22/25 History release 24 hr sitagliptin phosphate 100 mg 100 mg PO DAILY 10/01/24 02/22/25 History tablet (Januvia) magnesium gluconate 27 mg 27 mg PO BID #60 tabs 10/29/24 02/22/25 Rx magnesium (500 mg) tablet escitalopram oxalate 20 mg tablet 20 mg PO DAILY #90 tabs 11/14/24 02/22/25 Rx atorvastatin 80 mg tablet 40 mg PO DAILY 11/26/24 02/22/25 History meloxicam 15 mg tablet 15 mg PO DAILY #30 tabs 11/26/24 02/22/25 Rx tramadol 50 mg tablet 50 mg PO Q6H PRN pain #20 tabs 01/04/25 02/22/25 Rx lisdexamfetamine 40 mg capsule 40 mg PO DAILY #30 caps 02/08/25 02/22/25 Rx (Vyvanse) valacyclovir 1 gram tablet See Rx Instructions .Route 02/15/25 02/22/25 Rx .COMPLEX #4 tabs calcium 600 mg capsule 600 mg PO DAILY 02/22/25 02/22/25 History Allergies Allergy/AdvReac Type Severity Reaction Status Date / Time chlorhexidine Allergy Severe Anaphylaxis Verified 02/22/25 11:21 nut - unspecified Allergy Intermediate Difficulty Verified 02/22/25 11:21 Swallowing tree nut Allergy Intermediate Difficulty Verified 02/22/25 11:21 Swallowing hydrocodone Allergy Mild Anaphylaxis Verified 02/22/25 11:21 oxycodone Allergy Unknown THROAT Verified 02/22/25 11:21 SWELLING Penicillins Allergy Unknown UNKNOWN-WAS Verified 02/22/25 11:21 CHILD topiramate (From Topamax) AdvReac Confusion Verified 02/22/25 11:21 Exam Narrative: General: Alert, no acute distress Head: Normocephalic, atraumatic Eyes: Extraocular movements intact Neck: No JVD, trachea midline Respiratory: Symmetric chest rise, nonlabored breathing on room air CV: Normal rate, adequate peripheral perfusion Abdomen: Soft, nontender, nondistended : Deferred Skin: Warm/dry Extremities: No peripheral edema, no cyanosis Neuro: No focal deficits Psych: Answers questions appropriately, appropriate mood Assessment and Plan Assessment and plan (1) Nephrolithiasis: Code(s): N20.0 - Calculus of kidney Status: Acute Plan 39-year-old female with left nephrolithiasis - To OR for left renal extracorporeal shockwave lithotripsy - Risks, benefits, alternatives reviewed with the patient. She is amenable to proceed - Anticipate discharge home thereafter
[2025-03-02] MEDS: LACTATED RINGERS 1,000 ML 30 ML IV CONT (11:45)
--- NOTE | 2025-03-02 12:54 | WPDANESEPPF ---
Anes - Initial Pre Proc Eval Procedure: Operation Date: 03/02/25 13:00 Proposed Procedures p Left Extracorporeal Shock Wave Lithotripsy - Zacarias Malone MD s Possible Cystoscopy, Left Retrograde Pyelogram - Zacarias Malone MD Date/Time: 03/02/25 12:54 Surgeon: Zacarias Malone MD Pre Op Diagnosis: Jorge Kidney Stones Patient Data Age: 39 Gender: F Height: 1.57 m Weight: 95.2 kg Last Vital Signs Temp 36.2 C L 03/02/25 11:45 Pulse 93 03/02/25 11:45 Resp 16 03/02/25 11:45 BP 136/89 03/02/25 11:45 Pulse Ox 99 03/02/25 11:45 O2 Del Method Room Air 03/02/25 11:45 Allergies Allergy/AdvReac Type Severity Reaction Status Date / Time chlorhexidine Allergy Severe Anaphylaxis Verified 03/02/25 11:57 nut - unspecified Allergy Intermediate Difficulty Verified 03/02/25 11:57 Swallowing tree nut Allergy Intermediate Difficulty Verified 03/02/25 11:57 Swallowing hydrocodone Allergy Mild Anaphylaxis Verified 03/02/25 11:57 oxycodone Allergy Unknown THROAT Verified 03/02/25 11:57 SWELLING Penicillins Allergy Unknown UNKNOWN-WAS Verified 03/02/25 11:57 CHILD topiramate (From Topamax) AdvReac Confusion Verified 03/02/25 11:57 Home Medications ?Medication ?Instructions ?Recorded ?Confirmed ?Type prochlorperazine maleate 5 mg 5 mg PO Q8H PRN nausea and 11/24/19 02/22/25 Rx tablet (Compazine) vomiting #30 tabs spironolactone 100 mg tablet 100 mg PO DAILY 10/17/21 02/22/25 History esomeprazole magnesium 20 mg 20 mg PO DAILY 06/05/22 02/22/25 History capsule,delayed release (Nexium) atogepant 60 mg tablet (Qulipta) 60 mg PO DAILY #90 tabs 09/18/23 02/22/25 Rx acetaminophen 300 mg-codeine 30 mg 1 tablet PO Q6H PRN pain #90 tabs 01/02/24 02/22/25 Rx tablet ubrogepant 100 mg tablet (Ubrelvy) 100 mg PO DAILY PRN Migraine 03/10/24 02/22/25 History Headache tizanidine 4 mg capsule 4 mg PO BID PRN muscle spasticity 04/03/24 02/22/25 Rx #60 caps zolmitriptan 5 mg nasal spray 1 spray intranasal Q2H PRN 04/17/24 02/22/25 Rx (Zomig) headache #6 ea alprazolam 0.5 mg tablet 0.5 mg PO TID PRN anxiety #90 tabs 05/15/24 02/22/25 Rx ezetimibe 10 mg tablet 10 mg PO DAILY 10/01/24 02/22/25 History metformin 500 mg tablet,extended 500 mg PO BID 10/01/24 03/02/25 History release 24 hr sitagliptin phosphate 100 mg 100 mg PO DAILY 10/01/24 03/02/25 History tablet (Januvia) magnesium gluconate 27 mg 27 mg PO BID #60 tabs 10/29/24 03/02/25 Rx magnesium (500 mg) tablet escitalopram oxalate 20 mg tablet 20 mg PO DAILY #90 tabs 11/14/24 02/22/25 Rx atorvastatin 80 mg tablet 40 mg PO DAILY 11/26/24 02/22/25 History meloxicam 15 mg tablet 15 mg PO DAILY #30 tabs 11/26/24 03/02/25 Rx tramadol 50 mg tablet 50 mg PO Q6H PRN pain #20 tabs 01/04/25 02/22/25 Rx lisdexamfetamine 40 mg capsule 40 mg PO DAILY #30 caps 02/08/25 02/22/25 Rx (Vyvanse) valacyclovir 1 gram tablet See Rx Instructions .Route 02/15/25 02/22/25 Rx .COMPLEX #4 tabs calcium 600 mg capsule 600 mg PO DAILY 02/22/25 03/02/25 History Laboratory Tests 03/02/25 11:36 POC Capillary Glucose 113 H mg/dl (65-105) Patient hx anesthesia problems: post op nausea/vomiting Family hx anesthesia problems: none Results Review: All pre-operative results and documents have been reviewed as part of the pre-operative evaluation. [facility] Past Medical History Medical History (Updated 03/02/25 @ 09:05 by Zacarias Malone MD) Pre-diabetes Neck pain Neuralgia of upper extremity Hypotension Cough Fever Vomiting Vision changes Conjunctivitis Acute pharyngitis Eustachian tube dysfunction Otitis media Phlebitis after infusion Elevated cholesterol Chest pain Pulmonary emboli Adenocarcinoma of cervix Prediabetes Migraine headache Polycystic ovarian syndrome Hyperlipidemia DVT (deep venous thrombosis) Hypermobile Shelbie-Danlos syndrome Recurrent epistaxis Pain of left calf Pyloric stenosis Mouth sores Yeast infection COVID-19 Anxiety and depression Fatty liver GERD without esophagitis Irritable bowel syndrome with diarrhea Myalgia Other symptoms and signs involving emotional state Vitamin D deficiency Surgical History Surgical History History of total abdominal hysterectomy and bilateral salpingo-oophorectomy (02/25/24) for cervical cancer- no residual in situ or invasive endocervical adenocarcinoma H/O: hysterectomy History of endoscopy History of cholecystectomy History of colposcopy History of knee surgery History of ankle surgery History of abdominal surgery Family History Family History Father Hypertension Mother Hypertension Cerebrovascular accident Sibling COVID Social History Social History Social History: Surrogate medical decision maker: Selene Guillory, sibling. Code status: Full code. 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 Informed Consent: The patient's anesthetic plan and its attendant risks and benefits were discussed with the patient/family/POA. Questions were solicited and answers provided to the satisfaction of the patient/family/POA.
[2025-03-02] MEDS: SCOPOLAMINE 1 MG PATCH 1 PATCH TRANSDERM (12:55)
[2025-03-02] MEDS: ceFAZolin 2 GM in SODIUM CHLORIDE 0.9% IV 50 ML 100 ML IVPB (13:09)
--- NOTE | 2025-03-02 14:02 | W.PM.PROC2 ---
Procedure Note - Detailed Date of Procedure 03/02/25 Pre-op Diagnosis Nephrolithiasis Post-op Diagnosis Same Procedure Performed 1. Cystoscopy 2. Left ureteral catheterization 3. Left retrograde pyelogram with intraoperative interpretation 4. Left renal extracorporeal shockwave lithotripsy Surgeon Zacarias Malone MD Anesthesia General Description of Procedure Findings: 1. Cystourethroscopy revealed orthotopic ureteral orifices bilaterally. No suspicious lesions, tumors, active bleeding, or stones in the lower urinary tract 2. left retrograde pyelogram using a 50 50 mixture of contrast and saline showed no hydro nephrosis or contrast extravasation; there is a filling defect in the left lower pole commensurate with patient's prior CT scan 3. Uncomplicated left renal ESWL 4. Adequate stone fragmentation Details: The patient was brought back to the operating room. They were prepped, draped, padded per protocol. Cefazolin was administered. Timeout was performed. the stone was thought to be localized in the lower pole of the left kidney with fluoroscopy, although it was quite faint. To further delineate the left collecting system and anatomy, I elected to perform a left-sided retrograde pyelogram. As such, the patient's genitalia were prepped and draped in standard sterile fashion. I advanced a 16 Armenian lubricated flexible cystoscope transurethrally in the patient's bladder and performed pancystoscopy with findings as noted above. I then byron my attention the left ureteral orifice, which was gently cannulated with an open-ended catheter to the level of the left mid distal ureter. Through this catheter I performed a left-sided retrograde pyelogram using a 50 50 mixture of contrast and saline with findings as noted above. The stone was more convincingly localized with fluoroscopy in the lower pole. The lithotripter was used to deliver 300 shocks to the stone at 60 shocks per minute at a low power level. A 2-minute pause was then undertaken. The remainder of the shocks were delivered at 90 shocks per minute and the power was gradually ramped up. Periodic fluoroscopy was utilized to ensure that the stone was still in the appropriate blast path. A total of 2500 shocks were administered. Fragmentation was noted to be adequate. There were no complications. The patient was awoken and sent to recovery. Plan: KUB and follow-up visit in approximately 3-4 weeks.
[2025-03-02] MEDS: fentaNYL CITRATE INJ (*CRX) 100 MCG/2 ML VIAL 25 MCG IV PUSH ×2 (14:30→14:35)
[2025-03-02] MEDS: traMADol HCL (*CRX) 50 MG TABLET PO (15:14)
== END 2025-03-02 15:43 | disposition home or self-care (01) ==
PROVIDERS: PCP Family Medicine; Visit Provider Urology
PROC: (CPT 50590; principal; 2025-03-02 13:00)
PROC: (CPT 52352; 2025-03-02 13:00)
DX: N20.0 Calculus of kidney (principal); Z79.84 Long term (current) use of oral hypoglycemic drugs
CPT/HCPCS: 50590; 74018; 82948; J0690; A9270; C1758; C1769; J1100; J2003; J2250; J2405; J2704; J3010; J7120; Q9966

== ENCOUNTER 2025-03-26 08:39 | Outpatient (CLI) | payer BC, SELFPAY ==
--- NOTE | ~2025-03-26 | XR_ITS ---
EXAMINATION: XR abdomen/kub 1V, 03/26/2025 8:45 PAYROLL ASSISTANT HISTORY: NEPHROLITHIASIS COMPARISON: No comparisons available. Technique: 3 view. Findings: Moderate fecal content, no dilated bowel loops. No free air. No abnormal calcifications No acute osseous abnormality. Impression: 1. No renal calculi identified Reviewed, dictated and finalized at location P. OLL ASSISTANT Impression: 1. No renal calculi identified
--- OUTSIDE RECORDS SUMMARY | 2025-03-26 08:42 | XMS_ITS | Encounter Summary ---
Author Organization [facility] Address [address] [place] [address] Phone Care Team Providers Care Color Finisher Name Role Phone Gennaro Boone MD Primary Care Provider Cira Gamboa MD Unavailable Rico Hernandez MD Unavailable Keon Muniz MD Unavailable Nicky Thayer MD Unavailable Kimmy Albert MD Unavailable [phone] Encounter Details Date Type Department Care Team [...] PM CDT Legal Sex Female 8:16 PM BIOSTATISTICS TEACHER Gender Identity Female 10/15/2019 6:32 PM [...] COVID: Suspected 03/16/2020 03/16/2020 03/17/2020 9:11 PM BIOSTATISTICS TEACHER COVID19 03/16/2020 03/16/2020 03/30/2020 3:08 AM BIOSTATISTICS TEACHER COVID: Recovered Comment:Added based on recent COVID infection. 03/30/2020 03/30/2020 07/28/2020 3:06 AM C DT Exposure, COVID-19 Comment:Added automatically based on COVID19 lab answers indicating exposure risk 05/04/2021 05/04/2021 05/19/2021 3:[address] COVID: Suspected 05/04/2021 05/05/2021 05/06/2021 2:18 AM BIOSTATISTICS TEACHER COVID: Suspected 10/20/2023 10/20/2023 10/20/2023 11:03 AM CDT documented as of this encounter Care Teams Color Finisher Relationship Specialty Start Date End Date Gennaro Boone MD PCP - General 12/05/16 Cira Gamboa MD Consulting Physician Endocrinology 03/19/22 Rico Hernandez MD [address] [facility] [phone] [place] [address] Dielectric Testing Machine Operator Obstetrics and Gynecology 11/01/22 Keon Muniz MD [address] [facility] [address] [place] [address] Consulting Physician Reproductive Endocrinology and Infertility 01/24/24 Nicky Thayer MD [address] [place] [address] Dielectric Testing Machine Operator Obstetrics and Gynecology 10/30/24 Kimmy Albert MD [address] [facility] [place] [address] Consulting Physician Physical Medicine and Rehabilitation 12/30/24 documented as of this encounter
--- OUTSIDE RECORDS SUMMARY | 2025-03-26 08:43 | XMS_ITS ---
Author Organization [facility] Address [address] [place] [address] Care Team Providers Care Refrigeration Service Inspector Name Role Phone Gennaro Boone MD Primary Care Provider [phone] Cira Gamboa MD Unavailable Rico Hernandez MD Unavailable Keon Muniz MD Unavailable Nicky Thayer MD Unavailable Kimmy Albert MD Unavailable [phone] Active Problems Patient Care Coordination No te [...] Returned/Scanned into chart: [] Schedule Mailed/sent via Drive[employer]: [] IVF Injectable Meds Ordered - Pharm [...] 06/09/2024 Assessment & Plan (06/09/2024 2:06 PM OSTEOPATHY DOCTOR): The patient has a longstanding history of [...] (09/01/2019): Added automatically from request for surgery [id number] PCOS (polycystic ovarian syndrome) 06/23/2019 Overview (06/23/2019): Added automatically from request for surgery [id number] Class 2 obesity 05/28/2019 Assessment & Plan (12/02/2019 6:56 PM CDT): Class 2 obesity with BMI 36 kg/m2 with related comorbidities: hyperlipidemia, pre-diabetes, depression, PCOS complicates the management of pre-diabetes by increasing insulin resistance and glucose intolerance Plan: 1) Resume care under referral to Weight Management Program (Dr. Pita Arias, ) 2) Consider re-starting Ozempic Assessment & Plan (05/28/2019 10:49 AM OSTEOPATHY DOCTOR): Despite lifestyle modifications, she is frustrated regarding [...] profile. Assessment & Plan (05/28/2019 10:43 AM OSTEOPATHY DOCTOR): Given family history, LDL > 190, this [...] stones. Assessment & Plan (05/28/2019 10:44 AM OSTEOPATHY DOCTOR): Calcium and PTH normal previously. Recommend 24 [...] w/r/t gut microbiome. Referred to ADA and [facility] websites for additional information on topics including glycemic index/carbohydrate choices, protein sources. Consider metformin. Avoid GLP-1 w/ h/o delayed gastric emptying. Assessment & Plan (05/28/2019 10:47 AM OSTEOPATHY DOCTOR): She is following a low carb, low [...] (03/08/2022): Added automatically from request for surgery [id number] Class 1 obesity due to exces s [...] (09/01/2019): Added automatically from request for surgery [id number] RLQ abdominal pain 06/23/2019 4 Overview (06/23/2019): Added automatically from request for surgery [id number] Secondary oligomenorrhea 06/23/2019 Overview (06/23/2019): Added automatically from request for surgery [id number] Iron deficiency 04/19/2017 10/31/2017 Blood in stool [...]
--- OUTSIDE RECORDS SUMMARY | 2025-03-26 08:43 | XMS_ITS | Encounter Summary ---
Author Organization [facility] Address [address] [place] [address] Phone Care Team Providers Care Digital Forensic Examiner Name Role Phone Gennaro Boone MD Primary Care Provider Cira Gambao MD Unavailable Rico Hernandez MD Unavailable Keon Muniz MD Unavailable Nicky Thayer MD Unavailable Kimmy Albert MD Unavailable Encounter Details Date Type Department Care Team (Late st Contact Info) Description 03/14/2022 Orders Only [facility] Scanning, Provider Social History Tobacco Use Types Packs/Day Years Used Date Smoking Tobacco: Never Smokeless Tobacco: Never Alcohol Use Standard Drinks/Week Comments Not Currently 0 (1 standard drink = 0.6 oz pur e alcohol) rarely AUDIT-C Answer Date Recorded Q1: How often do you have a drink containing alc ohol? Monthly or less 03/15/2022 Q2: How many drinks containi ng alcohol do you have on a typical day when you are drinking? 1 or 2 03/15/2022 Q3: How often do you have si x or more drinks on one occasion? Never 03/15/2022 Comments No Sex and Gender Information Value Date Recorded Sex Assigned at Female 11/01/2022 12:16 PM CDT Legal Sex Female 8:16 PM SOURCING MANAGER Gender Identity Female 10/15/2019 6:32 PM CDT Sexual Orientation Straight 08/26/2019 7: 34 PM CDT documented as of this encounter Functional Status * AUDIT-C Score Answer Date of Assessment Author 1 03/15/2022 4:06 PM Berenice Jackson RN * Alcohol Use Question Answer Date of Assessment Author Q1: How often do you have a drink containing alcohol? Monthly or less 03/15/2022 4:06 PM Minna Jackson RN Q2: How many drinks containing alcohol do you have on a typical day when you are drinking? 1 or 2 03/15/2022 4:06 PM Berenice Jackson R N Q3: How often do you have six or more drinks on one occasion? Never 03/15/2022 4:06 PM Berenice Jackson R N * ADL Screening Question Answer Date of Assessment Author Hearing - Right Ear Functional 03/15/2022 4:08 PM CS Berenice Salas RN Hearing - Left Ear Functional 03/15/2022 4:08 PM Berenice Jackson RN * Assistive Devices Question Answer Date of Assessment Author Assistive Devices/DME None 03/15/2022 4:08 PM Berenice Jackson RN documented as of this encounter Plan of Treatment Not on file documented as of this encounter Procedures Procedure Name Priority Date/Time Associated Diagnosis Comments SCAN - RADIOLOGY/IMAGING 03/14/2022 documented in this encounter Results * SCAN - RADIOLOGY/IMAGING (03/14/2022) Anatomical Region Laterality Modality Other us Provider Scanning Final Result documented in this encounter Visit Diagnoses Not on filedocumented in this encounter Additional Health Concerns Infection Onset Date Last Indicated Resolved Time COVID: Suspected 10/20/2023 10/20/2023 10/20/2023 11:03 AM CDT documented as of this encounter Care Teams Digital Forensic Examiner Relationship Specialty Start Date End Date Gennaro Boone MD PCP - General 12/05/16 Cira Gamboa MD Consulting Physician Endocrinology 03/19/22 Rico Hernandez MD [address] [facility] [phone] [place] [address] 911 Operator Obstetrics and Gynecology 11/01/22 Keon Muniz MD [address] [facility] [address] [place] [address] Consulting Physician Reproductive Endocrinology and Infertility 01/24/24 Nicky Thayer MD [address] [place] [address] 911 Operator Obstetrics and Gynecology 10/30/24 Kimmy Albert MD [address] [facility] [place] [address] Consulting Physician Physical Medicine and Rehabilitation 12/30/24 documented as of this encounter
--- OUTSIDE RECORDS SUMMARY | 2025-03-26 08:43 | XMS_ITS | Clinical Summary ---
Author Organization [facility] Address [address] [place] [address] Phone Care Team Providers Care Coat Check Attendant Name Role Phone Unavailable Primary Care Provider Unavailabl e Allergies Active Allergy Reactions Criticality Noted Date Comments Chlorhexidine Anaphylaxis High 10/01/2024 Hydrocodone Anaphylaxis High 10/01/2024 Hydrocodone-Acetaminoph en Swelling Medium 03/01/2011 Nut - Unspecified Other (See Comments) High 10/02/19 25 [place] Other (See Comments) Low 11/01/2022 Mouth sores Oxycodone Anaphylaxis High 10/01/2024 Penicillins Rash,Unknown Low 06/06/2017 Reaction as a child Pineapple Hives,Itching,Other (See Comments),Swelling High 11/01/2022 Mouth sores Topiramate Confusion,Dizziness, H eadache,Itching,Muscl e Pain Low 11/19/2019 fogginess Tree Nuts Itching,Swelling Low 03/16/2025 Medications acetaminophen (TYLENOL) 500 mg tablet Take 1,000 mg by mouth. 4 Active aspirin (ECOTRIN EC) 81 mg Tablet, Delayed Release (E.C.) Take 81 mg by mouth daily. Active Qulipta 60 mg Tablet Take 1 Tablet by mouth daily at bedtime. 5 Active atorvastatin (LIPITOR) 40 mg tablet Take 40 mg by mouth daily. 5 01/28/20 26 Active atorvastatin (LIPITOR) 80 mg tablet 5 Active Cholecalciferol, Vitamin D3, 50 mcg (2,000 unit) Capsule Take 2,000 Units by mouth daily at bedtime. Active clindamycin HCL (CLEOCIN) 300 mg Capsule Take 1 Capsule by mouth 3 times daily. 5 Active clobetasoL (TEMOVATE) 0.05 % Ointment Apply to affected area 2 times daily. 4 Active cromolyn (GASTROCROM) 100 mg/5 mL solution Take 200 mg by mouth. 5 Active diazePAM (VALIUM) 5 mg tablet Take 5 mg by mouth. 5 Active diphenhydrAMINE (BENADRYL) 25 mg capsule Take 25 mg by mouth. 4 Active escitalopram oxalate (LEXAPRO) 20 mg tablet Take 20 mg by mouth daily. 5 Active esomeprazole (NexIUM 24HR) 20 mg Capsule, Delayed Release(E.C.) Active estradioL 0.05 mg/24 hr patch Apply 1 Patch to skin as directed. 5 02/26/20 Active ezetimibe (ZETIA) 10 mg tablet Take 10 mg by mouth daily. 5 02/19/20 26 Active Veozah 45 mg tablet 5 Active finasteride (PROSCAR) 5 mg tablet 5 Active fish,bora,flax oils-om3,6,9no1 (Seymour 3-6-9) 1,200 mg Capsule Act chelsea fluconazole (DIFLUCAN) 100 mg tablet TAKE 2 TABLETS BY MOUTH THE FIRST DAY THEN TAKE 1 TABLET BY MOUTH EACH DAY UNTIL RESOLVED 5 Active fluconazole (DIFLUCAN) 150 mg tablet TAKE 1 TABLET BY MOUTH 1 TIME. MAY REPEAT AFTER 2 DAYS 5 Active gabapentin (NEURONTIN) 100 mg capsule Take one pill twice a day and 3 pills in the evening. 5 Active HYDROcodone-aceta minophen (NORCO) 5-325 mg tablet take 1 tablet by mouth every 4 to 6 hours as needed 5 Active ketorolac tromethamine (TORADOL) 10 mg tablet Take 10 mg by mouth. 5 Active levocetirizine (XYZAL) 5 mg tablet Take 5 mg by mouth daily at bedtime. Active lisdexamfetamine (VYVANSE) 40 mg capsule Take 40 mg by mouth daily. 5 Active lisdexamfetamine (VYVANSE) 30 mg capsule Take 1 Capsule by mouth daily. 5 Active meloxicam (MOBIC) 15 mg tablet Take 15 mg by mouth. 4 Active metFORMIN (GLUCOPHAGE XR) 500 mg Extended Release 24 hour tablet Take 500 mg by mouth 2 times daily. 5 02/19/20 26 Active metroNIDAZOLE (FLAGYL) 500 mg tablet 5 Active MINOXIDIL Active nitrofurantoin (MACROBID) 100 mg capsule Take 1 Capsule by mouth 2 times daily. 5 Active nystatin (MYCOSTATIN) 100,000 unit/mL suspension 5 Active ondansetron (ZOFRAN) 8 mg Tablet Take 8 mg by mouth. 4 Active predniSONE (DELTASONE) 10 mg tablet 5 Active SITagliptin phosphate (JANUVIA) 100 mg Tablet Take 100 mg by mouth daily. 5 02/19/20 Active spironolactone (ALDACTONE) 100 mg tablet Active tamsulosin (FLOMAX) 0.4 mg capsule Take 0.4 mg by mouth daily at bedtime. 5 Active tiZANidine (ZANAFLEX) 4 mg Tablet Take 4 mg by mouth. 4 Active traMADol (ULTRAM) 50 mg tablet Take 50 mg by mouth. 4 Active triamcinolone acetonide (KENALOG) 0.1 % Paste 0.25 Inches by dental route 2 times daily. 3 Active ubrogepant (Ubrelvy) 100 mg tablet Take 100 mg by mouth. 5 Active valACYclovir (VALTREX) 1 gram tablet Take 2 Tablets by mouth 2 times daily. 5 Active ZOLMitriptan (ZOMIG) Samaria, Non-Aerosol Administer 1 Samaria in each nostril. 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 We discussed therapeutic options. Start gabapentin 100 mg 3 times a day. Side effects reviewed. May increase to 300 mg 3 times a day depending on clinical response. 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 Overview (03/16/2025): Left lung DVT of axillary vein, acute left 03/06/2024 Premature menopause 02/25/2024 Overview (03/16/2025): Post hysterectomy, symptomatic Cancer of endocervical canal 01/23/2024 History of stomach ulcers 04/23/2023 Ovarian hyperstimulation syndrome 01/23/2023 Female infertility 11/05/2022 Delayed gastric emptying 10/25/2019 Fatigue 10/25/2019 Vitamin D deficiency 10/25/2019 Weight loss counseling, encounter for 10/20/2019 Multiple duodenal ulcers 09/01/2019 Overview (03/16/2025): Added automatically from request for surgery [id number] PCOS (polycystic ovarian syndrome) 06/23/2019 Overview (03/16/2025): Added automatically from request for surgery [id number] Class 2 obesity 05/28/2019 Hypercholesterolemia 10/09/2018 Nephrolithiasis 10/09/2018 Type 2 diabetes mellitus wit hout complication, without long-term current use of insulin 10/09/2018 Encounters Date Type Department Care Team Description 03/24/2025 Abstract [facility] [address] [facility] [address] [place] [address] Provider, Abstract 03/23/2025 External Device Data [facility] ABSTRACTION Provider, Abstract 03/23/2025 External Device Data [facility] ABSTRACTION Provider, Abstract 03/23/2025 External Device Data [facility] ABSTRACTION Provider, Abstract 03/19/2025 Telephone [facility] [address] [facility] [address] [place] [address] Trevon Melton MD Referral 03/16/2025 9:35 AM ENGINEERING SYSTEMS ANALYST Ancillary Procedure [facility] [address] [facility] [address] [place] [address] Donald Pruitt NP Neck pain 03/16/2025 9:30 AM ENGINEERING SYSTEMS ANALYST Office Visit [facility] [address] [facility] [address] [place] [address] Trevon Melton MD Neck pain (Primary Dx) 03/16/2025 Abstract [facility] [address] [facility] [address] [place] [phone] Trevon Melton MD from Last 3 Months Immunizations Immunization Administration Dates Next Due (ADACEL/BOOSTRIX)(10 YR UP) TDAP VACCINE, 0.5ML, IM 09/26/2013 (GARDASIL 9)(9-45 YRS) HUMAN PAPILLOMAVIRUS VACCINE, TYPES 6, 11, 16, 18, 31, 33, 45, 52, 58, NONAVALENT (9VHPV), 2 OR 3 DOSE, IM 07/30/2022,04/02/2022,02/01/2022 INFLUENZA VACCINE QUADRIVALE NT 6 MOS UP PF IM 01/26/2020,01/16/2013 Influenza Seasonal Unspecifi ed Formulation IM 12/27/2013,02/20/2012 Influenza Seasonal Unspecifi ed Formulation PF IM 12/26/2015,01/13/2015 Influenza, Unspecified Formulation 03/12/2024, Social History Tobacco Use Types Packs/Day Years Used Date Smoking Tobacco: Never Assessed Comments Unknown Sex and Gender Information Value Date Recorded Sex Assigned at Not on file Legal Sex Female 12:55 PM ENGINEERING SYSTEMS ANALYST Gender Identity Not on file Sexual Orientation Not on file Last Filed Vital Signs Vital Sign Reading Time Taken Comments Blood Pressure 126/84 03/16/2025 7:00 AM ENGINEERING SYSTEMS ANALYST Pulse 100 03/16/2025 7:00 AM ENGINEERING SYSTEMS ANALYST Temperature - - Respiratory Rate - - Oxygen Saturation 99% 03/16/2025 7:00 AM ENGINEERING SYSTEMS ANALYST Inhaled Oxygen Concentration - - Weight 97.5 kg (215 lb) 03/16/2025 7:00 AM ENGINEERING SYSTEMS ANALYST Height 157.5 cm (5' 2) 03/16/2025 7:00 AM ENGINEERING SYSTEMS ANALYST Body Mass Index 39.32 03/16/2025 7:00 AM ENGINEERING SYSTEMS ANALYST Plan of Treatment Health Maintenance Due Date Last Done Comments DIABETES ANNUAL RETINAL EXAM 2002 DIABETES MICROALBUMIN ANNUAL SCREEN 2002 LDL CHOLESTEROL ANNUAL 2002 HEPATITIS B VACCINES (1 of 3 - 19+ 3-dose series) 08/21/2003 HPV/Cotest (21-29) 2005 HPV/Cotest (30-65) 2014 DTAP/TDAP/TD VACCINES (2 - T d or Tdap) 09/27/2023 09/26/2013 Preventative Visit- Commercial 04/29/2024 12/25/2021 , 10/31/2017 INFLUENZA VACCINE (#1) 2024 , 12/26/2015, 01/13/2015, Additional history exists DIABETES HBA1C Q 6 MONTHS 08/18/2025 02/17/2025, DIABETES ANNUAL FOOT EXAM 11/04/2025 11/04/2024 BREAST CANCER SCREENING 02/19/2026 02/19/2025, 02/19 CERVICAL CANCER SCREENING 10/23/2027 PAP SMEAR 10/23/2027 10/22/2024 HPV VACCINES Completed 07/30/2022, 12/0 08/2021, 02/01/2022 Procedures Procedure Name Priority Date/Time Associated Diagnosis Comments XR CERVICAL SPINE 2 OR 3 VIEWS Routine 03/16/2025 9:53 AM ENGINEERING SYSTEMS ANALYST Neck pain from Last 3 Months Results * XR CERVICAL SPINE 2 OR 3 VIEWS (03/16/2025 9:53 AM ENGINEERING SYSTEMS ANALYST) Anatomical Region Laterality Modality Spine Computed Radiogr aphy Narrative 03/19/2025 1:38 PM ENGINEERING SYSTEMS ANALYST Cervical Spine X-ray report: Clinical Indications -: neck pain Technique: AP and lateral cervical spine films were performed today in clinic and personally reviewed by me. My findings/interpretation are: There is no evidence of interval fracture or dislocation. Cervical alignment shows a maintained cervical lordosis. Vertebrae show normal architecture Intervertebral disc spaces are normal. Soft tissues of the neck are normal. Donald Pruitt NP DIAGNOSTIC IMAGING ORDERAB LES Final Result from Last 3 Months Insurance [facility]
--- OUTSIDE RECORDS SUMMARY | 2025-03-26 08:43 | XMS_ITS | Encounter Summary ---
Author Organization [facility] Address [address] [place] [address] Phone Care Team Providers Care Wedding Coordinator Name Role Phone Gennaro Boone MD Primary Care Provider [phone] Cira Gamboa MD Unavailable Rico Hernandez MD Unavailable Keon Muniz MD Unavailable Nicky Thayer MD Unavailable Kimmy Albert MD Unavailable Encounter Details Date Type Department Care Team (Late st Contact Info) Description 03/09/2024 Orders Only [facility] Scanning, Provider Social [...] PM CDT Legal Sex Female 8:16 PM HOGSHEAD OPENER Gender Identity Female 10/15/2019 6:32 PM CDT Sexual Orientation Straight 08/26/2019 7: 34 PM CDT documented as of this encounter Plan of Treatment Not on file documented as of this encounter Procedures Procedure Name Priority Date/Time Associated Diagnosis Comments SCAN - RADIOLOGY/IMAGING 03/09/2024 documented in this encounter Results * SCAN - RADIOLOGY/IMAGING (03/09/2024) Anatomical Region Laterality Modality Other us Provider Scanning Final Result documented in this encounter Visit Diagnoses Not on filedocumented in this encounter Care Teams Wedding Coordinator Relationship Specialty Start Date End Date Gennaro Boone MD PCP - General 12/05/16 Cira Gamboa MD Consulting Physician Endocrinology 03/19/22 Rico Hernandez MD [address] [facility] [phone] [place] [address] Sales Development Associate Obstetrics and Gynecology 11/01/22 Keon Muniz MD [address] [facility] [address] [place], [place] [id number] Consulting Physician Reproductive Endocrinology and Infertility 01/24/24 Nicky Thayer MD [address] [place] [address] Sales Development Associate Obstetrics and Gynecology 10/30/24 Kimmy Albert MD [address] [facility] [place] [address] Consulting Physician Physical Medicine and Rehabilitation 12/30/24 documented as of this encounter
--- OUTSIDE RECORDS SUMMARY | 2025-03-26 08:43 | XMS_ITS | Clinical Summary ---
Author Organization [facility] Address [address] [place] [address] Care Team Providers Care Bindery Operator Name Role Phone Gennaro Boone MD Primary Care Provider Cira Gamboa MD Unavailable Rico Hernandez MD Unavailable Keon Muniz MD Unavailable Nicky Thayer MD Unavailable Kimmy Albert MD Unavailable Allergies Active Allergy Reactions Criticality Noted Date Comments Chlorhexidine Anaphylaxis High 10/01/2024 Hydrocodone Anaphylaxis High 10/01/2024 Nut - Unspecified Other (See comments) High 10/02/19 25 Nuts Other (See comments) Low 11/01/2022 Mouth sores Olyphant Other (See comments) Low 11/01/2022 Mouth sores Oxycodone Anaphylaxis High 10/01/2024 Penicillins Unknown 06/06/2017 Reaction as a child Pineapple Other (See comments) Low 11/01/2022 Mouth sores Peel Other (See comments) Low 11/01/2022 Mouth sores Topiramate Mental status changes Low 11/19/2019 fogginess Tree Nut Other (See comments) High 10/01/2024 Hydrocodone-Acetaminoph en Swelling Medium 03/01/2011 Medications ALPRAZolam (XANAX) 0.5 mg tablet Take 1 tablet (0.5 mg total) by mouth as needed for anxiety 0 Active spironolactone (ALDACTONE) 100 mg tablet Take 1 tablet (100 mg total) by mouth nightly 2 Active valACYclovir (VALTREX) 1 gram tablet Take 2 tablets (2,000 mg total) by mouth as needed (HSV outbreak) [address] (NexIUM) 40 mg capsuleIndication s:Gastroesophagea l reflux disease, unspecified whether esophagitis present Take 1 capsule (40 mg total) by mouth 2 (two) times a day before breakfast and dinner 60 capsule 2 2 Active cholecalciferol (VITAMIN D-3) 2000 unit capsule Take 1 capsule (2,000 Units total) by mouth nightly Active triamcinolone (KENALOG) 0.1 % paste Apply 0.25 inches to teeth 2 (two) times a day Dry mouth first, apply only after eating 5 g 3 3 Active meloxicam (MOBIC) 15 mg tablet Take 1 tablet (15 mg total) by mouth as needed 4 Active clobetasoL (TEMOVATE) 0.05 % ointment Apply topically 2 (two) times a day 30 g 4 Active minoxidiL (LONITEN) 2.5 mg tablet Take 0.625 mg by mouth nightly 4 Active levocetirizine (Xyzal) 5 mg tablet Take 1 tablet (5 mg total) by mouth nightly Active acetaminophen (TYLENOL) 500 mg tablet Take 2 tablets (1,000 mg total) by mouth every 6 (six) hours as needed for pain 60 tablet 1 4 Active ondansetron (ZOFRAN) 8 mg tablet Take 1 tablet (8 mg total) by mouth as needed for nausea or vomiting 20 tablet 4 Active traMADoL (ULTRAM) 50 mg tablet Take 1 tablet (50 mg total) by mouth every 6 (six) hours as needed for pain 15 tablet 4 Active diphenhydrAMINE 25 mg capsule Take 1 tablet/capsule (25 mg total) by mouth every 6 (six) hours as needed for itching 20 capsule 4 Active hydrocortisone 2.5 % cream Apply topically 2 (two) times a day 30 g 4 Active tiZANidine (ZANAFLEX) 4 mg tablet Take 1 tablet (4 mg total) by mouth 4 Active cromolyn (GASTROCROM) 100 mg/5 mL solution Take 10 mL (200 mg total) by mouth 4 (four) times a day before meals and nightly 1200 mL 3 5 Active escitalopram (LEXAPRO) 20 mg tablet Take 1 tablet (20 mg total) by mouth daily 5 Active Qulipta 60 mg tabletIndications :Intractable migraine with aura without status migrainosus Take 1 tablet by mouth nightly 90 tablet 3 5 Active Ubrelvy 100 mg tabletIndications :Intractable migraine with aura without status migrainosus Take 1 tablet (100 mg total) by mouth as needed for migraine Can repeat in 2 hours if needed. No more than 2 in 24 hours. 10 tablet 11 5 Active ZOLMitriptan (ZOMIG) 5 mg nasal solutionIndicatio ns:Migraine Administer 1 spray into one nostril as needed for migraine May repeat one time after 2 hours if needed. No more than 2 doses in 24 hours. 18 each 3 5 06/23/19 26 Active ketorolac (TORADOL) 10 mg tabletIndications :Intractable chronic migraine without aura and without status migrainosus Take 1 tablet (10 mg total) by mouth every 6 (six) hours as needed for pain 10 tablet 5 Active aspirin 81 mg enteric coated tablet Take 1 tablet (81 mg total) by mouth daily Active diazePAM (VALIUM) 5 mg tablet Take 1 tablet (5 mg total) by mouth 3 (three) times a day as needed for muscle spasms 5 Active finasteride (PROSCAR) 5 mg tablet 5 Active lisdexamfetamine (VYVANSE) 40 mg capsule Take 1 capsule (40 mg total) by mouth daily 5 Active atorvastatin (LIPITOR) 40 mg tabletIndications :Pure hypercholesterole praful,Hypercholeste rolemia Take 1 tablet (40 mg total) by mouth daily 90 tablet 3 5 01/28/20 Active gabapentin (NEURONTIN) 100 mg capsuleIndication s:Vasomotor Symptoms associated with Menopause Take one pill twice a day and 3 pills in the evening. 150 capsule 11 Active ezetimibe (ZETIA) 10 mg tabletIndications :Hypercholesterol emia Take 1 tablet (10 mg total) by mouth daily 90 tablet 3 5 02/19/20 Active SITagliptin phosphate (JANUVIA) 100 mg tabletIndications :type 2 diabetes mellitus Take 1 tablet (100 mg total) by mouth daily 90 tablet 3 5 02/19/20 Active metFORMIN XR (GLUCOPHAGE XR) 500 mg 24 hr tabletIndications :Type 2 diabetes mellitus without complication, without long-term current use of insulin (HCC) Take 1 tablet (500 mg total) by mouth 2 (two) times a day Start at 1 tablet daily; after 1-2 weeks, if tolerating well, increase dose to 500 mg twice daily. 180 tablet 3 02/19/20 Active estradioL (VIVELLE-DOT) 0.05 mg/24 hrIndications:Fem devorah Hypogonadism,Hypo estrogenism Due To Bilateral Oophorectomy,Post -Menopausal Osteoporosis Prevention Place 1 patch on the skin 2 (two) times a week 8 patch 5 5 02/26/20 Active tamsulosin (FLOMAX) 0.4 mg extended release capsule Take 1 capsule (0.4 mg total) by mouth nightly 5 Active Active Problems Patient Care Coordination No te [...] Returned/Scanned into chart: [] Schedule Mailed/sent via [employer]: [] IVF Injectable Meds Ordered - Pharm [...] 06/09/2024 Assessment & Plan (06/09/2024 2:06 PM PERSONAL CAREGIVER): The patient has a longstanding history of [...] (09/01/2019): Added automatically from request for surgery [id number] PCOS (polycystic ovarian syndrome) 06/23/2019 Overview (06/23/2019): Added automatically from request for surgery [id number] Class 2 obesity 05/28/2019 Assessment & Plan (12/02/2019 6:56 PM CDT): Class 2 obesity with BMI 36 kg/m2 with related comorbidities: hyperlipidemia, pre-diabetes, depression, PCOS complicates the management of pre-diabetes by increasing insulin resistance and glucose intolerance Plan: 1) Resume care under referral to Weight Management Program (Dr. Pita Arias, ) 2) Consider re-starting Ozempic Assessment & Plan (05/28/2019 10:49 AM PERSONAL CAREGIVER): Despite lifestyle modifications, she is frustrated regarding [...] profile. Assessment & Plan (05/28/2019 10:43 AM PERSONAL CAREGIVER): Given family history, LDL > 190, this [...] stones. Assessment & Plan (05/28/2019 10:44 AM PERSONAL CAREGIVER): Calcium and PTH normal previously. Recommend 24 [...] w/r/t gut microbiome. Referred to ADA and [employer] websites for additional information on topics including glycemic index/carbohydrate choices, protein sources. Consider metformin. Avoid GLP-1 w/ h/o delayed gastric emptying. Assessment & Plan (05/28/2019 10:47 AM PERSONAL CAREGIVER): She is following a low carb, low [...] (03/08/2022): Added automatically from request for surgery [id number] Class 1 obesity due to exces s [...] (09/01/2019): Added automatically from request for surgery [id number] RLQ abdominal pain 06/23/2019 4 Overview (06/23/2019): Added automatically from request for surgery [id number] Secondary oligomenorrhea 06/23/2019 Overview (06/23/2019): Added automatically from request for surgery [id number] Iron deficiency 04/19/2017 10/31/2017 Blood in stool [...] Encounters Date Type Department Care Team Description 03/22/2025 8:40 AM PERSONAL CAREGIVER Office Visit [facility] Medicine Gastroenterology [address] [facility] [address] [place] [phone] Dorothy Contreras MD Nausea and vomiting, unspecified vomiting type (Primary Dx); Gastroesophageal reflux disease, unspecified whether esophagitis present; Irritable bowel syndrome with diarrhea; Abdominal pain, unspecified abdominal location; Other fatigue 03/05/2025 11:00 AM PERSONAL CAREGIVER - 03/05/2025 11:59 PM PERSONAL CAREGIVER Hospital Encounter [facility] [address] [place] [address] Polyarthralgia Discharge Disposition: Discharge to home or self care 03/05/2025 10:52 AM PERSONAL CAREGIVER - 03/05/2025 11:59 PM PERSONAL CAREGIVER Hospital Encounter [facility] of [address] [address] Polyarthralgia Discharge Disposition: Discharge to home or self care 03/05/2025 10:50 AM PERSONAL CAREGIVER Lab [facility] Medicine Endocrinology Metabolism and Lipid [address] [facility] 5th [place] [address] Polyarthralgia 03/05/2025 9:30 AM PERSONAL CAREGIVER Office Visit [facility] Medicine Rheumatology [address] [facility] 5th [place] [address] [place] [address] Esperanza Coreas NP Polyarthralgia (Primary Dx); Raynaud's disease without gangrene 02/25/2025 Orders Only [facility] Medicine Endocrinology Metabolism and Lipid [address] [facility] 13th [place] [address] [place] [address] Florinda Murry MD 02/24/2025 6:50 AM CDT - 02/24/2025 11:59 PM CD[place] [address] Neuralgia and neuritis, unspecified; Migraine with status migrainosus, not intractable, unspecified migraine type; Cervicalgia; Hypermobile Shelbie-Danlos syndrome Discharge Disposition: Discharge to home or self care 02/19/2025 9:41 AM CDT - 02/19/2025 11:59 PM CD[place] [address] Well woman exam Discharge Disposition: Discharge to home or self care 02/18/2025 Results Follow-Up [facility] Medicine Endocrinology Metabolism and Lipid [address] [facility] [address] [place] [address] [place] [address] Cira Gamboa MD Vitamin D 25 hydroxy, PTH, Basic metabolic panel, Additional followed-up results: 4 02/18/2025 Orders Only [facility] Metabolism and Lipid [address] [facility] [address] [place] [address] [place] [address] Dang Mccormick RN Pure hypercholesterolemia (Primary Dx); Hypercholesterolemia; Transaminitis; Type 2 diabetes mellitus without complication, without long-term current use of insulin (HCC) 02/17/2025 9:05 AM CDT Lab [facility] ([facility]) [address] [place] [address] Vitamin D deficiency; Kidney stones; History of blood clots 02/17/2025 8:20 AM CDT Office Visit [facility] Medicine Endocrinology Metabolism and Lipid [address] [facility] [address] [place] [address] [place] [address] Cira Gamboa MD Type 2 diabetes mellitus without complication, without long-term current use of insulin (HCC) (Primary Dx); Chronic daily headache; Early menopause; Vitamin D deficiency; History of blood clots; Kidney stones; Hypercholesterolemia; Class 2 obesity 02/02/2025 6:56 AM CDT - 02/02/2025 11:59 PM CDT Hospital Encounter [address] [address] Calculus of kidney Discharge Disposition: Discharge to home or self care 01/19/2025 Orders Only [address] [address] Yael Oconnor NP 01/12/2025 8:30 AM CDT [facility] [address] [address] David Trejo MD Intractable chronic migraine without aura and without status migrainosus 01/11/2025 Results Follow-Up [facility] Obstetrical Gynecology [address] [place] [phone] Nicky Thayer MD Vaginitis panel Vaginal 01/07/2025 11:35 AM CDT - 01/07/2025 11:59 PM CDT Hospital Encounter [facility] [address] [place] [phone] Vaginal irritation Discharge Disposition: Discharge to home or self care 01/07/2025 10:00 AM CDT Office Visit [facility] Obstetrical Gynecology [address] [place] [phone] Nicky Thayer MD Well woman exam (Primary Dx); Vaginal irritation; Vasomotor symptoms due to menopause 12/27/2024 6:00 PM CDT Office Visit [facility] Care at [address] [phone] Rosey Patel NP Burning with urination (Primary Dx); Acute bilateral low back pain without sciatica from Last 3 Months Immunizations Immunization Administration [...] The Cervix - (Added by TW Conv) MS LAPS ABD PRTM&OMENTUM DX W/WO SPEC BR/WA SPX 04/29/2019 - 04/28/2020 Laparoscopy (Diagnostic) - (Added by TW Conv) ANKLE SURGERY 04/29/2002 - 04/28/2003 Right Ankle Surgery - (Added by TW Conv) CHOLECYSTECTOMY 04/29/2015 - 04/28/2016 CERVICAL BIOPSY W/ LOOP ELECTRODE EXCISION 3 between [id number] ANKLE SURGERY 04/29/2011 - 04/28/2012 IMAGE GUIDED [...] 06/23/2019 Added automatically from request for surgery [id number] Dyspareunia in female Peptic ulceration Stomach Ulcers DVT (deep venous thrombosis) 03/06/2024 Pulmonary embolism 03/09/2024 Cancer (HCC) 12/2023 Depression 2017 Arthritis 2012 Family History Medical History Relation Name Comments Hearing loss Father John Guillory Heart attack Father John Guillory Hyperlipidemia Father John Guillory Hypertension Father John Guillory Family history of hypertension - (Added by TW Conv) Stroke Father John Guillory Kidney cancer Maternal Grandfather Heart attack Maternal Grandmother Rachel Frederick Breast cancer Maternal Great-Grandmother Hemorrage Mother Brie Guillory Hyperlipidemia Mother Brie Guillory Hypertension Mother Brie Guillory Family hist ory of hypertension - (Added by TW Conv) Stroke Mother Brie Guillory Family hist ory of cerebrovascular accident - (Added by TW Conv) Diabetes Other uncle Hearing loss Sister Selene Engeling Hyperlipidemia Sister Selene Engeling Hypertension Sister Selene Engoni Anesthesia problems Neg Hx Ovarian cancer Neg [...] PM CDT Legal Sex Female 8:16 PM PERSONAL CAREGIVER Gender Identity Female 10/15/2019 6:32 PM CDT Sexual Orientation Straight 08/26/2019 7: 34 PM CDT Obstetrics History Para Term AB IAB SAB Ectopic Multiple Livin g Live Births 0 0 0 0 0 0 0 0 0 0 0 Comments hyst Last Filed Vital Signs Vital Sign Reading Time Taken Comments Blood Pressure 131/85 03/22/2025 8:23 AM PERSONAL CAREGIVER Pulse 91 03/22/2025 8:23 AM PERSONAL CAREGIVER Temperature 36.2 C (97.2 F) 03/22/2025 8:23 AM PERSONAL CAREGIVER Respiratory Rate 20 12/27/2024 5:57 PM CDT Oxygen Saturation 99% 01/12/2025 8:29 AM CDT Inhaled Oxygen Concentration - - Weight 97.1 kg (214 lb) 03/22/2025 8:23 AM PERSONAL CAREGIVER Height 157.5 cm (5' 2) 03/22/2025 8:23 AM PERSONAL CAREGIVER Body Mass Index 39.14 03/22/2025 8:23 AM PERSONAL CAREGIVER Plan of Treatment Health Maintenance Due Date [...] Screening-Mammogram 02/19/2026 025 HPV Vaccines Completed 07/30/2022, 12/08/2021, 02/01/2022 Hepatitis C Screening Completed 11/09/2022, 017 Cervical Cancer Screening Discontinued 2024, 11/07/2023, 11/07/2023, Additional history exists Procedures Procedure Name Priority Date/Time Associated Diagnosis Comments XR HAND BILATERAL 3 OR MORE VIEWS OF EACH Schedule Routine, Read Routine (OP Routine) 03/05/2025 11:11 AM PERSONAL CAREGIVER Polyarthralgia XR ANKLE RIGHT 3 OR MORE VIEWS Routine 03/05/2025 11:11 AM PERSONAL CAREGIVER Polyarthralgia CYCLIC CITRUL PEPTIDE ANTIBODY, IGG Routine 03/05/2025 10:52 AM PERSONAL CAREGIVER Polyarthralgia LINDSEY SCREEN W/REFLEX DAYNA+DSDNA Routine 03/05/2025 10:52 AM PERSONAL CAREGIVER Polyarthralgia RHEUMATOID FACTOR Routine 03/05/2025 10:52 AM PERSONAL CAREGIVER Polyarthralgia CRP (ACUTE PHASE) Routine 03/05/2025 10:52 AM PERSONAL CAREGIVER Polyarthralgia ERYTHROCYTE SEDIMENTATION RATE Routine 03/05/2025 10:52 AM PERSONAL CAREGIVER Polyarthralgia MRI CERVICAL SPINE WO CONTRAST Schedule Routine, [...] Recently Relevant to Health Maintenance Results * XR Hand Bilateral 3 or More Views of Each (03/05/2025 11:11 AM PERSONAL CAREGIVER) Anatomical Region Laterality Modality Upper Extremities, Hand Computed Radiography 03/05/2025 11:2 4 AM PERSONAL CAREGIVER Impressions 03/05/2025 11:24 AM PERSONAL CAREGIVER 1. Mild right talocrural osteoarthritis. 2. Normal bilateral hand radiographs. Electronically signed by: Mauricio Ly MD Narrative 03/05/2025 11:24 AM PERSONAL CAREGIVER EXAMINATION: XR ANKLE RIGHT 3 OR MORE VIEWS, XR HAND BILATERAL 3 OR MORE VIEWS OF EACH HISTORY: Right ankle and bilateral hand pain FINDINGS: 3 views of the right ankle are compared to examination dated 06/24/2014. The ankle mortise is intact. There is no fracture. Mild talocrural osteoarthritis. Small osseous fragments are noted posterior to the ankle joint. Small plantar calcaneal spur. Mild medial and lateral soft tissue swelling. 3 views of the right hand are submitted without comparison. Alignment is normal. No fracture. Normal joint spaces. No erosions. Normal mineralization. No significant soft tissue swelling. 3 views of the left hand are submitted without comparison. Alignment is normal. No fracture. Normal joint spaces. No erosions. Normal mineralization. No significant soft tissue swelling. Procedure Note Mauricio Ly MD - 03/05/2025 EXAMINATION: XR ANKLE RIGHT 3 OR MORE VIEWS, XR HAND BILATERAL 3 OR MORE VIEWS OF EACH HISTORY: Right ankle and bilateral hand pain FINDINGS: 3 views of the right ankle are compared to examination dated 06/24/2014. The ankle mortise is intact. There is no fracture. Mild talocrural osteoarthritis. Small osseous fragments are noted posterior to the ankle joint. Small plantar calcaneal spur. Mild medial and lateral soft tissue swelling. 3 views of the right hand are submitted without comparison. Alignment is normal. No fracture. Normal joint spaces. No erosions. Normal mineralization. No significant soft tissue swelling. 3 views of the left hand are submitted without comparison. Alignment is normal. No fracture. Normal joint spaces. No erosions. Normal mineralization. No significant soft tissue swelling. IMPRESSION: 1. Mild right talocrural osteoarthritis. 2. Normal bilateral hand radiographs. Electronically signed by: Mauricio Ly MD Esperanza Quarles Joss ENERGY ENGINEER IMG XR PROCEDURES Fin al Result * XR Ankle Right 3 or More Views (03/05/2025 11:11 AM PERSONAL CAREGIVER) Anatomical Region Laterality Modality Lower Extremities, Ankle Right Compute d Radiography 03/05/2025 11:2 4 AM PERSONAL CAREGIVER Impressions 03/05/2025 11:24 AM PERSONAL CAREGIVER 1. Mild right talocrural osteoarthritis. 2. Normal bilateral hand radiographs. Electronically signed by: Mauricio Ly MD Narrative 03/05/2025 11:24 AM PERSONAL CAREGIVER EXAMINATION: XR ANKLE RIGHT 3 OR MORE VIEWS, XR HAND BILATERAL 3 OR MORE VIEWS OF EACH HISTORY: Right ankle and bilateral hand pain FINDINGS: 3 views of the right ankle are compared to examination dated 06/24/2014. The ankle mortise is intact. There is no fracture. Mild talocrural osteoarthritis. Small osseous fragments are noted posterior to the ankle joint. Small plantar calcaneal spur. Mild medial and lateral soft tissue swelling. 3 views of the right hand are submitted without comparison. Alignment is normal. No fracture. Normal joint spaces. No erosions. Normal mineralization. No significant soft tissue swelling. 3 views of the left hand are submitted without comparison. Alignment is normal. No fracture. Normal joint spaces. No erosions. Normal mineralization. No significant soft tissue swelling. Procedure Note Mauricio Ly MD - 03/05/2025 EXAMINATION: XR ANKLE RIGHT 3 OR MORE VIEWS, XR HAND BILATERAL 3 OR MORE VIEWS OF EACH HISTORY: Right ankle and bilateral hand pain FINDINGS: 3 views of the right ankle are compared to examination dated 06/24/2014. The ankle mortise is intact. There is no fracture. Mild talocrural osteoarthritis. Small osseous fragments are noted posterior to the ankle joint. Small plantar calcaneal spur. Mild medial and lateral soft tissue swelling. 3 views of the right hand are submitted without comparison. Alignment is normal. No fracture. Normal joint spaces. No erosions. Normal mineralization. No significant soft tissue swelling. 3 views of the left hand are submitted without comparison. Alignment is normal. No fracture. Normal joint spaces. No erosions. Normal mineralization. No significant soft tissue swelling. IMPRESSION: 1. Mild right talocrural osteoarthritis. 2. Normal bilateral hand radiographs. Electronically signed by: Mauricio Ly MD Esperanza Coreas NP IMG XR PROCEDURES Fin al Result * LINDSEY screen w/rflx DAYNA+dsDNA (03/05/2025 10:52 AM PERSONAL CAREGIVER) LINDSEY Negative Comment: Interpretive Data Normal range for LINDSEY Qualitative Antibody = Negative. 1. LINDSEY is performed using indirect immunofluorescence against HEp-2 cells 2. LINDSEY titers are performed on all positive qualitative results. 3. A significantly positive LINDSEY result is defined as a positive nuclear fluorescence at a titer of 1:80 or greater. 4. 15% of normal people above age 65 have significantly positive LINDSEY results. 5% or less of normal people age 65 or under have significantly positive ILNDSEY results. Current interpretive data was last revised on 2019. Blood 03/05/2025 10:5 2 AM PERSONAL CAREGIVER 03/05/2025 1:47 PM PERSONAL CAREGIVER Esperanza Coreas NP LAB BLOOD ORDERABLES Final Result [facility] Department [place] [address] * Cyclic citrul peptide antibody, IgG (03/05/2025 10:52 AM PERSONAL CAREGIVER) CCP Ab <0.5 <=2.9 units/mL Comment: Interpretive data Negative: <3 units/mL Positive: > or equal to 3 units/mL Current interpretive data was last revised on 2016. Blood 03/05/2025 10:5 2 AM PERSONAL CAREGIVER 03/05/2025 1:47 PM PERSONAL CAREGIVER us Claudine Ribeiro MD LAB BLOOD ORDERABLES Final R esult Performing Organization Address [facility] Co de Phone Number [facility] [place] [address] * Erythrocyte sedimentation rate (03/05/2025 10:52 AM PERSONAL CAREGIVER) Erythrocyte Sedimentation Rate 17 <20 mm/hr [facility] Blood 03/05/2025 10:5 2 AM PERSONAL CAREGIVER 03/05/2025 11:10 AM PERSONAL CAREGIVER us Esperanza Coreas ENERGY ENGINEER LAB BLOOD ORDERABLES Final Result Performing Organization Address [facility] de Phone Number [facility] * Rheumatoid factor (03/05/2025 10:52 AM PERSONAL CAREGIVER) Rheumatoid factor, quant <10.0 0.1 - 15.0 IUnits/mL Blood 03/05/2025 10:5 2 AM PERSONAL CAREGIVER 03/05/2025 1:47 PM PERSONAL CAREGIVER us Esperanza Coreas ENERGY ENGINEER LAB BLOOD ORDERABLES Final Result Performing Organization Address [facility] Co de Phone Number [facility] Department [place] [address] * CRP (acute phase) (03/05/2025 10:52 AM PERSONAL CAREGIVER) C-Reactive Protein, Acute <3.0 <5.0 mg/L [facility] Blood 03/05/2025 10:5 2 AM PERSONAL CAREGIVER 03/05/2025 11:10 AM PERSONAL CAREGIVER us Esperanza Coreas ENERGY ENGINEER LAB BLOOD ORDERABLES Final Result Performing Organization Address City/[facility]/ZIP Co de Phone Number [facility] * MRI Cervical Spine WO Contrast (02/24/2025 [...] migrainosus, not intractable, unspecified migraine type.Cervicalgia. Hypermobile Sehlbie-Danlos syndrome. Neuralgia and neuritis TECHNIQUE: Sagittal and [...] by: Satinder Lazar D.O. Sammi Sanchez NP [facility] MRI PROCEDURES [place] Result * SCREENING [...] distortion in either breast. Nicky Thayer MD [facility] MAMMO PROCEDURES [place] Result * F5 (FVL) and F2 (Prothrombin) Mutations (02/17/2025 9:15 AM CDT) Factor V Leiden F5 Normal Normal [facility] Factor V Leiden Interpretation The patient is negative for the Factor V Leiden mutation (F5:[id number], p.[id number]) with two copies of the normal allele. [facility] Prothrombin F2 Mutation Normal Normal [facility] Prothrombin F2 Interpretation The patient is negative for the prothrombin gene mutation (F2 c.*97G>A ([id number])) with two copies of the normal allele). [facility] FVL and Prothrombin Specimen Blood [facility] FVL and Prothrombin Result Review Final report reviewed by: GI Ward, MB([facility]) Community Marketing Manager, on 02/19/2025 08:16:12 CDT. [facility] Comment: Interpretive Data Testing was performed simultaneously [...] is recommended. Method: This assay utilizes the InnoPath Software Xpert FII & FV qualitative in vitro diagnostic genotyping test for the detection of targeted FV and F2 alleles from sodium citrate or EDTA anticoagulated whole blood. This test is performed on the Superpedestrian Dx System which automates and integrates sample purification, nucleic acid amplification, and detection of the target sequence in whole blood using real- time Polymerase Chain Reaction (PCR) assays based on Scorpion PCR technology. Note: F5 (NM_000130.5):c.1601G>A, R534Q or Factor V Leiden is also referred to as c.1691G>A, p.R506Q in the literature. FDA statement: The InnoPath Software Xpert FII & FV qualitative in vitro diagnostic genotyping test for use on specimens from adult populations. The cigar sorter did not evaluate testing on samples from pediatric patients (<18 years of age). The performance characteristics of this test on specimens from pediatric patients have been assessed by the [facility] and deemed acceptable for clinical reporting. The InnoPath Software Xpert FII & FV genotyping test is FDA-cleared for testing unprocessed peripheral blood specimens containing either EDTA or sodium citrate. Processing of specimens submitted for reflex testing requires modifications from the cigar sorter's instructions. The performance characteristics of those modifications, if necessary, have been determined by [facility] in a manner consistent [...] to invalid or erroneous results. References: 1. InnoPath Software Xpert Factor II and Factor V package insert. [id number], Rev. B. November 2016. 2. Bernabe SINGH, et al; [facility] Factor V Leiden Working Group. Karen Med. 2001. 3:139- 48. 3. REBEKAH Henderson, et al. Nature. 2020. 581:434 4 43 4. Josh ORTEGA. Factor V Leiden Thrombophilia. 1998September 09 [Updated 2018 May 02]. Available from: https://www.ncbi.nlm.nih.gov/books/VEY8252/ 5. Latrell PM, et al. N Engl J Med. 1995. 332:912-17. 6. Анна ROSARIO and Octavia PH. J Thromb Haemost. 2009. 7 Suppl 1:301 4 . 7. Ming S., et al. Karen Med. 2018. 20:1489 1 498 This test was performed at: [facility], [facility], [place]#[id number], Margaret Ledesma, Ph.D., [place], [address], [place] Current interpretive data was last revised 2022. Blood 02/17/2025 9:15 AM CDT 02/18/2025 10:57 AM CDT Narrative DANISH [facility] - 02/19/2025 8:16 AM CDT 2 spun sodium citrate tubes Florinda Joy MD LAB GENETIC TE STING Final Result Performing Organization Address City/[facility]/ZIP Co de Phone Number DANISH [facility] Department [place] [address] [facility] * eGFR (02/17/2025 9:15 AM CDT) eGFR [...] MD LAB BLOOD ORDE RABLES Final Result DANISH [facility] Department [place] [place] [address] * Vitamin D 25 hydroxy (02/17/2025 9:15 AM CDT) Vitamin D 25-OH 35 30 - 80 ng/mL Blood 02/17/2025 9:15 AM CDT 02/17/2025 9:39 AM CDT us Florinda Joy MD LAB BLOOD ORDE PARI Final Result Performing Organization Address [facility] Co de Phone Number DANISH [facility] [place] [address] * (ABNORMAL) Protein C activity (02/17/2025 9:15 AM CDT) Protein C >150(H) 60 - 150 % Blood 02/17/2025 9:15 AM CDT 02/17/2025 10:59 AM CDT us Florinda Joy MD LAB BLOOD ORDE PARI Final Result Performing Organization Address [facility] [place] [address] * Antithrombin Activity (02/17/2025 9:15 AM CDT) Antithrombin III 121 80 - 125 % Comment: Interpretive Data High concentrations of anti-Xa direct oral anticoagulants can cause Antithrombin activities to be falsely elevated. Current interpretive data was last reviewed 2023 Blood 02/17/2025 9:15 AM CDT 02/17/2025 10:59 AM CDT us Florinda Joy MD LAB BLOOD ORDE PARI Final Result Performing Organization Address [facility] Co de Phone Number [facility] [place] [address] * Factor V activity (02/17/2025 9:15 AM CDT) Factor V activity 84 50 - 125 % Blood 02/17/2025 9:15 AM CDT 02/17/2025 9:56 AM CDT Narrative [facility] - 02/17/2025 10:38 AM CDT What is the purpose of this testing?->To evaluate for Factor V LEIDEN (thrombophilia) Florinda Joy MD LAB BLOOD ORDE RABLES Final Result Performing Organization Address City/[facility]/ZIP Co de Phone Number [facility] [place] [address] * PTH (02/17/2025 9:15 AM CDT) Pathologist [facility] PTH 23 18 - 59 pg/mL Blood 02/17/2025 9:15 AM CDT 02/17/2025 9:39 AM CDT Florinda Joy MD LAB BLOOD ORDE RABMANSI Final Result Performing Organization Address [facility] de Phone Number [facility] Department [place] [address] * Basic metabolic panel (02/17/2025 9:15 AM CDT) Pathologist [facility] Sodium 139 135 - 145 mmol/L Potassium, pl 4.9 3.3 - 4.9 mmol/L [facility] Chloride 102 97 - 110 mmol/L [facility] CO2 28 22 - 32 mmol/L [facility] Anion gap 9 2 - 15 mmol/L [facility] BUN 15 6 - 25 mg/dL [facility] Creatinine 1.01 0.60 - 1.10 mg/dL [facility] Glucose 102 70 - 199 mg/dL [facility] Comment: Interpretive Data Fasting glucose >/= 126 [...] 2022. Calcium 9.9 8.5 - 10.3 mg/dL [facility] Blood 02/17/2025 9:15 AM CDT 02/17/2025 9:39 AM CDT us Florinda Joy MD LAB BLOOD ORDE PARI Final Result [facility] Department [place] [address] * (ABNORMAL) POCT hemoglobin A1c (02/17/2025 8:13 AM CDT) Hemoglobin A1C, POC 6.9(A) 4.0 - 5.6 % Blood 02/17/2025 8:13 AM CDT us Cira Gamboa MD POINT OF CARE TEST [...] by Donnie Brooke M.D. T: Report ID: [id number] Reading Location: [id number] Procedure Note Donnie Brooke MD - 02/02/2025 [...] by Donnie Brooke M.D. T: Report ID: [id number] Reading Location: [id number] Yael Oconnor NP IMG CT PROCEDURES Final Res ult * Botox Injection (01/12/2025 8:30 AM CDT) Greta Corcoran - 01/12/2025 8:30 AM CDT Greta Howard 01/13/2025 1:46 PM Botox Injection Performed by: David Trejo MD Authorized by: David Trejo MD [place] Protocol: Procedure Details - Botox Injection: Procedure Details: See Botox flow sheet for details on injection sites and amounts. David Trejo MD IN CLINIC/BEDSIDE ORDERAB LES Final Result * Vaginitis panel Vaginal (01/07/2025 10:56 AM CDT) Pathologist [facility] Bacterial Vaginosis Not Detected Not Detected Comment: A negative result does not preclude a possible infection. Results should be considered in conjunction with clinical presentation to determine the disease status. Testing performed by: [address] [address] [employer]ero group Not Detected Not Detected DANISH Comment:Testing performed by : [address] [address] Lucero glabrata/ krusei Not Detected Not Detected DANISH Comment:Testing performed by : [address], [place]., [address] Trichomonas DNA Not Detected Not Detected DANISH Comment:Testing performed by : [address] [address] Vaginal 01/07/2025 10:5 6 AM CDT 01/07/2025 1:47 PM CDT Narrative DANISH - 01/07/2025 4:35 PM CDT The CepThoughtLeadrid Xpert Xpress MVP test detects DNA targets [...] this test have been verified by the [facility]. us Nicky Thayer MD LAB MICROBIOLOGY - GENERA L ORDERABLES Final Result DANISH [address] [facility] Department [place] [address] * (ABNORMAL) POCT urinalysis dipstick (12/27/2024 6:11 PM CDT) Pathologist [facility] Color, Urine, POC Yellow Clarity, ur, POC Clear Clear Glucose, ur, POC Negative Negative Bilirubin, ur, POC Negative Negative Ketones, ur, POC Negative Negative Specific [place], POC 1.030 1.003 - 1.030 Blood, ur, POC Trace(A) Negative pH, ur, POC 7.5 5.0 - 8.0 Protein, ur, POC 30.(A) Negative Urobilinogen, urine, POC 0.2 0.2 - 1.0 mg/dL Nitrite, ur, POC Negative Negative Leukocytes, ur, POC Negative Negative Lot Number [id number] Urine 12/27/2024 6:11 PM CDT Rosey Patel NP POINT OF CARE TEST ORDERABLES Final Result * Albumin Creatinine Ratio, Urine (11/04/2024 8:45 AM CDT) [facility] Microalb, Ur 7.6 0.0 - 22.9 mg/L [facility] Random Urine Creatinine 50.6 mg/dL [facility] Microalb/Creat Ratio 15.0 0.0 - 29.9 mg/g [facility] Urine 11/04/2024 8:45 AM CDT 11/04/2024 9:53 AM CDT Donald Monterroso MD LAB URINE O RDERABLES Final Result [facility] * (ABNORMAL) Lipid panel (11/04/2024 8:45 AM CDT) Pathologist [facility] Triglycerides 228(H) <150 mg/dL [facility] [...] AM CDT 11/04/2024 9:53 AM CDT Narrative [facility] - 11/04/2024 12:49 [...] MD LAB BLOOD O RDERABLES Final Result [facility] * Pap and High Risk HPV and Genotyping (Cytology Component) (10/22/2024 4:47 PM CDT) Thin prep (Pap test) 10/22/2024 4:47 PM CDT 10/22/2024 6:09 PM CDT Narrative PATHOLOGY [facility] - 11/08/2024 12:12 PM CDT EPIC results best viewed via link to PDF [facility] of Surgical Path[facility] [address] [place] [address] Note to Patients: This report may contain [...] Gender: Afshin : 1985 (Age: 39) Address: [address] [place] [id number] Hospital #: [id number] Service: UNKNOWN Location: Patient Type: [facility] SPECIMEN Taken: 10/22/2024 Received: 10/22/2024 Accessioned: 10/23/2024 [...] performed using the che HPV assay ([employer] This test has been modified from the cigar sorter's instructions. Its performance characteristics were determined by [facility] in a manner consistent with CLIA requirements. This test has not been cleared or approved by the U.S. Food and Drug Administration. Test Performed by: [address] [address] Airport Utility Worker: Brendan Dean M.D. Ph.D.; CLIA# [id number] This specimen has been rescreened in accordance with this laboratory's Cut Out And Marking Machine Operator Program. gp11/05/2024 08:23 By this signature, I [...] clinical information and biopsy results as indicated. [facility] Clinical Laboratory Improvement Amendments (CLIA) mandate that cytologic and histologic results be correlated for laboratory quality assistant & improvement standards. FOR ALL HIGH-GRADE CASES [...] determined by the Surgical Pathology Department at [facility] as part of an ongoing quality control chemist program and in compliance with federally mandated [...] determined by the Surgical Pathology Department of [facility]. It has not been cleared or approved by the U. S. Food and Drug Administration. us Wilson Zhang MD LAB CYTOLOGY ORDERABLES Final Result PATHOLOGY [facility] 3rd Floor [place], [place] [phone] * Hepatitis C antibody (11/09/2022 11:11 AM CDT) Hep C Ab Nonreactive Nonreactive DANISH [facility] Comment:Antibodies to HCV no t detected. Does NOT exclude the possibility of recent exposure to HCV. Current interpretive data was last revised on 21 Blood 11/09/2022 11:1 1 AM CDT 11/09/2022 1:25 PM CDT Keon Muniz MD LAB MICROBIOLOGY - GENERA L ORDERABLES Final Result [facility] Department [place] [address] from Last 3 Months or Most Recently Relevant to Health Maintenance Insurance CHOICE [facility] [place] [facility] BL [place] Advance Directives For more information, please contact: [phone] * Full Code (Latest Code Status on File) Date Activated Date Inactivated Comments 01/17/2023 6:27 AM 01/18/2023 4:38 AM * Full Code Date Activated Date Inactivated Comments 02/23/2021 12:15 PM 02/23/2021 7:05 PM * Full Code Date Activated Date Inactivated Comments 09/03/2019 7:27 AM 09/03/2019 1:47 PM Care Teams Bindery Operator Relationship Specialty Start Date End Date Gennaro Boone MD PCP - General 12/05/16 Cira Gamboa MD Consulting Physician Endocrinology 03/19/22 Rico Hernandez MD [address] [facility] [phone] [place] [address] Textile Conservator Obstetrics and Gynecology 11/01/22 Keon Muniz MD [address] [facility] [address] [place] [address] Consulting Physician Reproductive Endocrinology and Infertility 01/24/24 Nicky Thayer MD [address] [address] Textile Conservator Obstetrics and Gynecology 10/30/24 Kimmy Albert MD [address] [facility] [place] [address] Consulting Physician Physical Medicine and Rehabilitation 12/30/24
--- OUTSIDE RECORDS SUMMARY | 2025-03-26 08:43 | XMS_ITS | Encounter Summary ---
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 Gender Identity Female 10/15/2019 6:32 PM CDT Sexual Orientation Straight 08/26/2019 7: 34 PM CDT documented as of this encounter Functional Status * Question Answer Date of Assessment Author MAP (mmHg) 75 01/23/2023 2:56 PM CDT Tracy Adamson RN * Baron Fall Risk Question Answer Date of Assessment Author History of Falling 25 01/23/2023 1:37 PM CDT Tracy Ramos RN Secondary Diagnosis 15 01/23/2023 1:37 PM CD T Tracy Ramos RN Ambulatory Aids 0 01/23/2023 1:37 PM CDT Richelle wlessTracy RN Intravenous Therapy/Heparin/Saline Lock 0 01/23/2023 1:37 PM CDT Tracy Ramos RN Gait/Transferring 0 01/23/2023 1:37 PM CDT Tracy Ramos RN Mental Status 0 01/23/2023 1:37 PM CDT Tracy Ward RN Baron Fall Risk Score (Score >= 45 places fall precaution order) 40 01/23/2023 1:37 PM CDT Tracy Ramos RN Prior Fall Event (Autopopulated from EMR) None found 01/23/2023 1:37 PM CDT Bryan Ramos RN * Alcohol Withdrawal BP Hierarchy Answer Date of Assessment Author 85 01/23/2023 1:38 PM CDT Tracy Ramos RN documented as of this encounter Plan of Treatment Not on file documented as of this encounter Visit Diagnoses Not on filedocumented in this encounter Additional Health Concerns Infection Onset Date Last Indicated Resolved Time COVID: Suspected 10/20/2023 10/20/2023 10/20/2023 11:03 AM CDT documented as of this encounter Care Teams Cleaning Professional Relationship Specialty Start Date End Date Gennaro Boone MD PCP - General 12/05/16 Cira Gamboa MD Consulting Physician Endocrinology 03/19/22 Rico Hernandez MD [address] [facility] [phone] [place] [address] Gum Scoring Machine Operator Obstetrics and Gynecology 11/01/22 Keon Muniz MD [address] [facility] [address] [place] [address] Consulting Physician Reproductive Endocrinology and Infertility 01/24/24 Nicky Thayer MD [address] [place] [address] Gum Scoring Machine Operator Obstetrics and Gynecology 10/30/24 Kimmy Albert MD [address] [facility] [place] [address] Consulting Physician Physical Medicine and Rehabilitation 12/30/24 documented as of this encounter
--- OUTSIDE RECORDS SUMMARY | 2025-03-26 08:43 | XMS_ITS | Encounter Summary ---
Author Organization [facility] Address [address] [place] [address] Phone Care Team Providers Care Pattern Hanger Name Role Phone Gennaro Boone MD Primary Care Provider Cira Gamboa MD Unavailable Rico Hernandez MD Unavailable Keon Muniz MD Unavailable Nicky Thayer MD Unavailable Kimmy Albert MD Unavailable Encounter Details Date Type Department Care Team (Late st Contact Info) Description 02/18/2025 Results Follow-Up [facility] Endocrinology Metabolism and Lipid [address] [facility] Advanced Medicine [address] [place] [address] [place] [address] Cira Gamboa MD [address] [address] Vitamin D 25 hydroxy, PTH, [...] PM CDT 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 Gender Identity Female 10/15/2019 6:32 PM CDT Sexual Orientation Straight 08/26/2019 7: 34 PM CDT documented as of this encounter Plan of Treatment Not on file documented as of this encounter Visit Diagnoses Not on filedocumented in this encounter Care Teams Pattern Hanger Relationship Specialty Start Date End Date Gennaro Boone MD PCP - General 12/05/16 Cira Gamboa MD Consulting Physician Endocrinology 03/19/22 Rico Hernandez MD [address] [facility] [phone] [place], [place] [id number] Trouble Clerk Obstetrics and Gynecology 11/01/22 Keon Muniz MD [address] [facility] [address] [place] [address] Consulting Physician Reproductive Endocrinology and Infertility 01/24/24 Nicky Thayer MD [address] [place] [address] Trouble Clerk Obstetrics and Gynecology 10/30/24 Kimmy Albert MD [address] [facility] [place] [address] Consulting Physician Physical Medicine and Rehabilitation 12/30/24 documented as of this encounter
--- OUTSIDE RECORDS SUMMARY | 2025-03-26 08:43 | XMS_ITS | Clinical Summary ---
Author Organization [facility] Address [address] [facility] [place] [address] Care Team Providers Care Homicide Detective Name Role Phone Gennaro Boone MD Primary Care Provider [phone] Source Comments [facility],non-owned Affiliates and Associated Physician Practices is amultiple site organization consisting of ambulatory clinics and hospital sitesin [place], [place], [place] and [place]. This disclosure is being madepursuant to the Care Everywhere program and may not contain all information available regarding this patient. 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
--- OUTSIDE RECORDS SUMMARY | 2025-03-26 08:43 | XMS_ITS | Patient Health Record ---
Author Organization [facility] Jeanette bainbridgeent Address [address] [place] [address] [place] [address] Care Team Providers Care Research Geneticist Name Role Phone Gennaro Boone Primary Care Provider Cosme Brown Unavailable [phone] Trevon Melton Unavailable Unavailable Allergies Allergen (clinical drug ingredient) Drug/Non Drug Allergy documented on EMR Reaction Allergy Type Onset Date Status chlorhexidine Chlorhexidine Unknown Drug Allergy Active hydrocodone HYDROcodone Unknown Drug Allergy Act chelsea Penicillin Unknown Drug Allergy Active Reason For Referral Reason C6-7 Translaminar Diagnosis 1 Radiculopathy, cervi hawk region (M54.12) Referred Organization [facility] Referred Provider Cosme Ko Referred Address [address],[place], [place],[address], Referred Provider Specialty Pain Medicin e Procedure 1 EPIDURAL CERV/THOR W /IMAGING GUIDANCE (50600) General Notes approved through car jason scanned in chart, Kallie Eaton 03/23/2025 12:38:31 PM > Referral Priority Routine Reason Finding of elevated blood pressure, ref sent to PCP Diagnosis 1 Elevated blood-press ure reading, without diagnosis of hypertension (R03.0) Referral Organization [facility] Referring Provider First Name Cosme Referring Provider Last Name Stefani Referring Provider Speciality Pain Medic ine Referral Priority Routine Medications Medication SIG (Take, Route, Frequency, Duration) Notes Start Date End Date Status Qulipta 60 MG 1 tablet Orally Once a day Active NexIUM 20 MG 1 capsule 1/2 to 1 hour before morning meal Orally Once a day Active Finasteride 5 MG 1 tablet Orally Once a day Active Vyvanse 40 MG 1 capsule in the morning Orally Once a day Active metFORMIN HCl ER 500 MG Oral; Duration: 90 Days Active Meloxicam 15 MG 1 tablet Orally Once a day Active Januvia 100 MG Oral; Duration: 30 Days Active Xyzal Allergy 24HR 5 MG 1 tablet in the evening Orally Once a day Active Minoxidil 2.5 MG TAKE 1/4 TABLET BY MOUTH DAILY Oral; Duration: 90 Days Active Calcium 600 MG 1 tablet with meals Orally Twice a day Active Escitalopram Oxalate 20 MG TAKE 1 TABLET BY MOUTH DAILY Oral; Duration: 90 Days Active traMADol HCl 50 MG 1 tablet as needed Orally Every 8 hours; Duration: 30 days 03/23/2025 04/22/2025 Active Xanax 0.5 MG 1 tablet Orally Twic e a day as needed Active Lipitor 40 MG 1 tablet Orally Once a day Active tiZANidine HCl 4 MG 1 tablet as needed Orally every 8 hrs as needed Active Spironolactone 100 MG 1 tablet Orally On ce a day Active Zofran as needed Active Ezetimibe 10 MG Oral; Duration: 90 Days Active Ubrelvy as needed Active Gabapentin 100 MG TAKE 1 CAPSULE BY MOUTH TWICE DAILY AND 3 CAPSULES BY MOUTH IN THE EVENING Oral; Duration: 30 Days Active Social History Tobacco Use: Social History Observation Description Date Details (start date - stop date) Never Smoker NA - NA Tobacco Control (Standard) Question Answer Notes Tobacco use: Nonsmoker AUDIT-C (Standard) Question Answer Notes Did you have a drink containing alcohol in the p ast year? No Points 0 Interpretation Negative Problems Problem Type SNOMED Code ICD Code Onset Dates Problem Status W/U Status Risk Notes Problem Cervical radiculopathy (44520982) Radiculopathy, cervical region (M54.12) Active confirmed Problem Degeneration of cervical intervertebral disc (15492054) Other cervical disc degeneration at C6-C7 level (M50.323) Active confirmed Vital Signs Heart Rate 109 /min 03/23/2025 Temperature 97.5 degrees Fahrenheit 03/23/2025 Respiratory Rate 20 /min 03/23/2025 Blood pressure diastolic 70 mm Hg 03/23/2025 Height 62in in 03/23/2025 Blood pressure systolic 135 mm Hg 03/23/2025 Weight 213 lbs 03/23/2025 BMI 38.95 kg/m2 03/23/2025 Encounters Encounter Location Date Provider Diagnosis [facility] [address] [place] [address] 03/23/2025 Cosme Ko Radiculopathy, cervical region M54.12 and Other cervical disc degeneration at C6-C7 level M50.323 [facility] [address] [place] [address] 03/23/2025 Cosme Ko Assessments Encounter Date Diagnosis (ICD Code) Assessment Notes Treatment Notes Treatment Clinical Notes Section Notes 03/23/2025 Radiculopathy, cervical region (ICD-10 - M54.12) 1. Schedule patient for C6-C7 translaminar cervical dural steroid injection.2. Patient given prescription for tramadol as needed while we await authorization for procedure.3. Return for above procedure after insurance authorization. 03/23/2025 Other cervical disc degeneration at C6-C7 level (ICD-10 - M50.323) Plan Of Treatment Next Appt Details Provider Name:Cosme travis, 04/02/2025 09:45:00 AM, [address], [address], [place], [address], Insurance Providers Payer Name Payer Address Payer Phone Subscriber Number Group Number Insured Name Patient Relationship to Insured Coverage Start Date Coverage End Date [facility] [address] [place] [phone] [id number] Elin Guillory Self - patient is the insured Medical (General) History Medical History History ICD Code grade 2 diastolic dysfunction of left ve ntricle cervical cancer osteoarthritis kidney stones headaches migraines IBS GERD left lung pulmonary umbolism (resolved ) anxiety panic attacks Surgical History Surgery Date(Month/Year) left knee 2000 right ankle reconstruction 2002 exploratory abdominal laparoscopy 2005 LEEP 2007, 2011 gallbladder removed 2013 right ankle reconstruction 2014 colonoscopy and EDG, 2 subse quent EDG's preformed to stretch pyloric sphincter 2016 exploratory abdominal laparoscopy 2020 cold knife conization 2023 total hysterectomy w/ ovary removal 01/28 left kidney lithotripsy 03/02/2025
== END 2025-03-26 08:40 | disposition home or self-care (01) ==
PROVIDERS: PCP Family Medicine; Visit Provider Urology
DX: N20.0 Calculus of kidney (principal)
CPT/HCPCS: 74018